=== PATIENT | male | born 1980 | race Caucasian/White ===

== ENCOUNTER 2022-05-30 13:20 | Outpatient (CLI) | payer BC, SELFPAY ==
--- OUTSIDE RECORDS SUMMARY | 2022-05-30 13:39 | XMS_ITS ---
:1980 Author Care Team Providers Name Role Phone JENNIFER COLEY MD Primary Care Provider [phone] Allergies Code Code System Name Reaction Severity Status Onset NKDA ? Medications Name Status Start Date Stop Date ? ? calcium carb-D3-mag ox-zinc ox Active ? N ot available desvenlafaxine succinate ER 50 mg tablet,extended release 24 hr Completed ? 08/05/2020 TK 1 T PO ONCE D dextroamphetamine-amphetamine ER 20 mg 24hr capsule,extend relea se Active ? Not available TAKE 2 CAPSULES BY MOUTH EVERY DAY Flonase Allergy Relief Active ? Not avail able lysine Active ? Not available pentoxifylline ER 400 mg tablet,extended release Active ? Not available sildenafil 100 mg tablet Active ? Not satinder ilable Take 1 tablet every day by oral route. tadalafil 20 mg tablet Active ? Not avail able Take 1 tablet every day by oral route. Problems None recorded. Procedures Date Name Performed by ? ? Orthopedic Surgery Information not avai lable Notes: foot ? Reversal of Vasectomy Information not av ailable ? Vasectomy Information not avai lable Results Lab Results None recorded. Past Encounters None recorded. Social History Tobacco Smoking Status Never Smoker Vaccine List None recorded. Plan of Care Reminders Provider Appointments None recorded. ? ? Lab None recorded. ? ? Referral None recorded. ? ? Procedures None recorded. ? ? Surgeries None recorded. ? ? Imaging None recorded. ? ? Vitals 10/28/2020 10:10AM ESTABLISHED 10 Height Weight BMI 6 ft 1 in 250 lbs 33 kg/m2 08/05/2020 01:50PM NEW PATIENT 20 Height Weight BMI 6 ft 1 in 250 lbs 33 kg/m2
--- OUTSIDE RECORDS SUMMARY | 2022-05-30 13:40 | XMS_ITS | Encounter Summary ---
:1980 Author Organization [facility] Address [address] [place] [address]. [place] [address] Care Team Providers Name Role Phone Brianna Cortes MD Primary Care Provider Reason for Referral Referral not Required - Closed Specialty Diagnoses / Procedures Referred By Contact Refer red To Contact Diagnoses Sprain of back Brianna Cortes MD [facility] [address] [address] [place] [address] Phone: [phone] Referral ID Status Reason Start Date Expiration Date Visits Requ ested Visits Authorized [id number] Closed 11/10/2012 05/09/2013 1 1 Reason for Visit Reason Comments Allergies Encounter Details Date Type Department Care Team Description 11/10/2012 Office Visit [facility] Brianna Cortes MD Rhinitis (Primary Dx); Clinic [facility] Sprain of back [id number] [address] [place] [address] Social History Tobacco Use Types Packs/Day Years Used Date Smoking Tobacco: Never Smokeless Tobacco: Never Alcohol Use Standard Drinks/Week Comments Yes 0 (1 standard drink = 0.6 oz pure alcoho l) 1 beer every two weeks or so Sex Assigned at Date Recorded Not on file documented as of this encounter Last Filed Vital Signs Vital Sign Reading Time Taken Comments Blood Pressure 118/74 11/10/2012 12:11 PM CDT Pulse 78 11/10/2012 12:11 PM CDT Temperature 37 ??C (98.6 ??F) 11/10/2012 12:11 PM CDT Respiratory Rate - - Oxygen Saturation 99% 11/10/2012 12:11 PM CDT Inhaled Oxygen Concentration - - Weight 105.2 kg (232 lb) 11/10/2012 12:11 PM CDT Height 182.9 cm (6') 11/10/2012 12:11 PM CDT Body Mass Index 31.46 11/10/2012 12:11 PM CDT documented in this encounter Patient Instructions Patient InstructionsWBrianna french MD - 11/10/2012 12:34 PM CDT Use nasal spray as given Add over the counter jesús, claritin or zyrtec as directed Ok to use sudaphed as needed No need to use antibiotics Follow up in 2-3 weeks if still issues or sooner with any worsening Thanks Brianna Cortes MD documented in this encounter Progress Notes Brianna Cortes MD - 11/10/2012 12:13 PM CDT SUBJECTIVE: Bhavik Jeffery is a 32 year old male who presents to clinic today for the following health issues: Patient is here with concerns about allergies ALLERGIES ?? Duration: ongoing, worse as of late-last couple weeks ?? Description: Nasal congestion: YES Sneezing: YES- some Red, itchy eyes: no ?? Accompanying signs and symptoms: throat issues with postnasal drip and throat clearing, some coughing, (dry) ?? History (similar episodes/allergy testing): HX of allergies ?? Precipitating or alleviating factors: None ?? Therapies tried and outcome: Jesús -helping with symptoms PROBLEMS TO ADD ON... Upper back strain Off and on pain for a while Moving certain way brings this on Not making up from sleep due to this Not associated with chest pain, neck pain, jaw pain, shortness of breath No other respiratory symptoms with this Patient is seeing chiropractor currently-with some relief Denies any shoulder or arm pain. Problem list and histories reviewed & adjusted, as indicated. Additional history: as documented ROS: See history of present illness, past medical history and rest is negative Problem list, Medication list, Allergies, and Medical/Social/Surgical histories reviewed in [facility] andupdated as appropriate. OBJECTIVE: BP 118/74 Pulse 78 Temp 98.6 ??F (37 ??C) (Oral) Ht 6' (1.829 m) Wt 232 lb (105.235 kg) BMI 31.47 kg/m2 SpO2 99% Body mass index is 31.47 kg/(m^2). GENERAL: healthy, alert, well nourished, well hydrated, no distress HENT: ear canals- normal; TMs- normal; Nose- with mild congestion with clear drainage; Mouth- no ulcers, no lesions Face: No sinus tenderness NECK: no tenderness, no adenopathy, no asymmetry, no masses, no stiffness; thyroid- normal to palpation, no spinal vertebral tenderness Thoracic spine: Nontender Bilateral scapula and shoulders: Nontender, range of motion intact RESP: lungs clear to auscultation - no rales, no rhonchi, no wheezes, positive for spasms around paraspinal muscular area around thoracic spine-patient feels at times also strain around the neck area-none noted today CV: regular rates and rhythm, normal S1 S2, no S3 or S4 and no murmur, no click or rub - Diagnostic test results: none ASSESSMENT/PLAN: 472.0 Rhinitis (primary encounter diagnosis) Comment: Plan: fluticasone (FLONASE) 50 MCG/ACT nasal spray 847.9 Sprain of back Comment: We discussed options of management Usage of ekg and cxr reviewed-due to nature of his exam I suspect this is musculoskeletal in nature-pt agrees to hold off ekg and cxr Plan: OBED PT, HAND, AND CHIROPRACTIC REFERRAL In the absence of spinal vertebral tenderness-no need to do x-ray Patient will do physical therapy And update me after doing this See Patient Instructions reports that he has never smoked. He has never used smokeless tobacco. Estimated Body mass index is 31.47 kg/(m^2) as calculated from the following: Height as of this encounter: 6' 0(1.829 m). Weight as of this encounter: 232 lb(105.235 kg). Brianna Cortes MD, MD [facility] Patient Instructions Use nasal spray as given Add over the counter jesús, claritin or zyrtec as directed Ok to use sudaphed as needed No need to use antibiotics Follow up in 2-3 weeks if still issues or sooner with any worsening Thanks Brianna Cortes MD documented in this encounter Nursing Notes 11/10/2012 12:00 PM CDT >> BERNARDO NICHOLS Mon November 10, 2012 12:15 PM Patient presents with: Allergies Initial BP 118/74 Pulse 78 Temp 98.6 ??F (37 ??C) (Oral) Ht 6' (1.829 m) Wt 232 lb (105.235 kg) BMI 31.47 kg/m2 SpO2 99% Estimated Body mass index is 31.47 kg/(m^2) as calculated from the following: Height as of this encounter: 6' 0(1.829 m). Weight as of this encounter: 232 lb(105.235 kg). BP completed using cuff size: barb Nichols ROOFING SALES REPRESENTATIVE documented in this encounter Plan of Treatment Scheduled Referrals Name Type Priority Associated Diagnoses Order S chedule OBED PT, HAND, AND Referral Routine Sprain of back Ordered: 11/10/2012 CHIROPRACTIC REFERRAL documented as of this encounter Visit Diagnoses Diagnosis Rhinitis - Primary Chronic rhinitis Sprain of back Sprain of unspecified site of back documented in this encounter Care Teams Alpaca Farmer Relationship Specialty Start Date End Date Brianna Cortes MD PCP - General 03/05/08 01/03/[address] [address] documented as of this encounter
--- OUTSIDE RECORDS SUMMARY | 2022-05-30 13:40 | XMS_ITS | Encounter Summary ---
:1980 Author Organization [facility] Address [address] [place] [address]. [place] [address] Care Team Providers Name Role Phone Oneida Goodman APRN EDGE RUNNER Primary Care Provider [phone] Encounter Details Date Type Department Care Team Description 12/24/2016 Orders Only [facility] Scr een for STD (sexually [facility] transmitted disease) [address] [place] [address] Social History Tobacco Use Types Packs/Day Years Used Date Smoking Tobacco: Never Smokeless Tobacco: Never Alcohol Use Standard Drinks/Week Comments Yes 0 (1 standard drink = 0.6 oz pure alcoho l) 1 beer every two weeks or so Sex Assigned at Date Recorded Not on file documented as of this encounter Plan of Treatment Not on filedocumented as of this encounter Procedures Procedure Name Priority Date/Time Associated Diagnosis Comme nts HERPES SIMPLEX Routine 12/24/2016 4:34 PM Screen for STD Resul ts for this VIRUS TYPE 1 AND 2 CDT (sexually procedure are in IGG transmitted disease) the res ults section. documented in this encounter Results Herpes Simplex Virus 1 and 2 IgG (12/24/2016 4:34 PM CDT) Component Value Ref Test Analysis Performed At [facility] Range Method Time Signature Herpes <0.2 0.0 - [facility] Simplex Virus No HSV-1 IgG antibodies detected. 0.8 AI [place] [facility] Type 1 IgG Antibody index (AI) values reflect qualitative changes in antibody [facility] concentration that cannot be directly associated with clinical condition or CAMP[facility] disease state. Herpes <0.2 0.0 - [facility] Sim[facility] Virus No HSV-2 IgG antibodies detected. 0.8 AI [place] [facility] Type 2 IgG Antibody index (AI) values reflect qualitative changes in antibody [facility] concentration that cannot be directly associated with clinical condition or CAMPUS disease state. Specimen Anatomical Collection Method Collection Time Receive d Time (Source) Location / / Volume Laterality Blood specimen 12/24/2016 4:34 PM 017 4:39 (specimen) CDT PM CDT Karla Breen NP LAB - BLOOD ORDERABLES Performing Organization Address City/State/[facility] Code Phon e Number [facility] [address] [place], [place] [phone] [place] [address] documented in this encounter Visit Diagnoses Diagnosis Screen for STD (sexually transmitted dis ease) Screening examination for venereal disea se documented in this encounter Care Teams Assisted Living Nursing Director Relationship Specialty Start Date End Date Oneida Goodman, PCP - General Nurse Practitioner - Family 12/2301/22/17 CERTIFIED NURSE PRACTITIONER EDGE RUNNER documented as of this encounter
--- OUTSIDE RECORDS SUMMARY | 2022-05-30 13:40 | XMS_ITS | Encounter Summary ---
:1980 Author Organization [facility] Address [address] [place] [address]. [place] [address] Care Team Providers Name Role Phone Brianna Cortes MD Primary Care Provider Reason for Visit OBED Physical Therapy (Routine) - Closed Specialty Diagnoses / Procedures Referred By Contact Refer red To Contact Brianna Cortes MD [facility] Physical Therapy - [address] [place] [phone] [place] [address] Phone: Fax: Referral ID Status Reason Start Date Expiration Date Visits V isits Requested Authorized OBED/CIGNA/BACK Closed 11/12/2012 06/23/2013 20 20 Encounter Details Date Type Department Care Team Description 11/20/2012 Therapy Visit [facility] Ephraim Thomson Cervi calgia (Primary Dx); Rehabilitation Services PT Pain in thoracic spine [address] [place] [address] [place] [place] [address] [place] [phone] [address] Social History Tobacco Use Types Packs/Day Years Used Date Smoking Tobacco: Never Smokeless Tobacco: Never Alcohol Use Standard Drinks/Week Comments Yes 0 (1 standard drink = 0.6 oz pure alcoho l) 1 beer every two weeks or so Sex Assigned at Date Recorded Not on file documented as of this encounter Progress Notes Sindy Murphy - 11/20/2012 9:56 AM CDT Subjective: Medical allergies: no. Other surgeries include: Other (Lasik). Current medications: Other (adderal,fish oil, llyseine, vitamins). 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 Patient is working in normal job without restrictions. Primary job tasks include: Prolonged sitting, repetitive tasks and other (flying). Barriers include: None as reported by patient. Objective: System Physical Exam General ROS Assessment/Plan: Please refer to the daily flowsheet for treatment today, total treatment time and time spent performing 1:1 timed codes. Ephraim Thomson, PT - 11/20/2012 9:28 AM CDT Subjective: Pt describes intermittent interscapular pain. Began insidiously about 18 months ago. . Patient reports pain: Mid thoracic and upper thoracic. Radiates to: bilat shoulder blades. Pain is described as burning and aching and is intermittent and reported as 4/10. Pain is worse in the P.M.. Symptoms are exacerbated by sitting and driving (Bending over, computer work, lifting with arms) Relieved by: Lying down, sitting up straight. Since onset symptoms are unchanged. Special tests: X- ray (Normal). Previous treatment includes chiropractic (x 1 year- no better). General health as reported by patient is good. Objective: Standing Alignment: Cervical/Thoracic: Forward head Flexibility/Screens: Positive screens: CervicalNegative screens: Thoracic or Shoulder Cervical/Thoracic Evaluation Arom wnl cervical: Retraction slightly limited with no effect on sxs. Thoracic AROM: normal AROM: AROM Cervical: Flexion: Full with increased pain Extension: Full with decreased pain Rotation: Left: Slight loss Right: Full Side Bend: Left: Mod loss Right: Full Headaches: none Cervical Myotomes: normal Cervical Palpation: normal General ROS Assessment/Plan: Patient is a 32 year old male with cervical complaints. Patient has the following significant findings with corresponding treatment plan. Diagnosis 1: Cervical derangement Pain - self management, education, directional preference exerciseand home program Decreased ROM/flexibility - manual therapy, therapeutic exercise and home program Previous and current functional limitations: (See Goal Flow Sheet for this information) Short term and snf goals: (See Goal Flow Sheet for this information) Communication ability: Patient appears to be able to clearly communicate and understand verbal and written communication and follow directions correctly. Treatment Explanation - The following has been discussed with the patient: RX ordered/plan of care Anticipated outcomes Possible risks and side effects This patient would benefit from PT intervention to resume normal activities. Rehab potential is good. Frequency: 1 X week, once daily Duration: for 4 weeks Discharge Plan: Achieve all LTG. Independent in home treatment program. Reach maximal therapeutic benefit. Please refer to the daily flowsheet for treatment today, total treatment time and time spent performing 1:1 timed codes. documented in this encounter Plan of Treatment Not on filedocumented as of this encounter Procedures Procedure Name Priority Date/Time Associated Diagnosis Comme [facility] THERAPEUTIC Routine 11/20/2012 9:48 AM Cervicalgia EXERCISES CDT Pain in thoracic spine documented in this encounter Visit Diagnoses Diagnosis Cervicalgia - Primary Pain in thoracic spine documented in this encounter Care Teams Special Projects Coordinator Relationship Specialty Start Date End Date Brianna Cortes MD PCP - General 03/05/08 01/03/[address] [address] documented as of this encounter
--- OUTSIDE RECORDS SUMMARY | 2022-05-30 13:40 | XMS_ITS | Encounter Summary ---
:1980 Author Organization [facility] Address [address] [place] [address]. [place] [address] Care Team Providers Name Role Phone Brianna Cortes MD Primary Care Provider Reason for Visit Reason Comments Ear Problem left ear - pain - no cold sy mptoms - started a week ago Encounter Details Date Type Department Care Team Description 06/02/2013 Office Visit [facility] Robert-Jitendra, Acute foreign body of ear canal, left, initial encounter (Primary Dx); [facility] Susan Casillas PA-C Need for prophylactic vaccination and in oculation against influenza [address] [place] [id number] [phone] Social History Tobacco Use Types Packs/Day Years Used Date Smoking Tobacco: Never Smokeless Tobacco: Never Alcohol Use Standard Drinks/Week Comments Yes 0 (1 standard drink = 0.6 oz pure alcoho l) 1 beer every two weeks or so Sex Assigned at Date Recorded Not on file documented as of this encounter Last Filed Vital Signs Vital Sign Reading Time Taken Comments Blood Pressure 120/78 06/02/2013 2:31 PM RISK CONTROL FIELD REPRESENTATIVE Pulse 97 06/02/2013 2:31 PM RISK CONTROL FIELD REPRESENTATIVE Temperature 37 ??C (98.6 ??F) 06/02/2013 2:31 PM RISK CONTROL FIELD REPRESENTATIVE Respiratory Rate - - Oxygen Saturation 98% 06/02/2013 2:31 PM RISK CONTROL FIELD REPRESENTATIVE Inhaled Oxygen Concentration - - Weight 107.9 kg (237 lb 12.8 oz) 06/02/2013 2:31 PM RISK CONTROL FIELD REPRESENTATIVE Height 182.9 cm (6') 06/02/2013 2:31 PM RISK CONTROL FIELD REPRESENTATIVE Body Mass Index 32.25 06/02/2013 2:31 PM RISK CONTROL FIELD REPRESENTATIVE documented in this encounter Progress Notes Jenny Johnson - 06/02/2013 3:30 PM CST Injectable Influenza Immunization Documentation 1. Is the person to be vaccinated sick today? No 2. Does the person to be vaccinated have an allergy to eggs or to a component of the vaccine? No 3. Has the person to be vaccinated today ever had a serious reaction to influenza vaccine in the past? No 4. Has the person to be vaccinated ever had Guillain-[place] syndrome? No Form completed by patient Form reviewed by jenny CONTROL FIELD REPRESENTATIVE Susan Yin PA-C - 06/02/2013 2:33 PM CST SUBJECTIVE: Bhavik Jeffery is a 32 year old male who presents to clinic today for the following health issues: Feels like there is something in left ear No fever uri symptoms or actual pain. Did get his hair cut Problem list and histories reviewed & adjusted, as indicated. Additional history: as documented Patient Active Problem List Diagnosis ??? Attention Deficit Disorder of Adult ??? Allergic state ??? CARDIOVASCULAR SCREENING; LDL GOAL LESS THAN 160 ??? Family history of coronary artery disease ??? Low HDL (under 40) ??? Obesity ??? Cervicalgia ??? Pain in thoracic spine Past Surgical History Procedure Date ??? Tonsillectomy 2005 ??? Cl aff surgical pathology ??? Vasectomy 2004 reversal done in 2007-going for another reversal in near future ??? Vasectomy 2012 reversal 2 cd reversal History Substance Use Topics ??? Smoking status: Never Smoker ??? Smokeless tobacco: Never Used ??? Alcohol Use: Yes Comment: 1 beer every two weeks or so Family History Problem Relation Age of Onset ??? Family History Negative Mother parents are both alive and healthy ??? Obesity Father ??? Heart Father 60 quintuple bypass ??? Diabetes Maternal Grandfather due to weight ??? Obesity Maternal Grandfather ??? Stroke Paternal Grandmother ??? Heart Paternal Grandfather bypass-several times-first one at 60 ??? Family History Negative Sister ??? Family History Negative Brother ??? Colon CA Maternal Uncle diagnosed in his 50's ??? Prostatic CA No family hx of ROS: Constitutional, HEENT, cardiovascular, pulmonary, gi and gu systems are negative, except as otherwise noted. OBJECTIVE: BP 120/78 Pulse 97 Temp 98.6 ??F (37 ??C) (Oral) Ht 6' (1.829 m) Wt 237 lb 12.8 oz (107.865 kg) BMI 32.25 kg/m2 SpO2 98% Body mass index is 32.25 kg/(m^2). GENERAL APPEARANCE: healthy, alert and no distress HENT: nose and mouth without ulcers or lesions Left ear canal had a hair embedded and was easily removed RESP: lungs clear to auscultation - no rales, rhonchi or wheezes CV: regular rates and rhythm, normal S1 S2, no S3 or S4 and no murmur, click or rub ASSESSMENT/PLAN: 931 Acute foreign body of ear canal, left, initial encounter (primary encounter diagnosis) Comment: Plan: hair inside left ear canal and easily removed with tweezer V04.81 Need for prophylactic vaccination and inoculation against influenza Comment: Plan: FLU VAC, SPLIT VIRUS IM > 3 YO (QUADRIVALENT) [96635], Seasonal Injectionable Immunization Administration [61213] See Patient Instructions Susan Yin PA-C, [facility] CONTROL FIELD REPRESENTATIVE documented in this encounter Plan of Treatment Not on filedocumented as of this encounter Visit Diagnoses Diagnosis Acute foreign body of ear canal, left, i nitial encounter - Primary Need for prophylactic vaccination and in oculation against influenza documented in this encounter Care Teams Chemical Compounder Relationship Specialty Start Date End Date Brianna Cortes MD PCP - General 03/05/08 01/03/[address] [address] documented as of this encounter
--- OUTSIDE RECORDS SUMMARY | 2022-05-30 13:40 | XMS_ITS | Encounter Summary ---
:1980 Author Organization [facility] Address [address] [place] [address]. [place] [address] Care Team Providers Name Role Phone Brianna Cortes MD Primary Care Provider Encounter Details Date Type Department Care Team Description 11/02/2013 Radiant Appointment [facility] Brianna Cortes MD Pain in left wrist [address] [address] [place], [place] [phone] [id number] Social History Tobacco Use Types Packs/Day Years [...] Name Priority Date/Time Associated Diagnosis Comme nts XR WRIST LEFT G/E 3 Routine 11/02/2013 9:55 AM Pain in left wr ist Results for this VIEWS CDT procedure are i n the results section. documented in this encounter Results XR Wrist Left G/E 3 Views (11/02/2013 9:55 AM CDT) Anatomical Region Laterality Modality Left Wrist Left Computed Radiography Specimen (Source) Anatomical Location Collection Method / Collectio n Time Received Time / Laterality Volume Impressions 11/02/2013 10:10 AM CDT IMPRESSION: Negative. JONNIE NASH MD Narrative 11/02/2013 10:10 AM CDT XR WRIST LEFT G/E 3 VIEWS 11/02/2013 10:09 AM HISTORY: Pain in joint, forearm ? Procedure Note Jonnie Nash MD - 11/02/2013Formatt ing of this note might be different from the original. XR WRIST LEFT G/E 3 VIEWS 11/02/2013 10:0 9 AM HISTORY: Pain in joint, forearm IMPRESSION IMPRESSION: Negative. JONNIE NASH MD Brianna Cortes MD IMG DIAGNOSTIC IMAGING ORDER GORAN documented in this encounter Visit Diagnoses Diagnosis Pain in left wrist Pain in joint, forearm documented in this encounter Care Teams Felt Hat Steamer Relationship Specialty Start Date End Date Brianna Cortes MD PCP - General 03/05/08 01/03/[address] [address] documented as of this encounter
--- OUTSIDE RECORDS SUMMARY | 2022-05-30 13:40 | XMS_ITS | Encounter Summary ---
:1980 Author Organization [facility] Address [address] [place] [address]. [place] [address] Care Team Providers Name Role Phone Susan Yin PA-C Primary Care Provider [phone] Susan Yin PA-C Unavailable Susan Yin PA-C Unavailable Encounter Details Date Type Department Care Team Description 04/15/2018 Orders Only [facility] Scr eening for disorder of blood and blood-forming organs; [facility] Lipid screening; [address] [place] [address] Screening for thyroid disord er; [place] [address] Erectile dysfunction, unspec ified erectile dysfunction type [phone] Social History Tobacco Use Types Packs/Day Years Used Date Smoking Tobacco: Never Smokeless Tobacco: Never Alcohol Use Standard Drinks/Week Comments Yes 0 (1 standard drink = 0.6 oz pure alcoho l) 1 beer every two weeks or so Sex Assigned at Date Recorded Not on file documented as of this encounter Progress Notes Susan Yin PA-C - 05/06/2018 9:32 AM CST Dear Bhavik, It was a pleasure to see you at your recent visit. Patient Active Problem List: Attention deficit disorder of adult Allergic state Family history of coronary artery disease Low HDL (under 40) Obesity Cervicalgia Pain in thoracic spine The results of your recent total cholesterol test were within normal limits. Your total cholesterol should be less than 200. The primary goal of therapy is the LDL or bad cholesterol. Your LDL level was within normal limits. Your LDL goal based on risk factors (i.e. smoking, family history, high blood pressure, low HDL cholesterol) and age is 160. Your HDL, or good cholesterol is normal. Your goal is an HDL level above 40 if you are male and 50if you are female Triglycerides are another cholesterol component that is associated with heart disease. Normal triglycerides are less than 150. Your triglyceride level is normal. I would recommend: no changes in current regimen and repeat fasting lipids and liver tests in 12 months. Testosterone was within normal limits The rest of your labs are within acceptable limits : Results for orders placed or performed in visit on 04/15/18 -CBC with platelets Result Value Ref Range WBC 5.0 4.0 - 11.0 10e9/L RBC Count 5.06 4.4 - 5.9 10e12/L Hemoglobin 15.3 13.3 - 17.7 g/dL Hematocrit 43.5 40.0 - 53.0 % MCV 86 78 - 100 fl MCH 30.2 26.5 - 33.0 pg MCHC 35.2 31.5 - 36.5 g/dL RDW 12.8 10.0 - 15.0 % Platelet Count 174 150 - 450 10e9/L -Comprehensive metabolic panel Result Value Ref Range Sodium 139 133 - 144 mmol/L Potassium 4.3 3.4 - 5.3 mmol/L Chloride 105 94 - 109 mmol/L Carbon Dioxide 29 20 - 32 mmol/L Anion Gap 5 3 - 14 mmol/L Glucose 94 70 - 99 mg/dL Urea Nitrogen 7 7 - 30 mg/dL Creatinine 0.86 0.66 - 1.25 mg/dL GFR Estimate >90 >60 mL/min/1.7m2 GFR Estimate If Black >90 >60 mL/min/1.7m2 Calcium 9.2 8.5 - 10.1 mg/dL Bilirubin Total 0.6 0.2 - 1.3 mg/dL Albumin 4.1 3.4 - 5.0 g/dL Protein Total 7.6 6.8 - 8.8 g/dL Alkaline Phosphatase 71 40 - 150 U/L ALT 49 0 - 70 U/L AST 31 0 - 45 U/L -Lipid panel reflex to direct LDL Fasting Result Value Ref Range Cholesterol 161 <200 mg/dL Triglycerides 96 <150 mg/dL HDL Cholesterol 54 >39 mg/dL LDL Cholesterol Calculated 88 <100 mg/dL Non HDL Cholesterol 107 <130 mg/dL -Testosterone Free and Total Result Value Ref Range Testosterone Total 371 240 - 950 ng/dL Sex Hormone Binding Globulin 30 11 - 80 nmol/L Free Testosterone Calculated 7.89 4.7 - 24.4 ng/dL Thank you for choosing [facility]. We appreciate the opportunity to serve you and look forward to supporting your healthcare needs in the future. If you have any questions or concerns, please contact us at Sincerely, Susan Yin PA-C TEST DESCRIPTIONS CBC (Complete Blood Coun t) includes hemoglobin, hematocrit, white blood cells, etc. This test can be used to detect anemia, infection, and abnormalities in blood cells. Cholesterol is one of the blood fats (lipids) and is the building block used by the body for cell wall and hormone production. Increased levels of cholesterol have been proven to directly contribute to heartdisease and strokes. Triglycerides are one of the blood fats (lipids) and are thought to be associated with heart disease. If you have had anything to eat or drink other than water for 12 hours before the test and your level is high, you should have the test repeated after a 12 hour fast. Abnormally high results may also be associated with diabetes, kidney and liver diseases. LDL is the low density l ipoprotein component of the cholesterol. It is the harmful substance that deposits cholesterol on the artery sellers contributing to heart attacks and strokes. A high LDL level is associated with higher risk of coronary heart disease. HDL stands for high density lipoprotein and refers to the so-called good cholesterol. HDL picks up excess cholesterolin the bloodstream and carries it back to the liver for disposal. Individuals with higher than average HDL seem to have a lower risk of coronary disease. Vigorous exercise will help increase the blood levels of HDL. Risk Factor (Total cholesterol/HDL) is a commonly used ratio for cardiac risk assessment. Less than 5.0 for men and 4.4 for women is ideal. Sodium is an electrolyte useful in diagnosis of dehydration, diabetes, hypertension, or other diseases involving electrolyte imbalance. It also preserves the balance between calcium and potassium to maintain normal heart action and equilibrium of the body. Potassium is also an electrolyte that work s with sodium to regulate the body's water balance and normalize heart rhythm. Glucose is a measure of blood sugar and is one of the tests for diabetes. If you have not been fasting, your level will often be high. A low glucose level may be a cause of weakness or dizziness. Blood sugar ranks with cholesterol as a causative factor in arteriosclerosis and heart attacks. BUN & Creatinine are waste products excreted by the kidneys. A high BUN can be related to a highprotein diet, heavy exercise, fever and infections, dehydration, kidney stones, and kidney disease. Creatinine elevation is less dependent on diet or exercise and better represents kidney impairment. Low values are not generally significant. Calcium is a mineral in the blood controlled b y the parathyroid glands and kidneys. It is important in the formation of bone, in muscle and nerve function, and in blood clotting. Disease of the parathyroid gland, diseased bones or kidneys, or defective absorption of calcium may cause abnormal levels from the intestine. ALT, AST, Alk Phos are liver tests. Enzymes found in the liver as well as skeletal and cardiac muscle. Elevations can often be seen in alcoholism, liver or heart disease. Slightly abnormal values are not considered significant. T SH stands for Thyroid Stimulating Hormone. A sensitive test used to determine how the thyroid gland is functioning. The thyroid gland produces hormones that control the body's metabolism. When too few hormones are produced (increased TSH), hypothyroidism occurs which can cause fatigue, sensitivity to cold, and weight gain - an overall slowing down of bodily functions. When too many thyroid hormones are produces (or decreased TSH), it creates a condition call hyperthyroidism (such as Graves' disease) whi ch causes rapid heartbeat, weight loss, and dizziness, among other symptoms. PSA stands for Prostate Specific Antigen. Elevated levels of PSA can increase with trauma, infection, inflammation, or disease processes in the prostate such as BPH (Benigh Pr ostatic Hypertrophy) or cancer. Glycohemoglobin or HgBA1C is a 3-month average of blood sugar. ALOMETRIC TRACER documented in this encounter Plan of Treatment Not on filedocumented as of this encounter Procedures Procedure Name Priority Date/Time Associated Comments Diagnosis TESTOSTERONE FREE AND Routine 04/15/2018 8:19 AM Erectile Results for this TOTAL CDT dysfunction, procedure are i n unspecified the results erectile section. dysfunction type LIPID REFLEX TO DIRECT Routine 04/15/2018 8:19 AM Screening fo r Results for this LDL PANEL CDT thyroid disorder procedure a re in the results section. COMPREHENSIVE Routine 04/15/2018 8:19 AM Lipid screening Resul ts for this METABOLIC PANEL CDT procedure ar e in the results section. CBC WITH PLATELETS Routine 04/15/2018 8:19 AM Screening for Re sults for this CDT disorder of blood procedure are in and blood-forming the result s organs section. documented in this encounter Results Testosterone Free and Total (04/15/2018 8:19 AM CDT) Analysis Performed At Patho logist Time Signature Testosterone 371 240 - 950 04/19/2018 [facility] ng/dL 3:15 PM CDT [facility] Comment: This test was developed and its performa nce characteristics determined by the [facility], ??Special Chemistry Laboratory. It has not been cleared or approved by the FDA. The laboratory is regulated under CLIA as qualified to perform high-comple xity testing. This test is used for clinical purposes. It should not be rega rded as investigational or for research. Sex Hormone Binding 30 11 - 80 nmol/L 04/15/2018 9:22 PM [facility] Globulin [facility] Free Testosterone 7.89 4.7 - 24.4 ng/dL 04/19/2018 3:15 PM [facility] Calculated [facility] Specimen Anatomical Collection Method Collection Time Receive d Time (Source) Location / / Volume Laterality Blood specimen 04/15/2018 8:19 AM 018 8:20 (specimen) CDT AM CDT Susan Yin PA-C LAB - BLOOD ORDERABLES Performing Organization Address City/State/ZIP Code Phon e Number [facility] [address] [place], [place] [id number] [place] [address] Lipid panel reflex to direct LDL Fasting (04/15/2018 8:19 AM CDT) P athologist Signature Cholesterol 161 <200 mg/dL 04/15/2018 [facility] 1:39 PM CDT [facility] Triglycerides 96 <150 mg/dL 04/15/2018 [facility] 1:39 PM CDT [facility] Comment: Fasting specimen HDL Cholesterol 54 >39 mg/dL 04/15/2018 1:39 PM CDT F [facility] LDL Cholesterol 88 <100 mg/dL 04/15/2018 1:39 PM CDT [facility] Calculated [facility] Comment: Desirable: <100 mg/dl Non HDL Cholesterol 107 <130 mg/dL 04/15/2018 1:[address] [facility] Specimen Anatomical Collection Method Collection Time Receive d Time (Source) Location / / Volume Laterality Blood specimen 04/15/2018 8:19 AM 018 8:20 (specimen) CDT AM CDT Susan Yin PA-C LAB - BLOOD ORDERABLES Performing Organization Address City/State/ZIP Code Phon e Number [facility] [address] [place] [address] Comprehensive metabolic panel (04/15/2018 8:19 AM CDT) athologist Signature Sodium 139 133 - 144 04/15/2018 [facility] mmol/L 1:39 PM CDT [facility] Potassium 4.3 3.4 - 5.3 04/15/2018 [facility] mmol/L 1:39 PM CDT [facility] Chloride 105 94 - 109 04/15/2018 [facility] mmol/L 1:39 PM T [facility] Carbon Dioxide 29 20 - 32 04/15/2018 [facility] mmol/L 1:39 PM T [facility] Anion Gap 5 3 - 14 04/15/2018 [facility] mmol/L 1:39 PM T [facility] Glucose 94 70 - 99 04/15/2018 [facility] mg/dL 1:39 PM T [facility] Comment: Fasting specimen Urea Nitrogen 7 7 - 30 mg/dL 04/15/2018 1:[address] [facility] Creatinine 0.86 0.66 - 1.25 mg/dL 04/15/2018 1:[address] [facility] GFR Estimate >90 >60 mL/min/1.7m2 04/15/2018 1:[address] [facility] Comment: Non GFR Calc GFR Estimate If >90 >60 mL/min/1.7m2 04/15/2018 1:39 P M [facility] Black T [facility] Comment: GFR Calc Calcium 9.2 8.5 - 10.1 04/15/2018 1:39 PM [facility] mg/dL T [facility] Bilirubin Total 0.6 0.2 - 1.3 mg/dL 04/15/2018 1:39 PM [facility] Albumin 4.1 3.4 - 5.0 g/dL 04/15/2018 1:39 PM [facility] Protein Total 7.6 6.8 - 8.8 g/dL 04/15/2018 1:[address] [facility] Alkaline Phosphatase 71 40 - 150 U/L 04/15/2018 1:39 PM [facility] ALT 49 0 - 70 U/L 04/15/2018 1:39 PM [facility] T [facility] AST 31 0 - 45 U/L 04/15/2018 1:39 PM [facility] T [facility] Specimen Anatomical Collection Method Collection Time Receive d Time (Source) Location / / Volume Laterality Blood specimen 04/15/2018 8:19 AM 018 8:20 (specimen) CDT AM CDT Susan Yin PA-C LAB - BLOOD ORDERABLES Performing Organization Address City/State/ZIP Code Phon e Number [facility] [address] [place] [address] CBC with platelets (04/15/2018 8:19 AM CDT) athologist Signature WBC 5.0 4.0 - 11.0 04/15/2018 [facility] 10e9/L 10:25 AM T [facility] RBC Count 5.06 4.4 - 5.9 04/15/2018 [facility] 10e12/L 10:25 AM [facility] Hemoglobin 15.3 13.3 - 04/15/2018 [facility] 17.7 g/dL 10:25 AM T [facility] Hematocrit 43.5 40.0 - 04/15/2018 [facility] 53.0 % 10:25 AM CDT [facility] MCV 86 78 - 100 04/15/2018 [facility] fl 10:25 AM CDT [facility] MCH 30.2 26.5 - 04/15/2018 [facility] 33.0 pg 10:25 AM CDT [facility] MCHC 35.2 31.5 - 04/15/2018 [facility] 36.5 g/dL 10:25 AM CDT [facility] RDW 12.8 10.0 - 04/15/2018 [facility] 15.0 % 10:25 AM CDT [facility] Platelet Count 174 150 - 450 04/15/2018 [facility] 10e9/L 10:25 AM CDT [facility] Specimen Anatomical Collection Method Collection Time Receive d Time (Source) Location / / Volume Laterality Blood specimen 04/15/2018 8:19 AM 018 8:20 (specimen) CDT AM CDT Susan Yin PA-C LAB - BLOOD ORDERABLES Performing Organization Address City/State/[facility] Code Phon e Number [facility] [id number] [place] [address] documented in this encounter Visit Diagnoses Diagnosis Screening for disorder of blood and bloo d-forming organs Screening for unspecified disorder of bl ood and blood-forming organs Lipid screening Screening for lipoid disorders Screening for thyroid disorder Erectile dysfunction, unspecified erecti le dysfunction type documented in this encounter Care Teams Development Specialist Relationship Specialty Start Date End Date Susan Yin PCP - General Physician Link Wire Fabric Machine Operator 04/08/18 [facility] [address] [place] [address] Susan Yin PCP - Assigned PCP 04/20/18 08/26/18 [facility] [address] [address] [place] [address] Susan Yin Assigned PCP 04/20/1803/24 [facility] [address] [address] [place] [address] documented as of this encounter
--- OUTSIDE RECORDS SUMMARY | 2022-05-30 13:40 | XMS_ITS | Encounter Summary ---
:1980 Author Organization [facility] Address [address] [place] [address]. [place] [address] Care Team Providers Name Role Phone Brianna Cortes MD Primary Care Provider Reason for Visit OBED Physical Therapy (Routine) - Closed Specialty Diagnoses / Procedures Referred By Contact Refer red To Contact Brianna Cortes MD [facility] Physical Therapy - [address] [place], [place] [phone] [facility] [address] Phone: Fax: Referral ID Status Reason Start Date Expiration Date Visits V isits Requested Authorized OBED/CIGNA/BACK Closed 11/12/2012 06/23/2013 20 20 Encounter Details Date Type Department Care Team Description 11/27/2012 Therapy Visit [facility] Kelsi Castro P TA Cervicalgia (Primary Dx); Rehabilitation Services [address] in in thoracic spine [address] [phone] Social History Tobacco Use Types Packs/Day Years [...] Name Priority Date/Time Associated Diagnosis Comme nts ZC MANUAL THER Routine 11/27/2012 4:50 PM Cervicalgia TECH,1+REGIONS,EA 15 MIN CDT Pain in thoracic spine [facility] THERAPEUTIC Routine 11/27/2012 4:50 PM Cervicalgia EXERCISES CDT Pain in thoracic spine documented in this encounter Visit Diagnoses Diagnosis Cervicalgia - Primary Pain in thoracic spine documented in this encounter Care Teams Motel Keeper Relationship Specialty Start Date End Date Brianna Cortes MD PCP - General 03/05/08 01/03/[address] [address] documented as of this encounter
--- OUTSIDE RECORDS SUMMARY | 2022-05-30 13:40 | XMS_ITS | Encounter Summary ---
:1980 Author Organization [facility] Address [address] [place] [address]. [place] [address] Care Team Providers Name Role Phone Brianna Cortes MD Primary Care Provider Reason for Visit OBED Physical Therapy (Routine) - Closed Specialty Diagnoses / Procedures Referred By Contact Refer red To Contact Brianna Cortes MD [facility] Physical Therapy - [address] [place], [place] [phone] [place] [address] Phone: Fax: Referral ID Status Reason Start Date Expiration Date Visits V isits Requested Authorized OBED/CIGNA/BACK Closed 11/12/2012 06/23/2013 20 20 Encounter Details Date Type Department Care Team Description 12/03/2012 Therapy Visit [facility] Kelsi Castro P TA Cervicalgia (Primary Dx); Rehabilitation Services [address] in in thoracic spine [address] [phone] Social History Tobacco Use Types Packs/Day Years Used Date Smoking Tobacco: Never Smokeless Tobacco: Never Alcohol Use Standard Drinks/Week Comments Yes 0 (1 standard drink = 0.6 oz pure alcoho l) 1 beer every two weeks or so Sex Assigned at Date Recorded Not on file documented as of this encounter Progress Notes Kelsi Castro PTA - 01/26/2013 9:48 AM CDT Subjective: HPI Objective: System Physical Exam General ROS Assessment/Plan: DISCHARGE REPORT Progress reporting period is from 11/03/2012 to 12/03/2012. SUBJECTIVE Subjective changes noted by patient: States he has had less pain this week but he has not had as long of days at work. Ex are helpful but he has not been able to perform them as consistent as he should. Overall he is doing better. Current pain level is3/10. Previous pain level was 8/10 Changes in function: Yes (See Goal flowsheet attached for changes in current functional level) Adverse reaction to treatment or activity: None OBJECTIVE Changes noted in objective findings: Yes, L UT/ cervial pain with end range L rotation and B SB. Tendency to overuse his UT and weakness at LT ASSESSMENT/PLAN Updated problem list and treatment plan: Diagnosis 1: cervical Pain - manual therapy Decreased ROM/flexibility - manual therapy and therapeutic exercise Decreased strength - therapeutic exercise and therapeutic activities STG/LTGs have been met or progress has been made towards goals: Yes (See Goal flow sheet completed today.) Assessment of Progress: The patient's condition is improving. Self Management Plans: Patient has been instructed in self management of symptoms. Recommendations: This patient is ready to be discharged from therapy and continue their home treatment program. Please refer to the daily flowsheet for treatment today, total treatment time and time spent performing 1:1 timed codes. documented in this encounter Miscellaneous Notes Addendum Note - Ephraim Thomson, PT - 01/26/2013 3:57 PM CDT Addended by: EPHRAIM THOMSON on: 01/26/2013 03:57 PM Modules accepted: Orders documented in this encounter Plan of Treatment Not on filedocumented as of this encounter Procedures Procedure Name Priority Date/Time Associated Diagnosis Comme nts [facility] THERAPEUTIC Routine 12/03/2012 5:58 PM Cervicalgia ACTIVITIES CDT Pain in thoracic spine [facility] THERAPEUTIC Routine 12/03/2012 5:58 PM Cervicalgia EXERCISES CDT Pain in thoracic spine [facility] MANUAL THER Routine 12/03/2012 5:58 PM Cervicalgia TECH,1+REGIONS,EA 15 MIN CDT Pain in thoracic spine documented in this encounter Visit Diagnoses Diagnosis Cervicalgia - Primary Pain in thoracic spine documented in this encounter Care Teams Sales Compensation Analyst Relationship Specialty Start Date End Date Brianna Cortes MD PCP - General 03/05/08 01/03/15 [place] [address] documented as of this encounter
--- OUTSIDE RECORDS SUMMARY | 2022-05-30 13:40 | XMS_ITS | Encounter Summary ---
:1980 Author Organization [facility] Address [address] [place] [address]. [place] [address] Care Team Providers Name Role Phone Susan Yin PA-C Primary Care Provider Susan Yin PA-C Unavailable Susan Yin PA-C Unavailable [phone] Reason for Visit Reason Onset Date Comments Forms 05/22/2018 health summary Encounter Details Date Type Department Care Team Description 05/22/2018 Telephone [facility] Lisa Yin (health summary) [facility] [place] Susan Casillas PA-C [address] [phone] Social History Tobacco Use Types Packs/Day Years Used Date Smoking Tobacco: Never Smokeless Tobacco: Never Alcohol Use Standard Drinks/Week Comments Yes 0 (1 standard drink = 0.6 oz pure alcoho l) 1 beer every two weeks or so Sex Assigned at Date Recorded Not on file documented as of this encounter Miscellaneous Notes Telephone Encounter - MichaelNaomi Fortunato - 05/22/2018 1:05 PM CST Unable to leave message on voice mail. Emailed form to him to sign Form signed by PCP NEEDS to be signed by patient before I can fax. Copy sent to abundio. Naomi Rodriguez Test Engineering Manager OR INTERIOR DESIGNER Telephone Encounter - Naomi Rodriguez - 05/22/2018 12:40 PM CST Form received thru mychart. Form given to PCP to review and sign Patient needs to sign as well. INformed thru mychart Naomi Rodriguez Test Engineering Manager OR INTERIOR DESIGNER documented in this encounter Plan of Treatment Not on filedocumented as of this encounter Visit Diagnoses Not on filedocumented in this encounter Care Teams Compensation And Benefits Analyst Relationship Specialty Start Date End Date Susan Yin PCP - General Physician Finance Business Manager 04/08/18 [facility] [address] [place] [address] Susan Yin PCP - Assigned PCP 04/20/18 08/26/18 [facility] [address] [address] [place] [address] Susan Yin Assigned PCP 04/20/1803/24 [facility] [address] [address] [place] [address] documented as of this encounter
--- OUTSIDE RECORDS SUMMARY | 2022-05-30 13:40 | XMS_ITS | Clinical Summary ---
:1980 Author Organization [place] Address [address] [place] [address]. [place] [address] Care Team Providers Name Role Phone Susan Yin PA-C Primary Care Provider + [phone] Allergies No known active allergies Medications Medication Sig Dispensed Refills Start Date End Date Status amphetamine-dextroamph Take 2 capsules by 0 06/29/19 12 Active etamine (ADDERALL XR) mouth daily. 20 MG per capsuleIndications: Attention deficit disorder of adult naproxen (NAPROSYN) Take 1 tablet (500 30 tablet 1 04/08/2018 Active 500 MG mg) by mouth 2 tabletIndications: Hip times daily as pain, left needed for moderate pain amoxicillin (AMOXIL) 0 04/05/2022 Active 500 MG capsule emtricitabine-tenofovi Take 1 tablet by 0 03/29/2022 Active r (TRUVADA) 200-300 MG mouth daily per tablet Active Problems Problem Noted Date Cervicalgia 11/20/2012 Pain in thoracic spine 11/20/2012 Obesity 08/26/2012 Low HDL (under 40) 07/13/2011 Family history of coronary artery disease 07/03/2011 Attention deficit disorder of adult 08/25/2008 Allergic state 08/25/2008 Overview: (Problem list name updated by automated process. 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 TDAP Vaccine (Boostrix) 05/25/2011 Twinrix A/B 06/29/2011, 05/25/2011 Typhoid Oral 05/25/2011 Family History Medical History Relation Comments Family History Negative Brother 2 Heart Disease Father quintuple bypass Obesity Father Diabetes Maternal Grandfather due to weight Obesity Maternal Grandfather Cancer - colorectal Maternal Uncle diagnosed in his 50' s Family History Negative Mother parents are both alive and healthy Heart Disease Paternal Grandfather bypass-several time s-first one at 60 Cerebrovascular Disease Paternal Grandmother Family History Negative Sister 2 Prostate Cancer No family hx of Relation Status Comments Brother 1 Alive Brother 2 Daughter Alive Father Alive Maternal Grandfather Maternal Grandmother Alive Maternal Uncle Mother Alive Paternal Grandfather Paternal Grandmother Sister 1 Alive Sister 2 Son Alive Social History Tobacco Use Types Packs/Day Years Used Date Smoking Tobacco: Never Smokeless Tobacco: Never Alcohol Use Standard Drinks/Week Comments Yes 0 (1 standard drink = 0.6 oz pure alcoho l) 1 beer every two weeks or so Sex Assigned at Date Recorded Not on file Last Filed Vital Signs Vital Sign Reading Time Taken Comments Blood Pressure 129/79 04/05/2022 3:48 PM CDT Pulse 88 04/05/2022 3:48 PM CDT Temperature 36.7 ??C (98.1 ??F) 04/05/2022 3:48 PM CDT Respiratory Rate 18 04/05/2022 3:48 PM CDT Oxygen Saturation 100% 04/05/2022 3:48 PM CDT Inhaled Oxygen Concentration - - Weight 108.9 kg (240 lb) 04/08/2018 3:11 PM CDT Height 182.9 cm (6') 04/08/2018 3:11 PM CDT Body Mass Index 32.55 04/08/2018 3:11 PM CDT Plan of Treatment Health Maintenance Due Date Last Done Comments ADVANCE CARE PLANNING 1980 ANNUAL REVIEW OF HM ORDERS 1980 HIV SCREENING 1993 HEPATITIS C SCREENING 1996 YEARLY PREVENTIVE VISIT 04/08/2019 04/08/2018, 04/15/2015, 06/29/2011, Additional history exists PHQ-2 (once per calendar 06/24/2021 04/08/2018, 12/21/2016, year) 04/15/2015 COVID-19 Vaccine (4 - 08/30/2021 07/05/2021, 11/10/2020, Booster for Moderna series) 10/13/2020 INFLUENZA VACCINE (#1) 2022 03/29/2021, 03/24/2018, 09/14/2016, Additional history exists LIPID 04/15/2023 04/15/2018, 04/16/2015, 06/30/2011, Additional history exists DTAP/TDAP/TD IMMUNIZATION 12/31/2025 01/01/2016, 05/25/2011 , (4 - Td or Tdap) 12/18/1995 IPV IMMUNIZATION Aged Out 11/03/1987 No longer eligi ble based on patient 's age to complete this topic HEPATITIS B IMMUNIZATION Completed 06/29/2011, 05/25/2011, 07/29/1996, Additional history exists MENINGITIS IMMUNIZATION Aged Out No longe r eligible based on patient 's age to complete this topic Pneumococcal Vaccine: Aged Out No longer eligible Pediatrics (0 to 5 Years) based on patient's age and At-Risk Patients (6 to to co mplete this topic 64 Years) Insurance Payer Benefit Plan / Subscriber ID Effective Dates Phone Addre ss Type Group BCBS [place]BS OF [place] [id number] 2022-Presjamir [phone] [address] [address] Indemnity nt 0 [place] [address] Care Teams Cabin Crew Relationship Specialty Start Date End Date Robert-Susan Ham, PCP - General Physician Application Development Liaison 03/24 12/09 [place] [id number] [place] [id number]
--- OUTSIDE RECORDS SUMMARY | 2022-05-30 13:40 | XMS_ITS | Encounter Summary ---
:1980 Author Organization [place] Address [facility] [place] [address] Care Team Providers Name Role Phone Oneida Goodman APRN, CNP Primary Care Provider [phone] Reason for Referral Consultation - Closed Specialty Diagnoses / Procedures Referred By Contact Refer red To Contact Orthopedics and Sports Diagnoses Pain of right hand Norm Nick M [facility] [id number] [place] [address]?? [place] [address] [facility] [address] [place] [address] Phone: Fax: Referral ID Status Reason Start Date Expiration Date Visits Requ ested Visits Authorized [id number] Closed 09/30/2015 09/29/2016 1 1 Reason for Visit Reason Comments Thumb Discomfort right thumb issues x 6 days, using a brace, just bought it today Encounter Details Date Type Department Care Team Description 09/30/2015 Office Visit [facility] Norm Nick Pain of r ight hand [facility] Maria Ines Yang MD (Primary Dx) [address] [place] [address] Social History Tobacco Use Types Packs/Day [...] Sign Reading Time Taken Comments Blood Pressure 124/66 09/30/2015 11:31 AM CDT Pulse 82 09/30/2015 11:31 AM CDT Temperature 36.7 ??C (98 ??F) 09/30/2015 11:31 AM CDT Respiratory Rate - - Oxygen Saturation 99% 09/30/2015 11:31 AM CDT Inhaled Oxygen Concentration - - Weight 107.5 kg (237 lb) 09/30/2015 11:31 AM CDT Height 182.9 cm (6') 09/30/2015 11:31 AM CDT Body Mass Index 32.14 09/30/2015 11:31 AM CDT documented in this encounter Progress Notes Norm Nick MD - 10/04/2015 12:28 PM CDT SUBJECTIVE: Bhavik Jeffery is a 35 year old male who presents to clinic today for the following health issues: Patient presents with: Thumb Discomfort: right thumb issues x 6 days, using a brace, just bought it today Patient here with right thumb pain over the past 6 days. Denies trauma or injury. No numbness or tingling. Has weakness essentially limited by pain at the base of the thumb. Some pain further up into the wrist as well. No previous similar pain. Has been wearing a thumb spica splint over the past day with some improvement. ROS: MUSCULOSKELETAL: As noted above, denies any swelling or erythema of joint OBJECTIVE: BP 124/66 mmHg Pulse 82 Temp(Src) 98 ??F (36.7 ??C) (Oral) Ht 6' (1.829 m) Wt 237 lb (107.502 kg) BMI 32.14 kg/m2 SpO2 99%Body mass index is 32.14 kg/(m^2). GENERAL APPEARANCE: healthy, alert and no distress MS: right thumb and wrist appear normal, mild tenderness at [facility], normal Nataliia test, no swelling or redness, decreased wet end supervisor strength appears limited by pain, normal sensation Recent Results (from the past 744 hour(s)) XR Finger Right G/E 2 Views Narrative XR FINGER RT G/E 2 VW 09/30/2015 12:18 PM HISTORY: Thumb pain, Pain in right hand Impression IMPRESSION: Negative exam. ERIC SOLANO MD ASSESSMENT/PLAN: 1. Pain of right hand Unclear cause of hand pain, recommend sports medicine follow-ups for further evaluation and treatment. Discussed differential including tendinitis, peripheral nerve issue such as radial nerve or mediannerve entrapment, vs other. Continue thumb spica splint and follow-up as below. - XR Finger Right G/E 2 Views; Future - ORTHO SOURCING ANALYST REFERRAL Norm Nick MD [facility] documented in this encounter Nursing Notes Otoniel Nichols CMA - 09/30/2015 11:32 AM CDT Chief Complaint Patient presents with ??? Thumb Discomfort right thumb issues x 6 days, using a brace, just bought it today Initial BP 124/66 mmHg Pulse 82 Temp(Src) 98 ??F (36.7 ??C) (Oral) Ht 6' (1.829 m) Wt 237 lb(107.502 kg) BMI 32.14 kg/m2 SpO2 99% Estimated body mass index is 32.14 kg/(m^2) as calculated from the following: Height as of this encounter: 6' (1.829 m). Weight as of this encounter: 237 lb (107.502 kg). BP completed using cuff size: sulma Nichols CMA documented in this encounter Plan of Treatment Not on filedocumented as of this encounter Results XR Finger Right G/E 2 Views (09/30/2015 12:18 PM CDT) Anatomical Region Laterality Modality Right Hand Right Computed Radiography Specimen (Source) Anatomical Location Collection Method / Collectio n Time Received Time / Laterality Volume Impressions 09/30/2015 1:05 PM CDT IMPRESSION: Negative exam. ERIC SOLANO MD Narrative 09/30/2015 1:05 PM CDT XR FINGER RT G/E 2 VW 09/30/2015 12:18 PM HISTORY: Thumb pain, Pain in right hand Procedure Note Irwin Solano MD - 09/30/2015Formatt ing of this note might be different from the original. XR FINGER RT G/E 2 VW 09/30/2015 12:18 PM HISTORY: Thumb pain, Pain in right hand IMPRESSION: Negative exam. ERIC SOLANO MD Norm Nick MD [facility] DI[facility]NOSTIC [facility]AGING ORDER [facility]AN documented in this encounter Visit Diagnoses Diagnosis Pain of right hand - Primary Pain in limb Pain of right hand Pain in limb documented in this encounter Care Teams Camp Guard Relationship Specialty Start Date End Date Oneida Goodman, PCP - General Nurse Practitioner - Family 12/2301/22/17 PRODUCTION POSTING CLERK LEASING SPECIALIST documented as of this encounter
--- OUTSIDE RECORDS SUMMARY | 2022-05-30 13:40 | XMS_ITS | Encounter Summary ---
:1980 Author Organization [place] Address [address] [place] [address]. [place] [address] Care Team Providers Name Role Phone Oneida Goodman APRN, CNP Primary Care Provider [phone] Reason for Visit Reason Comments Urgent Care Cough pt is here for a cough and c ongest that started the before - now having sinus pressure and facial pain Encounter Details Date Type Department Care Team Description 06/24/2016 Office Visit [facility] Kelechi Silva Acut e sinusitis with Urgent Care Becky BARRAZA symptoms > 10 days [address] (Primary Dx) [place] [address] [address] [place] [address] [phone] Social History Tobacco Use Types Packs/Day Years Used Date Smoking Tobacco: Never Smokeless Tobacco: Never Alcohol Use Standard Drinks/Week Comments Yes 0 (1 standard drink = 0.6 oz pure alcoho l) 1 beer every two weeks or so Sex Assigned at Date Recorded Not on file documented as of this encounter Last Filed Vital Signs Vital Sign Reading Time Taken Comments Blood Pressure 120/80 06/24/2016 12:17 PM LINUX CONSULTANT Pulse 76 06/24/2016 12:17 PM LINUX CONSULTANT Temperature 37.2 ??C (99 ??F) 06/24/2016 12:17 PM LINUX CONSULTANT Respiratory Rate 14 06/24/2016 12:17 PM LINUX CONSULTANT Oxygen Saturation 100% 06/24/2016 12:17 PM LINUX CONSULTANT Inhaled Oxygen Concentration - - Weight 106.6 kg (235 lb) 06/24/2016 12:17 PM LINUX CONSULTANT Height - - Body Mass Index 31.87 09/30/2015 11:31 AM CDT documented in this encounter Patient Instructions Patient InstructionsTomarcog, Kelechi Salgado MD - 06/24/2016 12:44 PM CST Images from the original note were not included. Sinusitis (Antibiotic Treatment) The sinuses are air-filled spaces within the bones of the face. They connect to the inside of the nose.??Sinusitis??is an inflammation of the tissue lining the sinus cavity. Sinus inflammation can occur during a cold. It can also be due to allergies to pollens and other particles in the air. Sinusitiscan cause symptoms of sinus congestion and fullness. A sinus infection causes fever, headache and facial pain. There is often green or yellow drainage from the nose or into the back of the throat (post-nasal drip). You have been given antibiotics to treat this condition. Home care: ?? Take the full course of antibiotics as instructed. Do not stop taking them, even if you feel better. ?? Drink plenty of water, hot tea, and other liquids. This may help thin mucus. It also may promote sinus drainage. ?? Heat may help soothe painful areas of the face. Use a towel soaked in hot water. Or, chair spring assembler theshower and direct the hot spray onto your face. Using a vaporizer along with a menthol rub at night may also help.? An??expectorant??containing guaifenesin may help thin the mucus and promote drainage from the sinuses. ?? Kcmw-afi-eezhtvr??decongestants??may be used unless a similar medicine was prescribed. Nasal sprays work the fastest. Use one that contains phenylephrine or oxymetazoline. First blow the nose gently. Then use the spray. Do not use these medicines more often than directed on the label or symptoms may get worse. You may also use tablets containing pseudoephedrine. Avoid products that combine ingredients, because side effects may be increased. Read labels. You can also ask the pharmacist for help. (NOTE:??Persons with high blood pressure should not use decongestants. They can raise blood pressure.) ?? Ajnl-iku-hdchjyi??antihistamines??may help if allergies contributed to your sinusitis. ? Do not use nasal rinses or irrigation during an acute sinus infection, unless told to by your health care provider. Rinsing may spread the infection to other sinuses. ?? Use acetaminophen or ibuprofen to control pain, unless another pain medicine was prescribed. (If you have chronic liver or kidney disease or ever had a stomach ulcer, talk with your doctor before using these medicines. Aspirin should never be used in anyone under 18 years of age who is ill with a fever. It may cause severe liver damage.) ?? Don't smoke. This can worsen symptoms. Follow-up care Follow up with your healthcare provider or our staff if you are not improving within the next week. When to seek medical advice Call your healthcare provider if any of these occur: ?? Facial pain or headache becoming more severe ?? Stiff neck ?? Unusual drowsiness or confusion ?? Swelling of the forehead or eyelids ?? Vision problems, including blurred or double vision ?? Fever of??100.4??F (38??C)??or higher, or as directed by your healthcare provider ?? Seizure ?? Breathing problems ?? Symptoms not resolving within 10 days ?? [id number] [employer]. [address] [place] [address]. All rights reserved. This information is not intended as a substitute for professional medical care. Always follow your healthcare professional's instructions. X CONSULTANT documented in this encounter Progress Notes Kelechi Silva MD - 06/24/2016 12:40 PM CST SUBJECTIVE: Bhavik Jeffery, a 35 year old male, presents for evaluation of sinus symptoms. He has been ill for 2 weeks with cough, nasal congestion, yellow-brown rhinorrhea, sinus pain and pressure. Most of the pressure is in the midline between the eyes. Denies fever. Moderate sore throat. Voice is hoarse. OBJECTIVE: BP 120/80 mmHg Pulse 76 Temp(Src) 99 ??F (37.2 ??C) (Oral) Resp 14 Wt 235 lb (106.595 kg) SpO2 100% GENERAL: healthy, alert and no distress EYES: conjunctivae and sclerae normal HENT: ear canals and TM's normal and cobblestoning and edema of the nasal mucosa with clear rhinorrhea, cobblestoning of the posterior pharynx with post-nasal drainage, ethmoid sinus tenderness NECK: cervical adenopathy is shotty in the submandibular region RESP: clear to auscultation and percussion bilaterally; normal I:E ratio CV: regular rates and rhythm, normal S1 S2, no S3 or S4 and no murmur, click or rub -. ASSESSMENT/PLAN: ICD-10-CM 1. Acute sinusitis with symptoms > 10 days J01.90 amoxicillin (AMOXIL) 875 MG tablet Kelechi Silva MD X CONSULTANT documented in this encounter Nursing Notes Coby Mims CMA - 06/24/2016 12:20 PM CST Bhavik Jeffery is a 35 year old male. Chief Complaint Patient presents with ??? Urgent Care ??? Cough pt is here for a cough and congest that started the before - now having sinus pressure and facial pain Initial BP 120/80 mmHg Pulse 76 Temp(Src) 99 ??F (37.2 ??C) (Oral) Resp 14 Wt 235 lb (106.595 kg) SpO2 100% Estimated body mass index is 31.86 kg/(m^2) as calculated from the following: Height as of 16: 6' (1.829 m). Weight as of this encounter: 235 lb (106.595 kg). BP completed using cuff size: large Questioned patient about current smoking habits. Pt. has never smoked. Coby Mims CMA X CONSULTANT documented in this encounter Plan of Treatment Not on filedocumented as of this encounter Visit Diagnoses Diagnosis Acute sinusitis with symptoms > 10 days - Primary Acute sinusitis, unspecified documented in this encounter Care Teams Multi Disciplined Language Analyst Relationship Specialty Start Date End Date Oneida Goodman, PCP - General Nurse Practitioner - Family 12/2301/22/17 CHILD LIFE SPECIALIST GUARD RANGE documented as of this encounter
--- OUTSIDE RECORDS SUMMARY | 2022-05-30 13:40 | XMS_ITS | Encounter Summary ---
:1980 Author Organization [place] Address [address] [place] [address]. [place] [address] Care Team Providers Name Role Phone Karla Breen HEAD BUYER TOBACCO Primary Care Provider Reason for Visit Reason Comments Urgent Care recently had surgery 2 weeks ago Musculoskeletal Problem cramp in right calf, concern ed for blood clot Encounter Details Date Type Department Care Team Description 02/14/2017 Office Visit [facility] Courtney Siddiqui Right calf pain Urgent Care Cristy Baer APRN SECURITY COMPLIANCE SPECIALIST (Primary Dx) [address] [facility] [address] [place], [place] [address] [phone] Social History Tobacco Use Types Packs/Day Years Used Date Smoking Tobacco: Never Smokeless Tobacco: Never Alcohol Use Standard Drinks/Week Comments Yes 0 (1 standard drink = 0.6 oz pure alcoho l) 1 beer every two weeks or so Sex Assigned at Date Recorded Not on file documented as of this encounter Last Filed Vital Signs Vital Sign Reading Time Taken Comments Blood Pressure 124/74 02/14/2017 5:44 PM CDT Pulse 68 02/14/2017 5:44 PM CDT Temperature 36.9 ??C (98.4 ??F) 02/14/2017 5:44 PM CDT Respiratory Rate 16 02/14/2017 5:44 PM CDT Oxygen Saturation - - Inhaled Oxygen Concentration - - Weight 110.2 kg (243 lb) 02/14/2017 5:44 PM CDT Height 182.9 cm (6') 02/14/2017 5:44 PM CDT Body Mass Index 32.96 02/14/2017 5:44 PM CDT documented in this encounter Patient Instructions Patient InstructionsCourtney Siddiqui APRN CNP - 02/14/2017 5:40 PM CDT Follow up with ED documented in this encounter Progress Notes Courtney Siddiqui APRN CNP - 02/14/2017 5:40 PM CDT Chief Complaint Patient presents with ??? Urgent Care recently had surgery 2 weeks ago ??? Musculoskeletal Problem cramp in right calf, concerned for blood clot SUBJECTIVE: Bhavik Jeffery is a 36 year old male who presents with right calf tenderness that has been ongoing for several days. No trauma. Recent surgery of the left. Has been compensating using the right leg. 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 No prior history of thrombosis but patient is concerned about possible clot. No shortness of breath. No chest pain. No redness. No swelling. OBJECTIVE: BP 124/74 Pulse 68 Temp 98.4 ??F (36.9 ??C) (Oral) Resp 16 Ht 6' (1.829 m) Wt 243 lb (110.2 kg) BMI 32.96 kg/m2 middle-aged male in no acute distress. Nontoxic looking. Right superior cough area tenderness extending to the right popliteal fossa area. No cough swelling. No circumferential difference wasnoted. Good pedal pulses with good CMS. No erythema. Lung sounds were clear to auscultation throughout. Heart was of regular rhythm and rate. ASSESSMENT/PLAN: (M79.661) Right calf pain (primary encounter diagnosis) Comment: Right calf pain of unclear etiology. Discussed differentials including possibility of thromboses or even strenuous injury. Given recent surgery and other risk factors patient was advised to follow-up at the emergency room for an ultrasound. Courtney Siddiqui APRN CNP documented in this encounter Nursing Notes Tara Serrano MA - 02/14/2017 5:40 PM CDT Chief Complaint Patient presents with ??? Urgent Care recently had surgery 2 weeks ago ??? Musculoskeletal Problem cramp in right calf, concerned for blood clot Initial BP 124/74 Pulse 68 Temp 98.4 ??F (36.9 ??C) (Oral) Resp 16 Ht 6' (1.829 m) Wt 243 lb (110.2 kg) BMI 32.96 kg/m2 Estimated body mass index is 32.96 kg/(m^2) as calculated from the following: Height as of this encounter: 6' (1.829 m). Weight as of this encounter: 243 lb (110.2 kg). Medication Reconciliation: bernarda Serrano CMA documented in this encounter Plan of Treatment Not on filedocumented as of this encounter Visit Diagnoses Diagnosis Right calf pain - Primary documented in this encounter Care Teams Bilingual Spanish Inbound Sales Relationship Specialty Start Date End Date Karla Breen, WINDY PCP - General Nurse Practitioner - Family 01/23/1703/24 documented as of this encounter
--- OUTSIDE RECORDS SUMMARY | 2022-05-30 13:40 | XMS_ITS | Encounter Summary ---
:1980 Author Organization [facility] Address [address] [place] [address]. [place] [address] Care Team Providers Name Role Phone Susan Yin PA-C Primary Care Provider [phone] Reason for Referral Consultation - Closed Specialty Diagnoses / Procedures Referred By Contact Refer red To Contact Diagnoses Urticaria Susan Yin [place] 2-YOU Casillas PA-C [address] [place] [address] Referral ID Status Reason Start Date Expiration Date Visits Requ ested Visits Authorized [id number] Closed 04/08/2018 04/08/2019 1 1 Reason for Visit Reason Comments Physical Encounter Details Date Type Department Care Team Description 04/08/2018 Office Visit [facility] Jair Yin general medical examination at a health care facility (Primary Dx); [facility] [place] Susan Casillas PA-C Screening for diabetes mellitus; [address] [facility] [address] [facility] Lipid screening; [place], [place] Screening for thyroid disorder; [id number] Screening for disorder of blood and bloo d-forming organs; [phone] Urticaria; (Work) Inclusion cyst; [phone] Hip pain, left; (Fax) Erectile dysfun ction, unspecified erectile dysfunction type Social History Tobacco Use Types Packs/Day Years Used Date Smoking Tobacco: Never Smokeless Tobacco: Never Alcohol Use Standard Drinks/Week Comments Yes 0 (1 standard drink = 0.6 oz pure alcoho l) 1 beer every two weeks or so Sex Assigned at Date Recorded Not on file documented as of this encounter Last Filed Vital Signs Vital Sign Reading Time Taken Comments Blood Pressure 118/72 04/08/2018 3:11 PM CDT Pulse 75 04/08/2018 3:11 PM CDT Temperature 36.8 ??C (98.3 ??F) 04/08/2018 3:11 PM CDT Respiratory Rate 16 04/08/2018 3:11 PM CDT Oxygen Saturation 98% 04/08/2018 3:11 PM CDT Inhaled Oxygen Concentration - - Weight 108.9 kg (240 lb) 04/08/2018 3:11 PM CDT Height 182.9 cm (6') 04/08/2018 3:11 PM CDT Body Mass Index 32.55 04/08/2018 3:11 PM CDT documented in this encounter Patient Instructions Patient InstructionsOtoniel Nichols, TRUCK ENGINE ASSEMBLER - 04/08/2018 3:06 PM CDT (Z00.00) Routine general medical examination at a health care facility (primary encounter diagnosis) Comment: Plan: (Z13.1) Screening for diabetes mellitus Comment: Plan: (Z13.220) Lipid screening Comment: Plan: Comprehensive metabolic panel (Z13.29) Screening for thyroid disorder Comment: Plan: Lipid panel reflex to direct LDL Fasting (Z13.0) Screening for disorder of blood and blood-forming organs Comment: Plan: CBC with platelets (L50.9) Urticaria Comment: Plan: ALLERGY/ASTHMA ADULT REFERRAL (L72.0) Inclusion cyst Comment: Plan: expressed copious amounts of exudate Please follow-up if not resolving (M25.552) Hip pain, left Comment: advised to take twice daily. If this fails to resolve well refer to sports med for further eval Plan: naproxen (NAPROSYN) 500 MG tablet Preventive Health Recommendations Male Ages 26 - 39 Yearly exam: ?? See your health care provider every year in order to o Review health changes. o Discuss preventive care. o Review your medicines if your doctor has prescribed any. ??? You should be tested each year for STDs (sexually transmitted diseases), if you???re at risk. ??? After age 35, talk to your provider about cholesterol testing. If you are at risk for heart disease, have your cholesterol tested at least every 5 years. ??? If you are at risk for diabetes, you should have a diabetes test (fasting glucose). Shots: Get a flu shot each year. Get a tetanus shot every 10 years. Nutrition: ??? Eat at least 5 servings of fruits and vegetables daily. ??? Eat whole-grain bread, whole-wheat pasta and brown rice instead of white grains and rice. ??? Get adequate Calcium and Vitamin D. Lifestyle ??? Exercise for at least 150 minutes a week (30 minutes a day, 5 days a week). This will help you control your weight and prevent disease. ??? Limit alcohol to one drink per day. ??? No smoking. ??? Wear sunscreen to prevent skin cancer. ??? See your dentist every six months for an exam and cleaning. documented in this encounter Progress Notes Susan Yin PA-C - 04/08/2018 3:00 PM CDT SUBJECTIVE: CC: Bhavik Jeffery is an 37 year old male who presents for preventative health visit. Physical Annual: Getting at least 3 servings of Calcium per day: Yes Bi-annual eye exam: NO Dental care twice a year: Yes Sleep apnea or symptoms of sleep apnea: None Diet: Regular (no restrictions) Frequency of exercise: 4-5 days/week Duration of exercise: 30-45 minutes Taking medications regularly: Yes Medication side effects: None Additional concerns today: YES Left hip pain: at first felt stiff and now more painful and giving out occasional x 2 days Cyst on scrotum been there for months and now getting more painful Also, he has additional complaints of hives prn. Comes and goes and cant find a reason for this. . Also, he has additional complaints of ED. . Today's PHQ-2 Score: PHQ-2 (??1999 Pfizer) 04/08/2018 Q1: Little interest or pleasure in doing things 1 Q2: Feeling down, depressed or hopeless 1 PHQ-2 Score 2 Q1: Little interest or pleasure in doing things Several days Q2: Feeling down, depressed or hopeless Several days PHQ-2 Score 2 Abuse: Current or Past(Physical, Sexual or Emotional)- No Do you feel safe in your environment - Yes Social History Substance Use Topics ??? Smoking status: Never Smoker ??? Smokeless tobacco: Never Used ??? Alcohol use Yes Comment: 1 beer every two weeks or so Alcohol Use 04/08/2018 If you drink alcohol do you typically have greater than 3 drinks per day OR greater than 7 drinks per week? No Last PSA: No results found for: PSA Reviewed orders with patient. Reviewed health maintenance and updated orders accordingly - Yes BP Readings from Last 3 Encounters: 04/08/18 118/72 05/22/17 132/80 02/26/17 118/70 Wt Readings from Last 3 Encounters: 04/08/18 240 lb (108.9 kg) 05/22/17 248 lb (112.5 kg) 02/26/17 248 lb (112.5 kg) Current Outpatient Prescriptions Medication Sig Dispense Refill ??? amphetamine-dextroamphetamine (ADDERALL XR) 20 MG per capsule Take 2 capsules by mouth daily. 0 ??? naproxen (NAPROSYN) 500 MG tablet Take 1 tablet (500 mg) by mouth 2 times daily as needed for moderate pain 30 tablet 1 Recent Labs Lab Test 04/16/15 0829 08/26/12 1225 06/30/11 0953 LDL 92 -- 112 HDL 52 -- 35* TRIG 118 -- 91 CR -- 0.76 -- GFRESTIMATED -- >90 -- GFRESTBLACK -- >90 -- POTASSIUM -- 3.9 -- TSH -- -- 1.98 Reviewed and updated as needed this visit by clinical staff Reviewed and updated as needed this visit by Provider Review of Systems Constitutional: Negative for chills and fever. HENT: Negative for congestion, ear pain, hearing loss and sore throat. Eyes: Negative for pain and visual disturbance. Respiratory: Negative for cough and shortness of breath. Cardiovascular: Positive for palpitations and peripheral edema. Negative for chest pain. Gastrointestinal: Negative for abdominal pain, constipation, diarrhea, heartburn, hematochezia and nausea. Genitourinary: Positive for genital sores and impotence. Negative for discharge, dysuria, frequency,hematuria and urgency. Musculoskeletal: Positive for arthralgias. Negative for joint swelling and myalgias. Skin: Positive for rash. Neurological: Negative for dizziness, weakness, headaches and paresthesias. Psychiatric/Behavioral: Negative for mood changes. The patient is not nervous/anxious. CONSTITUTIONAL: NEGATIVE for fever, chills, change in weight INTEGUMENTARY/SKIN: NEGATIVE for worrisome rashes, moles or lesions EYES: NEGATIVE for vision changes or irritation ENT: NEGATIVE for ear, mouth and throat problems RESP: NEGATIVE for significant cough or SOB CV: NEGATIVE for chest pain, palpitations or peripheral edema GI: NEGATIVE for nausea, abdominal pain, heartburn, or change in bowel habits male: negative for dysuria, hematuria, decreased urinary stream, erectile dysfunction, urethral discharge MUSCULOSKELETAL: NEGATIVE for significant arthralgias or myalgia NEURO: NEGATIVE for weakness, dizziness or paresthesias PSYCHIATRIC: NEGATIVE for changes in mood or affect OBJECTIVE: There were no vitals taken for this visit. Physical Exam GENERAL: healthy, alert and no distress EYES: Eyes grossly normal to inspection, PERRL and conjunctivae and sclerae normal HENT: ear canals and TM's normal, nose and mouth without ulcers or lesions NECK: no adenopathy, no asymmetry, masses, or scars and thyroid normal to palpation RESP: lungs clear to auscultation - no rales, rhonchi or wheezes CV: regular rate and rhythm, normal S1 S2, no S3 or S4, no murmur, click or rub, no peripheral edemaand peripheral pulses strong ABDOMEN: soft, nontender, no hepatosplenomegaly, no masses and bowel sounds normal (male): normal male genitalia without lesions or urethral discharge, no hernia MS: no gross musculoskeletal defects noted, no edema SKIN: 0.5 cm pustule on scrotum NEURO: Normal strength and tone, mentation intact and speech normal PSYCH: mentation appears normal, affect normal/bright LYMPH: no cervical, supraclavicular, axillary, or inguinal adenopathy Diagnostic Test Results: none ASSESSMENT/PLAN: 1. Routine general medical examination at a health care facility 2. Screening for diabetes mellitus 3. Lipid screening - Comprehensive metabolic panel; Future 4. Screening for thyroid disorder - Lipid panel reflex to direct LDL Fasting; Future 5. Screening for disorder of blood and blood-forming organs - CBC with platelets; Future 6. Urticaria Well refer for allergy testing - ALLERGY/ASTHMA ADULT REFERRAL 7. Inclusion cyst Cyst on right side scrotum. Easily opened and expressed copious amounts of creamy discharge. 8. Hip pain, left Has had for 2 days. Recommended naprosyn twice daily. Please follow-up if symptoms fail to resolve or worsen' - naproxen (NAPROSYN) 500 MG tablet; Take 1 tablet (500 mg) by mouth 2 times daily as needed for moderate pain Dispense: 30 tablet; Refill: 1 9. Erectile dysfunction, unspecified erectile dysfunction type Well get testosterone level and determnine plan - Testosterone Free and Total; Future COUNSELING: Reviewed preventive health counseling, as reflected in patient instructions Regular exercise Healthy diet/nutrition Vision screening Hearing screening Aspirin Prophylaxsis BP Readings from Last 1 Encounters: 05/22/17 132/80 Estimated body mass index is 33.63 kg/(m^2) as calculated from the following: Height as of 02/26/17: 6' (1.829 m). Weight as of 05/22/17: 248 lb (112.5 kg). reports that he has never smoked. He has never used smokeless tobacco. Counseling Resources: ATP IV Guidelines Pooled Cohorts Equation Calculator FRAX Risk Assessment ICSI Preventive Guidelines Dietary Guidelines for Americans, 2009 USDA's MyPlate ASA Prophylaxis Lung CA Screening Susan Yin PA-C [facility] Answers for HPI/ROS submitted by the patient on 04/08/2018 PHQ-2 Score: 2 documented in this encounter Nursing Notes Otoniel Nichols CMA - 04/08/2018 3:00 PM CDT tOoniel Nichols CMA documented in this encounter Plan of Treatment Scheduled Referrals Name Type Priority Associated Diagnoses Order S chedule ALLERGY/ASTHMA ADULT Referral Routine Urticaria Ordered : 04/08/2018 REFERRAL documented as of this encounter Results Testosterone Free and Total (04/15/2018 8:19 AM CDT) Analysis Performed At Patho logist Time Signature Testosterone 371 240 - 950 04/19/2018 [facility] ng/dL 3:15 PM CDT [facility] Comment: This test was developed and its performa nce characteristics determined by the [facility], ??Special Chemistry Laboratory. It has not been cleared or approved by the FDA. The laboratory is regulated under CLIA as qualified to perform high-comple xity testing. This test is used for clinical purposes. It should not be rega rded as investigational or for research. Sex Hormone Binding 30 11 - 80 nmol/L 04/15/2018 9:22 PM [facility] Free Testosterone 7.89 4.7 - 24.4 ng/dL 04/19/2018 3:15 PM [facility] Calculated [facility] Specimen Anatomical Collection Method Collection Time Receive d Time (Source) Location / / Volume Laterality Blood specimen 04/15/2018 8:19 AM 018 8:20 (specimen) CDT AM CDT Susan Yin PA-C LAB - BLOOD ORDERABLES Performing Organization Address City/State/ZIP Code Phon e Number [facility] [address] [place], [place] [id number] [place] [address] Lipid panel reflex to direct LDL Fasting (04/15/2018 8:19 AM CDT) P athologist Signature Cholesterol 161 <200 mg/dL 04/15/2018 [facility] 1:39 PM CDT [facility] Triglycerides 96 <150 mg/dL 04/15/2018 [facility] CS 1:39 PM CDT [facility] Comment: Fasting specimen HDL Cholesterol 54 >39 mg/dL 04/15/2018 1:[address] [facility] LDL Cholesterol 88 <100 mg/dL 04/15/2018 1:39 PM CDT [facility] Comment: Desirable: <100 mg/dl Non HDL Cholesterol 107 <130 mg/dL 04/15/2018 1:39 PM CDT [facility] Specimen Anatomical Collection Method Collection Time Receive d Time (Source) Location / / Volume Laterality Blood specimen 04/15/2018 8:19 AM 018 8:20 (specimen) CDT AM CDT Susan Yin PA-C LAB - BLOOD ORDERABLES Performing Organization Address City/State/ZIP Code Phon e Number [facility] [address] [place] [address] Comprehensive metabolic panel (04/15/2018 8:19 AM CDT) athologist Signature Sodium 139 133 - 144 04/15/2018 [facility] mmol/L 1:39 PM T [facility] Potassium 4.3 3.4 - 5.3 04/15/2018 [facility] mmol/L 1:39 PM T [facility] Chloride 105 94 - 109 04/15/2018 [facility] mmol/L 1:39 PM T [facility] Carbon Dioxide 29 20 - 32 04/15/2018 [facility] mmol/L 1:39 PM T [facility] Anion Gap 5 3 - 14 04/15/2018 [facility] mmol/L 1:39 PM T [facility] Glucose 94 70 - 99 04/15/2018 [facility] mg/dL 1:39 PM T [facility] Comment: Fasting specimen Urea Nitrogen 7 7 - 30 mg/dL 04/15/2018 1:39 PM T [facility] Creatinine 0.86 0.66 - 1.25 mg/dL 04/15/2018 1:39 PM CD T [facility] GFR Estimate >90 >60 mL/min/1.7m2 04/15/2018 1:39 PM C DT [facility] Comment: Non GFR Calc GFR Estimate If >90 >60 mL/min/1.7m2 04/15/2018 1:39 P M [facility] Black [facility] Comment: GFR Calc Calcium 9.2 8.5 - 10.1 04/15/2018 1:39 PM [facility] mg/dL [facility] Bilirubin Total 0.6 0.2 - 1.3 mg/dL 04/15/2018 1:39 PM [facility] Albumin 4.1 3.4 - 5.0 g/dL 04/15/2018 1:39 PM [facility] CDT [facility] Protein Total 7.6 6.8 - 8.8 g/dL 04/15/2018 1:39 PM [facility] CDT [facility] Alkaline Phosphatase 71 40 - 150 U/L 04/15/2018 1:39 PM [facility] ALT 49 0 - 70 U/L 04/15/2018 1:39 PM [facility] AST 31 0 - 45 U/L 04/15/2018 1:39 PM [facility] Specimen Anatomical Collection Method Collection Time Receive d Time (Source) Location / / Volume Laterality Blood specimen 04/15/2018 8:19 AM 018 8:20 (specimen) CDT AM CDT Susan Yin PA-C LAB - BLOOD ORDERABLES Performing Organization Address City/State/ZIP Code Phon e Number [facility] [address] [place] [address] CBC with platelets (04/15/2018 8:19 AM CDT) P athologist Signature WBC 5.0 4.0 - 11.0 04/15/2018 [facility] 10e9/L 10:25 AM CDT [facility] RBC Count 5.06 4.4 - 5.9 04/15/2018 [facility] 10e12/L 10:25 AM CDT [facility] Hemoglobin 15.3 13.3 - 04/15/2018 [facility] 17.7 g/dL 10:25 AM CDT [facility] Hematocrit 43.5 40.0 - 04/15/2018 [facility] 53.0 % 10:25 AM CDT [facility] MCV 86 78 - 100 04/15/2018 [facility] fl 10:25 AM CDT [facility] MCH 30.2 26.5 - 04/15/2018 [facility] 33.0 pg 10:25 AM CDT [facility] MCHC 35.2 31.5 - 04/15/2018 [facility] 36.5 g/dL 10:25 AM CDT [facility] RDW 12.8 10.0 - 04/15/2018 [facility] 15.0 % 10:25 AM CDT [facility] Platelet Count 174 150 - 450 04/15/2018 [facility] 10e9/L 10:25 AM CDT [facility] Specimen Anatomical Collection Method Collection Time Receive d Time (Source) Location / / Volume Laterality Blood specimen 04/15/2018 8:19 AM 018 8:20 (specimen) CDT AM CDT Susan Yin PA-C LAB - BLOOD ORDERABLES Performing Organization Address City/State/ZIP Code Phon e Number [facility] [address] [place] [address] documented in this encounter Visit Diagnoses Diagnosis Routine general medical examination at a health care facility - Primary Screening for diabetes mellitus Lipid screening Screening for lipoid disorders Screening for thyroid disorder Screening for disorder of blood and bloo d-forming organs Screening for unspecified disorder of bl ood and blood-forming organs Urticaria Urticaria, unspecified Inclusion cyst Sebaceous cyst Hip pain, left Pain in joint, pelvic region and thigh Erectile dysfunction, unspecified erecti le dysfunction type documented in this encounter Care Teams Web Publisher Relationship Specialty Start Date End Date Susan Yin, PCP - General Physician Manager Mba 03/24 12/09 [place] [address] [place] [address] documented as of this encounter
--- OUTSIDE RECORDS SUMMARY | 2022-05-30 13:40 | XMS_ITS | Encounter Summary ---
:1980 Author Organization [facility] Address [address] [place] [address]. [place] [address] Care Team Providers Name Role Phone Oneida Goodman APRN, CNP Primary Care Provider [phone] Reason for Visit Reason Onset Date Comments [facility] Encounter Details Date Type Department Care Team Description 04/18/2015 Telephone [facility] Oneida Goodman Forms ( [facility] CICI Chin CNP regarding biometric [id number] screening) [place] [address] [id number] (Wo rk) Social History Tobacco Use Types Packs/Day Years Used Date Smoking Tobacco: Never Smokeless Tobacco: Never Alcohol Use Standard Drinks/Week Comments Yes 0 (1 standard drink = 0.6 oz pure alcoho l) 1 beer every two weeks or so Sex Assigned at Date Recorded Not on file documented as of this encounter Miscellaneous Notes Telephone Encounter - Henny Hutchison - 04/18/2015 1:51 PM CDT Received form from patient [facility] regarding biometric screening, Oneida Goodman reviewed the form and signed them. Form were faxed to , then form were sent to abstraction and a copy to [employer] folder at the station. Mailed a copy to patient for his records.Henny Hutchison Mechanical Repair Worker documented in this encounter Plan of Treatment Not on filedocumented as of this encounter Visit Diagnoses Not on filedocumented in this encounter Care Teams Refinery Operator Crude Unit Relationship Specialty Start Date End Date Oneida Goodman, PCP - General Nurse Practitioner - Family 12/2301/22/17 FINANCE PROFESSOR [facility] documented as of this encounter
--- OUTSIDE RECORDS SUMMARY | 2022-05-30 13:40 | XMS_ITS | Encounter Summary ---
:1980 Author Organization [place] Address [address] [place] [address]. [place] [address] Care Team Providers Name Role Phone Oneida Goodman APRN, CNP Primary Care Provider [phone] Reason for Visit Reason Comments Hives Mass Encounter Details Date Type Department Care Team Description 12/21/2016 Office Visit [facility] Karla Breen, Screen for STD [facility] [place] [employer] (sexually transmitted [id number] [facility] disease) (Primary Dx) [facility] [id number] [address] [facility] [phone] [place] [address] Social History Tobacco Use Types Packs/Day Years Used Date Smoking Tobacco: Never Smokeless Tobacco: Never Alcohol Use Standard Drinks/Week Comments Yes 0 (1 standard drink = 0.6 oz pure alcoho l) 1 beer every two weeks or so Sex Assigned at Date Recorded Not on file documented as of this encounter Last Filed Vital Signs Vital Sign Reading Time Taken Comments Blood Pressure 120/82 12/21/2016 8:39 AM CDT Pulse 74 12/21/2016 8:39 AM CDT Temperature 36.5 ??C (97.7 ??F) 12/21/2016 8:39 AM CDT Respiratory Rate - - Oxygen Saturation 98% 12/21/2016 8:39 AM CDT Inhaled Oxygen Concentration - - Weight 109.2 kg (240 lb 12.8 oz) 12/21/2016 8:39 AM CDT Height 182.9 cm (6') 12/21/2016 8:39 AM CDT Body Mass Index 32.66 12/21/2016 8:39 AM CDT documented in this encounter Progress Notes Karla Breen NP - 12/21/2016 8:30 AM CDT SUBJECTIVE: Bhavik Jeffery is a 36 year old male who presents to clinic today for the following health issues: Patient is here with rash that comes and goes on his upper body. Recent trip to [facility] less than ayear ago and has noticed the rash since then. Feels many people had rashes and is concerned about infection. No pruritis and symptoms resolve within a few days. Rash on his penis that is red, non painful. Present for the past six months. and has children. States he is concerned about herpes or infection. States a previous partner ( 11 years ago) had herpetic lesions on Cyst on upper back that is non tender, slightly red. Growing slightly in size. Problem list and histories reviewed & adjusted, as indicated. Additional history: none Patient Active Problem List Diagnosis ??? Attention deficit disorder of adult ??? Allergic state ??? Family history of coronary artery disease ??? Low HDL (under 40) ??? Obesity ??? Cervicalgia ??? Pain in thoracic spine Past Surgical History: Procedure Laterality Date ??? CL AFF SURGICAL PATHOLOGY ??? TONSILLECTOMY 2005 ??? VASECTOMY 2004 reversal done in 2007-going for another reversal in near future ??? VASECTOMY 2012 reversal 2 cd reversal Social History Substance Use Topics ??? Smoking status: Never Smoker ??? Smokeless tobacco: Never Used ??? Alcohol use Yes Comment: 1 beer every two weeks or so Family History Problem Relation Age of Onset ??? Family History Negative Mother parents are both alive and healthy ??? Obesity Father ??? HEART DISEASE Father 60 quintuple bypass ??? DIABETES Maternal Grandfather due to weight ??? Obesity Maternal Grandfather ??? CEREBROVASCULAR DISEASE Paternal Grandmother ??? HEART DISEASE Paternal Grandfather bypass-several times-first one at 60 ??? Family History Negative Sister ??? Family History Negative Brother ??? Cancer - colorectal Maternal Uncle diagnosed in his 50's ??? Prostate Cancer No family hx of Reviewed and updated as needed this visit by clinical staff Tobacco Allergies Med Hx Surg Hx Fam Hx Soc Hx Reviewed and updated as needed this visit by Provider ROS: Constitutional, HEENT, cardiovascular, pulmonary, gi and gu systems are negative, except as otherwise noted. OBJECTIVE: BP 120/82 (BP Location: Right arm, Patient Position: Chair, Cuff Size: Adult Large) Pulse 74 Temp 97.7 ??F (36.5 ??C) (Oral) Ht 6' (1.829 m) Wt 240 lb 12.8 oz (109.2 kg) SpO2 98% BMI 32.66 kg/m2 Body mass index is 32.66 kg/(m^2). GENERAL: healthy, alert and no distress RESP: lungs clear to auscultation - no rales, rhonchi or wheezes CV: regular rate and rhythm, normal S1 S2, no S3 or S4, no murmur, click or rub, no peripheral edemaand peripheral pulses strong (male): testicles normal without atrophy or masses, no hernias, penis normal without urethral discharge and small red lesion near the tip of the penis that is nontender. MS: no gross musculoskeletal defects noted, no edema SKIN: simple cyst on right upper back, non infected PSYCH: mentation appears normal, affect normal/bright No results found for this or any previous visit (from the past 24 hour(s)). ASSESSMENT/PLAN: 1. Screen for STD (sexually transmitted disease) Does not appear to be a herpetic lesion. Will screen for HSV. No need for intervention as non tenderand may be just folliculitis. HSV 1 and 2 DNA by PCR 2. Sebaceous cyst Advised to leave it alone for now. No need for intervention at this time. Follow up as needed. Karla Breen NP [facility] documented in this encounter Nursing Notes Lesly Argueta - 12/21/2016 8:30 AM CDT Chief Complaint Patient presents with ??? Hives ??? Mass Initial BP 120/82 (BP Location: Right arm, Patient Position: Chair, Cuff Size: Adult Large) Pulse 74 Temp 97.7 ??F (36.5 ??C) (Oral) Ht 6' (1.829 m) Wt 240 lb 12.8 oz (109.2 kg) SpO2 98% BMI 32.66 kg/m2 Estimated body mass index is 32.66 kg/(m^2) as calculated from the following: Height as of this encounter: 6' (1.829 m). Weight as of this encounter: 240 lb 12.8 oz (109.2 kg). Medication Reconciliation: complete ROSEMARY Goetz documented in this encounter Miscellaneous Notes Addendum Note - Josselyn Soria - 12/24/2016 3:33 PM CDT Addended by: JOSSELYN SORIA on: 12/24/2016 03:33 PM Modules accepted: Orders Addendum Note - Frankie Cruz - 12/21/2016 3:13 PM CDT Addended by: FRANKIE CRUZ on: 12/21/2016 03:13 PM Modules accepted: Orders documented in this encounter Plan of Treatment Not on filedocumented as of this encounter Procedures Procedure Name Priority Date/Time Associated Diagnosis Comme nts HERPES SIMPLEX Routine 12/21/2016 9:18 AM Screen for STD Resul ts for this VIRUS TYPE 1 AND 2 CDT (sexually procedure are in IGG transmitted disease) the res ults section. HERPES SIMPLEX Routine 12/21/2016 9:18 AM Screen for STD Resul ts for this VIRUS 1&2 PCR CDT (sexually procedure are in transmitted disease) the res ults section. documented in this encounter Results Herpes Simplex Virus 1 and 2 IgG (12/24/2016 4:34 PM CDT) Component Value Ref Test Analysis Performed At [facility] Range Method Time Signature Herpes <0.2 0.0 - [facility] Simplex Virus No HSV-1 IgG antibodies detected. 0.8 AI [place] [facility] Type 1 IgG Antibody index (AI) values reflect qualitative changes in antibody [facility] concentration that cannot be directly associated with clinical condition or [facility]AMP[facility] disease state. Herpes <0.2 0.0 - [facility] Simplex Virus No HSV-2 IgG antibodies detected. 0.8 [facility] [place] [facility] Type 2 IgG Antibody index (AI) [...] LAB - BLOOD ORDERABLES Performing Organization Address City/[facility]/ZIP Code Phon e Number [address] Herpes Simplex Virus 1 and 2 IgG (12/21/2016 9:18 AM CDT) Component Value Ref Test Analysis Performed At [facility] Range Method Time Signature Herpes Canceled, Test credited 0.0 - [facility] [place]plex Virus Unsatisfactory specimen - collected in wrong container 0.8 AI [place] [facility] Type 1 IgG [facility] Herpes Canceled, Test credited 0.0 - [facility] [place]plex Virus Unsatisfactory specimen - collected in wrong container 0.8 [place] [facility] Type 2 IgG [facility] Specimen Anatomical Collection Method Collection Time Receive d Time (Source) Location / / Volume Laterality Blood specimen 12/21/2016 9:18 AM 017 3:14 (specimen) CDT PM CDT Karla Breen NP LAB - BLOOD ORDERABLES Performing Organization Address City/[facility] Code Phon e Number [address] (ABNORMAL) HSV 1 and 2 DNA by PCR (12/21/2016 9:18 AM CDT) [facility] Method Time Signature HSV Specimen Test canceled by physician DAWN Type CORRECTED ON 12/21 AT 1516: PREVIOUSLY REPORTED Plasma, EDTA anticoagulant [facility] HSV Type 1 Test canceled by NEG DAWN PCR physician (A) [facility] HSV Type 2 Test canceled by NEG DAWN PCR physician (A) [facility] Specimen Anatomical Collection Method Collection Time Receive d Time (Source) Location / / Volume Laterality Blood specimen 12/21/2016 9:18 AM 017 9:19 (specimen) CDT AM CDT Karla Breen NP LAB - MICRO GENERAL ORDERABL ES Performing Organization Address City/[facility]/ZIP Code Phon e Number [facility] [id number] [place] [address] documented in this encounter Visit Diagnoses Diagnosis Screen for STD (sexually transmitted dis ease) - Primary Screening examination for venereal disea se documented in this encounter Care Teams Check Examiner Relationship Specialty Start Date End Date Oneida Goodman, PCP - General Nurse Practitioner - Family 12/2301/22/17 [employer] DELIVERY [employer]CH documented as of this encounter
--- OUTSIDE RECORDS SUMMARY | 2022-05-30 13:40 | XMS_ITS | Encounter Summary ---
:1980 Author Organization [place] Address [address] [place] [address]. [place] [address] Care Team Providers Name Role Phone Susan Yin PA-C Primary Care Provider [phone] Reason for Visit Reason Comments Epistaxis Encounter Details Date Type Department Care Team Description 04/05/2022 Emergency [facility] Kina Martínez CNP Epistaxis Emergency Dept [facility] [address] [place] [address] [place] [address] (Wo rk) Social History Tobacco Use Types Packs/Day Years Used Date Smoking Tobacco: Never Smokeless Tobacco: Never Alcohol Use Standard Drinks/Week Comments Yes 0 (1 standard drink = 0.6 oz pure alcoho l) 1 beer every two weeks or so Sex Assigned at Date Recorded Not on file COVID-19 Exposure Response Date Recorded In the last 10 days, have you been in contact with No / Unsu re 04/05/2022 3:46 PM CDT someone who was confirmed or suspected to have Coronavirus/COVID-19? documented as of this encounter Last Filed Vital Signs Vital Sign Reading Time Taken Comments Blood Pressure 129/79 04/05/2022 3:48 PM CDT Pulse 88 04/05/2022 3:48 PM CDT Temperature 36.7 ??C (98.1 ??F) 04/05/2022 3:48 PM CDT Respiratory Rate 18 04/05/2022 3:48 PM CDT Oxygen Saturation 100% 04/05/2022 3:48 PM CDT Inhaled Oxygen Concentration - - Weight - - Height - - Body Mass Index - - documented in this encounter Discharge Instructions AttachmentsThe following attachments cannot be sent through Care Everywhere. Epistaxis (Adult) (Belarusian)Nasal Packing, Removable (Anterior) (Belarusian) documented in this encounter Medications at Time of Discharge Medication Sig Dispensed Refills Start Date End Date amoxicillin (AMOXIL) 500 0 04/05/2022 MG capsule amphetamine-dextroampheta Take 2 capsules by 0 mine (ADDERALL XR) 20 MG mouth daily. per capsuleIndications: Attention deficit disorder of adult emtricitabine-tenofovir Take 1 tablet by mouth 0 03/29/2022 (TRUVADA) 200-300 MG per daily tablet naproxen (NAPROSYN) 500 Take 1 tablet (500 mg) 30 tablet 1 04/08/2018 MG tabletIndications: Hip by mouth 2 times daily pain, left as needed for moderate pain documented as of this encounter ED Notes Brooklynn Caro RN - 04/05/2022 3:47 PM CDT Patient states he blew his nose earlier today and had a nose bleed he was unable to control. Patientwent to urgent care and they packed his nose and told him to follow up with ENT. Patient states he is still having bleeding that is running down his throat and he was advised to come here if that occurred. Triage Assessment Row Name 04/05/22 1547 Triage Assessment (Adult) Airway WDL WDL Respiratory WDL Respiratory WDL WDL Skin Circulation/Temperature WDL Skin Circulation/Temperature WDL WDL Cardiac WDL Cardiac WDL WDL Peripheral/Neurovascular WDL Peripheral Neurovascular WDL WDL Cognitive/Neuro/Behavioral WDL Cognitive/Neuro/Behavioral WDL WDL Kina Martínez CNP - 04/05/2022 3:37 PM CDT History Chief Complaint: Epistaxis The history is provided by the patient. Bhavik Jeffery is a 41 year old male who presents with concern of recurrent bleeding since an episode of epistaxis that occurred approximately 5 hours ago that he was unable to control. He was seenin urgent care (see below) where a rhinorocket was placed and he was given antibiotics. Since then, he continues to feel that blood is running down his throat, prompting his arrival at the ED. He noteshe is slight dizzy and tired, which he believes just may be due to the time of day. He has had nosebleeds in the past but not none similar to today's severity. He notes having about 20 drinks in a weekand denies drug or cigarette use. He denies use of blood thinners or having other pertinent medical c onditions. He denies nausea emesis, headache, trauma, and visual disturbances. [facility] Atif Higuera MD - 04/05/2022 1:40 PM CDT Nursing Notes: Lesly Nguyễn RN 04/05/22 1225 Signed Patient has a current bloody nose that has been going on for 1.5 hours. Has had bloody noses in the past but never this bad/this long. SUBJECTIVE: Bhavik Jeffery is a 41 y.o.male who presents to Urgent Care with the above problem. Bleeding has been from the left naris. Patient was in a meeting when the bleeding started. When I removed the epistaxis clip and the paper towel from the patient's left naris he started having bleeding again within a few minutes. This appeared to be along the floor of the naris without an obvious source. Given the amount of blood I in the fact that I could not identify a bleeding source I placed a 7.5 cm rapid rhino balloon and inflated it in the left naris. Patient was then observed for period of about half an hour. He had some oozing of blood tinged mucus from the left naris but no obvious bleeding. I had over inflated the balloon initially and then took down some pressure. Shortly after taking down pressure patient started bleeding again so than a increase the pressure until the bleeding stopped but at a level where the patient was still fairly comfortable. I am going to leave the rapid rhino balloon in place and send the patient home on an antibiotic. He was referred to ENT. Plan: Patient will be discharged home with recommendations for supportive care and a prescription for amoxicillin. Patient was given detailed instructions about when to seek emergency care. Patient will follow up with ENT as an outpatient. ROS: Review of Systems Constitutional: Positive for fatigue. HENT: Positive for nosebleeds and postnasal drip. Eyes: Negative for visual disturbance. Gastrointestinal: Negative for nausea and vomiting. Neurological: Positive for dizziness. Negative for headaches. All other systems reviewed and are negative. Allergies: Adhesives Medications: Adderall Lysine Naproxen Truvada Past Medical History: ADD Anxiety Depression Past Surgical History: Foot surgery, left Tonsillectomy Vasectomy Reverse vasectomy Family History: family history includes Cancer - colorectal in his maternal uncle; Cerebrovascular Disease in his paternal grandmother; Diabetes in his maternal grandfather; Family History Negative in his brother, mother, and sister; Heart Disease in his paternal grandfather; Heart Disease (age of onset: 60) in his fa ther; Obesity in his father and maternal grandfather. Social History: reports that he has never smoked. He has never used smokeless tobacco. He reports current alcohol use. He reports that he does not use drugs. PCP: Susan Yin PA-C Physical Exam Patient Vitals for the past 24 hrs: BP Temp Temp src Pulse Resp SpO2 04/05/22 1548 129/79 98.1 ??F (36.7 ??C) Oral 88 18 100 % Physical Exam Nursing notes reviewed. Vitals reviewed. General: Alert. Well kept. Eyes: Conjunctiva non-injected, non-icteric. Neck/Throat: Moist mucous membranes. Normal voice. Nose: Rhino Rocket in left nare. No posterior oropharynx bleeding. No anterior nasal bleeding. No right nare bleeding. Cardiac: Regular rhythm. Normal heart sounds with no murmur/rubs/click. Pulmonary: Clear and equal breath sounds bilaterally. Speaking in full sentences. Musculoskeletal: Normal gross range of motion of all 4 extremities. Neurological: Alert and oriented x4. Skin: Warm and dry without rashes or petechiae. Normal appearance of visualized exposed skin. Psych: Affect normal. Good eye contact. Emergency Department Course Emergency Department Course: Reviewed: I reviewed nursing notes, vitals, past medical history and Care Everywhere Assessments: 163 I obtained history and examined the patient as noted above. 165 I inflated the balloon by 1 mL. 172 I rechecked the patient. I deflated the balloon by 0.5 mL 175 I rechecked the patient. No active anterior or posterior oropharynx bleeding. 1814 I rechecked the patient. No active anterior or posterior oropharynx bleeding. Disposition: The patient was discharged to home. Impression & Plan Medical Decision Making: Bhavik Jeffery is a 41 year old male who presents for evaluation of epistaxis. The patient had a7.5 Rhino Rocket in the left nare. There was no active bleeding but due to concern for bleeding balloon was inflated and left inflated for 30 minutes. The balloon was then deflated to improve comfort. The patient was then observed for an additional 45 minutes with no anterior or posterior bleeding noted. Close follow-up with ENT and primary care; see discharge instructions. The patient was previouslygiven antibiotics and will continue to take these. There are no signs of coagulopathy causing the bleeding or a general medical condition (thrombocytopenia, DIC, leukemia, etc) causing the bleeding today. No sign of dehydration or excessive blood loss with no hypotension or tachycardia. No indication for emergent ENT referral in the ED. Diagnosis: ICD-10-CM 1. Epistaxis R04.0 Discharge Medications: New Prescriptions No medications on file Scribe Disclosure: Kristen Stevens, am serving as a scribe at 5:02 PM on 04/05/2022 to document services personally performed by Kina Martínez DNP based on my observations and the provider's statements to me. Kina Martínez CNP 04/06/22 0001 documented in this encounter Plan of Treatment Not on filedocumented as of this encounter Visit Diagnoses Diagnosis Epistaxis documented in this encounter Care Teams Touch Up Carver Relationship Specialty Start Date End Date Robert-Susan Ham, PCP - General Physician Steno Typist 03/24 12/09 [place] [id number] [place] [address] documented as of this encounter
--- OUTSIDE RECORDS SUMMARY | 2022-05-30 13:40 | XMS_ITS | Encounter Summary ---
:1980 Author Organization [facility] Address [address] [place] [address]. [place] [address] Care Team Providers Name Role Phone Brianna Cortes MD Primary Care Provider Reason for Visit Reason Comments Musculoskeletal Problem left Encounter Details Date Type Department Care Team Description 11/02/2013 Office Visit [facility] Brianna Cortes MD Pain in left wrist Clinic Formerly [facility] (Primary Dx) [address] [id number] [place] [address] Social History Tobacco Use Types [...] Reading Time Taken Comments Blood Pressure 118/74 11/02/2013 9:15 AM CDT Pulse 84 11/02/2013 9:15 AM CDT Temperature 37 ??C (98.6 ??F) 11/02/2013 9:15 AM CDT Respiratory Rate - - Oxygen Saturation 97% 11/02/2013 9:15 AM CDT Inhaled Oxygen Concentration - - Weight 107 kg (236 lb) 11/02/2013 9:15 AM CDT Height 182.9 cm (6') 11/02/2013 9:15 AM CDT Body Mass Index 32.01 11/02/2013 9:15 AM CDT documented in this encounter Patient Instructions Patient InstructionsBrianna Cortes MD - 11/02/2013 9:59 AM CDT Images from the original note were not included. We did x-rays today Use brace as directed Do home exercises Ok to use ice, ibuprofen 800 mg every 8 hourly with full stomach Update me in 2-3 weeks or sooner with any issues Consider coming for fasting physical exam when ready Thanks Brianna Cortes MD De Quervain's Tenosynovitis What is de Quervain's tenosynovitis? De Quervain's tenosynovitis is a painful condition that affects the tendons on the thumb side of your wrist. Tendons, are strong bands of connective tissue that attach muscle to bone. A sheath, or covering, surrounds the tendons that go to your thumb. Tenosynovitis is an irritation of this sheath. How does it occur? De Quervain's tenosynovitis is usually cause by overusing your thumb or wrist. This is more likely in activities when your wrist is bent and you use your thumb to oil rag washer something (such as when you ski or hammer). Other causes of this condition include: wrist injuries rheumatoid arthritis. What are the symptoms? Symptoms may include: pain when you move your thumb or wrist pain when you make a fist swelling and pain on the thumb side of your wrist feeling or hearing creaking as the tendon moves How is it diagnosed? Your healthcare provider will examine your wrist and thumb and check for areas that are tender and painful to move. You may have an X-ray to be sure you don't have a broken bone. How is it treated? The first treatment is a splint that will cover your wrist and thumb. You need to protect your thumband wrist. Treatment may also include: Put an ice pack, gel pack, or package of frozen vegetables, wrapped in a cloth on your thumb and wrist every 3 to 4 hours, for up to 20 minutes at a time. You could also do ice massage. To do this, first freeze water in a Styrofoam cup, then peel the top of the cup away to expose the ice. Hold the bottom of the cup and rub the ice over your tendon for 5 to 10 minutes. Do this 3 to 5 times a day for the first 2 days. Take an anti-inflammatory medicine such as ibuprofen, or other medicine as directed by your provider. Nonsteroidal anti-inflammatory medicines (NSAIDs) may cause stomach bleeding and other problems. These risks increase with age. Read the label and take as directed. Unless recommended by your healthcare provider, do not take for more than 10 days. Your provider may give you an injection of a corticosteroid medicine. Follow your provider's instructions for doing exercises to help you recover. How long will the effects last? The length of recovery depends on factors such as your age, health, and if you have had a previous injury. Recovery time also depends on the severity of the injury. A mild injury may recover within a few weeks, but a severe injury may take 6 weeks or longer to recover. When can I return to my normal activities? Everyone recovers from an injury at a different rate. Return to your activities depends on how soon your wrist recovers, not by how many days or weeks it has been since your injury has occurred. In general, the longer you have symptoms before you start treatment, the longer it will take to get better.The goal of rehabilitation is to return you to your normal activities as soon as is safely possible. You need to stop doing the activities that cause pain until the tendon has healed. If you continue doing activities that cause pain, your symptoms will return and it will take longer to recover. You may return to your normal activities when it is no longer painful to move your thumb or wrist. You may n eed to do activities wearing a supportive splint until you no longer have symptoms. How can I prevent de Quervain's tenosynovitis? Avoiding activities that overuse your thumb or wrist may prevent de Quervain's tenosynovitis. De Quervain's Tenosynovitis Rehabilitation Exercises You may do these exercises when it is not painful to move your hand. Opposition stretch: Rest your hand on a table, palm up. Touch the tip of your thumb to the tip of your little finger. Hold this position for 6 seconds and then release. Repeat 10 times. Wrist stretch: Press the back of the hand on your injured side with your other hand to help bend your wrist. Hold for 15 to 30 seconds. Next, stretch the hand back by pressing the fingers in a backwarddirection. Hold for 15 to 30 seconds. Keep the arm on your injured side straight during this exercise. Do 3 sets. Wrist flexion: Hold a can or hammer handle in your hand with your palm facing up. Bend your wrist upward. Slowly lower the weight and return to the starting position. Do 3 sets of 10. Gradually increase the weight of the can or weight you are holding. Wrist radial deviation strengthening: Put your wrist in the sideways position with your thumb up. Hold a can of soup or a hammer handle and gently bend your wrist up, with the thumb reaching toward theceiling. Slowly lower to the starting position. Do not move your forearm throughout this exercise. Do 3 sets of 10. Wrist extension: Hold a soup can or hammer handle in your hand with your palm facing down. Slowly bend your wrist up. Slowly lower the weight down into the starting position. Do 3 sets of 10. Graduallyincrease the weight of the object you are holding. Delivery Technician strengthening: Squeeze a soft rubber ball and hold the squeeze for 5 seconds. Do 3 sets of 10. Finger spring: Place a large rubber band around the outside of your thumb and fingers. Open your fingers to stretch the rubber band. Do 3 sets of 10. Published by [employer]. This content is reviewed periodically and is subject to change as new health information becomes available. The information is intended to inform and educate and is not a replacement for medical evaluation, advice, diagnosis or treatment by a healthcare professional. Written by Atif Newton PT, and Caroline Szymanski PT, [facility], [facility], for [employer]. ? 2009 [employer] and/or its affiliates. All Rights Reserved. Copyright ?? [employer] 2011 Published by [employer]. This content is reviewed periodically and is subject to change as new health information becomes available. The information is intended to inform and educate and is not a replacement for medical evaluation, advice, diagnosis or treatment by a healthcare professional. Written by Zaid Damon MD, for [employer]. ? 2009 [employer] and/or its affiliates. All Rights Reserved. Copyright ?? [employer] 2011 documented in this encounter Progress Notes Brianna Cortes MD - 11/02/2013 9:16 AM CDT Images from the original note were not included. SUBJECTIVE: Bhavik Jeffery is a 33 year old male who presents to clinic today for the following health issues: Musculoskeletal problem/pain ?? Duration: x 10 days, went away, worse last 4 days ?? Description Location: left wrist Patient also feels hearing crackling noises with certain range of motion with pain Pain also waking him up from sleep at night Denies any specific injury ?? Intensity: moderate ?? Accompanying signs and symptoms: none ?? History Previous similar problem: no Previous evaluation: none ?? Precipitating or alleviating factors: Trauma or overuse: no, pt just woke up and had pain Aggravating factors include: lifting, exercise and overuse ?? 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 Additional history: as documented PROBLEMS TO ADD ON... ROS: ROS otherwise negative OBJECTIVE: BP 118/74 Pulse 84 Temp(Src) 98.6 ??F (37 ??C) (Oral) Ht 6' (1.829 m) Wt 236 lb (107.049 kg) BMI 32 kg/m2 SpO2 97% Body mass index is 32 kg/(m^2). GENERAL: healthy, alert, well nourished, well hydrated, no distress NECK: no tenderness, no adenopathy, no asymmetry, no masses, no stiffness; thyroid- normal to palpation MS: extremities- no gross deformities noted, no edema NEURO: grossly non focal Left shoulder, upper arm, elbow, forearm:normal Left wrist: Positive for tenderness at the distal radial styloid. Positive for Nataliia maneuver.Palpable tenderness at an anatomical snuff box. Pain aggravated by resisting thumb extension and abduction isometrically. Left upper extremity: Neurovascularly intact and strength: Normal Diagnostic test results: No results found for this or any previous visit (from the past 24 hour(s)). ASSESSMENT/PLAN: (280.60) Pain in left wrist (primary encounter diagnosis) Comment: Likely de Quervain's tenosynovitis Plan: XR Wrist Left G/E 3 Views X-ray appears to be negative Patient will use [id number] thumb spica splint Exercises given Patient to use ice, NSAIDs with full stomach See Patient Instructions Brianna Cortes MD, MD [facility] Patient Instructions We did x-rays today Use brace as directed Do home exercises Ok to use ice, ibuprofen 800 mg every 8 hourly with full stomach Update me in 2-3 weeks or sooner with any issues Consider coming for fasting physical exam when ready Thanks Brianna Cortes MD De Quervain's Tenosynovitis What is de Quervain's tenosynovitis? De Quervain's tenosynovitis is a painful condition that affects the tendons on the thumb side of your wrist. Tendons, are strong bands of connective tissue that attach muscle to bone. A sheath, or covering, surrounds the tendons that go to your thumb. Tenosynovitis is an irritation of this sheath. How does it occur? De Quervain's tenosynovitis is usually cause by overusing your thumb or wrist. This is more likely in activities when your wrist is bent and you use your thumb to oil rag washer something (such as when you ski or hammer). Other causes of this condition include: wrist injuries rheumatoid arthritis. What are the symptoms? Symptoms may include: pain when you move your thumb or wrist pain when you make a fist swelling and pain on the thumb side of your wrist feeling or hearing creaking as the tendon moves How is it diagnosed? Your healthcare provider will examine your wrist and thumb and check for areas that are tender and painful to move. You may have an X-ray to be sure you don't have a broken bone. How is it treated? The first treatment is a splint that will cover your wrist and thumb. You need to protect your thumband wrist. Treatment may also include: Put an ice pack, gel pack, or package of frozen vegetables, wrapped in a cloth on your thumb and wrist every 3 to 4 hours, for up to 20 minutes at a time. You could also do ice massage. To do this, first freeze water in a Styrofoam cup, then peel the top of the cup away to expose the ice. Hold the bottom of the cup and rub the ice over your tendon for 5 to 10 minutes. Do this 3 to 5 times a day for the first 2 days. Take an anti-inflammatory medicine such as ibuprofen, or other medicine as directed by your provider. Nonsteroidal anti-inflammatory medicines (NSAIDs) may cause stomach bleeding and other problems. These risks increase with age. Read the label and take as directed. Unless recommended by your healthcare provider, do not take for more than 10 days. Your provider may give you an injection of a corticosteroid medicine. Follow your provider's instructions for doing exercises to help you recover. How long will the effects last? The length of recovery depends on factors such as your age, health, and if you have had a previous injury. Recovery time also depends on the severity of the injury. A mild injury may recover within a few weeks, but a severe injury may take 6 weeks or longer to recover. When can I return to my normal activities? Everyone recovers from an injury at a different rate. Return to your activities depends on how soon your wrist recovers, not by how many days or weeks it has been since your injury has occurred. In general, the longer you have symptoms before you start treatment, the longer it will take to get better.The goal of rehabilitation is to return you to your normal activities as soon as is safely possible. You need to stop doing the activities that cause pain until the tendon has healed. If you continue doing activities that cause pain, your symptoms will return and it will take longer to recover. You may return to your normal activities when it is no longer painful to move your thumb or wrist. You may n eed to do activities wearing a supportive splint until you no longer have symptoms. How can I prevent de Quervain's tenosynovitis? Avoiding activities that overuse your thumb or wrist may prevent de Quervain's tenosynovitis. De Quervain's Tenosynovitis Rehabilitation Exercises You may do these exercises when it is not painful to move your hand. Opposition stretch: Rest your hand on a table, palm up. Touch the tip of your thumb to the tip of your little finger. Hold this position for 6 seconds and then release. Repeat 10 times. Wrist stretch: Press the back of the hand on your injured side with your other hand to help bend your wrist. Hold for 15 to 30 seconds. Next, stretch the hand back by pressing the fingers in a backwarddirection. Hold for 15 to 30 seconds. Keep the arm on your injured side straight during this exercise. Do 3 sets. Wrist flexion: Hold a can or hammer handle in your hand with your palm facing up. Bend your wrist upward. Slowly lower the weight and return to the starting position. Do 3 sets of 10. Gradually increase the weight of the can or weight you are holding. Wrist radial deviation strengthening: Put your wrist in the sideways position with your thumb up. Hold a can of soup or a hammer handle and gently bend your wrist up, with the thumb reaching toward theceiling. Slowly lower to the starting position. Do not move your forearm throughout this exercise. Do 3 sets of 10. Wrist extension: Hold a soup can or hammer handle in your hand with your palm facing down. Slowly bend your wrist up. Slowly lower the weight down into the starting position. Do 3 sets of 10. Graduallyincrease the weight of the object you are holding. Delivery Technician strengthening: Squeeze a soft rubber ball and hold the squeeze for 5 seconds. Do 3 sets of 10. Finger spring: Place a large rubber band around the outside of your thumb and fingers. Open your fingers to stretch the rubber band. Do 3 sets of 10. Published by [employer]. This content is reviewed periodically and is subject to change as new health information becomes available. The information is intended to inform and educate and is not a replacement for medical evaluation, advice, diagnosis or treatment by a healthcare professional. Written by Atif Newton PT, and Caroline Szymanski PT, [facility], [facility], for [employer]. ? 2009 [employer] and/or its affiliates. All Rights Reserved. Copyright ?? [employer] 2011 Published by [employer]. This content is reviewed periodically and is subject to change as new health information becomes available. The information is intended to inform and educate and is not a replacement for medical evaluation, advice, diagnosis or treatment by a healthcare professional. Written by Zaid Damon MD, for [employer]. ? 2009 [employer] and/or its affiliates. All Rights Reserved. Copyright ?? [employer] 2011 documented in this encounter Nursing Notes Otoniel Nichols, ROCAEL - 11/02/2013 9:19 AM CDT Chief Complaint Patient presents with ??? Trauma left Initial BP 118/74 Pulse 84 Temp(Src) 98.6 ??F (37 ??C) (Oral) Ht 6' (1.829 m) Wt 236 lb (107.049 kg) BMI 32 kg/m2 SpO2 97% Estimated body mass index is 32 kg/(m^2) as calculated from the following: Height as of this encounter: 6' (1.829 m). Weight as of this encounter: 236 lb (107.049 kg). BP completed using cuff size: barb Nichols CMA documented in this encounter Plan of Treatment Not on filedocumented as of this encounter Visit Diagnoses Diagnosis Pain in left wrist - Primary Pain in joint, forearm documented in this encounter Care Teams Home Sales Service Professional Relationship Specialty Start Date End Date Brianna Cortes MD PCP - General 03/05/08 01/03/[address] [id number] documented as of this encounter
--- OUTSIDE RECORDS SUMMARY | 2022-05-30 13:40 | XMS_ITS | Encounter Summary ---
:1980 Author Organization [facility] Address [address] [place] [address]. [place] [address] Care Team Providers Name Role Phone Oneida Goodman APRN, CNP Primary Care Provider [phone] Reason for Visit Reason Comments Physical Flu Shot Encounter Details Date Type Department Care Team Description 04/15/2015 Office Visit [facility] Oneida Goodman er for routine adult health examination without abnormal findings (Primary Dx); [facility] CNP Lipid screening; [address] Screening for diabetes mellitus; [place], [place] Right wris t pain; [id number] Need for prophylactic vaccination and in oculation against influenza [phone] Social History Tobacco Use Types Packs/Day Years Used Date Smoking Tobacco: Never Smokeless Tobacco: Never Alcohol Use Standard Drinks/Week Comments Yes 0 (1 standard drink = 0.6 oz pure alcoho l) 1 beer every two weeks or so Sex Assigned at Date Recorded Not on file documented as of this encounter Last Filed Vital Signs Vital Sign Reading Time Taken Comments Blood Pressure 115/70 04/15/2015 3:34 PM CDT Pulse 92 04/15/2015 3:34 PM CDT Temperature 37.1 ??C (98.8 ??F) 04/15/2015 3:34 PM CDT Respiratory Rate 16 04/15/2015 3:34 PM CDT Oxygen Saturation 99% 04/15/2015 3:34 PM CDT Inhaled Oxygen Concentration - - Weight 109 kg (240 lb 6.4 oz) 04/15/2015 3:34 PM CDT Height 184.8 cm (6' 0.75) 04/15/2015 3:34 PM CDT Body Mass Index 31.94 04/15/2015 3:34 PM CDT documented in this encounter Patient Instructions Patient InstructionsBoBruna lan MA - 04/15/2015 3:36 PM CDT Preventive Health Recommendations Male Ages 26 - [...] instead of white grains and rice. ??? For bone health: Eat calcium-rich foods or take calcium pills (500 to 600 mg) twice a day with food. Also take vitamin D (1000 IU) each day. Lifestyle ??? Exercise for at least 150 minutes a week (30 minutes a day, 5 days a week). This will help you control your weight and prevent disease. ??? Limit alcohol to one drink per day. ??? No smoking. ??? Wear sunscreen to prevent skin cancer. ??? See your dentist every six months for an exam and cleaning. ??? documented in this encounter Progress Notes Oneida Goodman APRN CNP - 04/15/2015 3:36 PM CDT SUBJECTIVE: CC: Bhavik Jeffery is an 34 year old male who presents for preventative health visit. Healthy Habits: ?? Do you get at least three servings of calcium containing foods daily (dairy, green leafy vegetables, etc.)? yes ?? Amount of exercise or daily activities, outside of work: none ?? Problems taking medications regularly No ?? Medication side effects: No ?? Have you had an eye exam in the past two years? yes ?? Do you see a dentist twice per year? yes ?? Do you have sleep apnea, excessive snoring or daytime drowsiness? daytime drowsiness Other concerns to address: Spot on back that is itchy. Occasional wrist pain, feeling old with multiple aches depending on activity level. Today's PHQ-2 Score: PHQ-2 (??1998 Developed by Drs. Eulogio Washburn, Hien Billingsley, Caleb Reyes and colleagues,with an educational karen from [employer].) 04/15/2015 04/16/2014 Q1: Little interest or pleasure in doing things 1 0 Q2: Feeling down, depressed or hopeless 0 0 PHQ-2 Total Score Interpretation - Positive if 3 or more points; Administer PHQ- 9 if positive 1 0 Abuse: Current or Past(Physical, Sexual or Emotional)- No Do you feel safe in your environment - Yes History Substance Use Topics ??? Smoking status: Never Smoker ??? Smokeless tobacco: Never Used ??? Alcohol Use: Yes Comment: 1 beer every two weeks or so The patient does not drink >3 drinks per day nor >7 drinks per week. Last PSA: No results found for: PSA Recent Labs Lab Test 06/30/11 0953 06/23/08 0808 CHOL 166 171 HDL 35* 34* LDL 112 106 TRIG 91 151* CHOLHDLRATIO 4.7 5.0 Reviewed orders with patient. Reviewed health maintenance and updated orders accordingly - Yes All Histories reviewed and updated in [facility]. Past Medical History Diagnosis Date ??? anxiety resolved ??? Depression resolved ??? ADD (attention deficit disorder) not needing to take any meds at this time ROS: C: NEGATIVE for fever, chills, change in weight INTEGUMENTARY/SKIN: POSITIVE for pruritis back and generalized E: NEGATIVE for vision changes or irritation ENT: NEGATIVE for ear, mouth and throat problems R: NEGATIVE for significant cough or SOB CV: NEGATIVE for chest pain, palpitations or peripheral edema GI: NEGATIVE for nausea, abdominal pain, heartburn, or change in bowel habits male: negative for dysuria, hematuria, decreased urinary stream, erectile dysfunction, urethral discharge M: NEGATIVE for significant arthralgias or myalgia N: NEGATIVE for weakness, dizziness or paresthesias P: NEGATIVE for changes in mood or affect Problem list, Medication list, Allergies, and Medical/Social/Surgical histories reviewed in EPIC andupdated as appropriate. OBJECTIVE: BP 115/70 mmHg Pulse 92 Temp(Src) 98.8 ??F (37.1 ??C) (Oral) Resp 16 Ht 6' 0.75 (1.848 m) Wt 240 lb 6.4 oz (109.045 kg) BMI 31.93 kg/m2 SpO2 99% EXAM: GENERAL: healthy, alert and no distress EYES: [...] hepatosplenomegaly, no masses and bowel sounds normal MS: no gross musculoskeletal defects noted, no edema. Negative tinel and phalen tests. No joint swelling, erythema, warmth, or tenderness to BUE. SKIN: no suspicious lesions or rashes, no obvious skin abnormalities at site of itching. NEURO: Normal strength and tone, mentation intact and speech normal PSYCH: mentation appears normal, affect normal/bright ASSESSMENT/PLAN: ICD-10-CM 1. Encounter for routine adult health examination without abnormal findings Z00.00 2. Lipid screening Z13.220 Lipid Profile with reflex to direct LDL CANCELED: LIPID REFLEX TO DIRECT LDL PANEL 3. Screening for diabetes mellitus Z13.1 Glucose CANCELED: Glucose 4. Right wrist pain M25.531 Vitamin D Deficiency 5. Need for prophylactic vaccination and inoculation against influenza Z23 FLU VAC, SPLIT VIRUS IM > 3 YO (QUADRIVALENT) [29968] Vaccine Administration, Initial [34587] regular exercise healthy diet/nutrition reports that he has never smoked. He has never used smokeless tobacco. Estimated body mass index is 31.93 kg/(m^2) as calculated from the following: Height as of this encounter: 6' 0.75 (1.848 m). Weight as of this encounter: 240 lb 6.4 oz (109.045 kg). Weight management plan: Diet regimen was discussed and plan is self-directed dieting: reduce carbs. Counseling Resources: ATP IV Guidelines Pooled Cohorts Equation Calculator FRAX Risk Assessment ICSI Preventive Guidelines Dietary Guidelines for Americans, 2010 [employer] MyPlate Oneida Goodman APRN CNP [facility] Influenza Immunization Documentation 1. Is the person to be vaccinated sick today? No 2. Does the person to be vaccinated have an allergy to eggs or to a component of the vaccine? No 3. Has the person to be vaccinated today ever had a serious reaction to influenza vaccine in the past? No 4. Has the person to be vaccinated ever had Guillain-South Kortright syndrome? No Form completed by Bruna Ramsey MA documented in this encounter Nursing Notes Bruna Ramsey MA - 04/15/2015 3:36 PM CDT Chief Complaint Patient presents with ??? Physical Initial BP 115/70 mmHg Pulse 92 Temp(Src) 98.8 ??F (37.1 ??C) (Oral) Resp 16 Ht 6' 0.75 (1.848 m) Wt 240 lb 6.4 oz (109.045 kg) BMI 31.93 kg/m2 SpO2 99% Estimated body mass index is 31.93 kg/(m^2) as calculated from the following: Height as of this encounter: 6' 0.75 (1.848 m). Weight as of this encounter: 240 lb 6.4 oz (109.045 kg). BP completed using cuff size: regular rt arm Bruna Ramsey MA documented in this encounter Plan of Treatment Not on filedocumented as of this encounter Results Vitamin D Deficiency (04/16/2015 8:29 AM CDT) athologist Signature Vitamin D 42 20 - 75 [facility] Deficiency ug/L [place] [facility] screening [facility] Comment: Season, race, dietary intake, and treatm ent affect the concentration of 85-avnwfqo-Yqtwptp D. Values may decrea se during winter months and increase during summer months. Values 20-29 ug/L may indicate Vitamin D insufficiency and values <20 ug/L may indicate Vitami n D deficiency. Vitamin D determination is routinely pe rformed by an immunoassay specific for 25 hydroxyvitamin D3. ??If an individua l is on vitamin D2 (ergocalciferol) supplementation, please specify 25 [place] v itamin D2 and D3 level determination by LCMSMS test VITD23. Specimen Anatomical Collection Method Collection Time Receive d Time (Source) Location / / Volume Laterality Blood specimen 04/16/2015 8:29 AM 015 8:30 (specimen) CDT AM CDT Oneida Goodman APRN, CNP LAB - BLOOD ORDERABLES Performing Organization Address City/State/ZIP Code Phon e Number [facility] [address] [place] [address] [facility] Glucose (04/16/2015 8:29 AM CDT) athologist Signature Glucose 96 70 - 99 [facility] mg/dL [facility] Specimen Anatomical Collection Method Collection Time Receive d Time (Source) Location / / Volume Laterality Blood specimen 04/16/2015 8:29 AM 015 8:30 (specimen) CDT AM CDT Oneida Goodman APRN [facility] LAB - BLOOD ORDERABLES Performing Organization Address City/State/ZIP Code Phon e Number [facility] [address] [place] [address] Lipid Profile with reflex to direct LDL (04/16/2015 8:29 AM CDT) athologist Signature Cholesterol 168 <200 mg/dL [facility] Comment: LDL Cholesterol is the primary guide to therapy. The NCEP recommends further evaluation of: patients with cholesterol greater than 200 mg/dL if additional risk facto rs are present, cholesterol greater than 240 mg/dL, triglycerides greater than 1 50 mg/dL, or HDL less than 40 mg/dL. Triglycerides 118 0 - 150 mg/dL [facility] HDL Cholesterol 52 >40 mg/dL [facility] LDL Cholesterol Calculated 92 0 - 129 mg/dL [facility] Comment: LDL Cholesterol is the primary guide to therapy: LDL-cholesterol goal in high risk patients is <100 mg/dL and in very high risk patients is <70 mg/dL. VLDL-Cholesterol 24 0 - 30 mg/dL [facility] Cholesterol/HDL Ratio 3.2 0.0 - 5.0 [facility] Specimen Anatomical Collection Method Collection Time Receive d Time (Source) Location / / Volume Laterality Blood specimen 04/16/2015 8:29 AM 015 8:30 (specimen) CDT AM CDT Oneida Goodman APRN, CNP LAB - BLOOD ORDERABLES Performing Organization Address City/State/ZIP Code Phon e Number [facility] [address] [place] [address] documented in this encounter Visit Diagnoses Diagnosis Encounter for routine adult health exami nation without abnormal findings - Primary Lipid screening Screening for lipoid disorders Screening for diabetes mellitus Right wrist pain Pain in joint, forearm Need for prophylactic vaccination and in oculation against influenza documented in this encounter Care Teams Pocket Stitcher Relationship Specialty Start Date End Date Oneida Goodman, PCP - General Nurse Practitioner - Family 12/2301/22/17 CICI DENTON documented as of this encounter
--- OUTSIDE RECORDS SUMMARY | 2022-05-30 13:40 | XMS_ITS | Encounter Summary ---
:1980 Author Organization [facility] Address [address] [place] [address]. [place] [address] Care Team Providers Name Role Phone Oneida Goodman APRN, CNP Primary Care Provider [phone] Reason for Visit Reason Onset Date Comments Lab Result Notice 01/01/2017 Encounter Details Date Type Department Care Team Description 01/01/2017 Telephone [facility] Karla Breen NP Lab Result Notice [facility] [address] [place] [address] [phone] [place] [address] (Wo rk) Social History Tobacco Use Types Packs/Day Years Used Date Smoking Tobacco: Never Smokeless Tobacco: Never Alcohol Use Standard Drinks/Week Comments Yes 0 (1 standard drink = 0.6 oz pure alcoho l) 1 beer every two weeks or so Sex Assigned at Date Recorded Not on file documented as of this encounter Miscellaneous Notes Telephone Encounter - Danny Lisa - 01/01/2017 8:58 AM CDT Patient called back message was given. Telephone Encounter - Karla Breen NP - 01/01/2017 8:51 AM CDT I called to inform of negative herpes simplex testing which is great news. Did not want to leave a message on his phone. Please apologize for the confusion on the ordering of tests. documented in this encounter Plan of Treatment Not on filedocumented as of this encounter Visit Diagnoses Not on filedocumented in this encounter Care Teams Spinner Frame Relationship Specialty Start Date End Date Oneida Goodman PCP - General Nurse Practitioner - Family 12/2301/22/17 IT COMPLIANCE MANAGER [facility] documented as of this encounter
--- OUTSIDE RECORDS SUMMARY | 2022-05-30 13:40 | XMS_ITS | Encounter Summary ---
:1980 Author Organization [facility] Address [address] [place] [address]. [place] [address] Care Team Providers Name Role Phone Oneida Goodman APRN, CNP Primary Care Provider [phone] Encounter Details Date Type Department Care Team Description 04/16/2015 Orders Only [facility] Rig ht wrist pain; Lane [facility] Screening for diabetes [facility] [address] [place] [address] Social History Tobacco Use Types Packs/Day Years Used Date Smoking Tobacco: Never Smokeless Tobacco: Never Alcohol Use Standard Drinks/Week Comments Yes 0 (1 standard drink = 0.6 oz pure alcoho l) 1 beer every two weeks or so Sex Assigned at Date Recorded Not on file documented as of this encounter Progress Notes Oneida Goodman APRN CNP - 04/18/2015 1:29 PM CDT Quick Note: Please send patient letter notifying of labs and provider message. Dax Gutierres, All your tests are normal. Your cholesterol levels are really good! Please let us know if you have any questions. Thanks, Oneida Goodman APRN CNP TEST DESCRIPTIONS CBC (Complete Blood Count) includes hemoglobin, hematocrit, white blood cells, etc. This test can be used to detect anemia, infection, and abnormalities in blood cells. Cholesterol is one of the blood fats (lipids) and is the building block used by the body for cell wall and hormone production. Increased levels of cholesterol have been proven to directly contribute to heart disease and strokes. Triglycerides are one of the blood fats (lipids) and are thought to be associated with heart disease. If you have had anything to eat or drink other than water for 12 hours before the test and your level is high, you should have the test repeated after a 12 hour fast. Abnormally high results may alsobe associated with diabetes, kidney and liver diseases. LDL is the low density lipoprotein component of the cholesterol. It is the harmful substance that deposits cholesterol on the artery sellers contributing to heart attacks and strokes. A high LDL level is associated with higher risk of coronary heart disease. HDL stands for high density lipoprotein and refers to the so-called good cholesterol. HDL picks up excess cholesterol in the bloodstream and carries it back to the liver for disposal. Individuals with higher than average HDL seem to have a lower risk of coronary disease. Vigorous exercise will helpincrease the blood levels of HDL. Risk Factor (Total cholesterol/HDL) is a commonly used ratio for cardiac risk assessment. Less than5.0 for men and 4.4 for women is ideal. Sodium is an electrolyte useful in diagnosis of dehydration, diabetes, hypertension, or other diseases involving electrolyte imbalance. It also preserves the balance between calcium and potassium to maintain normal heart action and equilibrium of the body. Potassium is also an electrolyte that works with sodium to regulate the body's water [...] high BUN can be related to a high protein diet, heavy exercise, fever and infections, dehydration, kidney stones, and kidney disease.Creatinine elevation is less dependent on diet or exercise and better represents kidney impairment. Low values are not generally significant. Calcium is a mineral in the blood controlled by the parathyroid glands and kidneys. It is importantin the formation of bone, in muscle and [...] Slightly abnormal values are not considered significant. TSH stands for Thyroid Stimulating Hormone. A sensitive test used to determine how the thyroid gland is functioning. The thyroid gland produces hormones that control the body's metabolism. When too few hormones are produced (increased TSH), hypothyroidism occurs which can cause fatigue, sensitivity to cold, and weight gain - an overall slowing down of bodily functions. When too many thyroid hormonesare produces (or decreased TSH), it creates a condition call hyperthyroidism (such as Graves' disease) which causes rapid heartbeat, weight loss, and dizziness, among other symptoms. PSA stands for Prostate Specific Antigen. Elevated levels of PSA can increase with trauma, infection, inflammation, or disease processes in the prostate such as BPH (Benigh Prostatic Hypertrophy) or cancer. Glycohemoglobin or HgBA1C is a 3-month average of blood sugar documented in this encounter Plan of Treatment Not on filedocumented as of this encounter Procedures Procedure Name Priority Date/Time Associated Comments Diagnosis VITAMIN D DEFICIENCY Routine 04/16/2015 8:29 AM Right wrist pa in Results for this SCREENING CDT procedure are i n the results section. LIPID REFLEX TO Routine 04/16/2015 8:29 AM Right wrist pain Re sults for this DIRECT LDL PANEL CDT procedure a re in the results section. GLUCOSE Routine 04/16/2015 8:29 AM Screening for Results for this CDT diabetes mellitus procedure are in the results section. documented in this encounter Results Vitamin D Deficiency (04/16/2015 8:29 AM CDT) P athologist Signature Vitamin D 42 20 - 75 [facility] Deficiency ug/L [place] MEDICAL screening [facility] Comment: Season, race, dietary intake, and treatm ent affect the concentration of 94-ghmigzz-Sfnwqxc D. Values may decrea se during winter [...] 8:30 (specimen) CDT AM CDT Oneida Goodman CICI INSURANCE POLICY CLERK LAB - BLOOD ORDERABLES Performing Organization Address City/State/ZIP Code Phon e Number [facility] [address] [place] [address] [facility] Glucose (04/16/2015 8:29 AM CDT) athologist Signature Glucose 96 70 - 99 [facility] mg/dL [facility] Specimen Anatomical Collection Method Collection Time Receive d Time (Source) Location / / Volume Laterality Blood specimen 04/16/2015 8:29 AM 015 8:30 (specimen) CDT AM CDT Oneida Goodman CICI INSURANCE POLICY CLERK LAB - BLOOD ORDERABLES Performing Organization Address City/State/ZIP Code Phon e Number [facility] [address] [place] [address] Lipid Profile with reflex to direct LDL (04/16/2015 8:29 AM CDT) athologist Signature Cholesterol 168 <200 mg/dL [facility] Comment: LDL Cholesterol is the primary guide to therapy. The NCEP recommends further evaluation of: patients with cholesterol greater than 200 mg/dL if additional risk facto rs are present, cholesterol greater than 240 mg/dL, triglycerides greater than 1 50 mg/dL, or HDL less than 40 mg/dL. Triglycerides 118 0 - 150 mg/dL [facility] HDL Cholesterol 52 >40 mg/dL [facility] LDL Cholesterol Calculated 92 0 - 129 mg/dL [facility] Comment: LDL Cholesterol is the primary guide to therapy: LDL-cholesterol goal in high risk patients is <100 mg/dL and in very high risk patients is <70 mg/dL. VLDL-Cholesterol 24 0 - 30 mg/dL [facility] Cholesterol/HDL Ratio 3.2 0.0 - 5.0 [facility] Specimen Anatomical Collection Method Collection Time Receive d Time (Source) Location / / Volume Laterality Blood specimen 04/16/2015 8:29 AM 015 8:30 (specimen) CDT AM CDT Oneida Goodman HAND RIGGER INSURANCE POLICY CLERK LAB - BLOOD ORDERABLES Performing Organization Address City/State/ZIP Code Phon e Number [facility] [address] [place] [address] documented in this encounter Visit Diagnoses Diagnosis Right wrist pain Pain in joint, forearm Screening for diabetes mellitus documented in this encounter Care Teams Typer Relationship Specialty Start Date End Date Oneida Goodman, PCP - General Nurse Practitioner - Family 12/2301/22/17 CICI DENTON documented as of this encounter
--- OUTSIDE RECORDS SUMMARY | 2022-05-30 13:40 | XMS_ITS | Encounter Summary ---
:1980 Author Organization [facility] Address [address] [place] [address]. [place] [address] Care Team Providers Name Role Phone Karla Breen FORGING DIES FINAL FINISHER Primary Care Provider Reason for Visit Reason Comments Pre-Op Exam Encounter Details Date Type Department Care Team Description 01/23/2017 Office Visit [facility] Karla Breen, Preop general physical exam (Primary Dx); Clinic [facility] FORGING DIES FINAL FINISHER Left foot pain [id number] [facility] [id number] [place] [address] [place] [address] Social History Tobacco Use Types Packs/Day Years Used Date Smoking Tobacco: Never Smokeless Tobacco: Never Alcohol Use Standard Drinks/Week Comments Yes 0 (1 standard drink = 0.6 oz pure alcoho l) 1 beer every two weeks or so Sex Assigned at Date Recorded Not on file documented as of this encounter Last Filed Vital Signs Vital Sign Reading Time Taken Comments Blood Pressure 124/76 01/23/2017 4:40 PM CDT Pulse 77 01/23/2017 4:40 PM CDT Temperature 36.9 ??C (98.5 ??F) 01/23/2017 4:40 PM CDT Respiratory Rate 16 01/23/2017 4:40 PM CDT Oxygen Saturation 98% 01/23/2017 4:40 PM CDT Inhaled Oxygen Concentration - - Weight 112.9 kg (249 lb) 01/23/2017 4:40 PM CDT Height 182.9 cm (6') 01/23/2017 4:40 PM CDT Body Mass Index 33.77 01/23/2017 4:40 PM CDT documented in this encounter Patient Instructions Patient InstructionsOtoniel Nichols CMA - 01/23/2017 4:36 PM CDT Before Your Surgery ??? Call your surgeon if there is any change in your health. This includes signs of a cold or flu (such as a sore throat, runny nose, cough, rash or fever). ??? Do not smoke, drink alcohol or take over the counter medicine (unless your surgeon or primary care doctor tells you to) for the 24 hours before and after surgery. ??? If you take prescribed drugs: Follow your doctor???s orders about which medicines to take and which to stop until after surgery. ??? Eating and drinking prior to surgery: follow the instructions from your surgeon ??? Take a shower or bath the night before surgery. Use the soap your surgeon gave you to gently clean your skin. If you do not have soap from your surgeon, use your regular soap. Do not shave or scrubthe surgery site. Wear clean pajamas and have clean sheets on your bed. documented in this encounter Progress Notes Karla Breen NP - 01/23/2017 4:15 PM CDT [address] [id number] Dept: [phone] PRE-OP EVALUATION: Today's date: 01/23/2017 Bhavik Jonatan Jeffery (: 1980) presents for pre-operative evaluation assessment as requested by Dr. Camacho. He requires evaluation and anesthesia risk assessment prior to undergoing surgery/procedurefor treatment of left foot surgery, removing screws Date of Surgery/ Procedure: 01/25/2017 Time of Surgery/ Procedure: [facility] Fax number for surgical facility: [phone] Primary Physician: Karla Breen Type of Anesthesia Anticipated: General Patient has a Health Care Directive or Living Will: NO Preop Questions 01/23/2017 1. Do you have a history of heart attack, stroke, stent, bypass or surgery on an artery in the head,neck, heart or legs? No 2. Do you ever have any pain or discomfort in your chest? No 3. Do you have a history of Heart Failure? No 4. Are you troubled by shortness of breath when: walking on a level surface, or up a slight hill, orat night? No 5. Do you currently have a cold, bronchitis or other respiratory infection? No 6. Do you have a cough, shortness of breath, or wheezing? No 7. Do you sometimes get pains in the calves of your legs when you walk? No 8. Do you or anyone in your family have previous history of blood clots? No 9. Do you or does anyone in your family have a serious bleeding problem such as prolonged bleeding following surgeries or cuts? No 10. Have you ever had problems with anemia or been told to take iron pills? No 11. Have you had any abnormal blood loss such as black, tarry or bloody stools? No 12. Have you ever had a blood transfusion? No 13. Have you or any of your relatives ever had problems with anesthesia? No 14. Do you have sleep apnea, excessive snoring or daytime drowsiness? No 15. Do you have any prosthetic heart valves? No 16. Do you have prosthetic joints? No HPI: Brief HPI related to upcoming procedure: removal of hardware from left foot. MEDICAL HISTORY: Patient Active Problem List Diagnosis Date Noted ??? Cervicalgia 11/20/2012 Priority: Medium ??? Pain in thoracic spine 11/20/2012 Priority: Medium ??? Obesity 08/26/2012 Priority: Medium ??? Low HDL (under 40) 07/13/2011 Priority: Medium ??? Family history of coronary artery disease 07/03/2011 Priority: Medium ??? Attention deficit disorder of adult 08/25/2008 Priority: Medium ??? Allergic state 08/25/2008 Priority: Medium (Problem list name updated by automated process. Provider to review and confirm.) Past Medical History: Diagnosis Date ??? ADD (attention deficit disorder) not needing to take any meds at this time ??? anxiety resolved ??? Depression resolved Past Surgical History: Procedure Laterality Date ??? CL [facility]FF SURGICAL PATHOLOGY ??? left foot fracture Left ??? TONSILLECTOMY 2005 ??? VASECTOMY 2004 reversal done in 2007-going for another reversal in near future ??? VASECTOMY 2012 reversal 2 cd reversal Current Outpatient Prescriptions Medication Sig Dispense Refill ??? fluticasone (FLONASE) 50 MCG/ACT nasal spray [place] 1-2 sprays into both nostrils daily 3 g 3 ??? amphetamine-dextroamphetamine (ADDERALL XR) 20 MG per capsule Take 2 capsules by mouth daily. 0 OTC products: None, except as noted above. No Known Allergies Latex Allergy: NO Social History Substance Use Topics ??? Smoking status: Never Smoker ??? Smokeless tobacco: Never Used ??? Alcohol use Yes Comment: 1 beer every two weeks or so History Drug Use No REVIEW OF SYSTEMS: Constitutional, HEENT, cardiovascular, pulmonary, gi and gu systems are negative, except as otherwise noted. EXAM: BP 124/76 (BP Location: Right arm, Patient Position: Chair, Cuff Size: Adult Regular) Pulse 77 Temp 98.5 ??F (36.9 ??C) (Oral) Resp 16 Ht 6' (1.829 m) Wt 249 lb (112.9 kg) SpO2 98% BMI 33.77 kg/m2 GENERAL APPEARANCE: healthy, alert and no distress EYES: EOMI, PERRL HENT: ear canals and TM's normal and nose and mouth without ulcers or lesions NECK: no adenopathy, no asymmetry, masses, or scars and thyroid normal to palpation RESP: lungs clear to auscultation - no rales, rhonchi or wheezes CV: regular rates and rhythm, normal S1 S2, no S3 or S4 and no murmur, click or rub ABDOMEN: soft, nontender, no HSM or masses and bowel sounds normal MS: extremities normal- no gross deformities noted, no evidence of inflammation in joints, FROM in all extremities. SKIN: no suspicious lesions or rashes NEURO: Normal strength and tone, sensory exam grossly normal, mentation intact and speech normal PSYCH: mentation appears normal. and affect normal/bright LYMPHATICS: No axillary, cervical, or supraclavicular nodes DIAGNOSTICS: No labs or EKG required for low risk surgery (cataract, skin procedure, breast biopsy, etc) Recent Labs Lab Test 08/26/12 1225 06/30/11 0953 HGB -- 15.9 PLT -- 176 NA 138 -- POTASSIUM 3.9 -- CR 0.76 -- IMPRESSION: Reason for surgery/procedure: post surgical pain in left foot, hardware removal The proposed surgical procedure is considered INTERMEDIATE risk. REVISED CARDIAC RISK INDEX The patient has the following serious cardiovascular risks for perioperative complications such as (NV, PE, VFib and 3?? AV Block): No serious cardiac risks INTERPRETATION: 1 risks: Class II (low risk - 0.9% complication rate) The patient has the following additional risks for perioperative complications: No identified additional risks ICD-10-CM 1. Preop general physical exam Z01.818 2. Left foot pain M79.672 RECOMMENDATIONS: --Patient is to take all scheduled medications on the day of surgery EXCEPT for modifications listedbelow. APPROVAL GIVEN to proceed with proposed procedure, without further diagnostic evaluation Signed Electronically by: Karla Breen NP Copy of this evaluation report is provided to requesting physician. [facility] Preop Guidelines documented in this encounter Nursing Notes Otoniel Nichols CMA - 01/23/2017 4:15 PM CDT Chief Complaint Patient presents with ??? Pre-Op Exam Initial BP 124/76 (BP Location: Right arm, Patient Position: Chair, Cuff Size: Adult Regular) Pulse 77 Temp 98.5 ??F (36.9 ??C) (Oral) Resp 16 Ht 6' (1.829 m) Wt 249 lb (112.9 kg) SpO2 98% BMI 33.77 kg/m2 Estimated body mass index is 33.77 kg/(m^2) as calculated from the following: Height as of this encounter: 6' (1.829 m). Weight as of this encounter: 249 lb (112.9 kg). Medication Reconciliation: jose luis Nichols CMA Otoniel Nichols CMA - 01/23/2017 4:15 PM CDT 6 page form faxed to [phone] at 8pm on 01/23/2017, OV included.Otoniel Nichols CMA documented in this encounter Plan of Treatment Not on filedocumented as of this encounter Visit Diagnoses Diagnosis Preop general physical exam - Primary Other specified pre-operative examinatio n Left foot pain Pain in limb documented in this encounter Care Teams Managing Director Relationship Specialty Start Date End Date Karla Breen FORGING DIES FINAL FINISHER PCP - General Nurse Practitioner - Family 01/23/1703/24 documented as of this encounter
--- OUTSIDE RECORDS SUMMARY | 2022-05-30 13:40 | XMS_ITS | Encounter Summary ---
:1980 Author Organization [facility] Address [address] [place] [address]. [place] [address] Care Team Providers Name Role Phone Oneida Goodman APRN HORSE SHOER Primary Care Provider [phone] Reason for Visit Reason Onset Date Comments Refill Request 05/01/2015 Encounter Details Date Type Department Care Team Description 05/01/2015 Refill [facility] Oneida Goodman, Refill Request [place] ASSISTANT PROFESSOR OF FORESTRY HORSE SHOER [id number] [address] [place] [address] [phone] (Wo rk) Social History Tobacco Use Types Packs/Day Years Used Date Smoking Tobacco: Never Smokeless Tobacco: Never Alcohol Use Standard Drinks/Week Comments Yes 0 (1 standard drink = 0.6 oz pure alcoho l) 1 beer every two weeks or so Sex Assigned at Date Recorded Not on file documented as of this encounter Miscellaneous Notes Telephone Encounter - Sasha Castillo RN - 05/02/2015 12:28 PM CST Prescription approved per [facility] [place] [place] Refill Protocol. [employer]ISOR PIPELINE MAINTENANCE Telephone Encounter - Elizabet Anderson - 05/01/2015 11:33 AM CST FLONASE NASAL SUSPENSION 50 MCG/ACT Last Written Prescription Date: 04/16/14 Last Fill Quantity: 3 PACKAGES, # refills: 1 Last Office Visit with [facility] [place] [place] primary care provider: 04/15/15 [employer] PIPELINE MAINTENANCE documented in this encounter Plan of Treatment Not on filedocumented as of this encounter Visit Diagnoses Diagnosis Chronic rhinitis - Primary documented in this encounter Care Teams Public Speaking Professor Relationship Specialty Start Date End Date Oneida Goodman, PCP - General Nurse Practitioner - Family 12/2301/22/17 ASSISTANT PROFESSOR OF FORESTRY HORSE SHOER documented as of this encounter
--- OUTSIDE RECORDS SUMMARY | 2022-05-30 13:40 | XMS_ITS | Encounter Summary ---
:1980 Author Organization [facility] Address [address] [place] [address]. [place] [address] Care Team Providers Name Role Phone Oneida Goodman APRN BOBBIN PRESSER Primary Care Provider [phone] Encounter Details Date Type Department Care Team Description 09/30/2015 Radiant Appointment [facility] Norm Nick in of right hand Clinic [place] [address] [place] [address] Social History Tobacco Use Types [...] Priority Date/Time Associated Diagnosis Comme nts XR FINGER RIGHT G/E Routine 09/30/2015 12:18 PM Pain of right hand Results for this 2 VIEWS CDT procedure are i n the results section. documented in this encounter Results XR Finger Right G/E [...] in right hand IMPRESSION: Negative exam. ERIC SLOANO MD Norm Nick MD IMG DIAGNOSTIC IMAGING ORDER GORAN documented in this encounter Visit Diagnoses Diagnosis Pain of right hand Pain in limb documented in this encounter Care Teams Laser Engraver Relationship Specialty Start Date End Date Oneida Goodman, PCP - General Nurse Practitioner - Family 12/2301/22/17 PRODUCTION TEAM MEMBER BOBBIN PRESSER documented as of this encounter
--- OUTSIDE RECORDS SUMMARY | 2022-05-30 13:40 | XMS_ITS | Encounter Summary ---
:1980 Author Organization [facility] Address [address] [place] [address]. [place] [address] Care Team Providers Name Role Phone Oneida Goodman APRN, CNP Primary Care Provider [phone] Reason for Visit Reason Comments Foot Pain Pain in the ball of both fee t. It has been going on for about 6 years. Encounter Details Date Type Department Care Team Description 01/14/2015 Office Visit [facility] Shreya Sainz is (Primary Dx); Clinic [place] HusseinTANAArnaldo Foot pain [id number] [id number] [place], [place] [phone] [id number] Social History Tobacco Use Types Packs/Day Years Used Date Smoking Tobacco: Never Smokeless Tobacco: Never Alcohol Use Standard Drinks/Week Comments Yes 0 (1 standard drink = 0.6 oz pure alcoho l) 1 beer every two weeks or so Sex Assigned at Date Recorded Not on file documented as of this encounter Last Filed Vital Signs Vital Sign Reading Time Taken Comments Blood Pressure 130/70 01/14/2015 9:23 AM CDT Pulse - - Temperature - - Respiratory Rate - - Oxygen Saturation - - Inhaled Oxygen Concentration - - Weight 109.3 kg (241 lb) 01/14/2015 9:23 AM CDT Height 182.9 cm (6') 01/14/2015 9:23 AM CDT Body Mass Index 32.69 01/14/2015 9:23 AM CDT documented in this encounter Patient Instructions Patient InstructionsLesly Smalls, ROCAEL - 01/14/2015 9:50 AM CDT Follow up [address] Sainz's clinic locations: Mondays: Tuesdays: [facility] [address] [facility] [address] [address], [address] [place] [address] [place] [address] [phone] Wednesdays: Surgery Surgery Scheduling - Jolene: [phone] - - Afternoon [facility] [address] [place] [address] [place], [place] [id number] Saturday - [facility] [address] [place] [address] To Schedule an Appointment please call: [phone] please fax all forms to [facility] fax: [phone] CORNELIUS Therapy Many aches and pains throughout the foot and ankle can be helped with many simple treatments. This is usually described as CORNELIUS Therapy. P - Protection - often times, inflammation/pain in the lower extremity is not able to improve simplybecause the areas involved are never allowed to rest. Every step we take can bother the problematic area. Protecting those areas is an important step in the healing process. This may involve a walking cast boot, a special insert/orthotic device, an ankle brace, or simply avoiding barefoot walking. R - Rest - in addition to protecting the foot/ankle, resting is an important, but often times difficult, treatment option. Getting off your feet when they bother you, and specifically avoiding activities that cause pain/discomfort, are very beneficial to prevent, and treat, foot/ankle pain. I - Ice - icing regularly can help to decrease inflammation and swelling in the foot, thus decreasing pain. Using an ice pack or a bag of frozen peas works very well. Ice for 20 minutes multiple times per day as needed. Do not place the ice directly on the skin as this can cause tissue damage. C - Compression - using a compression wrap or an ALEXANDRU wrap can help to decrease swelling, which can help to decrease pain. Wearing the wraps is generally not needed at night, but they should be worn on a regular basis when you are going to be on your feet for prolonged periods as gravity tends to pull fluids down to your feet/ankles. E - Elevation - elevating your lower extremities multiple times daily for 15-20 minutes can help to decrease swelling, which works well in decreasing pain levels. Over the Counter Inserts Super Feet are the most common and easiest to find. Locations include any [employer], [employer] in [place] on [address] and in [place] on [address], [employer] in [facility] on [address], [facility] Running Room in [facility] on [address], [facility] Running Room in [place] on [address], [employer] in [place] on [address] and [employer] in [facility] on [address] and in [place] on [address]. Spenco can be found online and at [employer] in [facility] on [address], [employer] in [facility] on [address], [employer] Running Store in [place] on [facility] [address] [facility], [employer] in [place] on [address] and [employer] in [place] on [address]. Power Step can be a little harder to find. Locations include [facility] on [facility] [address] [facility], [employer] in [place] on [address], [place] in [facility], [employer] Store in [place] on [employer] and online A good high quality over the counter insert can cost around $30-$40. Sesamoid Injuries in the Foot What is a Sesamoid? A sesamoid is a bone embedded in a tendon. Sesamoids are found in several joints in the body. In thenormal foot, the sesamoids are two pea-shaped bones located in the ball of the foot, beneath the bigtoe joint. Acting as a valerie for tendons, the sesamoids help the big toe move normally and provide leverage when the big toe ???pushes off?? during walking and running. The sesamoids also serve as a weight-bearing surface for the first metatarsal bone (the long bone connected to the big toe), absorbing the weight placed on the ball of the foot when walking, running, and jumping. Sesamoid injuries can involve the bones, tendons, and/or surrounding tissue in the joint. They are often associated with activities requiring increased pressure on the ball of the foot, such as running, basketball, football, golf, tennis, and ballet. In addition, people with high arches are at risk for developing sesamoid problems. Frequent wearing of high-heeled shoes can also be a contributing factor. Types of Sesamoid Injuries in the Foot There are three types of sesamoid injuries in the foot: Turf toe. This is an injury of the soft tissue surrounding the big toe joint. It usually occurs whenthe big toe joint is extended beyond its normal range. Turf toe causes immediate, sharp pain and swelling. It usually affects the entire big toe joint and limits the motion of the toe. Turf toe may result in an injury to the soft tissue attached to the sesamoid or a fracture of the sesamoid. Sometimesa ???pop?? is felt at the moment of injury. Fracture. A fracture (break) in a sesamoid bone can be either acute or chronic. An acute fracture is caused by trauma - a direct blow or impact to the bone. An acute sesamoid fracture produces immediate pain and swelling at the site of the break, but usually does not affect the entire big toe joint. A chronic fracture is a stress fracture (a hairline break usually caused by repetitive stress or overuse). A chronic sesamoid fracture produces longstanding pain in the ball of the foot beneath the bigtoe joint. The pain, which tends to come and go, generally is aggravated with activity and relieved with rest. Sesamoiditis. This is an overuse injury involving chronic inflammation of the sesamoid bones and thetendons involved with those bones. Sesamoiditis is caused by increased pressure to the sesamoids. Often, sesamoiditis is associated with a dull, longstanding pain beneath the big toe joint. The pain comes and goes, usually occurring with certain shoes or certain activities. Diagnosis In diagnosing a sesamoid injury, the foot and ankle surgeon will examine the foot, focusing on the big toe joint. The surgeon will press on the big toe, move it up and down, and may assess the patient???s walking and evaluate the wear pattern on the patient???s shoes. X-rays are ordered, and in some cases, advanced imaging studies may be ordered. Non-Surgical Treatment Non-surgical treatment for sesamoid injuries of the foot may include one or more of the following options, depending on the type of injury and degree of severity: Padding, strapping, or taping. A pad may be placed in the shoe to cushion the inflamed sesamoid area, or the toe may be taped or strapped to relieve that area of tension. Immobilization. The foot may be placed in a cast or removable walking cast. Crutches may be used to prevent placing weight on the foot. Oral medications. Nonsteroidal anti-inflammatory drugs (NSAIDs), such as ibuprofen, are often helpful in reducing the pain and inflammation. Physical therapy. The rehabilitation period following immobilization sometimes includes physical therapy, such as exercises (cshys-[id number], strengthening, and conditioning) and ultrasound therapy. Steroid injections. In some cases, cortisone is injected in the joint to reduce pain and inflammation. Orthotic devices. Custom orthotic devices that fit into the shoe may be prescribed for long-term treatment of sesamoiditis to balance the pressure placed on the ball of the foot. When is Surgery Needed? When sesamoid injuries fail to respond to non-surgical treatment, surgery may be required. The foot and ankle surgeon will determine the type of procedure that is best suited to the individual patient. documented in this encounter Progress Notes Hussein Sainz DPM - 01/14/2015 9:24 AM CDT Foot & Ankle Surgery January 14, 2015 CC: foot pain/ball and arch Referring Provider - none HPI: Pt is a 34 year old male who presents with above complaint. Pain at the 1st MPJ bilateral, and mild arch pain. 6 years of discomfort. Also mentions leg pain in his calves and back pain. Pain 8/10 at worst. Describes radiating pain, localized, rapid onset, recurrent. Has tried ice, heat, stretching, store inserts, which have helped the arch pain, but pain sub 1st MPJ continues ROS: Pos for CC. The patient denies current nausea, vomiting, chills, fevers, belly pain, calf pain,chest pain or SOB. ROS otherwise neg. VITALS: Filed Vitals: 01/14/15 0923 Height: 6' (1.829 m) Weight: 241 lb (109.317 kg) PMH: Past Medical History Diagnosis Date ??? anxiety resolved ??? Depression resolved ??? ADD (attention deficit disorder) not needing to take any meds at this time SXHX: Past Surgical History Procedure Laterality Date ??? Tonsillectomy 2005 ??? Cl aff surgical pathology ??? Vasectomy 2004 reversal done in 2007-going for another reversal in near future ??? Vasectomy 2012 reversal 2 cd reversal MEDS: Current Outpatient Prescriptions Medication ??? amphetamine-dextroamphetamine (ADDERALL) 10 MG tablet ??? Ipratropium-Albuterol (COMBIVENT RESPIMAT) 20-100 MCG/ACT inhaler ??? fluticasone (FLONASE) 50 MCG/ACT nasal spray ??? amoxicillin-clavulanate (AUGMENTIN) 875-125 MG per tablet ??? fexofenadine (JOHN PAUL) 180 MG tablet ??? fish oil-omega-3 fatty acids (OMEGA 3) 1000 MG capsule ??? UNKNOWN MED DOSAGE ??? amphetamine-dextroamphetamine (ADDERALL XR) 20 MG per capsule No current facility-administered medications for this visit. ALL: Allergies Allergen Reactions ??? No Known Drug Allergies FMH: Family History Problem Relation Age of Onset ??? Family History Negative Mother parents are both alive and healthy ??? Obesity Father ??? Heart Disease Father 60 quintuple bypass ??? Diabetes Maternal Grandfather due to weight ??? Obesity Maternal Grandfather ??? Cerebrovascular Accident Paternal Grandmother ??? Heart Disease Paternal Grandfather bypass-several times-first one at 60 ??? Family History Negative Sister ??? Family History Negative Brother ??? Cancer - colorectal Maternal Uncle diagnosed in his 50's ??? Prostate Cancer No family hx of SocHx: History Social History ??? Marital Status: Spouse Name: N/A Number of Children: N/A ??? Years of Education: N/A Occupational History ??? Not on file. Social History Main Topics ??? Smoking status: Never Smoker ??? Smokeless tobacco: Never Used ??? Alcohol Use: Yes Comment: 1 beer every two weeks or so ??? Drug Use: No ??? Sexual Activity: Partners: Female Control/ Protection: Surgical Comment: vasectomy-wants to get reversed Other Topics Concern ??? Parent/Sibling W/ Cabg, Mi Or Angioplasty Before 65f 55m? 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 EXAMINATION: Gen: No apparent distress Neuro: A&Ox3, no deficits Psych: Answering questions appropriately for age and situation with normal affect Head: NCAT Eye: Visual scanning without deficit Ear: Response to auditory stimuli wnl Lung: Non-labored breathing on RA noted Abd: NTND per patient report Lymph: Neg for pitting/non-pitting edema BLE Vasc: Pulses palpable, CFT minimally delayed Neuro: Light touch sensation intact to all sensory nerve distributions without paresthesias Derm: Neg for nodules, lesions or ulcerations MSK: Pain at tib and fib sesamoids bilateral, no flexor tendon pathology, no pain with PROM 1st MPJ,although there is some crepitus noted at met-sesamoid articulation. Calf: Neg for redness, swelling or tenderness Assessment: 34 year old male with arch pain, sesamoiditis Plan: Discussed etiologies and options -RICE/NSAID prn -primary treatment options discussed included supportive shoes, no barefoot, OTC insert -secondary treatment options discussed included orthotics, CAM, PT, imaging, PO/injectibe steroid -primary treatments for now; follow up 3-4 weeks, secondary if no improvement Weight management plan: Patient was referred to their PCP to discuss a diet and exercise plan. Hussein Sainz DPM Podiatric Foot & Ankle Surgeon [facility] [phone] documented in this encounter Nursing Lesly Roland CMA - 01/14/2015 9:26 AM CDT Chief Complaint Patient presents with ??? Foot Pain Pain in the ball of both feet. It has been going on for about 10 years on and off. Initial BP 130/70 mmHg Ht 6' (1.829 m) Wt 241 lb (109.317 kg) BMI 32.68 kg/m2 Estimated body mass index is 32.68 kg/(m^2) as calculated from the following: Height as of this encounter: 6' (1.829 m). Weight as of this encounter: 241 lb (109.317 kg). BP completed using cuff size: regular documented in this encounter Plan of Treatment Not on filedocumented as of this encounter Visit Diagnoses Diagnosis Sesamoiditis - Primary Other disorders of bone and cartilage Foot pain Pain in limb documented in this encounter Care Teams Speech Therapy Teacher Relationship Specialty Start Date End Date Oneida Goodman, PCP - General Nurse Practitioner - Family 12/2301/22/17 PLAN EXAMINER SHAPER AND PRESSER documented as of this encounter
--- OUTSIDE RECORDS SUMMARY | 2022-05-30 13:40 | XMS_ITS | Encounter Summary ---
:1980 Author Organization [facility] Address [address] [place] [address]. [place] [address] Care Team Providers Name Role Phone Karla Breen SENIOR SOLUTIONS WORKFLOW CONSULTANT Primary Care Provider Reason for Visit Reason Comments Rectal Problem Encounter Details Date Type Department Care Team Description 02/26/2017 Office Visit [facility] Karla Breen, [facility] [place] SENIOR SOLUTIONS WORKFLOW CONSULTANT skin tags (Primary Dx) [id number] [facility] [id number] [address] [phone] [place] [address] Social History Tobacco Use Types Packs/Day Years Used Date Smoking Tobacco: Never Smokeless Tobacco: Never Alcohol Use Standard Drinks/Week Comments Yes 0 (1 standard drink = 0.6 oz pure alcoho l) 1 beer every two weeks or so Sex Assigned at Date Recorded Not on file documented as of this encounter Last Filed Vital Signs Vital Sign Reading Time Taken Comments Blood Pressure 118/70 02/26/2017 3:47 PM CDT Pulse 76 02/26/2017 3:47 PM CDT Temperature 37 ??C (98.6 ??F) 02/26/2017 3:47 PM CDT Respiratory Rate 16 02/26/2017 3:47 PM CDT Oxygen Saturation 99% 02/26/2017 3:47 PM CDT Inhaled Oxygen Concentration - - Weight 112.5 kg (248 lb) 02/26/2017 3:47 PM CDT Height 182.9 cm (6') 02/26/2017 3:47 PM CDT Body Mass Index 33.63 02/26/2017 3:47 PM CDT documented in this encounter Progress Notes Karla Breen, SENIOR SOLUTIONS WORKFLOW CONSULTANT - 02/26/2017 3:45 PM CDT SUBJECTIVE: Bhavik Jeffery is a 36 year old male who presents to clinic today for the following health issues: Here with concerns about bright red blood in stool x3 for the past two days. No known issues with hemorrhoids in the past. No problems with constipation. Trying to be more active with walking daily butno new weight lifting noted. Describes blood as filling the bowl. No pain associated with bowel movements. Trying to drink more water. Problem list and histories reviewed & adjusted, [...] History Problem Relation Age of Onset ??? Obesity Father ??? HEART DISEASE Father 60 quintuple bypass ??? DIABETES Maternal Grandfather due to weight ??? Obesity Maternal Grandfather ??? CEREBROVASCULAR DISEASE Paternal Grandmother ??? HEART DISEASE Paternal Grandfather bypass-several times-first one at 60 ??? Family History Negative Mother parents are both alive and healthy ??? Family History Negative Sister ??? Family History Negative Brother ??? Cancer - colorectal Maternal Uncle diagnosed in his 50's ??? Prostate Cancer No family hx of Reviewed and updated as needed this visit by clinical staff Tobacco Allergies Meds Problems Med Hx Surg Hx Fam Hx Soc Hx Reviewed and updated as needed this visit by Provider Allergies Meds Problems Med Hx Surg Hx Fam Hx ROS: Constitutional, HEENT, cardiovascular, pulmonary, gi and gu systems are negative, except as otherwise noted. OBJECTIVE: BP 118/70 (BP Location: Right arm, Patient Position: Chair, Cuff Size: Adult Large) Pulse 76 Temp 98.6 ??F (37 ??C) (Oral) Resp 16 Ht 6' (1.829 m) Wt 248 lb (112.5 kg) SpO2 99% BMI 33.63 kg/m2 Body mass index is 33.63 kg/(m^2). GENERAL: healthy, alert and no distress RESP: lungs clear to auscultation - no rales, rhonchi or wheezes CV: regular rate and rhythm, normal S1 S2, no S3 or S4, no murmur, click or rub, no peripheral edemaand peripheral pulses strong RECTAL (male): normal sphincter tone, no rectal masses, prostate normal size, smooth, nontender without nodules or masses PSYCH: mentation appears normal, affect normal/bright ASSESSMENT/PLAN: 1. Residual hemorrhoidal skin tags Anusol suppositories for internal hemorrhoid. Encouraged increasing water and fiber intake. Discussed conservative management for hemorrhoids with increase in fiber and fluids in diet, stool softener with taking MiraLAX daily. Discussed not straining to stool and need for soft stools every day to avoid rectal pressure. Follow-up if worsening. - hydrocortisone (ANUSOL-HC) 25 MG Suppository; Place 1 suppository (25 mg) rectally 2 times daily Dispense: 28 suppository; Refill: 0 Karla Breen NP [facility] documented in this encounter Nursing Notes Otoniel Nichols, COMPUTER SCIENCE TEACHER - 02/26/2017 3:45 PM CDT Chief Complaint Patient presents with ??? Rectal Problem Initial BP 118/70 (BP Location: Right arm, Patient Position: Chair, Cuff Size: Adult Large) Pulse 76 Temp 98.6 ??F (37 ??C) (Oral) Resp 16 Ht 6' (1.829 m) Wt 248 lb (112.5 kg) SpO2 99% BMI 33.63 kg/m2 Estimated body mass index is 33.63 kg/(m^2) as calculated from the following: Height as of this encounter: 6' (1.829 m). Weight as of this encounter: 248 lb (112.5 kg). Medication Reconciliation: bernarda Nichols CMA documented in this encounter Plan of Treatment Not on filedocumented as of this encounter Visit Diagnoses Diagnosis Residual hemorrhoidal skin tags - Primar y documented in this encounter Care Teams Sql Server Developer Relationship Specialty Start Date End Date Karla Breen, SENIOR SOLUTIONS WORKFLOW CONSULTANT PCP - General Nurse Practitioner - Family 01/23/1703/24 documented as of this encounter
--- OUTSIDE RECORDS SUMMARY | 2022-05-30 13:40 | XMS_ITS | Encounter Summary ---
:1980 Author Organization [facility] Address [address] [place] [address] Care Team Providers Name Role Phone Susan Yin PA-C Primary Care Provider [phone] Encounter Details Date Type Department Care Team Description 04/05/2022 Travel Social History Tobacco Use Types Packs/Day Years [...] have Coronavirus/COVID-19? documented as of this encounter Plan of Treatment Not on filedocumented as of this encounter Visit Diagnoses Not on filedocumented in this encounter Care Teams Product Evangelist Relationship Specialty Start Date End Date Susan Yin, PCP - General Physician Substance Abuse Prevention Coordinator 03/24 12/09 [place] [address] [place] [address] documented as of this encounter
--- OUTSIDE RECORDS SUMMARY | 2022-05-30 13:40 | XMS_ITS | Encounter Summary ---
:1980 Author Organization [facility] Address [address] [place] [address]. [place] [address] Care Team Providers Name Role Phone Nuha Karla M HAULAGE ENGINE OPERATOR Primary Care Provider Reason for Visit Reason Comments Sinus Problem Penis/Scrotum Problem Encounter Details Date Type Department Care Team Description 05/22/2017 Office Visit [facility] Km Atkins, Acute sinusitis with symptoms > 10 days (Primary Dx); Clinic [facility] Dermatitis [id number] [id number] Social History Tobacco Use Types Packs/Day Years Used Date Smoking Tobacco: Never Smokeless Tobacco: Never Alcohol Use Standard Drinks/Week Comments Yes 0 (1 standard drink = 0.6 oz pure alcoho l) 1 beer every two weeks or so Sex Assigned at Date Recorded Not on file documented as of this encounter Last Filed Vital Signs Vital Sign Reading Time Taken Comments Blood Pressure 132/80 05/22/2017 3:34 PM GAS COMBUSTION ENGINEER Pulse 71 05/22/2017 3:34 PM GAS COMBUSTION ENGINEER Temperature 37.2 ??C (98.9 ??F) 05/22/2017 3:34 PM GAS COMBUSTION ENGINEER Respiratory Rate 14 05/22/2017 3:34 PM GAS COMBUSTION ENGINEER Oxygen Saturation 100% 05/22/2017 3:34 PM GAS COMBUSTION ENGINEER Inhaled Oxygen Concentration - - Weight 112.5 kg (248 lb) 05/22/2017 3:34 PM GAS COMBUSTION ENGINEER Height - - Body Mass Index 33.63 02/26/2017 3:47 PM CDT documented in this encounter Progress Notes Km Atkins MD - 05/22/2017 3:30 PM CST SUBJECTIVE: Bhavik Jeffery is a 36 year old male who presents to clinic today for the following health issues: Has had cold since , has gotten better now sinus pressure and dizziness started today. Also having derm issue on genital area. Problem list and histories reviewed & adjusted, as indicated. Additional history: Patient Active Problem List Diagnosis ??? Attention deficit disorder of adult ??? Allergic state ??? Family history of coronary artery disease ??? Low HDL (under 40) ??? Obesity ??? Cervicalgia ??? Pain in thoracic spine Past Surgical History: Procedure Laterality Date ??? CL AFF SURGICAL PATHOLOGY ??? left foot fracture Left ??? TONSILLECTOMY 2004 ??? VASECTOMY 2004 reversal done in 2007-going [...] negative, except as otherwise noted. OBJECTIVE: BP 132/80 Pulse 71 Temp 98.9 ??F (37.2 ??C) (Oral) Resp 14 Wt 248 lb (112.5 kg) SpO2 100% BMI 33.63 kg/m2 Body mass index is 33.63 kg/(m^2). GENERAL: alert and mild distress HENT: normal cephalic/atraumatic, ear canals and TM's normal, nasal mucosa edematous , oropharynx clear and oral mucous membranes moist NECK: bilateral anterior cervical adenopathy, no asymmetry, masses, or scars and [...] gross musculoskeletal defects noted, no edema SKIN: ventral penis red skin inflammed appearing Diagnostic Test Results: none ASSESSMENT/PLAN: ICD-10-CM 1. Acute sinusitis with symptoms > 10 days J01.90 clotrimazole (LOTRIMIN) 1 % solution terbinafine (LAMISIL) 1 % SOLN injection 2. Dermatitis L30.9 clotrimazole (LOTRIMIN) 1 % solution terbinafine (LAMISIL) 1 % SOLN injection 3. Dizziness; this was the original complaint but this is probably the symptoms that is pursuant to the sinusitis. In addition he had a dermatitis; he has had a workup to rule out any sexually transmitted diseases..It appears to be somewhat itchy and obviously in the groin area and there is some redness in the inguinal area. I suspect that this may be fungal in nature. Level 4 visit; 25 minutes spent in exam and counseling. Greater than 50% of the time was spent in counseling in regards to the dermatitis as well as his ongoing sinus infection. Discussion ended with his need to be be seen by his primary care. Km Atkins MD [facility] COMBUSTION ENGINEER documented in this encounter Nursing Notes Tara Serrano MA - 05/22/2017 3:30 PM CST No chief complaint on file. Initial BP 132/80 Pulse 71 Temp 98.9 ??F (37.2 ??C) (Oral) Resp 14 Wt 248 lb (112.5 kg) SpO2 100% BMI 33.63 kg/m2 Estimated body mass index is 33.63 kg/(m^2) as calculated from the following: Height as of 02/26/17: 6' (1.829 m). Weight as of this encounter: 248 lb (112.5 kg). Medication Reconciliation: bernarda Serrano MACHINE PECAN GATHERER COMBUSTION ENGINEER documented in this encounter Plan of Treatment Not on filedocumented as of this encounter Visit Diagnoses Diagnosis Acute sinusitis with symptoms > 10 days - Primary Acute sinusitis, unspecified Dermatitis Contact dermatitis and other eczema, due to unspecified cause documented in this encounter Care Teams Surface Supervisor Relationship Specialty Start Date End Date Karla Breen, HAULAGE ENGINE OPERATOR PCP - General Nurse Practitioner - Family 01/23/1703/24 documented as of this encounter
--- OUTSIDE RECORDS SUMMARY | 2022-05-30 13:40 | XMS_ITS | Encounter Summary ---
:1980 Author Organization [facility] Address [facility] [place] [address] Care Team Providers Name Role Phone Brianna Cortes MD Primary Care Provider Reason for Referral Consultation - Closed Specialty Diagnoses / Procedures Referred By Contact Refer red To Contact Diagnoses Chronic rhinitis Oneida Goodman, ALLERGY AND ASTHMA CARE, [place] [address] [address] [place], [place] [address] Referral ID Status Reason Start Date Expiration Date Visits Requ ested Visits Authorized [id number] Closed 04/16/2014 10/13/2014 1 1 Reason for Visit Reason Comments Sinus Problem Flu Shot Encounter Details Date Type Department Care Team Description 04/16/2014 Office Visit [facility] Oneida Goodman b abeba (Primary Dx); Clinic Maria Ines Chin APRN CNP Chronic rhinitis; [address] [facility] [address] [address] Need for prophylactic vaccination and [place] [address] [id number] Social History Tobacco Use Types Packs/Day Years Used Date Smoking Tobacco: Never Smokeless Tobacco: Never Alcohol Use Standard Drinks/Week Comments Yes 0 (1 standard drink = 0.6 oz pure alcoho l) 1 beer every two weeks or so Sex Assigned at Date Recorded Not on file documented as of this encounter Last Filed Vital Signs Vital Sign Reading Time Taken Comments Blood Pressure 100/80 04/16/2014 3:13 PM CDT Pulse 100 04/16/2014 3:13 PM CDT Temperature 36.9 ??C (98.5 ??F) 04/16/2014 3:13 PM CDT Respiratory Rate - - Oxygen Saturation 96% 04/16/2014 3:13 PM CDT Inhaled Oxygen Concentration - - Weight 109.6 kg (241 lb 11.2 oz) 04/16/2014 3:13 PM CDT Height - - Body Mass Index 32.78 11/02/2013 9:15 AM CDT documented in this encounter Patient Instructions Patient InstructionsOneida Goodman, WINDY - 04/16/2014 3:35 PM CDT Images from the original note were not included. Bronchitis (Adult: Abx Tx) BRONCHITIS is an infection of the air passages (???bronchial tubes?? ). It often occurs during the common cold. Symptoms include cough with mucus (phlegm) and low-grade fever. Bronchitis usually lasts 7-14 days. Mild cases can be treated with simple home remedies. More severe infection is treated withan antibiotic. Home Care: 1. If symptoms are severe, rest at home for the first 2-3 days. When you resume activity, don't let yourself get too tired. 2. Do not smoke. Avoid being exposed to the smoke of others. 3. You may use acetaminophen (Tylenol) or ibuprofen (Motrin, Advil) to control fever or pain, unlessanother medicine was prescribed for this. [NOTE: If you have chronic liver or kidney disease or everhad a stomach ulcer or GI bleeding, talk with your doctor before using these medicines.] 4. Your appetite may be poor, so a light diet is fine. Avoid dehydration by drinking 6-8 glasses of fluids per day (water, soft, drinks, juices, tea, soup, etc.). Extra fluids will help loosen secretions in the lungs. 5. Sguq-itx-aiagsqb cough medicines that contain ???dextromethorphan?? (such as Robitussin DM) and decongestants (Actifed or Sudafed) may help relieve cough and congestion. [NOTE: Do not use decongestants if you have high blood pressure.] 6. Finish all antibiotic medicine, even if you are feeling better after only a few days. Follow Up with your doctor or as directed if you don???t start to feel better after three days. [NOTE: If you are age 65 or older, or if you have chronic asthma or COPD, we recommend a PNEUMOCOCCAL VACCINATION every five years and a yearly INFLUENZAVACCINATION (FLU-SHOT) every . Ask your doctor about this. If you had an X-ray, a radiologist will review it. You will be notified of any new fi ndings that may affect your care.] Get Prompt Medical Attention if any of the following occur: ?? Fever over 100.4??F (38.0??C) for more than three days ?? Trouble breathing, wheezing or pain with breathing ?? Coughing up blood or increased amounts of colored sputum ?? Weakness, drowsiness, headache, facial pain, ear pain or a stiff neck ?? [id number] [employer] [place] [address]. All rights reserved. This information is not intended as a substitute for professional medical care. Always follow your healthcare professional's instructions. Chronic Sinusitis ???Chronic?? means something that won???t go away or keeps coming back. Chronic sinusitis is an ongoing problem with the sinuses. It can cause uncomfortable symptoms. But your doctor can help you findrelief. Read on to learn more. What Is Chronic Sinusitis? Sinuses are air-filled spaces in the skull behind the face. They are kept moist and clean by a lining of mucosa. Things such as pollen, smoke, and chemical fumes can irritate the mucosa. Constant exposure to irritants can cause persistent inflammation (swelling) of this lining. It can also damage tiny hairlike cilia that cover the mucosa. Cilia help transport mucus toward the opening of the sinus. Damage to cilia keeps mucus from draining from the sinuses. Causes of Chronic Sinusitis Problems that irritate the mucosa or block drainage can lead to chronic sinusitis. These may include: ?? Chronic allergies ?? Nasal polyps, deviated septum, or other obstructions ?? Constant exposure to irritants, such as cigarette smoke or fumes Common Symptoms of Chronic Sinusitis Symptoms may include: ?? Facial pain and pressure ?? Headache and sinus pain ?? Nasal congestion ?? Postnasal drip ?? Reduced smell and taste ?? Cough ?? Sore throat Diagnosis of Chronic Sinusitis The doctor will ask about your symptoms and medical history. An evaluation will be done. The doctor will examine your nose and face. A test called an endoscopy may be done. During this test, a lighted tube is put through your nose up into your sinuses to view the sinuses. An imaging test called a CT scan may also be done. This test gives the doctor another view of the sinuses. Treating Chronic Sinusitis Treatment involves reducing irritation and inflammation. Your plan may include: ?? Taking medications. Medications may be prescribed reducing secretions and swelling. These help unblock the sinuses and allow them to drain. If bacterial infections are a problem, antibiotics may be prescribed. ?? Sinus irrigation (flushing with saltwater) may be suggested. This helps to clear out old mucus. ?? A plan to control allergies is helpful if they are present. This plan may include medications or allergy shots. ?? Surgery, in some cases. Surgery on the nose, sinuses, or both can improve sinus drainage or remove nasal obstructions. ?? [id number] [employer]. [address] [place] [address]. All rights reserved. This information is not intended as a substitute for professional medical care. Always follow your healthcare professional's instructions. documented in this encounter Progress Notes Tamara Payton CMA - 04/16/2014 3:50 PM CDT Injectable Influenza Immunization Documentation 1. Is the person to be vaccinated sick today? No 2. Does the person to be vaccinated have an allergy to eggs or to a component of the vaccine? No 3. Has the person to be vaccinated today ever had a serious reaction to influenza vaccine in the past? No 4. Has the person to be vaccinated ever had Guillain-Dayton syndrome? No Form completed by Tamara Payton CMA Form reviewed by Tamara Payton CMA Oneida Goodman, TRANSLATION DIRECTOR - 04/16/2014 3:14 PM CDT SUBJECTIVE: Bhavik Jeffery is a 33 year old male who presents to clinic today for the following health issues: Acute Illness Acute illness concerns?- Sinus problems-chronic Onset: last Saturday, started to get better and then got bad again. ?? Fever: no ?? Chills/Sweats: no ?? Headache (location?): YES ?? Sinus Pressure:YES- tender, post-nasal drainage and facial pain ?? Conjunctivitis: no ?? Ear Pain: YES: both ?? Rhinorrhea: YES ?? Congestion: YES ?? Sore Throat: no ?? Cough: YAG-wks-aznjljhaex, productive of yellow sputum ?? Wheeze: YES ?? Decreased Appetite: YES ?? Nausea: no ?? Vomiting: no ?? Diarrhea: no ?? Dysuria/Freq.: no ?? Fatigue/Achiness: YES ?? Sick/Strep Exposure: no Therapies Tried and outcome: takes pseudaphed everynight to sleep, nasonex. Problem list and histories reviewed & adjusted, as indicated. Additional history: as documented Problem list, Medication list, Allergies, and Medical/Social/Surgical histories reviewed in [facility] andupdated as appropriate. ROS: C: NEGATIVE for fever, chills, change in weight INTEGUMENTARY/SKIN: NEGATIVE for worrisome rashes, moles or lesions ENT/MOUTH: POSITIVE for Hx sinus infections, nasal congestion and sinus pressure RESP:POSITIVE for cough-productive, dyspnea on exertion and wheezing CV: NEGATIVE for chest pain, palpitations or peripheral edema OBJECTIVE: BP 100/80 Pulse 100 Temp(Src) 98.5 ??F (36.9 ??C) (Oral) Wt 241 lb 11.2 oz (109.634 kg) [id number]% Body mass index is 32.77 kg/(m^2). GENERAL: healthy, alert and no distress EYES: Eyes grossly normal to inspection, extraocular movements - intact, and PERRL. Allergic shinersbilateral HENT: nose and mouth without ulcers or lesions, TM congested/bulging bilateral and TM fluid bilateral. Posterior pharynx with cobblestone appearance and erythema, no exudate. NECK: no tenderness, no adenopathy, no asymmetry, no masses, no stiffness; thyroid- normal to palpation RESP: expiratory wheezes bilateral and throughout CV: regular rates and rhythm, normal S1 S2, no S3 or S4 and no murmur, no click or rub - MS: extremities- no gross deformities noted, no edema ASSESSMENT/PLAN: ICD-9-CM 1. Acute bronchitis 466.0 Ipratropium-Albuterol (COMBIVENT RESPIMAT) 20-100 MCG/ACT inhaler 2. Chronic rhinitis 472.0 fluticasone (FLONASE) 50 MCG/ACT nasal spray amoxicillin-clavulanate (AUGMENTIN) 875-125 MG per tablet ALLERGY/ASTHMA ADULT REFERRAL Follow up with Provider - as needed for worsening symptoms. See curriculum coach for indoor allergy workup. Oneida Goodman NP [facility] documented in this encounter Nursing Notes Tamara Payton CMA - 04/16/2014 3:18 PM CDT Chief Complaint Patient presents with ??? Sinus Problem Initial BP 100/80 Pulse 204 Temp(Src) 98.5 ??F (36.9 ??C) (Oral) Wt 241 lb 11.2 oz (109.634 kg) SpO2 96% Estimated body mass index is 32.77 kg/(m^2) as calculated from the following: Height as of 14: 6' (1.829 m). Weight as of this encounter: 241 lb 11.2 oz (109.634 kg). BP completed using cuff size: regular right arm . .Tamara Payton CMA documented in this encounter Miscellaneous Notes Addendum Note - Tamara Payton CMA - 04/16/2014 3:51 PM CDT Addended by: TAMARA PAYTON on: 04/16/2014 03:51 PM Modules accepted: Orders, SmartSet documented in this encounter Plan of Treatment Scheduled Referrals Name Type Priority Associated Diagnoses Order S chedule ALLERGY/ASTHMA ADULT Referral Routine Chronic Rhinitis Ord ered: 04/16/2014 REFERRAL documented as of this encounter Visit Diagnoses Diagnosis Acute bronchitis - Primary Chronic rhinitis Need for prophylactic vaccination and in oculation against influenza documented in this encounter Care Teams Manager Legal Relationship Specialty Start Date End Date Brianna Cortes MD PCP - General 03/05/08 01/03/[address] [address] documented as of this encounter
--- OUTSIDE RECORDS SUMMARY | 2022-05-30 13:41 | XMS_ITS | Encounter Summary ---
:1980 Author Organization [facility] Address [address] [place] [address]. [place] [address] Care Team Providers Name Role Phone Brianna Cortes MD Primary Care Provider Reason for Visit Reason Onset Date Comments Nurse Advice Line 01/07/2012 sea sickness Encounter Details Date Type Department Care Team Description 01/07/2012 Telephone [facility] Brianna Cortes MD Nurse Advice Line ([facility] sickness) [address] [address] [place] [address] (Wo rk) Social History Tobacco Use Types Packs/Day Years Used Date Smoking Tobacco: Never Smokeless Tobacco: Never Alcohol Use Standard Drinks/Week Comments Yes 0 (1 standard drink = 0.6 oz pure alcoho l) 1 beer every two weeks or so Sex Assigned at Date Recorded Not on file documented as of this encounter Miscellaneous Notes Telephone Encounter - Nila Lewis - 01/07/2012 3:00 PM CDT Pt notified of message below. Nila Lewis RN Telephone Encounter - Brianna Cortes MD - 01/07/2012 2:15 PM CDT Refill done for pt Please let pt know-also review usage and side effects with pt from todate Thanks Brianna Cortes MD Telephone Encounter - Nila Lewis - 01/07/2012 12:26 PM CDT He will be going on a 5-day cruise. Please fill rx for pt as appropriate. Nila Lewis RN Telephone Encounter - Nila Lewis - 01/07/2012 12:14 PM CDT LM for pt to return our call to discuss. Nila Lewis RN Telephone Encounter - Brianna Cortes MD - 01/07/2012 11:23 AM CDT Contact patient and find out-How long trip is , to give him correct number of patches Thanks Brianna Cortes MD . Telephone Encounter - Nila Lewis - 01/07/2012 10:05 AM CDT Pt going on cruise. Issues with sea sickness. Would like rx for patch and a Zofran. Please advise as to rx. Nila Lewis RN Telephone Encounter - Henny Hutchison - 01/07/2012 9:36 AM CDT Name of caller: Bhavik Relationship to pt: self Reason for call: Patient is leaving to go on a cruise and he get sea sickness very bad. He would like to know if you can call something in for him. He states he has heard the patch and a zofran works well. Best phone number to reach pt at is: [phone] Ok to leave a message with medical info? Pharmacy Information:[facility] in [place] Henny Hutchison [employer] documented in this encounter Plan of Treatment Not on filedocumented as of this encounter Visit Diagnoses Diagnosis Motion sickness - Primary documented in this encounter Care Teams Labor Commissioner Relationship Specialty Start Date End Date Brianna Cortes MD PCP - General 03/05/08 01/03/[address] [address] documented as of this encounter
--- OUTSIDE RECORDS SUMMARY | 2022-05-30 13:41 | XMS_ITS | Encounter Summary ---
:1980 Author Organization [facility] Address [address] [place] [address]. [place] [address] Care Team Providers Name Role Phone Aniket Zambrano MD Primary Care Provider [phone] Encounter Details Date Type Department Care Team Description 11/08/2004 Operative Report Asher Gongora MD (Director Fraud) [facility] [address] [place] [address] (Wo rk) Social History Tobacco Use Types Packs/Day Years Used Date Smoking Tobacco: Never Alcohol Use Standard Drinks/Week Comments Yes 0 (1 standard drink = 0.6 oz pure alcoho l) 1 beer every two weeks or so Sex Assigned at Date Recorded Not on file documented as of this encounter Progress Notes Asher Gongora - 11/08/2004 11:59 PM CDT : 76 1st ASS'T: 2nd ASS'T: PRE-OPERATIVE DIAGNOSIS: Tonsillar hypertrophy with upper airway obstruction. POST-OPERATIVE DIAGNOSIS: Tonsillar hypertrophy with upper airway obstruction. OPERATION: Tonsillectomy. ANESTHESIA: General endotracheal. BLOOD LOSS: Minimal. COMPLICATIONS: None. INDICATION FOR PROCEDURE: Rene Katz is a 24-year-old male who has had a history of chronic tonsillar enlargement and obstructive apnea type symptoms. The plan is to proceed with tonsillectomy to try to optimize the airway. The procedure, risks, complications, expectations were outlined to the patient in detail as per previously, technique. He expresses an understanding and wished to proceed. DESCRIPTION OF PROCEDURE: Patient was brought to the operating suite and placed in supine position on the operating table. After satisfactory induction of general endotracheal anesthesia, the table was turned and the patient was appropriately positioned for the tonsillectomy. A McIvor mouth gag was inserted. Tonsils were hypertrophied bilaterally, nearly meeting in the midline. There was some redundancy to the velopharyngeal folds. The red rubber catheter was passed to retract the soft palate. The uvula was not enlarged. Mirror examination of the nasopharynx showed no evidence of adenoidal obstruction. The tonsil was dissected with electrocautery by making an anterior pillar incision and dissecting the tonsillar capsule from the underlying tissues without difficulty. Complete hemostasis of both tonsillar fossa was accomplished with suction electrocautery. The anterior and posterior pillars were then plicated together using interrupted 3-0 Vicryl suture in hopes of tensing the pharyngeal folds and reducing the redundancy to some degree. Pharynx was irrigated and nasogastric tube was used to decompress the stomach. The patient was extubated and transferred to recovery in stable condition. [id number] ASHER GONGORA MD [place]: Document: [id number] [place], [place] Name: MR#: [id number] KATZ [id number] OPERATIVE REPORT Page 2 of 2 LCN: SDS DSC: 11/08/2004 [place], [place] Name: MR#: RENE KATZ [id number] : Procedure Date: Account #: 1980 11/08/2004 [id number] Doctor: ASHER GONGORA MD OPERATIVE REPORT Page 1 of 2 documented in this encounter Plan of Treatment Not on filedocumented as of this encounter Visit Diagnoses Not on filedocumented in this encounter Care Teams Well Surveying Engineer Relationship Specialty Start Date End Date Aniket Zambrano MD PCP - General 03/11/03 03/04/08 [place] [address] documented as of this encounter
--- OUTSIDE RECORDS SUMMARY | 2022-05-30 13:41 | XMS_ITS | Encounter Summary ---
:1980 Author Organization [facility] Address [address] [place] [address]. [place] [address] Care Team Providers Name Role Phone Brianna Cortes MD Primary Care Provider Reason for Visit Reason Comments Pre-Op Exam surgery on 09/02 Encounter Details Date Type Department Care Team Description 08/25/2008 Office Visit [facility] Brianna Cortes MD Preop General Physical Exam (Primary Dx) ; Clinic [facility] Attention Deficit Disorder o f Adult; [address] [facility] Allergies; [place], [place] [address] Other Specified Pre-Operative Examinatio n; [address] [place] [address] Sinusitis Acute; [phone] TDaP Vaccine (Work) Social History Tobacco Use Types Packs/Day Years Used Date Smoking Tobacco: Never Alcohol Use Standard Drinks/Week Comments Yes 0 (1 standard drink = 0.6 oz pure alcoho l) 1 beer every two weeks or so Sex Assigned at Date Recorded Not on file documented as of this encounter Last Filed Vital Signs Vital Sign Reading Time Taken Comments Blood Pressure 120/72 08/25/2008 9:00 AM AFTER SCHOOL TUTOR Pulse 99 08/25/2008 9:00 AM AFTER SCHOOL TUTOR Temperature 37.3 ??C (99.1 ??F) 08/25/2008 9:00 AM AFTER SCHOOL TUTOR Respiratory Rate - - Oxygen Saturation 98% 08/25/2008 9:00 AM AFTER SCHOOL TUTOR Inhaled Oxygen Concentration - - Weight 112 kg (247 lb) 08/25/2008 9:00 AM AFTER SCHOOL TUTOR Height 188 cm (6' 2) 08/25/2008 9:00 AM AFTER SCHOOL TUTOR Body Mass Index 31.71 08/25/2008 9:00 AM AFTER SCHOOL TUTOR documented in this encounter Progress Notes CortesBrianna - 08/25/2008 9:20 AM CST HPI: reversal of vasecotomy See problem list for active medical problems. Problems all longstanding and stable, except as noted/documented. See ROS for pertinent symptoms related to these conditions. . URI-pt reported lingering cold, last worse for last few days, feeling sinus congestion-all on his face, no sore throat, no sob, no wheezing, no cp, hx of allergies, hx of asthma as a child, nothing since then, not using anything,coughing but dry, no wheezing, not used any otc decongestants Patient Active Problem List Diagnoses Date Noted ??? Attention Deficit Disorder of Adult [314.00S] 08/25/2008 ??? Allergies [995.3B] 08/25/2008 Past Medical History Diagnosis Date ??? anxiety resolved ??? Depression resolved ??? ADD (Attention Deficit Disorder) not needing to take any meds at this time Past Surgical History Procedure Date ??? Vasectomy 2003 ??? Tonsillectomy 2004 ??? Surgical pathology Current outpatient prescriptions Medication Sig ??? ADDERALL XR# 20 MG OR CP24 ONE DAILY ??? ZYRTEC 10 MG OR TABS ONE TABLET DAILY ??? NO ACTIVE MEDICATIONS . OTC products: None, except as noted above Allergies Allergen Reactions ??? No Known Drug Allergies Latex Allergy: NO History Substance Use Topics ??? Tobacco Use: Never ??? Alcohol Use: Yes 1 beer every two weeks or so History Drug Use No REVIEW OF SYSTEMS: C: NEGATIVE for fever, chills, change in weight ENT/MOUTH: see HPI otherwise neg RESP:NEGATIVE for significant cough or SOB CV: NEGATIVE for chest pain, palpitations or peripheral edema EXAM: BP 120/72 Pulse 99 Temp (Src) 99.1 ??F (37.3 ??C) (Oral) Ht 6' 2 (1.88 m) Wt 247 lb (112.038 kg) SpO2 98% GENERAL APPEARANCE: healthy, alert and no distress HENT: ear canals and TM's normal and nose and mouth without ulcers or lesions RESP: lungs clear to auscultation - no rales, rhonchi or wheezes CV: regular rate and rhythm, normal S1 S2, no S3 or S4 and no murmur, click or rub ABDOMEN: soft, nontender, no HSM or masses and bowel sounds normal NEURO: Normal strength and tone, sensory exam grossly normal, mentation intact and speech normal Face:no tenderness on sinus, but pt feels all clogged and very cognested head DIAGNOSTICS: EKG: Not indicated Labs: see FCIS IMPRESSION: Reason for surgery/procedure: reversal of vasectomy Diagnosis/reason for consult: As above V72.83H Preop General Physical Exam (primary encounter diagnosis) Comment: Plan: CBC WITH PLATELETS, DIFF 037 Tetanus Comment: Plan: pt reported last one about 5-7 years ago and uptoate 314.00S Attention Deficit Disorder of Adult Comment: Plan: ADDERALL XR# 20 MG OR CP24 Pt reported seeing specialist 995.3B Allergies Comment: Plan: ZYRTEC 10 MG OR TABS Pt is using meds and feels controlled 461.9M Sinusitis Acute Comment: Plan: AZITHROMYCIN 250 MG OR TABS Warm pack to sinuses, saline nasal spray Pt will be treated with abxs with his upcoming surgery Pt should be able to go for surgery as will have enough time to be treated for this For above listed surgery and anesthesia: Patient is at LOW risk for surgery/procedure and perioperative/procedure complications. RECOMMENDATIONS: Approval given to proceed with proposed procedure, without further diagnostic evaluation. Discontinue ASA 5 days prior to procedure to reduce bleeding risk. Discontinue NSAIDS 5 days prior to procedure to reduce bleeding risk. Signed Electronically by: Brianna Cortes MD Copy of this evaluation report is provided to requesting physician. R SCHOOL TUTOR Otoniel Nichols - 08/25/2008 9:12 AM CST PRE-OP EVALUATION: Today's date: 08/25/2008 Bhavik Cheung Jose D (: 1980) presents for pre-operative evaluation as requested by Dr. CAMPOS. Herequires evaluation and anesthesia clearance prior to undergoing surgery/procedure for treatment of vasectomy . Proposed procedure: reversal vasectomy Date of Surgery/ Procedure: 09/02/08 Time of Surgery/ Procedure: 8:30am Hospital/Surgical Facility: [facility] Fax number for surgical facility: TBD Primary Physician: DR Brianna Cortes Type of Anesthesia Anticipated: Local History of anesthesia complications: NONE History of abnormal bleeding: NONE History of blood tranfusions: NO Patient has a Health Care Directive or Living Will: NO 1- NO - Do you ever have any pain or discomfort in your chest? 2- NO - Have you ever had a severe pain across the front of your chest lasting for half an hour or more? 3- NO - Do you have swelling in your feet or ankles at times? 4- NO - Are you troubled by shortness of breath when: walking on the level/ up a slight hill/ at night? 5- YES - Does your chest ever sound wheezy or whistling? When patient get congestions, he wheezes, when he has colds 6- NO - Do you currently have a cold, bronchitis or other respiratory infection? 7- NO - Have you had a cold, bronchitis or other respiratory infection within the last 2 weeks? 8- NO - Do you usually have a cough? 9- NO - Do you sometimes get pains in the calves of your legs when you walk? 10-NO - Do you or anyone in your family have previous history of blood clots? 11-NO - Do you or does anyone in your family have serious bleeding problem such as prolonged bleeding following surgeries or cuts? 12-NO - Have you ever had problems with anemia or been told to take iron pills? 13-NO - Have you had any abnormal blood loss such as black, tarry or bloody stools, or abnormal vaginal bleeding? 14-NO - Have you or any of your relatives ever had problems with anesthesia? 15-NO - Do you snore or stop breathing at night? 16-NO - Do you have any prosthetic heart valves or joints? 17-NO - Is there any chance that you may be ? Otoniel Nichols CMA R SCHOOL TUTOR documented in this encounter Nursing Notes 08/25/2008 9:00 AM CST >> OTONIEL NICHOLS SatAug 25, 2008 9:13 AM Patient presents with: Pre-Op Exam - surgery on 09/02 Bhavik Jeffery presents for as above. Initial BP 120/72 Pulse 99 Temp (Src) 99.1 ??F (37.3 ??C) (Oral) Ht 6' 2 (1.88 m) Wt 247 lb(112.038 kg) SpO2 98% Body mass index is 31.71 kg/(m^2).. BP completed using cuff size: barb Nichols ADJUNCT SOCIOLOGY PROFESSOR documented in this encounter Plan of Treatment Not on filedocumented as of this encounter Procedures Procedure Name Priority Date/Time Associated Diagnosis Comme nts CL AFF CBC WITH Routine 08/25/2008 9:32 AM Preop General Resul ts for this PLATELETS, DIFF AFTER SCHOOL TUTOR Physical Exam procedure a re in the results section. documented in this encounter Results CBC WITH PLATELETS, DIFF (08/25/2008 9:32 AM AFTER SCHOOL TUTOR) [facility] gist Method Time Signature WBC 5.9 4.0 - [facility] 11.0 [place] 10e9/L [facility] RBC Count 5.34 4.4 - 5.9 [place] 10e12/L [facility] Hemoglobin 15.8 13.3 - [facility] 17.7 g/dL [facility] Hematocrit 45.4 40.0 - [facility] 53.0 % [facility] MCV 85 78 - 100 [facility] MCH 29.6 26.5 - [facility] 33.0 pg [facility] MCHC 34.8 31.5 - [facility] 36.5 g/dL [facility] RDW 14.6 10.0 - [facility] 15.0 % [facility] Platelet Count 203 150 - 450 [place] 10e9/L [facility] Diff Method Automated [place] Method [facility] % Lymphocytes 28 20 - 48 % [facility] % Monocytes 7 0 - 12 % [facility] % Granulocytes 65 40 - 75 % [facility] Absolute 1.6 0.8 - 5.3 [place] Lymphocytes 10e9/L [facility] Absolute 0.4 0.0 - 1.3 [place] Monocytes 10e9/L [facility] Absolute 3.8 1.6 - 8.3 [place] Granulocytes 10e9/L [facility] Specimen Anatomical Collection Method Collection Time Receive d Time (Source) Location / / Volume Laterality 08/25/2008 9:32 AM 9:33 AFTER SCHOOL TUTOR AM AFTER SCHOOL TUTOR Brianna Cortes MD LABORATORY Performing Organization Address City/State/ZIP Code Phon e Number [facility] [id number] [place] [address] [facility] documented in this encounter Visit Diagnoses Diagnosis Preop general physical exam - Primary Other specified pre-operative examinatio n Attention deficit disorder of adult Attention deficit disorder without menti on of hyperactivity Allergies Allergy, unspecified not elsewhere class ified Other specified pre-operative examinatio n Sinusitis acute Acute sinusitis, unspecified Tdap vaccine Need for prophylactic vaccination with c ombined [id number]-[id number] (DTP) vaccine documented in this encounter Care Teams Sales Development Executive Relationship Specialty Start Date End Date Brianna Cortes MD PCP - General 03/05/08 01/03/[address] [address] documented as of this encounter
--- OUTSIDE RECORDS SUMMARY | 2022-05-30 13:41 | XMS_ITS | Encounter Summary ---
:1980 Author Organization [facility] Address [address] [place] [address]. [place] [address] Care Team Providers Name Role Phone Brianna Cortes MD Primary Care Provider Reason for Visit Reason Comments Trauma slammed finger on right hand in car door on 12/26/2008 Encounter Details Date Type Department Care Team Description 12/27/[address] [facility] Momo Mendoza ual [facility] Charlotte MD Ney of Fingernail (Primary [address] [address] [facility]) [place] [address] [phone] Social History Tobacco Use Types Packs/Day Years Used Date Smoking Tobacco: Never Alcohol Use Standard Drinks/Week Comments Yes 0 (1 standard drink = 0.6 oz pure alcoho l) 1 beer every two weeks or so Sex Assigned at Date Recorded Not on file documented as of this encounter Last Filed Vital Signs Vital Sign Reading Time Taken Comments Blood Pressure 122/80 12/27/2008 6:01 PM CDT Pulse 60 12/27/2008 6:01 PM CDT Temperature - - Respiratory Rate 16 12/27/2008 6:01 PM CDT Oxygen Saturation - - Inhaled Oxygen Concentration - - Weight 112.9 kg (249 lb) 12/27/2008 6:01 PM CDT Height - - Body Mass Index 31.97 08/25/2008 9:00 AM ACTIVITY MANAGER documented in this encounter Progress Notes Momo Mendoza - 12/28/2008 4:15 PM CDT Finger crushed in cardoor, Subungual hematoma Fenestrated for evacuation after normal xray Elevate and soak Prn recheck documented in this encounter Nursing Notes 12/27/2008 6:00 PM CDT >> DEBAnnette PUENTES Mon Dec 27, 2008 6:02 PM Patient presents with: Trauma - slammed finger on right hand in car door on 12/26/2008 Initial BP 122/80 Pulse 60 Resp 16 Wt 249 lb (112.946 kg) Estimated Body mass index is 31.97 kg/(m^2) as calculated from: Height of 6' 2 (1.88 m) as of 08/25/08 Weight of 249 lb (112.946 kg) as of this encounter. BP completed using cuff size large Deb Puentes/BLOCK PRESS OPERATOR documented in this encounter Plan of Treatment Not on filedocumented as of this encounter Procedures Procedure Name Priority Date/Time Associated Comments Diagnosis HC EVACUATION BLOOD Routine 12/28/2008 4:15 PM Subungual FROM UNDER NAIL CDT Hemorrhage of Fingernail ZZC RT X-RAY EXAM OF Routine 12/27/2008 6:22 PM Subungual R esults for this FINGER(S) CDT hemorrhage of procedure are in fingernail the results section. documented in this encounter Results RT X-RAY EXAM OF FINGER(S) (12/27/2008 6:22 PM CDT) Anatomical Region Laterality Modality Other Specimen (Source) Anatomical Collection Method Collection Time Re ceived Time Location / / Volume Laterality 12/27/2008 6:22 PM CDT Impressions 12/28/2008 11:18 AM CDT FINGER(S) RIGHT 2-3 VW Dec 27, 2008 6:22: 00 PM HISTORY: ??SUBUNGUAL HEMORRHAGE OF FINGE RNAIL,Third finger dip crush and subungual hematoma, FINDINGS: Negative. Momo Mendoza MD GENERAL IMAGING documented in this encounter Visit Diagnoses Diagnosis Subungual hemorrhage of fingernail - Annmarie magi Contusion of finger documented in this encounter Care Teams Pole Sander Operator Relationship Specialty Start Date End Date Brianna Cortes MD PCP - General 03/05/08 01/03/[address] [address] documented as of this encounter
--- OUTSIDE RECORDS SUMMARY | 2022-05-30 13:41 | XMS_ITS | Encounter Summary ---
:1980 Author Organization [facility] Address [address] [place] [address]. [place] [address] Care Team Providers Name Role Phone Brianna Cortes MD Primary Care Provider Reason for Referral Office Workup No CT/MRI - Closed Specialty Diagnoses / Procedures Referred By Contact Refer red To Contact Diagnoses Back pain Brianna Cortes MD [facility] [address] [place] [address], [address] [facility] [address] [place] [address] [place] [address] Fax: Referral ID Status Reason Start Date Expiration Date Visits Requ ested Visits Authorized [id number] Closed 06/29/2011 12/26/2011 1 1 YTICAL SCIENTIST Reason for Visit Reason Comments Physical Encounter Details Date Type Department Care Team Description 06/29/[address] [facility] Brianna Cortes MD Routine general medical examination at a health care facility (Primary Dx); [facility] Attention deficit disorder o f adult; [address] [facility] Vacc for viral hepatitis; [place], [place] [address] [facility] Screening for diabetes mellitus; [address] [place] [address] Screening for lipoid disorders; [phone] Back pain; (Work) HL (hearing loss) Social History Tobacco Use Types Packs/Day Years Used Date Smoking Tobacco: Never Smokeless Tobacco: Never Alcohol Use Standard Drinks/Week Comments Yes 0 (1 standard drink = 0.6 oz pure alcoho l) 1 beer every two weeks or so Sex Assigned at Date Recorded Not on file documented as of this encounter Last Filed Vital Signs Vital Sign Reading Time Taken Comments Blood Pressure 112/70 06/29/2011 4:05 PM ANALYTICAL SCIENTIST Pulse 103 06/29/2011 4:05 PM ANALYTICAL SCIENTIST Temperature 37.1 ??C (98.7 ??F) 06/29/2011 4:05 PM ANALYTICAL SCIENTIST Respiratory Rate - - Oxygen Saturation 97% 06/29/2011 4:05 PM ANALYTICAL SCIENTIST Inhaled Oxygen Concentration - - Weight 110.2 kg (243 lb) 06/29/2011 4:05 PM ANALYTICAL SCIENTIST Height 188 cm (6' 2) 06/29/2011 4:05 PM ANALYTICAL SCIENTIST Body Mass Index 31.2 06/29/2011 4:05 PM ANALYTICAL SCIENTIST documented in this encounter Patient Instructions Patient InstructionsWolBrianna graham MD - 06/29/2011 4:45 PM CST Recommend healthy lifestyle, diet and exercies, periodic testicular exam ,periodic skin exam-ABCD ofskin exam,adequate calcium and vitamin D in diet, seeing by dentist on regular basis, and seeing eyedoctor as needed, usage of seatbelt in car all the time. See ent for hearing issues and with your ear exam We gave you vaccine today Use flexeril as needed If continued issues with upper back, follow up in 2-3 weeks or sooner We can consider doing physical therapy and further evaluation if indicated Thanks Brianna Cortes MD YTICAL SCIENTIST documented in this encounter Progress Notes Brianna Cortes MD - 07/03/2011 7:06 PM CST Please note, repeat pulse in late 80's and regular Brianna Cortes MD YTICAL SCIENTIST Mary Grace Franklin - 06/29/2011 4:08 PM CST CC: Bhavik Jeffery is an 30 year old male who presents for preventative health visit. Besides routine health maintenance, he would like to discuss middle to upper back pain for 3 wks. Healthy Habits: Do you get at least three servings of dairy daily (milk, cheese, yogurt, etc.)? Not sure Outside of work or daily activities, how many days per week do you exercise for 30 minutes or longer? 2-3 Dietary Guidelines for Americans, 2010 USDA's MyPlate Estimated Body mass index is 31.20 kg/(m^2) as calculated from the following: Height as of this encounter: 6' 2(1.88 m). Weight as of this encounter: 243 lb(110.224 kg). Have you had an eye exam in the past two years? no Do you see a dentist twice per year? yes Staff Signature Mary Grace Franklin CMA 1)left sided upper back pain for 3 weeks No radiation to anywhereelse, pushed at certain area where it hurts and painful to push Not asscoiated with palpitation, sob, dizziness No prior hx of heart dis or lung issues fhx noted and risk factors reviewed No neck pain or any gi or gu symptoms with this Not used anything Today's PHQ-2 Score: 0 Abuse: Current or Past(Physical, Sexual or Emotional)- No Do you feel safe in your environment - Yes History Substance Use Topics ??? Smoking status: Never Smoker ??? Smokeless tobacco: Never Used ??? Alcohol Use: Yes 1 beer every two weeks or so The patient does not drink >3 drinks per day nor >7 drinks per week. Reviewed orders with patient. Reviewed health maintenance and updated orders accordingly - Yes Staff Signature Mary Grace Franklin CMA All Histories reviewed and updated in [facility]. ROS: C: NEGATIVE for fever, chills, change in weight I: NEGATIVE for worrisome rashes, moles or lesions E: NEGATIVE for vision changes or irritation [...] for changes in mood or affect OBJECTIVE: BP 112/70 Pulse 103 Temp(Src) 98.7 ??F (37.1 ??C) (Oral) Ht 6' 2 (1.88 m) Wt 243 lb (110.224 kg) BMI 31.20 kg/m2 SpO2 97% GENERAL APPEARANCE: health, alert and no distress EYES: Eyes grossly normal to inspection, PERRL and conjunctivae and sclerae normal HENT: ear canals and daniel TM's apperas to be yellowish appearing with fluid behind it, nose and mouthwithout ulcers or lesions, oropharynx clear and oral mucous membranes moist NECK: no adenopathy, no asymmetry, masses, or scars and thyroid normal to palpation RESP: lungs clear to auscultation - no rales, rhonchi or wheezes CV: regular rates and rhythm, normal S1 S2, no S3 or S4, no murmur, click or rub, no peripheral edema and peripheral pulses strong ABDOMEN: soft, nontender, no hepatosplenomegaly, no masses and bowel sounds normal (male): normal male genitalia without lesions or urethral discharge, no hernia RECTAL: normal sphincter tone, no rectal masses, prostate of normal size, smooth, nontender without nodules or masses MS: no musculoskeletal defects are noted and gait is age appropriate without ataxia-palpable tenderness on left sided paraspinal vertebral muscle area on left side at lower cervical and upper thoracid area SKIN: no suspicious lesions or rashes NEURO: Normal strength and tone, sensory exam grossly normal, mentation intact and speech normal PSYCH: mentation appears normal and affect normal/bright ATP III Guidelines FRAX Risk Assessment ICSI Preventive Guidelines ASSESSMENT/PLAN: V70.0 Routine general medical examination at a health care facility (primary encounter diagnosis) Comment: Plan: TSH with free T4 reflex, CBC with platelets 314.00S Attention deficit disorder of adult Comment: pt reported seeing specialist for this Plan: amphetamine-dextroamphetamine (ADDERALL XR) 20 MG per capsule V05.3 Vacc for viral hepatitis Comment: Plan: HEPA/HEPB VACCINE ADULT IM, VACCINE ADMINISTRATION, INITIAL V77.1 Screening for diabetes mellitus Comment: Plan: Glucose V77.91 Screening for lipoid disorders Comment: Plan: Lipid Profile with reflex to direct LDL 724.5E Back pain Comment: Plan: cyclobenzaprine (FLEXERIL) 10 MG tablet, OTOLARYNGOLOGY REFERRAL We discussed possible etio His risk factors noted Due to his exam, i suspect musculoskeletal We discussed, no need to use ekg or cxr to start with Prn above Follow up in 2-3 weeks or sooner with any issues 389.9AN HL (hearing loss) Comment: with ear exam as above Plan: pt to see ent for this Counseling: regular exercise healthy diet/nutrition vision screening self testicular exam reports that he has never smoked. He has never used smokeless tobacco. Body mass index is 31.20 kg/(m^2). Obesity Action Plan: Diet regimen was discussed. self-directed dieting and very low calorie diet Patient Instructions Recommend healthy lifestyle, diet and exercies, periodic testicular exam ,periodic skin exam-ABCD ofskin exam,adequate calcium and vitamin D in diet, seeing by dentist on regular basis, and seeing eyedoctor as needed, usage of seatbelt in car all the time. See ent for hearing issues and with your ear exam We gave you vaccine today Use flexeril as needed If continued issues with upper back, follow up in 2-3 weeks or sooner We can consider doing physical therapy and further evaluation if indicated Thanks Brianna Cortes MD YTICAL SCIENTIST documented in this encounter Nursing Notes 06/29/2011 4:00 PM CST >> MARY GRACE FRANKLIN Fri Jun 29, 2011 4:14 PM Patient presents with: Physical Initial BP 112/70 Pulse 103 Temp(Src) 98.7 ??F (37.1 ??C) (Oral) Ht 6' 2 (1.88 m) Wt 243 lb(110.224 kg) BMI 31.20 kg/m2 SpO2 97% Estimated Body mass index is 31.20 kg/(m^2) as calculated from the following: Height as of this encounter: 6' 2(1.88 m). Weight as of this encounter: 243 lb(110.224 kg).. BP completed using cuff size: large Patient is covered under this program for the following reason: Does not qualify Mary Grace Franklin CMA documented in this encounter Plan of Treatment Scheduled Referrals Name Type Priority Associated Diagnoses [facility] Referral Routine Back pain Orde red: 06/29/2011 documented as of this encounter Visit Diagnoses Diagnosis Routine general medical examination at a health care facility - Primary Attention deficit disorder of adult Attention deficit disorder without menti on of hyperactivity Need for prophylactic vaccination and in oculation against viral hepatitis Screening for diabetes mellitus Screening for lipoid disorders Back pain Backache, unspecified HL (hearing loss) Unspecified hearing loss documented in this encounter Care Teams Anchorman Relationship Specialty Start Date End Date Brianna Cortes MD PCP - General 03/05/08 01/03/[address] [address] documented as of this encounter
--- OUTSIDE RECORDS SUMMARY | 2022-05-30 13:41 | XMS_ITS | Encounter Summary ---
:1980 Author Organization [place] Address [address] [place] [address]. [place] [address] Care Team Providers Name Role Phone Brianna Cortes MD Primary Care Provider Reason for Visit Reason Comments Travel Clinic Encounter Details Date Type Department Care Team Description 05/25/2011 [facility] (Primary [address] [place] [address] [address] [place] [phone] [place], [place] [phone] [facility] Social History Tobacco Use Types Packs/Day Years Used Date Smoking Tobacco: Never Alcohol Use Standard Drinks/Week Comments Yes 0 (1 standard drink = 0.6 oz pure alcoho l) 1 beer every two weeks or so Sex Assigned at Date Recorded Not on file documented as of this encounter Last Filed Vital Signs Vital Sign Reading Time Taken Comments Blood Pressure - - Pulse 112 05/25/2011 2:47 PM RESEARCH WORKER ENCYCL[employer]EDIA Temperature 37.1 ??C (98.8 ??F) 05/25/2011 2:47 PM RESEARCH WORKER ENCYCLOPEDIA Respiratory Rate 14 05/25/2011 2:47 PM RESEARCH WORKER ENCYCLOPEDIA Oxygen Saturation 96% 05/25/2011 2:47 PM RESEARCH WORKER ENCYCLOP[employer]IA Inhaled Oxygen Concentration - - Weight 119.1 kg (262 lb 9 oz) 05/25/2011 2:47 PM RESEARCH WORKER ENCYCLOPEDIA Height 188 cm (6' 2) 05/25/2011 2:47 PM RESEARCH WORKER ENCYCLOPEDIA Body Mass Index 33.71 05/25/2011 2:47 PM RESEARCH WORKER ENCYCLOPEDIA documented in this encounter Patient Instructions Patient InstructionsGeovany Jean Baptiste PA-C - 05/25/2011 3:08 PM RESEARCH WORKER ENCYCLOPEDIA Images from the original note were not included. Traveler's Diarrhea What is traveler's diarrhea? Traveler's diarrhea is a sudden intestinal infection that you may get when you travel to another country. Other names for this problem are gastroenteritis, Trimble's revenge, turista, or the GI trots. Up to half of the people who travel internationally get traveler's diarrhea. High-risk areas includesome parts of [place], [place], the [place], and [place]. Problems with the water supply and sanitation facilities are more likely in these areas. How does it occur? Traveler's diarrhea occurs when you have food, ice, water, or other drinks that contain germs from human or animal bowel movements. The germs may be in cooked or uncooked food. The germs may be a virus, parasite, or bacteria. Escherichia coli (E. coli) bacteria are often a cause of traveler's diarrhea. E. coli bacteria are normally found in the human intestine. There are many varieties of E. coli bacteria. Usually your bodybecomes used to the E. coli in your environment and the bacteria do not cause problems. However, exposure to new varieties of E. coli in new places may cause diarrhea. Sometimes diarrhea while you are traveling is caused by the stress of traveling, jet lag, a different diet, or other things, like stomach flu. What are the symptoms? You may have the following symptoms: loose stools, as many as 3 to 10 a day stomach cramps bloating and gas nausea and vomiting fever weakness headache (sometimes). How is it diagnosed? Your healthcare provider will ask about your symptoms, including: the amount of diarrhea if you also have blood or mucus in your stool, if you are having a lot of gas if you have had vomiting, nausea, high fever, or weight loss. Your provider will also ask about your travels: where you have been if you drank well water if you were camping and drank water from streams what food or drinks you have had. Your provider will also ask about any medicines you may have used. Your provider will examine you. A sample of bowel movement may be tested to look for signs of infection and to try to identify the germ. You may also have blood tests. These tests help find what is causing the diarrhea. How is it treated? You may become dehydrated by the diarrhea. Dehydration happens when your body loses more fluids and salts than it takes in. Dehydration can cause serious problems. It is very important to try to prevent it. To replace lost fluids and salts, you can make a drink with packets of oral rehydration salts. You can buy the packets at a drugstore. You can also make a rehydration solution by mixin quart or liter of clean water (boil the water 5 minutes if you are not sure it is safe to drink) 2 tablespoons of sugar 1/4 teaspoon salt 1/4 teaspoon of baking soda. Or you can buy a solution that is already made. One brand is Pedialyte. Drinking other nonalcoholic drinks made with clean water (boiled or bottled) will also help prevent dehydration, but you may not get all the salts you need. Avoid using ice (especially if you are [place]out of the [place]), unless you know it's made from boiled or bottled water. Try to drink at least 8 ounces of fluid for each watery stool you have. Taking bismuth subsalicylate (for example, Pepto-Bismol) 4 times a day may help prevent or treat traveler's diarrhea. Do not take it longer than 3 weeks. You do not need a prescription to get this medicine, but it can have some serious interactions with other medicines. Check with your healthcare provider before you leave on your trip about using it. You should not use it if: You are taking other medicines that interact with it. You are allergic to aspirin. You are . Be cautious about taking antidiarrheal medicines. Nonprescription medicines such as loperamide (soldas Imodium and other trade names) or the prescription medicine Lomotil can make you sicker, especially if the diarrhea is bloody. Do not use these medicines every day to control diarrhea. They can keepthe germs causing the diarrhea in the intestine. Do not give antidiarrheal medicine to small children. See a healthcare provider as soon as possible if you have: a fever of 101.5?F (38.6?C) or higher blood in your diarrhea symptoms that last more than 48 hours severe vomiting or diarrhea. Do not try to treat these serious symptoms on your own. How long will the effects last? Traveler's diarrhea usually does not last long. It often stops without treatment in 1 to 5 days. Rarely, it lasts 2 to 3 weeks. How can I take care of myself? If you are traveling to a place where you think you might get traveler's diarrhea: Talk to your healthcare provider about your plans. Take several packets of oral rehydration salts with you. Carry a few Kaopectate, Imodium, or Lomotil tablets with you for emergencies (for example, to avoid toilet accidents while you are on an airplane). If you get diarrhea: You may want to let your bowel rest for a few hours by drinking only clear liquids such as water, weak tea, broth, apple juice, or sports drinks or other oral rehydrating solutions. All of these drinksshould be made with boiled or sealed, bottled water. You may also drink soft drinks without caffeine(such as 7 UP) after letting them lose some of their carbonation (go flat). Make sure you drink often so that you do not become dehydrated. Suck on ice chips or Popsicles if you feel too nauseated to drink fluids. It is OK to keep eating as long as it does not seem to worsen the diarrhea or stomach cramps. Foods that are easiest to digest are soft starchy foods, such as bananas, cooked cereal, rice, potatoes, plain noodles, plain gelatin, toast or bread, and applesauce. Avoid milk products for a few days. Return to your normal diet after 2 or 3 days, but for several days avoid fresh fruit (other than bananas),alcohol, greasy or fatty foods such as cheeseburgers or burton, spicy foods, and most fresh vegetables. Cooked carrots, potatoes, and squash are fine. If the diarrhea seems to get worse after you eat, stop eating for a few hours and drink just clear liquids. This will give your bowel a rest. How can I prevent traveler's diarrhea? Follow these guidelines: Do not drink untreated water. This includes avoiding ice cubes in drinks. If you are camping or won't be where you can buy bottled water, bring a way to purify water, such asa filter or purifier, chlorine or iodine tablets, or a pot and stove for boiling water. If you need to buy a water filter or purifier, buy one that can filter out organisms as small as the ones that cause giardiasis, cholera, and amoebic diarrhea. Carry a liter of purified water. Avoid food and drinks from street vendors. Eat only foods that are cooked and still hot, or fruits and vegetables that you peel yourself. Do not eat raw or partially cooked fish or shellfish, including such dishes as ceviche. Fully cookedfish and shellfish are safe. Brushing your teeth with toothpaste and untreated water is usually safe. Most toothpastes contain antibacterial substances. Do not swallow the water. Carbonated water and soft drinks, bottled water, wine, and beer are usually safe without ice. Do notadd ice that has been made from tap water. Avoid uncooked dairy products. You may discuss with your healthcare provider the pros and cons of taking antibiotics with you on your trip. Most current recommendations are to start antibiotics only if you have diarrhea. Doxycycline, Bactrim, Septra, and ciprofloxacin (Cipro) have been used in the past. However, bacteria are becoming resistant to these medicines. Your provider may prescribe other medicines. The usual antibiotic prescription is for 3 days only. The medicines may cause side effects, including an increased risk of sunburn and allergic reactions. Ask your provider about side effects. Published by [employer]. This content is reviewed periodically and is subject to change as new health information becomes available. The information is intended to inform and educate and is not a replacement for medical evaluation, advice, diagnosis or treatment by a healthcare professional. Developed by [employer]. ? 2009 [employer] and/or its affiliates. All Rights Reserved. Copyright ?? Clinical Reference Systems 2011 Adult Health Advisor ARCH WORKER ENCYCLOPEDIA documented in this encounter Progress Notes Geovany Jean Baptiste PA-C - 05/25/2011 7:21 AM CST Images from the original note were not included. SUBJECTIVE: Bhavik Jeffery is a 30 year old male, here and daughter, in today for: TRAVEL CLINIC [facility] Travel link Itinerary: [facility] [place] Departure Date: 07/20/2011 Duration of Trip: 08/04/2011 Special medical concerns include: No significant medical history Anticipates the following exposures: Vacation IMMUNIZATION HISTORY Have you ever fainted from having your blood drawn or from an injection? no Have you ever had a fever reaction to vaccination? no Have you ever had any bad reaction or side effect from any vaccination? no GENERAL MEDICAL HISTORY Have you had a fever in the past 48 hours? no Are you , or might you become on this trip? not applicable Do you have a history of psychiatric problems? no Do you have a problem with strange dreams and/or nightmares? no Immunization History Administered Date(s) Administered ??? South African Encephalitis IM 05/25/2011 ??? TDAP (BOOSTRIX AGES 10-64) 05/25/2011 ??? Twinrix A/B 05/25/2011 ??? Typhoid Oral 05/25/2011 Patient Active Problem List Diagnoses Code ??? Attention Deficit Disorder of Adult 314.00S ??? Allergies 995.3B ??? CARDIOVASCULAR SCREENING; LDL GOAL LESS THAN 160 V81.2LR Past Surgical History Procedure Date ??? Vasectomy 2004 ??? Tonsillectomy 2005 ??? Cl quest surgical pathology History Substance Use Topics ??? Smoking status: Never Smoker ??? Smokeless tobacco: Not on file ??? Alcohol Use: Yes 1 beer every two weeks or so Family History Problem Relation Age of Onset ??? Family History Negative Mother parents are both alive and healthy ??? Obesity Father ??? Diabetes Maternal Grandfather due to weight ??? Obesity Maternal Grandfather ??? Stroke Paternal Grandmother ??? Heart Paternal Grandfather ??? Family History Negative Sister ??? Family History Negative Brother ??? Colon CA Maternal Uncle diagnosed in his 50's ??? Prostatic CA No family hx of Outpatient prescriptions marked as taking for the 05/25/11 encounter (Office Visit) with GEOVANY JEAN BAPTISTE: ciprofloxacin (CIPRO) 500 MG tablet Take 1 tablet by mouth 2 times daily. If diarrhea occur Disp: 20tablet Rfl: 0 atovaquone-proguanil (MALARONE) 250-100 MG per tablet Take 1 tablet by mouth daily. start 2 days before travel and continue 7 days after return Disp: 24 tablet Rfl: 0 ADDERALL XR# 20 MG OR CP24 ONE DAILY Disp: 0 Rfl: 0 Allergies Allergen Reactions ??? No Known Drug Allergies OBJECTIVE: Pulse 112 Temp(Src) 98.8 ??F (37.1 ??C) (Oral) Resp 14 Ht 6' 2 (1.88 m) Wt 262 lb 9 oz (119.098 kg) BMI 33.71 kg/m2 SpO2 96% No signs of distress and otherwise deferred ASSESSMENT/PLAN: 1. Other specified counseling (V65.49) TDAP ( BOOSTRIX AGES 10-64), TYPHOID VACCINE, ORAL, AMERICAN ENCEPHALITIS IM 17 YO +, ciprofloxacin (CIPRO) 500 MG tablet, atovaquone-proguanil (MALARONE) 250-100MG per tablet, HEPA/HEPB VACCINE ADULT IM, ADMIN 1st VACCINE, EA ADD'L VACCINE Head and traveler's diarrhea given I have reviewed general recommendations for safe travel including: food/water precautions, insect avoidance, roadway safety. [facility] educational materials have been provided. Risks and benefits of vaccinations/ medications were discussed. Care coordination / counseling time: 15 minutes [employer]CH WORKER [employer] documented in this encounter Nursing Notes 05/25/2011 3:00 PM CST >> JIM SMILEY Fri May 25, 2011 2:48 PM Patient presents with: Travel Clinic Initial Pulse 112 Temp(Src) 98.8 ??F (37.1 ??C) (Oral) Resp 14 Ht 6' 2 (1.88 m) Wt 262 lb 9oz (119.098 kg) BMI 33.71 kg/m2 SpO2 96% Estimated Body mass index is 33.71 kg/(m^2) as calculated from the following: Height as of this encounter: 6' 2(1.88 m). Weight as of this encounter: 262 lb 9 oz(119.098 kg).. BP completed using cuff size: NA (not taken) Jim Smiley MA documented in this encounter Plan of Treatment Not on filedocumented as of this encounter Visit Diagnoses Diagnosis Other specified counseling - Primary documented in this encounter Care Teams Adobe Flex Developer Relationship Specialty Start Date End Date Brianna Cortes MD PCP - General 03/05/08 01/03/[address] [address] documented as of this encounter
--- OUTSIDE RECORDS SUMMARY | 2022-05-30 13:41 | XMS_ITS | Encounter Summary ---
:1980 Author Organization [facility] Address [address] [place] [address]. [place] [address] Care Team Providers Name Role Phone Aniket Zambrano MD Primary Care Provider Encounter Details Date Type Department Care Team Description 04/07/2004 Operative Report Orestes Solis MD (Hatchery Laborer) [place] [address] Social History Tobacco Use Types Packs/Day Years Used Date Smoking Tobacco: Never Alcohol Use Standard Drinks/Week Comments Yes 0 (1 standard drink = 0.6 oz pure alcoho l) 1 beer every two weeks or so Sex Assigned at Date Recorded Not on file documented as of this encounter Miscellaneous Notes Op Note - Orestes Solis - 04/12/2004 12:00 AM CDT : 76 1st ASS'T: 2nd ASS'T: PRE-OPERATIVE DIAGNOSIS: Fertility. POST-OPERATIVE DIAGNOSIS: Fertility. OPERATION: Bilateral vasectomy. ANESTHESIA: Local. DESCRIPTION: Rene Katz was placed in supine position, prepped and draped in the usual manner. Xylocaine 1%, 0.5% Marcaine was injected over the right vas. The vas was grasped percutaneously with small towel clip. Small incision was made, the vas was delivered from the wound, clamped proximally and distally, and small segment excised. Ends were cauterized, ligated with 3-0 Monocryl suture and small hemoclips were placed on each end of the vas. Good hemostasis was obtained. The vas was returned to the wound. The wound was closed with interrupted 3-0 chromic suture. Similar procedure performed on the left side. Patient tolerated the procedure well. EM#[id number] _ B. ANNE-MARIE SOLIS MD [place]: Document: [id number] [place], [place] Name: MR#: RENE KATZ [id number] OPERATIVE REPORT Page 2 of 1 LCN: SDS DSC: 04/07/2004 [place], [place] Name: MR#: RENE KATZ [id number] : Procedure Date: Account #: 1980 04/07/2004 [id number] Doctor: Kel SOLIS MD OPERATIVE REPORT Page 1 of 1 documented in this encounter Plan of Treatment Not on filedocumented as of this encounter Visit Diagnoses Not on filedocumented in this encounter Care Teams Assistant Athletic Trainer Relationship Specialty Start Date End Date Aniket Zambrano MD PCP - General 03/11/03 03/04/08 [place] [address] documented as of this encounter
--- OUTSIDE RECORDS SUMMARY | 2022-05-30 13:41 | XMS_ITS | Encounter Summary ---
:1980 Author Organization [place] Address [address] [place] [address]. [place] [address] Care Team Providers Name Role Phone Brianna Cortes MD Primary Care Provider Encounter Details Date Type Department Care Team Description 06/23/2008 Orders Only [facility]ening for Lipoid Disorders; [facility] Laboratory Screening for Diabetes Selvin hess; [id number] [facility] [place] [address] Social History Tobacco Use [...] Comme nts CL AFF CBC WITH Routine 06/23/2008 8:08 AM Routine Physical Re sults for this [facility] LAB ASSOCIATE Examination procedure are i n the results section. HCL GLUCOSE Routine 06/23/2008 8:08 AM Screening for Results for this LAB ASSOCIATE Diabetes Mellitus procedure are in the results section. CL AFF A.M.A. LIPID Routine 06/23/2008 8:08 AM Screening for L ipoid Results for this PANEL LAB ASSOCIATE Disorders procedure are i n the results section. documented in this encounter Results CBC WITH [facility] (06/23/2008 8:08 AM LAB ASSOCIATE) P athologist Signature WBC 6.9 4.0 - 11.0 [place] 10e9/L [facility] RBC Count 5.38 4.4 - 5.9 [place] 10e12/L [facility] Hemoglobin 16.1 13.3 - [place] 17.7 g/dL [facility] Hematocrit 45.5 40.0 - [place] 53.0 % [facility] MCV 85 78 - 100 [facility] MCH 29.9 26.5 - [facility] 33.0 pg [facility] MCHC 35.4 31.5 - [place] 36.5 g/dL [facility] RDW 12.7 10.0 - [place] 15.0 % [facility] Platelet Count 199 150 - 450 [place] 10e9/L [facility] Specimen Anatomical Collection Method Collection Time Receive d Time (Source) Location / / Volume Laterality 06/23/2008 8:08 AM 8 8:09 LAB ASSOCIATE AM LAB ASSOCIATE Brianna Cortes MD LABORATORY Performing Organization Address City/[facility]/ZIP Code Phon e Number [facility] [id number] [place] [address] [facility] GLUCOSE (06/23/2008 8:08 AM LAB ASSOCIATE) P athologist Signature Glucose 94 60 - 99 [place] mg/dL [facility] Specimen Anatomical Collection Method Collection Time Receive d Time (Source) Location / / Volume Laterality 06/23/2008 8:08 AM 8 8:09 LAB ASSOCIATE AM LAB ASSOCIATE Brianna Cortes MD LABORATORY Performing Organization Address City/[facility]/ZIP Code Phon e Number [facility] [address] [place] [address] [facility] (ABNORMAL) A.M.A. LIPID PANEL (06/23/2008 8:08 AM LAB ASSOCIATE) P athologist Signature Cholesterol 171 0 - 200 [place] mg/dL CLINIC LAB Comment: LDL Cholesterol is the primary guide to therapy: LDL-cholesterol goal in high risk patients is <100 mg/dL and in very high risk patients is <70 mg/dL. The NCEP recommends further evaluation of: patients with cholesterol <200 mg/dL if additional risk factors are present, cholesterol >240 mg/dL, triglycerides >150 mg/dL, or HDL <40 mg/dL. Triglycerides 151 (H) 0 - 150 mg/dL [facility] HDL Cholesterol 34 (L) 40 - 110 mg/dL [facility] LDL Cholesterol Calculated 106 0 - 129 mg/dL [facility] Comment: LDL Cholesterol is the primary guide to therapy: LDL-cholesterol goal in high risk patients is <100 mg/dL and in very high risk patients is <70 mg/dL. VLDL-Cholesterol 30 0 - 30 mg/dL [facility] Cholesterol/HDL Ratio 5.0 0.0 - 5.0 [facility] Specimen Anatomical Collection Method Collection Time Receive d Time (Source) Location / / Volume Laterality 06/23/2008 8:08 AM 8:09 LAB ASSOCIATE AM LAB ASSOCIATE Brianna Cortes MD LABORATORY Performing Organization Address City/State/ZIP Code Phon e Number [address] [address] [facility] documented in this encounter Visit Diagnoses Diagnosis Screening for lipoid disorders Screening for diabetes mellitus Routine physical examination Routine general medical examination at a health care facility documented in this encounter Care Teams Range Master Relationship Specialty Start Date End Date Brianna Cortes MD PCP - General 03/05/08 01/03/[address] [id number] documented as of this encounter
--- OUTSIDE RECORDS SUMMARY | 2022-05-30 13:41 | XMS_ITS | Encounter Summary ---
:1980 Author Organization [place] Address [address] [place] [address]. [place] [address] Care Team Providers Name Role Phone Brianna Cortes MD Primary Care Provider Reason for Visit Reason Onset Date Comments Forms 06/09/2012 Citizen.VC for his insurance Encounter Details Date Type Department Care Team Description 06/09/[address] [facility] Brianna Cortes MD Forms ([employer] from[employer]commendi for [facility] his insurance) [id number] [phone] [place] [address] (Wo rk) Social History Tobacco Use Types Packs/Day Years Used Date Smoking Tobacco: Never Smokeless Tobacco: Never Alcohol Use Standard Drinks/Week Comments Yes 0 (1 standard drink = 0.6 oz pure alcoho l) 1 beer every two weeks or so Sex Assigned at Date Recorded Not on file documented as of this encounter Miscellaneous Notes Telephone Encounter - Henny Hutcihson - 06/11/2012 2:30 PM CST Fax form to ([facility]). Sent a copy to [employer] and Packers black folder. Henny Hutchison Logging Truck Driver MS ADJUSTER SUPERVISOR Telephone Encounter - Brianna Cortes MD - 06/11/2012 1:25 PM CST Forms signed and placed on nurse 's box Brianna Cortes MD MS ADJUSTER SUPERVISOR Telephone Encounter - Henny Hutchison - 06/09/2012 2:20 PM CST Placed form in Dr. Cortes's bin at her station to review and sign. Henny Hutchison Logging Truck Driver MS ADJUSTER SUPERVISOR Telephone Encounter - Fiordaliza Narvaez - 06/09/2012 11:25 AM CST Received orders from [employer] (pt's health insurance), please review,sign and fax back to [phone] and then call pt after we've faxed: Bhavik [phone] . Orders are placed in [employer] ([employer]) bin atfront station. Thanks. Fiordaliza Narvaez Lining Stuffer MS ADJUSTER SUPERVISOR documented in this encounter Plan of Treatment Not on filedocumented as of this encounter Visit Diagnoses Not on filedocumented in this encounter Care Teams Mica Inspector Relationship Specialty Start Date End Date Brianna Cortes MD PCP - General 03/05/08 01/03/[address] [address] documented as of this encounter
--- OUTSIDE RECORDS SUMMARY | 2022-05-30 13:41 | XMS_ITS | Encounter Summary ---
:1980 Author Organization [facility] Address [address] [place] [address]. [place] [address] Care Team Providers Name Role Phone Brianna Cortes MD Primary Care Provider Aniket Zambrano MD Primary Care Provider [phone] Encounter Details Date Type Department Care Team Description 11/08/2004 Historic Results INTERFACED REPORT Deanna Gongora MD ENT SPECIALTY [facility] RE [address] [place] [address] (Wo rk) Social History Tobacco [...] Name Priority Date/Time Associated Diagnosis Comme nts HISTOPATHOLOGY Routine 11/08/2004 12:00 AM Result s for this CDT procedure are i n the results section . documented in this encounter Results Histopathology (11/08/2004 12:00 AM CDT) Component Value Ref Test Analysis Performed At [facility] Range Method Time Signature Copath Report CASE: [id number] ^ COPATH Patient Name: RENE KATZ MR#: [id number] Specimen #: [id number] Collected: 11/08/2004 Received: 11/08/2004 Reported: 11/09/2004 13:41 Ordering Phy(s): ASHER GONGORA SPECIMEN(S): A: Tonsil, left B: Tonsil,right FINAL DIAGNOSIS: A. and B. ??Tonsils, bilateral tonsillectomy - Lymphoid hype rplasia, actinomyces colonization. Electronically signed out by: Fred Villagomez M.D. CLINICAL HISTORY: Hypertrophy. GROSS: A. ?The specimen, labeled left tonsil, consists of an 8 gm, 4 x 2 x 1 cm mass consistent tonsil. ??It has an unremarkable exterior. The cut surface has some yellow sulfur granules. ??A single community relations representative piece is embedded. B. ?The specimen, labeled right tonsil, consi sts of a 7 gm ovoid pink-rivera mass, similar in size to specimen A. ??The ex terior is unremarkable. ??The cut surface reveals numerous tonsillar c rypts containing multiple sulfur granules. ??RS/1C ??SML/sg MICROSCOPIC: A. and B. ??Microscopic performed. SML/sg 11-09-04 Specimen (Source) Anatomical Collection Method Collection Time Re ceived Time Location / / Volume Laterality 11/08/2004 11/09/2004 1:41 PM CDT Asher Gongora MD LAB - COPATH SPECIAL DIAG OR DERABLES Performing Organization Address City/State/ZIP Code Phon e Number COP[place] documented in this encounter Visit Diagnoses Not on filedocumented in this encounter Care Teams Senior Asic Design Engineer Relationship Specialty Start Date End Date Brianna Cortes MD PCP - General 03/05/08 01/03/[address] [address] Aniket Zambrano MD PCP - General 03/11/03 03/04/08 [place] [address] documented as of this encounter
--- OUTSIDE RECORDS SUMMARY | 2022-05-30 13:41 | XMS_ITS | Encounter Summary ---
:1980 Author Organization [facility] Address [address] [place] [address]. [place] [address] Care Team Providers Name Role Phone Brianna Cortes MD Primary Care Provider Reason for Visit Reason Comments Headache onset of headache that progr essed to chest pain starting yesterday. Worked in [employer] on Saturday with [employer] / ?.??. Seen at [facility] PMD yesterday and instructed to come to ED, but pt states I decided to wait and give it a day. Encounter Details Date Type Department Care Team Description 08/26/2012 Emergency [facility] Momo Garcia che (Primary Dx); [facility] Emergency Dep will Alvarez MD Atypical chest pain [address] [facility] [place], [place] [id number] [phone] [address] [place], [place] [id number] (Wo rk) Social History Tobacco Use Types [...] Sign Reading Time Taken Comments Blood Pressure 116/78 08/26/2012 3:15 PM [facility] Pulse 72 08/26/2012 12:11 PM [facility] Temperature 37 ??C (98.6 ??F) 08/26/2012 12:11 PM [facility] Respiratory Rate 18 08/26/2012 12:11 PM [facility] Oxygen Saturation 96% 08/26/2012 3:15 PM [facility] Inhaled Oxygen Concentration - - Weight 104.3 kg (230 lb) 08/26/2012 12:11 PM [facility] Height 186.7 cm (6' 1.5) 08/26/2012 12:11 PM [facility] Body Mass Index 29.93 08/26/2012 12:11 PM [facility] documented in this encounter Discharge Instructions Discharge InstructionsReMomo alaniz MD - 08/26/2012 3:15 PM [facility] Discharge Instructions Headache You were seen today for a headache. Headaches may be caused by many different things such as muscle tension, sinus inflammation, anxiety and stress, having too little sleep, too much alcohol, some medical conditions or injury. You may have a migraine, which is caused by changes in the blood vessels inyour head. At this time your doctor does not find that your headache is a sign of anything dangerousor life-threatening. However, sometimes the signs of serious illness do not show up right away. If you have new or worse symptoms, you may need to be seen again in the emergency department or by your primary doctor. Return to the Emergency Department if: You get a fever of 101 F or higher. Your headache gets much worse. You get a stiff neck with your headache. You get a new headache that is different or worse than headaches you have had before. You are vomiting and can???t keep food or water down You have blurry or double vision or other problems with your eyes. You have a new weakness on one side of your body. You have difficulty with balance which is new. You or your family thinks you are confused. You have a seizure or convulsion What can I do to help myself? Pain medications -- Take a pain medication such as acetaminophen (Tylenol??), ibuprofen (Advil??, Nuprin ??) or naproxen (Aleve??). If you have been given a narcotic (such as codeine, hydrocodone, or oxycodone) or a muscle relaxant (such as Flexeril ?? or Soma ??), do not drive for four hours after you have taken it. If the narcotic contains acetaminophen (Tylenol), do not take Tylenol with it. All narcotics will cause constipation, so eat a high fiber diet. Take a pain reliever as soon as you notice symptoms. Starting medications as soon as you start to have symptoms may lessen the amount of pain you have. Relaxing in a quiet, dark room may help. Get enough sleep and eat meals regularly. Schedule an appointment with your primary physician as instructed, or at least within 1 week. You may need to watch for certain foods or other things which may trigger your headaches. Keeping ajournal of your headaches and possible triggers may help you and your primary doctor to identify things which you should avoid which may be causing your headaches. Remember that you can always come back to the Emergency Department if you are not able to see your regular doctor in the amount of time listed above, if you get any new symptoms, or if there is anything that worries you. [facility] AttachmentsThe following attachments cannot be sent through Care Everywhere. CHEST PAIN, UNCERTAIN CAUSE (KINYARWANDA)documented in this encounter Medications at Time of Discharge Medication Sig Dispensed Refills Start Date End Date amphetamine-dextroamphet Take 2 capsules by 0 11/2011 amine (ADDERALL XR) 20 mouth daily. MG per capsuleIndications: Attention deficit disorder of adult fexofenadine (JOHN PAUL) Take 1 tablet by 30 tablet 1 013 09/30/2015 180 MG tablet mouth daily. fish oil-omega-3 fatty Take 1 capsule by 90 capsule 3 201209/30/2015 acids (OMEGA 3) 1000 MG mouth daily. capsule UNKNOWN MED DOSAGE UNK for canker 0 08/25/2012 Jared mak, PRN documented as of this encounter ED Notes Momo Garcia MD - 08/26/2012 12:59 PM CST History Chief Complaint: Headache HPI Bhavik Jeffery is a 32 year old male who presents to the ED for evaluation of headaches. The patient states he has had a constant 3/10 in severity headache to the back of his head since yesterday, after gradual onset. He states he has a history of caffeine headaches, when he does not get caffeine,but states this headache feels slightly different as his caffeine headaches are not usually to the back of his head. The patient states the headache does not radiate and worsens with changing positionsfrom sitting or lying to standing. The patient states he does have associated lightheadedness and mild nausea. He does also note that since yesterday he has also had intermittent fleeting sharp, shooting, diffuse chest pains that radiate to his shoulders bilaterally, but worse in the left compared to the right, lasting far less than a minute. He states the chest pains are random and are not exertional, positional, or worse with deep breathing. The patient states he was seen at his primary care provider for his symptoms yesterday and was recommended to present to the ED, but he wanted to wait to see if the headache resolved with more time. Henotes that two days ago he was working on a propane space heater in his garage and he may have inhaled some of the fumes, but states he did have ventilation going at that time. The patient states he has not tried any medications for his pain. He denies any fevers, chills, diaphoresis, vision changes, neck pain or stiffness, shortness of breath, vomiting, abdominal pain, back pain, leg pain or swelling, or any other complications or concerns. Allergies: No known drug allergies Medications: John Paul Shannon-3 Adderall XR Past Medical History: Anxiety Depression Attention Deficit Disorder Obesity Past Surgical History: Tonsillectomy - 2004 Cl af surgical pathology Vasectomy - 2003 Vasectomy reversal - 2007 Vasectomy 2 cd reversal - 2011 Family History: Positive for obesity, quintuple bypass, diabetes, stroke, and colon cancer. Negative for prostatic cancer. 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 Review of Systems Constitutional: Negative for fever, chills and diaphoresis. HENT: Negative for neck pain and neck stiffness. Eyes: Negative for visual disturbance. Respiratory: Negative for shortness of breath. Cardiovascular: Positive for chest pain. Negative for leg swelling. Gastrointestinal: Positive for nausea. Negative for vomiting and abdominal pain. Musculoskeletal: Negative for back pain. Positive for bilateral shoulder pain. Negative for leg pain. Neurological: Positive for dizziness, light-headedness and headaches. All other systems reviewed and are negative. Physical Exam First Vitals: BP: 122/77 mmHg Pulse: 72 Temp: 98.6 ??F (37 ??C) Resp: 18 Height: 186.7 cm (6' 1.5) Weight: 104.327 kg (230 lb) SpO2: 99 % RA Physical Exam General: Comfortable appearing male sitting upright. 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 MA interval 182. QRS duration 94. QT/QTc 368/394. P-R-T axes 43 40 26. Normal sinus rhythm. Laboratory: BMP: WNL (Creatinine 0.76) Troponin POCT: 0.00 Troponin: < 0.012 Carbon Monoxide: 3.8 Interventions: 1328 Toradol 30 mg IV Emergency Department Course: Examined the patient and discussed the plan of care. IV inserted and blood drawn. The patient was placed on oxygen via non-rebreather mask and continuouscardiac monitoring and pulse oximetry. 1435 On reexamination of the patient, he states he is feeling much better after the medications and is aware that we are simply waiting on a basic chemistry. 1510: I reexamined Mr. Jeffery and he states his headache is completely gone and he is eager fordischarge to home after I notified him of his normal blood tests. He also notified me that he had previously scheduled a stress test of his heart to be done at 1545 today, arranged by his primary. He declines my offer of further medications. Rechecked the patient, findings and plan explained to the patient. Patient discharged home, status improved, with instructions regarding supportive care, medications, and reasons to return as well as the importance of close follow-up was reviewed. Impression & Plan Medical Decision Making: Mr. Jeffery presents with recurrent headache and concern for possible recent carbon monoxide exposure, which has been ruled out by serum test here in the ED. 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 His chest pain soundsextremely atypical and one troponin and one ECG I think are sufficient to rule out any significant cardiac process at this time. However, he had previously been arranged for stress test today by his primary, which I found out about at the very end of his visit. I told him to keep his appointment and he will be discharge from the ED and will remain at [facility] for his stress test to be done shortly. He should follow up with his primary within one week. He understands that he may return at any time for significant worsening in any way. Diagnosis: 1. Headache 2. Concern for carbon monoxide poisoning 3. Atypical chest pain, thought to be very unlikely cardiac in etiology. I, Hermelinda Quinones, am serving as a scribe on 08/26/2012 at 12:59 pm to personally document services performed by Dr. Garcia based on my observations and the provider's statements to me. Momo Garcia MD 08/26/[id number] [facility] Sasha Fisher RN - 08/26/2012 12:25 PM CST Labs drawn with IV insertion and sent [facility] Sasha Fisher RN - 08/26/2012 12:15 PM CST Patient concerned about possible carbon monoxide poisoning. Headache and chest pain since awakening yesterday morning. Was working in garage until very late the night before that with a propane heater running. Reports lightheadedness and headache and chest pain worse with activity. Placed on 100% oxygen via mask and IV started for lab draw. EKG done in triage, NSR in ED. Alert and oriented x 4. Kina Daigle - 08/26/2012 12:07 PM CST Onset of headache that progressed to chest pain starting yesterday. Worked in [employer] on Saturday with [employer]. Seen at PMD yesterday and instructed to come to ED, but pt states I decided to wait and give it a day. Alert and oriented x 3. ABCD intact. [facility] documented in this encounter Plan of Treatment Not on filedocumented as of this encounter Procedures Procedure Name Priority Date/Time Associated Diagnosis Comme nts TROPONIN POCT Routine 08/26/2012 12:46 PM Results for this [facility] procedure are i n the results section. TROPONIN I STAT 08/26/2012 12:25 PM Results for this [facility] procedure are i n the results section. CARBON MONOXIDE STAT 08/26/2012 12:25 PM Resul ts for this [facility] procedure are i n the results section. BASIC METABOLIC STAT 08/26/2012 12:25 PM Resul ts for this PANEL [facility] procedure are i n the results section. HIM ECG SCAN STAT 08/26/2012 documented in this encounter Results Troponin POCT (08/26/2012 12:46 PM [facility]) P athologist Signature Troponin I 0.00 0.00 - 0.10 POINT OF CARE ug/L TEST, HANDHELD METER Specimen Anatomical Collection Method Collection Time Receive d Time (Source) Location / / Volume Laterality 08/26/2012 12:46 08/26/2012 1:10 PM [facility] PM [facility] Momo Garcia MD LAB - ENTER/EDIT POCT Performing Organization Address City/State/ZIP Code Phon e Number [facility] POINT OF CARE TEST, HANDHELD METER POINT OF CARE TEST, HANDHELD METER Troponin I (08/26/2012 12:25 PM [facility]) athologist Signature Troponin I ES <0.012 0.000 - [place] 0.034 ug/L [facility] Specimen Anatomical Collection Method Collection Time Receive d Time (Source) Location / / Volume Laterality Blood specimen 08/26/2012 12:25 3 2:39 (specimen) PM [facility] PM [facility] Momo Garcia MD LAB - BLOOD ORDERABLES Performing Organization Address City/State/[facility] Phon e Number [facility] [address] [place], [place] [address] [facility] Basic metabolic panel (08/26/2012 12:25 PM [facility]) athologist Signature Sodium 138 133 - 144 [place] mmol/L [facility] Potassium 3.9 3.4 - 5.3 [place] mmol/L [facility] Chloride 103 94 - 109 [place] mmol/L [facility] Carbon Dioxide 24 20 - 32 [place] mmol/L [facility] Anion Gap 11 6 - 17 [place] mmol/L [facility] Glucose 83 60 - 99 [place] mg/dL [facility] Urea Nitrogen 8 5 - 24 [place] mg/dL [facility] Creatinine 0.76 0.66 - [place] 1.25 mg/dL [facility] GFR Estimate >90 >60 [place] mL/min/1.[address] LAB GFR Estimate If >90 >60 [place] Black mL/min/1.[address] [place] [address] LAB Calcium 9.1 8.5 - 10.4 [place] mg/dL [facility] Specimen Anatomical Collection Method Collection Time Receive d Time (Source) Location / / Volume Laterality Blood specimen 08/26/2012 12:25 3 2:39 (specimen) PM [facility] PM [facility] Momo Garcia MD LAB - BLOOD ORDERABLES Performing Organization Address City/State/ZIP Code Phon e Number [facility] [address] [place], [place] [address] [facility] (ABNORMAL) Carbon monoxide (08/26/2012 12:25 PM [facility]) athologist Signature Carbon 3.8 (H) 0 - 2 % [place] Monoxide [facility] Specimen Anatomical Collection Method Collection Time Receive d Time (Source) Location / / Volume Laterality Blood specimen 08/26/2012 12:25 3 (specimen) PM [facility] 12:51 PM [facility] Jorge Li MD LAB - BLOOD ORDERABLES Performing Organization Address City/[facility]/ZIP [facility] Phon e Number [facility] [address] [place], [place] [address] [facility] ECG - HIM ECG Scan (08/26/2012) Narrative This result has an attachment that is no t available. Jorge Li MD ECG ORDERABLES documented in this encounter Visit Diagnoses Diagnosis Headache(784.0) - Primary Headache Atypical chest pain Other chest pain documented in this encounter Administered Medications Inactive Administered Medications - up to 3 most recent administrations Medication Order MAR Action Action Date Dose Rate Site ketorolac (TORADOL) injection 30 mg Given 08/26/2012 1:28 PM [facility] 30 mg 30 mg, Intravenous, ONCE, On 08/26/12 at 1315, For 1 dose documented in this encounter Active and Recently Administered Medications Times are shown in [facility]. Scheduled Medication Order 08/24/2012 08/25/2012 08/26/2012 ketorolac (TORADOL) injection 30 mg (COMPLETED) 1328 (Given - Provider: Avril Francois RN) 30 mg, Intravenous, ONCE, 08/26/12 at 1315, For 1 dose documented in this encounter Care Teams Stamp Pad Finisher Relationship Specialty Start Date End Date Brianna Cortes MD PCP - General 03/05/08 01/03/[address] [address] documented as of this encounter
--- OUTSIDE RECORDS SUMMARY | 2022-05-30 13:41 | XMS_ITS | Encounter Summary ---
:1980 Author Organization [facility] Address [address] [place] [address]. [place] [address] Care Team Providers Name Role Phone Brianna Cortes MD Primary Care Provider Reason for Referral Referral not Required - Closed Specialty Diagnoses / Procedures Referred By Contact Refer red To Contact Diagnoses Chest pain Brianna Cortes MD [facility] CLINI C [address] [facility] [address] [facility] [address] [place] [address] [place] [address] Phone: [phone] Fax: Referral ID Status Reason Start Date Expiration Date Visits Requ ested Visits Authorized [id number] Closed 08/25/2012 02/21/2013 1 1 UCT ASSEMBLER Reason for Visit Reason Comments Pain Encounter Details Date Type Department Care Team Description 08/25/2012 Office Visit [facility] Brianna Cortes MD Chest pain (Primary Dx); Clinic [facility] Attention deficit disorder o f adult; [address] [facility] Need for prophylactic vaccination and in oculation against viral hepatitis; [place], [place] [address] [facility] Sore throat; [address] [place] [address] Headache; [phone] Obesity; (Work) Family history of coronary artery diseas e; Low HDL ( under 40) Social History Tobacco Use Types Packs/Day Years [...] Reading Time Taken Comments Blood Pressure 118/74 08/25/2012 11:59 AM PRODUCT ASSEMBLER Pulse 82 08/25/2012 11:59 AM PRODUCT ASSEMBLER Temperature 37.3 ??C (99.2 ??F) 08/25/2012 11:59 AM PRODUCT ASSEMBLER Respiratory Rate - - Oxygen Saturation 100% 08/25/2012 11:59 AM PRODUCT ASSEMBLER Inhaled Oxygen Concentration - - Weight 105.2 kg (232 lb) 08/25/2012 11:59 AM PRODUCT ASSEMBLER Height 183.5 cm (6' 0.25) 08/25/2012 11:59 AM PRODUCT ASSEMBLER Body Mass Index 31.25 08/25/2012 11:59 AM PRODUCT ASSEMBLER documented in this encounter Patient Instructions Patient InstructionsWolBrianna graham MD - 08/25/2012 12:29 PM CST We did ekg today We discussed, going to er Tracy Cortes MD UCT ASSEMBLER documented in this encounter Progress Notes Brianna Cortes MD - 08/25/2012 11:55 AM CST SUBJECTIVE: Bhavik Jeffery is a 32 year old male who presents to clinic today for the following health issues: Back Pain ?? Onset: x this morning ?? Description: Location of pain: upper back headache and nausea since this morning and sore throat x 2-3 months Character of pain: dull ache Pain radiation:none and shoulders and back ?? Intensity: mild ?? Accompanying Signs & Symptoms: Fever: no Numbness or weakness in legs: no Dysuria or Hematuria: no Bowel or bladder incontinence: no ?? History: Any injury (lifting, bending, twisting): no Work Injury: no History of back problems: no prior back problems Any previous MRI or X-rays: no Any history of back surgery: no Any cancer history: no ?? Precipitating factors: Worsened by: in garage, possible carbon monixide poisoning concerns ?? Alleviating factors: Improved by: fresh air ?? Therapies Tried and outcome: rest This morning, started headache Usually gets headache when not using caffinee Usually using about 1 cup coffee per morning and one diet pop per day Tried to cut back on caffinee for 6 months Not thinking lack of caffinee related headache Yesterday, working in garage for couple hours, had propane space heater Had garage door crackled open, smelled burning propane This am, feeling nausea, pain in upper back and headache Also fhx of heart dis Pt feels headaches on back of head, comes and goes, dull ache,feels nauseous with this Pain 4 out of 10 grade, no vomiting, some dizziness,no chest pain, some confusion this am-feeling foggy Working from home, feels Bit off and not himself Not used sleeping aid last night Chest tightness, with deep breathing at times in mid chest used alcohol -one ronald-light on alcohol with one beer last night PROBLEMS TO ADD ON... Problem list and histories reviewed & adjusted, as indicated. Additional history: as documented ROS: See hpi otherwise neg Problem list, Medication list, Allergies, and Medical/Social/Surgical histories reviewed in [facility] andupdated as appropriate. OBJECTIVE: BP 118/74 Pulse 82 Temp(Src) 99.2 ??F (37.3 ??C) (Oral) Ht 6' 0.25 (1.835 m) Wt 232 lb (105.235 kg) BMI 31.25 kg/m2 SpO2 100% Body mass index is 31.25 kg/(m^2). GENERAL APPEARANCE: healthy, alert and no distress HENT: ear canals and TM's normal and nose and mouth without ulcers or lesions NECK: no adenopathy and no asymmetry, masses, or scars RESP: lungs clear to auscultation - no rales, rhonchi or wheezes CV: regular rates and rhythm, normal S1 S2, no S3 or S4 and no murmur, click or rub ABDOMEN: soft, nontender, without hepatosplenomegaly or masses and bowel sounds normal MS: extremities normal- no gross deformities noted NEURO: grossly intact Diagnostic test results: EKG - negative ASSESSMENT/PLAN: 786.50 Chest pain (primary encounter diagnosis) Comment: with back ache and headache Plan: EKG 12-lead complete w/read - Clinics, CARDIOLOGY PROCEDURE ADULT REFERRAL We discussed ddx Possible cardiac vs carbon monoxide poisoning vs other Recommend to be evaluated in er Pt refused, aware of possible risk, benefits and my concerns reviewed with pt Pt chose to go home, with understanding that if continued issues , will go in er for eval 314.00 Attention deficit disorder of adult Comment: Plan: seeing outside provider for this V05.3 Need for prophylactic vaccination and inoculation against viral hepatitis Comment: Plan: HEPA/HEPB VACCINE ADULT IM 462 Sore throat Comment: Plan: Strep, Rapid Screen, Beta strep group A culture Strep neg Supportive/symptomatic cares, push fluids and liquids. 784.0 Headache Comment: Plan: with above, see as above Obesity His vitals and bmi reviewed Advised to work on this fhx of heart dis and low hdl See Patient Instructions Estimated Body mass index is 31.25 kg/(m^2) as calculated from the following: Height as of this encounter: 6' .25(1.835 m). Weight as of this encounter: 232 lb(105.235 kg). Weight management plan: Diet regimen was discussed and plan is very low calorie diet. Brianna Cortes MD [facility] Patient Instructions We did ekg today We discussed, going to er Thanks Brianna Cortes MD UCT ASSEMBLER documented in this encounter Nursing Notes 08/25/2012 11:45 AM CST >> BERNARDO NICHOLS Mon Aug 25, 2012 12:01 PM Patient presents with: Pain Initial BP 118/74 Pulse 82 Temp(Src) 99.2 ??F (37.3 ??C) (Oral) Ht 6' 0.25 (1.835 m) Wt 232lb (105.235 kg) BMI 31.25 kg/m2 SpO2 100% Estimated Body mass index is 31.25 kg/(m^2) as calculated from the following: Height as of this encounter: 6' .25(1.835 m). Weight as of this encounter: 232 lb(105.235 kg).. BP completed using cuff size: barb Nichols RECRUITING TEAM LEAD documented in this encounter Plan of Treatment Scheduled Referrals Name Type Priority Associated Diagnoses Order S chedule CARDIOLOGY PROCEDURE ADULT Referral Routine Chest Pain O rdered: 08/25/2012 REFERRAL documented as of this encounter Procedures Procedure Name Priority Date/Time Associated Diagnosis Comme nts RAPID STREP SCREEN Routine 08/25/2012 12:40 PM Sore throat Re sults for this THROAT SWAB PRODUCT ASSEMBLER procedure are i n the results section. BETA HEMOLYTIC Routine 08/25/2012 12:40 PM Sore throat Result s for this STREP GROUP A PRODUCT ASSEMBLER procedure are in CULTURE the results section. EKG 12-LEAD Routine 08/25/2012 Chest Pain Results for thi s COMPLETE W/READ - procedure are in CLINICS the results section. documented in this encounter Results Beta strep group A culture (08/25/2012 12:40 PM PRODUCT ASSEMBLER) Component Value Ref Test Analysis Performed At [facility] gist Range Method Time Signature Specimen Throat [facility] Culture Micro No Beta CUSTER Streptococcus [facility] Micro Report FINAL 08/27/2012 [facility] LAB Specimen Anatomical Collection Method Collection Time Receive d Time (Source) Location / / Volume Laterality Specimen from 08/25/2012 12:40 08/25/2012 throat PM PRODUCT ASSEMBLER 12:46 PM PRODUCT ASSEMBLER (specimen) Brianna Cortes MD LAB - MICRO GENERAL ORDERABL ES Performing Organization Address City/[facility]/ZIP Code Phon e Number [facility] [address] [place] [address] [facility] [id number] [place] [phone] Strep, Rapid Screen (08/25/2012 12:40 PM PRODUCT ASSEMBLER) Component Value Ref Test Analysis Performed At [facility] gist Range Method Time Signature Specimen Throat [facility] Rapid Strep A NEGATIVE: No Group A strepto coccal antigen detected by immunoassay, await CUSTER Screen culture report. [facility] Micro Report FINAL 08/25/2012 [facility] LAB Specimen Anatomical Collection Method Collection Time Receive d Time (Source) Location / / Volume Laterality Specimen from 08/25/2012 12:40 08/25/2012 throat PM PRODUCT ASSEMBLER 12:46 PM PRODUCT ASSEMBLER (specimen) Brianna Cortes MD LAB - MICRO GENERAL ORDERABL ES Performing Organization Address City/[facility]/ZIP Code Phon e Number [facility] [address] [place] [address] [facility] [address] [address] [place], [place] [address] EKG 12-lead complete w/read - Clinics (08/25/2012) Narrative This result has an attachment that is no t available. Brianna Cortes MD ECG ORDERABLES documented in this encounter Visit Diagnoses Diagnosis Chest pain - Primary Chest pain, unspecified Attention deficit disorder of adult Attention deficit disorder without menti on of hyperactivity Need for prophylactic vaccination and in oculation against viral hepatitis Sore throat Acute pharyngitis Headache(784.0) Headache Obesity Obesity, unspecified Family history of coronary artery diseas e Family history of ischemic heart disease Low HDL (under 40) Lipoprotein deficiencies documented in this encounter Care Teams Animal Laboratory Technician Relationship Specialty Start Date End Date Brianna Cortes MD PCP - General 03/05/08 01/03/15 [facility] [address] [place] [address] documented as of this encounter
--- OUTSIDE RECORDS SUMMARY | 2022-05-30 13:41 | XMS_ITS | Encounter Summary ---
:1980 Author Organization [facility] Address [address] [place] [address]. [place] [address] Care Team Providers Name Role Phone Brianna Cortes MD Primary Care Provider Encounter Details Date Type Department Care Team Description 06/30/2011 Orders Only [facility] Scr eening for lipoid disorders; [facility] Screening for diabetes nathalie tus; [address] [facility] Routine general medical exam ination [place] [address] Social History Tobacco Use [...] Name Priority Date/Time Associated Diagnosis Comme nts TSH WITH FREE T4 Routine 06/30/2011 9:53 AM Routine general Re sults for this REFLEX MANAGER CLINICAL INFORMATICS medical examination procedur e are in at a [facility] the results facility section. LIPID REFLEX TO Routine 06/30/2011 9:53 AM Screening for lipoi d Results for this DIRECT LDL PANEL MANAGER CLINICAL INFORMATICS disorders procedure a re in the results section. GLUCOSE Routine 06/30/2011 9:53 AM Screening for Results for this MANAGER CLINICAL INFORMATICS diabetes mellitus procedure are in the results section. CBC WITH PLATELETS Routine 06/30/2011 9:53 AM Routine general Results for this MANAGER CLINICAL INFORMATICS medical examination procedur e are in at a health care the results facility section. documented in this encounter Results CBC with platelets (06/30/2011 9:53 AM MANAGER CLINICAL INFORMATICS) athologist Signature WBC 8.0 4.0 - 11.0 [place] 10e9/L [facility] RBC Count 5.35 4.4 - 5.9 [place] 10e12/L [facility] Hemoglobin 15.9 13.3 - [place] 17.7 g/dL [facility] Hematocrit 44.1 40.0 - [place] 53.0 % [facility] MCV 82 78 - 100 [place] fl [facility] MCH 29.7 26.5 - [place] 33.0 pg [facility] MCHC 36.1 31.5 - [place] 36.5 g/dL [facility] RDW 12.9 10.0 - [place] 15.0 % [facility] Platelet Count 176 150 - 450 [place] 10e9/L [facility] Specimen Anatomical Collection Method Collection Time Receive d Time (Source) Location / / Volume Laterality Blood specimen 06/30/2011 9:53 AM 012 9:54 (specimen) MANAGER CLINICAL INFORMATICS AM MANAGER CLINICAL INFORMATICS Brianna Cortes MD LAB - BLOOD ORDERABLES Performing Organization Address City/[facility]/ZIP Code Phon e Number [facility] [address] [place] [address] [facility] TSH with free T4 reflex (06/30/2011 9:53 AM MANAGER CLINICAL INFORMATICS) athologist Signature TSH 1.98 0.4 - 5.0 [place] [facility]L [facility] Specimen Anatomical Collection Method Collection Time Receive d Time (Source) Location / / Volume Laterality Blood specimen 06/30/2011 9:53 AM 012 9:54 (specimen) MANAGER CLINICAL INFORMATICS AM MANAGER CLINICAL INFORMATICS Brianna Cortes MD LAB - BLOOD ORDERABLES Performing Organization Address City/State/ZIP Code Phon e Number [facility] [address] [place] [address] [facility] Glucose (06/30/2011 9:53 AM MANAGER CLINICAL INFORMATICS) athologist Signature Glucose 90 60 - 99 [place] RYAN mg/dL CLINIC LAB Specimen Anatomical Collection Method Collection Time Receive d Time (Source) Location / / Volume Laterality Blood specimen 06/30/2011 9:53 AM 012 9:54 (specimen) MANAGER CLINICAL INFORMATICS AM MANAGER CLINICAL INFORMATICS Brianna Cortes MD LAB - BLOOD ORDERABLES Performing Organization Address City/[facility]/ZIP Code Phon e Number [facility] [address] [place] [address] [phone] [facility] (ABNORMAL) Lipid Profile with reflex to direct LDL (06/30/2011 9:53 AM MANAGER CLINICAL INFORMATICS) athologist Signature Cholesterol 166 0 - 200 [facility] mg/dL CLINIC LAB Comment: LDL Cholesterol is the primary guide to therapy. The NCEP recommends further evaluation of: patients with cholesterol greater than 200 mg/dL if additional risk facto rs are present, cholesterol greater than 240 mg/dL, triglycerides greater than 1 50 mg/dL, or HDL less than 40 mg/dL. Triglycerides 91 0 - 150 mg/dL [facility] HDL Cholesterol 35 (L) 40 - 110 mg/dL [facility] LDL Cholesterol Calculated 112 0 - 129 mg/dL [facility] Comment: LDL Cholesterol is the primary guide to therapy: LDL-cholesterol goal in high risk patients is <100 mg/dL and in very high risk patients is <70 mg/dL. VLDL-Cholesterol 18 0 - 30 mg/dL [facility] Cholesterol/HDL Ratio 4.7 0.0 - 5.0 [facility] Specimen Anatomical Collection Method Collection Time Receive d Time (Source) Location / / Volume Laterality Blood specimen 06/30/2011 9:53 AM 012 9:54 (specimen) MANAGER CLINICAL INFORMATICS AM MANAGER CLINICAL INFORMATICS Brianna Cortes MD LAB - BLOOD ORDERABLES Performing Organization Address City/State/ZIP Code Phon e Number [facility] [address] [place] [address] [phone] [facility] documented in this encounter Visit Diagnoses Diagnosis Screening for lipoid disorders Screening for diabetes mellitus Routine general medical examination at a health care facility documented in this encounter Care Teams Recreation Manager Relationship Specialty Start Date End Date Brianna Cortes MD PCP - General 03/05/08 01/03/[address] [address] documented as of this encounter
--- OUTSIDE RECORDS SUMMARY | 2022-05-30 13:41 | XMS_ITS | Encounter Summary ---
:1980 Author Organization [facility] Address [address] [place] [address]. [place] [address] Care Team Providers Name Role Phone Brianna Cortes MD Primary Care Provider Reason for Referral Office Workup No CT/MRI - Closed Specialty Diagnoses / Procedures Referred By Contact Refer red To Contact Diagnoses Pilonidal sinus Brianna Cortes MD [facility] Phone: [phone] [place] [id number] Referral ID Status Reason Start Date Expiration Date Visits Requ ested Visits Authorized [id number] Closed 03/05/2008 06/23/2011 [address]/MRI - Closed Specialty Diagnoses / Procedures Referred By Contact Refer red To Contact Diagnoses Admission for reversal of vasectomy Brianna Cortes MD [facility] [id number] [place] [phone] Phone: [phone] Referral ID Status Reason Start Date Expiration Date Visits Requ ested Visits Authorized [id number] Closed 03/05/2008 06/23/2011 1 1 Reason for Visit Reason Comments Physical last PX was 2004 Encounter Details Date Type Department Care Team Description 03/05/2008 Office Visit [facility] Brianna Cortes MD Routine Physical Examination (Primary Dx ); Clinic [facility] Tetanus; [address] [facility] Admission for Reversal of Vasectomy; [place], [place] [address] [facility] Screening for Diabetes Mellitus; [phone] [place] [address] Screening for Lipoid Disorders; [phone] Routine General Medical Examination at a Health Care Facility; (Work) Pilonidal Sinus Social History Tobacco Use Types Packs/Day Years Used Date Smoking Tobacco: Never Alcohol Use Standard Drinks/Week Comments Yes 0 (1 standard drink = 0.6 oz pure alcoho l) 1 beer every two weeks or so Sex Assigned at Date Recorded Not on file documented as of this encounter Last Filed Vital Signs Vital Sign Reading Time Taken Comments Blood Pressure 124/74 03/05/2008 4:00 PM CDT Pulse 89 03/05/2008 4:00 PM CDT Temperature 37.2 ??C (98.9 ??F) 03/05/2008 4:00 PM CDT Respiratory Rate - - Oxygen Saturation 97% 03/05/2008 4:00 PM CDT Inhaled Oxygen Concentration - - Weight 115.2 kg (254 lb) 03/05/2008 4:00 PM CDT Height 188 cm (6' 2) 03/05/2008 4:00 PM CDT Body Mass Index 32.61 03/05/2008 4:00 PM CDT documented in this encounter Progress Notes Brianna Cortes - 03/05/2008 4:43 PM CDT SUBJECTIVE: CC: Bhavik Jeffery is a 27 year old male who presents for HCM HPI: 1) pt would like to have vasectomy reversed-has 2 kids, got remarried and now wants to have more children 2)hx of pilonidal cyst removal in past, lately in gluteal upper cleft with open areas with bleeding off and on, with some pain, no fevers, no chills, no other issues HISTORIES: PROBLEM LIST: There is no problem list on file for this patient. PAST MEDICAL HISTORY: Past Medical History Diagnosis Date ??? anxiety resolved ??? Depression resolved ??? ADD (Attention Deficit Disorder) not needing to take any meds at this time PAST SURGICAL HISTORY: Past Surgical History Procedure Date ??? Vasectomy 2003 ??? Tonsillectomy 2004 ??? Surgical pathology CURRENT MEDICATIONS: Current outpatient prescriptions Medication Sig ??? NO ACTIVE MEDICATIONS . ALLERGIES: Allergies Allergen Reactions ??? No Known Drug Allergies SOCIAL HISTORY: History Social History ??? Marital Status: Spouse Name: N/A Number of Children: N/A ??? Years of Education: N/A Occupational History ??? Not on file. Social History Main Topics ??? Tobacco Use: Never ??? Alcohol Use: Yes 1 beer every two weeks or so ??? Drug Use: No ??? Sexually Active: Yes -- Female partner(s) Control/ Protection: Surgical vasectomy-wants to get reversed Other Topics Concern ??? 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 Family History Negative Mother parents are both alive and healthy ??? Obesity Father ??? Diabetes Maternal Grandfather due to weight ??? Obesity Maternal Grandfather ??? Stroke Paternal Grandmother ??? Heart Paternal Grandfather ??? Family History Negative Sister ??? Family History Negative Brother ??? Colon CA Maternal Uncle diagnosed in his 50's ??? Prostatic CA No family hx of HEALTH MAINTENANCE: Health Maintenance Topic Date Due ??? Tetanus immunization ( [facility] assigned) 1990 REVIEW OF OUTSIDE RECORDS: NO REVIEW OF SYSTEMS: CONSTITUTIONAL:NEGATIVE for fever, chills, change in weight EYES: NEGATIVE for vision changes or irritation ENT/MOUTH: NEGATIVE for ear, mouth and throat problems RESP:NEGATIVE for significant cough or SOB CV: NEGATIVE for chest pain, palpitations or peripheral edema GI: NEGATIVE for nausea, abdominal pain, heartburn, or change in bowel habits :negative for dysuria, hematuria, decreased urinary stream, erectile dysfunction MUSCULOSKELATAL:NEGATIVE for significant arthralgias or myalgia INTEGUMENTARY/SKIN: NEGATIVE for worrisome rashes, moles or lesions and POSITIVE HPI NEURO: NEGATIVE for weakness, dizziness or paresthesias ENDOCRINE: NEGATIVE for temperature intolerance, skin/hair changes HEME/ALLERGY/IMMUNE: NEGATIVE for bleeding problems PSYCHIATRIC: NEGATIVE for changes in mood or affect EXAM: BP 124/74 Pulse 89 Temp (Src) 98.9 ??F (37.2 ??C) (Oral) Ht 6' 2 (1.88 m) Wt 254 lb (115.214 kg) SpO2 97% GENERAL APPEARANCE: healthy, alert and no distress EXAM: EYES: Eyes grossly normal to inspection, PERRL [...] S4 and no murmur, click or rub LYMPH: normal ant/post cervical and supraclavicular nodes ABD/GI: soft, nontender, without hepatosplenomegaly or masses RECTAL EXAM: deferred : testicles normal without atrophy or masses, no hernias and penis normal without urethral discharge MS: extremities normal- no gross deformities noted SKIN: no suspicious lesions or rashes and gluteal cleft with slightly open area with previously removed pilonidal cyst site with slight blood noted, No surrounding redness, no other drainge, no fluctuation on exam, no localized absess NEURO: Normal strength and tone, mentation intact and speech normal PSYCH: mentation appears normal and affect normal/bright ASSESSMENT/PLAN V70.0F Routine Physical Examination (primary encounter diagnosis) Comment: Plan: CBC WITH PLATELETS 037 Tetanus Comment: Plan: pt reported uptodate and not given V26.0B Admission for Reversal of Vasectomy Comment: Plan: CONSULT UROLOGY Pt to see urology for this V77.1 Screening for Diabetes Mellitus Comment: Plan: GLUCOSE V77.91 Screening for Lipoid Disorders Comment: Plan: A.M.A. LIPID PANEL ?PILONIDAL sinus at gluteal cleft-pt will see surgery to eval this, till then keep area clean and dry, pt advised to watch for infection Recommend healthy lifestyle, diet and exercies, testicular exam-timing and importance of this,adequate calcium and vitamin D in diet, seeing by dentist on regular basis, and seeing eye doctor as needed, USING SUNSCREEN APPROPRIATELY, usage of seatbelt in car all the time. I have discussed with patient the risks, benefits, medications, treatment options and modalities. I have instructed the patient to call or schedule a follow-up appointment if any problems or failureto improve. Brianna Cortes MD documented in this encounter Nursing Notes 03/05/2008 4:00 PM CDT >> BERNARDO NICHOLS Fri Mar 05, 2008 4:06 PM Patient presents with: Physical - last PX was 2003 Bhavik Jonatan PerezJose D presents for as above. Initial BP 124/74 Pulse 89 Temp (Src) 98.9 ??F (37.2 ??C) (Oral) Ht 6' 2 (1.88 m) Wt 254 lb(115.214 kg) SpO2 97% Body mass index is 32.61 kg/(m^2).. BP completed using cuff size: large Bernardo Nichols FLOOR AND WALL APPLIER LIQUID documented in this encounter Plan of Treatment Not on filedocumented as of this encounter Visit Diagnoses Diagnosis Routine physical examination - Primary Routine general medical examination at a health care facility Tetanus Admission for reversal of vasectomy Tuboplasty or vasoplasty after previous sterilization Screening for diabetes mellitus Screening for lipoid disorders Routine general medical examination at a health care facility Pilonidal sinus Pilonidal cyst without mention of absces s documented in this encounter Care Teams Tie Up Worker Relationship Specialty Start Date End Date Brianna Cortes MD PCP - General 03/05/08 01/03/[address] [address] documented as of this encounter
--- OUTSIDE RECORDS SUMMARY | 2022-05-30 13:41 | XMS_ITS | Encounter Summary ---
:1980 Author Organization [facility] Address [address] [place] [address] Care Team Providers Name Role Phone Unavailable Primary Care Provider Unavailable Reason for Visit Reason Comments Physical fastin Encounter Details Date Type Department Care Team Description 01/13/2002 Office Visit [facility] Torin Reyez M D GENERAL MEDICAL EXAM NOS; Clinic [employer] RETIRED OTHER MALAISE AND FATIGUE [address] [place] [address] [place] [address] [place] [address] Social History Tobacco Use Types Packs/Day Years Used Date Smoking Tobacco: Never Alcohol Use Standard Drinks/Week Comments Yes 0 (1 standard drink = 0.6 oz pure alcoho l) 1 beer every two weeks or so Sex Assigned at Date Recorded Not on file documented as of this encounter Last Filed Vital Signs Vital Sign Reading Time Taken Comments Blood Pressure 110/74 01/13/2002 9:15 AM CDT Pulse 66 01/13/2002 9:15 AM CDT Temperature - - Respiratory Rate - - Oxygen Saturation - - Inhaled Oxygen Concentration - - Weight 106.6 kg (235 lb) 01/13/2002 9:15 AM CDT Height 188 cm (6' 2) 01/13/2002 9:15 AM CDT Body Mass Index 30.17 01/13/2002 9:15 AM CDT documented in this encounter Progress Notes 01/13/2002 9:15 AM CDT Here for physical exam. Age 21. Feels well. No complaints. PMH: Meds- none. Allergies- none. 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 O/w unremarkable PMH. FH: Parents healthy; F is 52; M is 50. 2 healthy sibs. 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 2 drinks monthly. System review: Eyes- myopia. GI- occ heartburn. Musc-skel- occ back pain. Constitutional- has alwaysbeen somewhat tired and req'd more sleep ; does better if he gets up at 8am rather than 5am. No realchange. The following systems were reviewed and were negative: , ENT, respiratory, cardiovascular, , , neurologic, and psychiatric. EXAM: The following items were examined and were found to be normal: HEENT, neck nodes, thyroid, lungs, heart(no murmur), abdomen, extremities, pulses(no carot id bruits), and reflexes. Genitalia-normal adult male. Hernia-no inguinal hernias. IMP: (Otherwise) normal physical exam. PLAN: Lose wt. TSH in view of the fatigue and wt. Routine lab as ordered. documented in this encounter Plan of Treatment Not on filedocumented as of this encounter Procedures Procedure Name Priority Date/Time Associated Comments Diagnosis HCL HEMOGLOBIN Routine 01/13/2002 10:27 AM General Medical Res ults for this NONLAB CDT Exam Nos procedure are i n the results section. HCL TSH Routine 01/13/2002 10:27 AM Other Malaise And Res ults for this CDT Fatigue procedure are i n the results section. HCL GLUCOSE Routine 01/13/2002 10:27 AM General Medical Resul ts for this CDT Exam Nos procedure are in Other Malaise And the result s Fatigue section. CL AFF A.M.A. LIPID Routine 01/13/2002 10:27 AM General Medica l Results for this PANEL CDT Exam Nos procedure are i n the results section. documented in this encounter Results TSH (01/13/2002 10:27 AM CDT) P athologist Signature TSH 0.93 0.4 - 5.[address] [facility] mU/L CLINIC LAB Specimen Anatomical Collection Method Collection Time Receive d Time (Source) Location / / Volume Laterality 01/13/2002 10:27 01/13/2002 AM CDT 10:29 AM CDT Torin Reyez MD LABORATORY Performing Organization Address City/State/ZIP Code Phon e Number [facility] [address] [place] [address] [address] [facility] HGB (01/13/2002 10:27 AM CDT) athologist Signature Hemoglobin 14.9 13.3 - 17.7 [facility] g/dL [facility] Specimen Anatomical Collection Method Collection Time Receive d Time (Source) Location / / Volume Laterality 01/13/2002 10:27 01/13/2002 AM CDT 10:29 AM CDT Torin Reyez MD LABORATORY Performing Organization Address City/State/ZIP Code Phon e Number [facility] [address] [place] [address] [address] [facility] GLUCOSE (01/13/2002 10:27 AM CDT) athologist Signature Glucose 86 60 - [address] [facility] mg/dL [facility] Specimen Anatomical Collection Method Collection Time Receive d Time (Source) Location / / Volume Laterality 01/13/2002 10:27 01/13/2002 AM CDT 10:29 AM CDT Torin Reyez MD LABORATORY Performing Organization Address City/State/ZIP Code Phon e Number [facility] [address] [place] [address] [facility] (ABNORMAL) A.M.A. LIPID PANEL (01/13/2002 10:27 AM CDT) Analysis Performed At Patho logist Time Signature Triglycerides 69 <150 mg/dL [facility] Cholesterol/HDL 4 0 - 5 [place] Ratio [facility] LDL Cholesterol 100 <130 mg/dL [place] Calculated [facility] VLDL-Cholesterol 14 0 - 30 [place] mg/dL [facility] Cholesterol 151 <200 mg/dL [facility] Comment: Cholesterol Reference Range: <200 ??The NCEP recommends further ? evaluation of: ? 1. ??Patients with cholesterol ? greater than 200 mg/dL ? if additional risk facto rs ? are present. ? 2. ??All patients with a ? cholesterol greater than ? 240 mg/dL. HDL Cholesterol 38 (L) >40 mg/dL [facility] Specimen Anatomical Collection Method Collection Time Receive d Time (Source) Location / / Volume Laterality 01/13/2002 10:27 01/13/2002 AM CDT 10:29 AM CDT Torin Reyez MD LABORATORY Performing Organization Address City/State/ZIP Code Phon e Number [facility] [address] [place] [address] [facility] documented in this encounter Visit Diagnoses Diagnosis Unspecified general medical examination Other malaise and fatigue documented in this encounter
--- OUTSIDE RECORDS SUMMARY | 2022-05-30 13:41 | XMS_ITS | Encounter Summary ---
:1980 Author Organization [facility] Address [address] [place] [address]. [place] [address] Care Team Providers Name Role Phone Brianna Cortes MD Primary Care Provider Reason for Visit Reason Onset Date Comments Nurse Advice Line 08/25/2012 chest pain Encounter Details Date Type Department Care Team Description 08/25/2012 Telephone [facility] Marv Garland MD Nurse Advice Line Clinic [address] (chest pain) [address] [place] [phone] (Wo rk) Social History Tobacco Use Types Packs/Day Years Used Date Smoking Tobacco: Never Smokeless Tobacco: Never Alcohol Use Standard Drinks/Week Comments Yes 0 (1 standard drink = 0.6 oz pure alcoho l) 1 beer every two weeks or so Sex Assigned at Date Recorded Not on file documented as of this encounter Miscellaneous Notes Telephone Encounter - Giuseppe Kaplan - 08/25/2012 11:20 AM CST Pt calls with increasing headache since last night, 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 In addition today reports SOB, dizziness, increased perspiration, nausea and chestpain. Pt reports symptoms progressing while sitting at his desk at home. Advised and offered to [id number]. Pt declines, states his will drive him to [facility] immediately. Message handled by Nurse Triage. Giuseppe Kaplan RN DYEING MACHINE OPERATOR documented in this encounter Plan of Treatment Not on filedocumented as of this encounter Visit Diagnoses Not on filedocumented in this encounter Care Teams Electric Motor Controls Assembler Relationship Specialty Start Date End Date Brianna Cortes MD PCP - General 03/05/08 01/03/[address] [address] documented as of this encounter
--- OUTSIDE RECORDS SUMMARY | 2022-05-30 13:41 | XMS_ITS | Encounter Summary ---
:1980 Author Organization [place] Address [address] [place] [address]. [place] [address] Care Team Providers Name Role Phone Brianna Cortes MD Primary Care Provider Reason for Visit Reason Comments URI congestion and drainage, sin us pain, non productive, dry cough sx x 2 days Encounter Details Date Type Department Care Team Description 05/14/[address] [facility] Marv Garland MD Bronchitis (Primary Clinic [facility] [address]) [address] [place] [phone] [id number] Social History Tobacco Use Types Packs/Day Years Used Date Smoking Tobacco: Never Smokeless Tobacco: Never Alcohol Use Standard Drinks/Week Comments Yes 0 (1 standard drink = 0.6 oz pure alcoho l) 1 beer every two weeks or so Sex Assigned at Date Recorded Not on file documented as of this encounter Last Filed Vital Signs Vital Sign Reading Time Taken Comments Blood Pressure 102/64 05/14/2012 1:59 PM BRUSH WORKER Pulse 60 05/14/2012 1:59 PM BRUSH WORKER Temperature 37.4 ??C (99.4 ??F) 05/14/2012 1:59 PM BRUSH WORKER Respiratory Rate 12 05/14/2012 1:59 PM BRUSH WORKER Oxygen Saturation - - Inhaled Oxygen Concentration - - Weight 102.1 kg (225 lb) 05/14/2012 1:59 PM BRUSH WORKER Height 183.5 cm (6' 0.25) 05/14/2012 1:59 PM BRUSH WORKER Body Mass Index 30.3 05/14/2012 1:59 PM BRUSH WORKER documented in this encounter Progress Notes Marv Garland MD - 05/14/2012 2:16 PM CST SUBJECTIVE: Bhavik Jeffery is a 31 year old male who complains of coryza, cough and chest congestion for 2 days. He denies a history of no other unusual symptoms and denies a history of asthma. Patient does not smoke cigarettes. OBJECTIVE: He appears well, vital signs are as noted by the nurse. Ears normal. Throat and pharynx normal. Necksupple. No adenopathy in the neck. Nose is congested. Sinuses non tender. The chest is diminshed, without wheezes or rales. ASSESSMENT: Bronchitis PLAN: After d/w pt regarding risks and benefits as well as possible side effects, drug interactions and adverse reactions, pt accepts prescription for bronchitis per hs orders. Symptomatic therapy suggested: push fluids and rest. Call or return to clinic prn if these symptoms worsen or fail to improve as anticipated. H WORKER documented in this encounter Nursing Notes 05/14/2012 1:45 PM CST >> FOREIGN ALFARO Wed May 14, 2012 2:02 PM Patient presents with: URI - congestion and drainage, sinus pain, non productive, dry cough sx x 2 days Initial BP 102/64 Pulse 60 Temp(Src) 99.4 ??F (37.4 ??C) (Oral) Resp 12 Ht 6' 0.25 (1.835 m) Wt 225 lb (102.059 kg) BMI 30.30 kg/m2 Estimated Body mass index is 30.30 kg/(m^2) as calculated from the following: Height as of this encounter: 6' .25(1.835 m). Weight as of this encounter: 225 lb(102.059 kg). BP completed using cuff size regular Right Arm Health Maintenance reviewed - Yes: (pt already got his flu shot this year) Tobacco Verified: Yes Family History Updated: Yes MyChart Offered: Yes Immunizations Up to Date: Yes- see above Foreign Jessica, EXTENSION SERVICE SUPERVISOR documented in this encounter Plan of Treatment Not on filedocumented as of this encounter Visit Diagnoses Diagnosis Bronchitis - Primary Bronchitis, not specified as acute or ch ronic documented in this encounter Care Teams Lead Generation Representative Relationship Specialty Start Date End Date Brianna Cortes MD PCP - General 03/05/08 01/03/[address] [address] documented as of this encounter
--- OUTSIDE RECORDS SUMMARY | 2022-05-30 13:41 | XMS_ITS | Encounter Summary ---
:1980 Author Organization [facility] Address [address] [place] [address]. [place] [address] Care Team Providers Name Role Phone Brianna Cortes MD Primary Care Provider Reason for Referral OBED Physical Therapy - Closed Specialty Diagnoses / Procedures Referred By Contact Refer red To Contact Diagnoses Back pain Brianna Cortes MD [facility] CL[facility] C [address] [place] [address] [place] [address] [place] [address] Phone: [phone] Referral ID Status Reason Start Date Expiration Date Visits Requ ested Visits Authorized [id number] Closed 11/23/2011 05/21/2012 1 1 Reason for Visit Reason Comments Pre-Op Exam [facility] . Encounter Details Date Type Department Care Team Description 11/23/2011 Office Visit [facility] Brianna Cortes MD Preop general physical exam (Primary Dx) ; [facility] Back pain; [id number] [facility] Chest pain [place], [place] [address] [facility] [id number] [place] [address] Social History Tobacco Use Types [...] Sign Reading Time Taken Comments Blood Pressure 120/76 11/23/2011 4:30 PM CDT Pulse 88 11/23/2011 4:30 PM CDT Temperature 37 ??C (98.6 ??F) 11/23/2011 4:30 PM CDT Respiratory Rate - - Oxygen Saturation 99% 11/23/2011 4:30 PM CDT Inhaled Oxygen Concentration - - Weight 103.4 kg (228 lb 1 oz) 11/23/2011 4:30 PM CDT Height 183.5 cm (6' 0.25) 11/23/2011 4:30 PM CDT Body Mass Index 30.72 11/23/2011 4:30 PM CDT documented in this encounter Progress Notes Christiano Esteban - 11/23/2011 4:37 PM CDT [place] [address] PRE-OP EVALUATION: Today's date: 11/23/2011 Bhavik Jeffery (: 1980) presents for pre-operative evaluation assessment as requested by Dr. Owusu. He requires evaluation and anesthesia risk assessment prior to undergoing surgery/procedurefor treatment of as below. Proposed procedure: reverse vasectomy. Date of Surgery/ Procedure: 12-06-11 Time of Surgery/ Procedure: [facility] Hospital/Surgical Facility: [facility]. Fax number for surgical facility: Primary Physician: Dr. Brianna Cortes Type of Anesthesia Anticipated: to be determined History of anesthesia complications: NONE History of abnormal bleeding: NONE History of blood transfusions: NO Patient has a Health Care Directive or Living Will: NO 1- YES - Do you ever have any pain or discomfort in your chest? Pt states when to much caffine-with palpitation 2- NO - Have you ever had a severe pain across the front of your chest lasting for half an hour or more? 3- NO - Do you have swelling in your feet or ankles at times? 4- NO - Are you troubled by shortness of breath when: walking on the level/ up a slight hill/ at night? 5- NO - Does your chest ever sound wheezy or whistling? 6- NO - Do you currently have a cold, bronchitis or other respiratory infection? 7- NO - Have you had a cold, bronchitis or other respiratory infection within the last 2 weeks? 8- NO - Do you usually have a cough? Allergies due to pnd-using Zyrtec 9- NO - Do you sometimes get pains in the calves of your legs when you walk? 10-YES - Do you or anyone in your family have previous history of blood clots? Father. 11-NO - Do you or does anyone [...] any chance that you may be ? HPI: resersal of vasectomy See problem list for active medical problems. Problems all longstanding and stable, except as noted/documented. See ROS for pertinent symptoms related to these conditions. 1) Back and chest pain Patient reported off and on pain in the upper back-in between shoulder blades- hurts at times to takea deep breath. At times feeling pain from the back moving to left anterior chest. Patient denies anyshortness of breath, dizziness, palpitation, neck or jaw pain or any other symptoms with this. Patient has family history of heart disease Patient reported negative EKG done in the past No prior stress testing Patient also feels that most times Carrying his backpack on the left side-and sleeping on the left side-wonders if that has anything to do with this. There is no local rash or shingles Pt tells me that massaging helps at times , his does this for him No prior stress testing . Patient Active Problem List Diagnoses Date Noted ??? Low HDL (under 40) [272.5FE] 07/13/2011 ??? Family history of coronary artery disease [V17.3M] 07/03/2011 ??? CARDIOVASCULAR SCREENING; LDL GOAL LESS THAN 160 [V81.2LR] 04/23/2010 ??? Attention Deficit Disorder of Adult [314.00S] 08/25/2008 ??? Allergies [995.3B] 08/25/2008 Past Medical History Diagnosis Date ??? anxiety resolved ??? Depression resolved ??? ADD (attention deficit disorder) not needing to take any meds at this time Past Surgical History Procedure Date ??? Vasectomy 2004 reversal done in 2007-going for another reversal in near future ??? Tonsillectomy 2004 ??? Cl aff surgical pathology Current outpatient prescriptions Medication Sig ??? amphetamine-dextroamphetamine (ADDERALL XR) 20 MG per capsule Take 2 capsules by mouth daily. ??? cyclobenzaprine (FLEXERIL) 10 MG tablet Take 1 tablet by mouth 3 times daily as needed for muscle spasms. OTC products: None, except as noted above Allergies Allergen Reactions ??? No Known Drug Allergies Latex Allergy: NO History Substance Use Topics ??? Smoking status: Never Smoker ??? Smokeless tobacco: Never Used ??? Alcohol Use: Yes 1 beer every two weeks or so History Drug Use No REVIEW OF SYSTEMS: C: NEGATIVE for fever, chills, change in weight E/M: NEGATIVE for ear, mouth and throat problems R: NEGATIVE for significant cough or SOB CV: NEGATIVE for chest pain, palpitations or peripheral edema EXAM: BP 120/76 Pulse 88 Temp(Src) 98.6 ??F (37 ??C) (Oral) Ht 6' 0.25 (1.835 m) Wt 228 lb 1 oz (103.448 kg) BMI 30.72 kg/m2 SpO2 99% GENERAL APPEARANCE: healthy, alert and no distress [...] grossly normal, mentation intact and speech normal DIAGNOSTICS: Preop Testing EKG: appears normal, NSR, normal axis, normal intervals, no acute ST/T changes c/w ischemia, no LVH by voltage criteria IMPRESSION: Reason for surgery/procedure: vasectomy reversal Diagnosis/reason for consult: medical clearance V72.83H Preop general physical exam (primary encounter diagnosis) Comment: Plan: 724.5E Back pain Comment: Plan: cyclobenzaprine (FLEXERIL) 10 MG tablet, OBED PT, HAND, AND CHIROPRACTIC REFERRAL 786.50F Chest pain Comment: Plan: X-ray Chest 2 vws*, EKG 12-lead complete w/read - Clinics Regarding his back and her chest pain, we discussed differential diagnosis With his risk factors-cardiovascular vs respiratory vs musculoskeletal vs other etio We did EKG and a chest x-ray-both appears to be normal We discussed usage of stress testing-patient chose to hold this off Patient is aware of possible risk and benefits The fact that patient feels that it gets better with massaging-I would suspect it might be musculoskeletal In origin Patient will do physical therapy, followup with me after doing PT If not resolved-and if needed, consider more work up patient is agreeable with this The proposed surgical procedure is considered LOW risk. For above listed surgery and anesthesia: Patient is at LOW risk for surgery/procedure and perioperative/procedure complications. RECOMMENDATIONS: --Approval given to proceed with proposed procedure, without further diagnostic evaluation. Signed Electronically by: Brianna Cortes MD Copy of this evaluation report is provided to requesting physician. Preop Guidelines documented in this encounter Nursing Notes 11/23/2011 4:15 PM CDT >> CHRISTIANO Hull Nov 23, 2011 4:44 PM Patient presents with: Pre-Op Exam - [facility]. Initial BP 120/76 Pulse 88 Temp(Src) 98.6 ??F (37 ??C) (Oral) Ht 6' 0.25 (1.835 m) Wt 228 lb 1 oz (103.448 kg) BMI 30.72 kg/m2 SpO2 99% Estimated Body mass index is 30.72 kg/(m^2) as calculated from the following: Height as of this encounter: 6' .25(1.835 m). Weight as of this encounter: 228 lb 1 oz(103.448 kg).. BP completed using cuff size: large Health maintenance- up to date. Christiano Esteban [facility] documented in this encounter Plan of Treatment Scheduled Referrals Name Type Priority Associated Diagnoses Order S chedule OBED PT, HAND, AND Referral Routine Back pain Ordered: 0 11/23/2011 CHIROPRACTIC REFERRAL documented as of this encounter Procedures Procedure Name Priority Date/Time Associated Diagnosis Comme nts XR CHEST 2 VIEWS Routine 11/23/2011 5:13 PM Chest Pain Resul ts for this CDT procedure are i n the results section. EKG 12-LEAD Routine 11/23/2011 5:09 PM Chest pain Results f or this COMPLETE W/READ - CDT procedure are in CLINICS the results section. documented in this encounter Results X-ray Chest 2 vws* (11/23/2011 5:13 PM CDT) Anatomical Region Laterality Modality Chest Other Specimen (Source) Anatomical Collection Method Collection Time Re ceived Time Location / / Volume Laterality 11/23/2011 5:13 PM CDT Impressions 11/24/2011 9:33 AM CDT CHEST TWO VIEW* ?? Nov 23, 2011 5:13:00 PM HISTORY: Chest pain. FINDINGS: Negative exam. Brianna Cortes MD IMG DIAGNOSTIC IMAGING ORDER GORAN EKG 12-lead complete w/read - Clinics (11/23/2011 5:09 PM CDT) Narrative This result has an attachment that is no t available. Brianna Cortes MD ECG ORDERABLES documented in this encounter Visit Diagnoses Diagnosis Preop general physical exam - Primary Other specified pre-operative examinatio n Back pain Backache, unspecified Chest pain Chest pain, unspecified documented in this encounter Care Teams Egg Sorter Relationship Specialty Start Date End Date Brianna Cortes MD PCP - General 03/05/08 01/03/[address] [address] documented as of this encounter
--- OUTSIDE RECORDS SUMMARY | 2022-05-30 13:41 | XMS_ITS | Encounter Summary ---
:1980 Author Organization [facility] Address [address] [place] [address]. [place] [address] Care Team Providers Name Role Phone Brianna Cortes MD Primary Care Provider Reason for Visit Reason Onset Date Comments ER F/U 08/27/2012 [facility] Encounter Details Date Type Department Care Team Description 08/27/2012 [facility] Marques Cortes MD ER F/U ([facility]ER) [address] [phone] [place] [address] (Wo rk) Social History Tobacco Use Types Packs/Day Years Used Date Smoking Tobacco: Never Smokeless Tobacco: Never Alcohol Use Standard Drinks/Week Comments Yes 0 (1 standard drink = 0.6 oz pure alcoho l) 1 beer every two weeks or so Sex Assigned at Date Recorded Not on file documented as of this encounter Miscellaneous Notes Telephone Encounter - Annalee Matute - 08/28/2012 9:53 AM CST ED/Discharge Protocol Hi, my name is Annalee Matute, a registered nurse, and I am calling on behalf of Dr. Cortes's officeat [facility]. I am calling to follow up and see how things are going for you after your recent visit. I see that you were in the (ER/UC/IP) on 08/26/12 How are you doing now that you are home? Better still having headache and lingering dizziness and nausea. Pt has not vomited or had diarrhea. Is patient experiencing symptoms that may require a hospital visit? No Discharge Instructions Let's review your discharge instructions. What is/are the follow-up recommendations? Pt. Response: follow up with PCP in 1 week Were you instructed to make a follow-up appointment? Pt. Response: Yes. Has appointment been made? No. Can I help you schedule that appointment? Pt will call to schedule this at later date. Has to schedule stress echo as well. Encouraged pt to scheduleecho as soon as able should call today or tomorrow to schedule. When you see the provider, I would recommend that you bring your discharge instructions with you. Medications How many new medications are you on since your hospitalization/ED visit? 0-1 How many of your current medicines changed (dose, timing, name, etc.) while you were in the hospital/ED visit? 0-1 Do you have questions about your medications? No Were you newly diagnosed with heart failure, COPD, diabetes or did you have a heart attack? No For patients on insulin: Did you start on insulin in the hospital or did you have your insulin dosechanged? No Medication reconciliation completed? Yes Was MTM referral placed- No Call Summary Do you have any questions or concerns about your condition or care plan at the moment? No Triage nurse advice given: Pt advised to set up stress echo CHITRA. Can try gil for nausea. Keep uphydration status, water and/or Gatorade. Can try Tylenol not to exceed 4000 mg/24 hr or ibuprofen not to exceed 3200 mg/24 hour for headache. If unable to get in for stress test next week should be seen by PCP. If symptoms continue should be seen by PCP. Pt advised LV phones answered 14/01 and clinic is open for appointment on Saturday-. Pt expressed understanding and acceptance of this plan. Patient was in ER 1 in the past year (assess appropriateness of ER visits.) If you have questions or things don't continue to improve, we encourage you contact us through the main clinic number, . Even if the clinic is not open, triage nurses are available / tohelp you. We would like you to know that our clinic has extended hours (provide information). We also have urgent care (provide details on closest location and hours/contact info) Thank you for your time and take care! Annalee Matute RN ST SCIENCE PROFESSOR Telephone Encounter - Naomi Rodriguez - 08/27/2012 10:27 AM CST 08/26/2012 headache, atypical chest pain No future appt Naomi Rodriguez Power Bender Operator [facility] [employer] documented in this encounter Plan of Treatment Not on filedocumented as of this encounter Visit Diagnoses Not on filedocumented in this encounter Care Teams It Sales Representative Relationship Specialty Start Date End Date Brianna Cortes MD PCP - General 03/05/08 01/03/[address] [address] documented as of this encounter
--- OUTSIDE RECORDS SUMMARY | 2022-05-30 13:42 | XMS_ITS | Encounter Summary ---
:1980 [facility] Address [address], [place] [address] Care Team Providers Name Role Phone Unassigned, Provider Primary Care Provider Unavailable Reason for Visit Procedure/Equipment (Routine) - Incomplete Specialty Diagnoses / Procedures Referred By Contact Refer red To Contact Diagnoses Left foot pain Ben Camacho MD Procedures XR Foot Lt 3+ Views [address] [place] [address] Referral ID Status Reason Start Date Expiration Date Visits V isits Requested Authorized [id number] Incomplete 10/29/2016 01/28/2018 1 1 Encounter Details Date Type Department Care Team Description 10/29/2016 [facility] Ben Camacho MD Left foot pain [address] [place] [address] [place] [address] [phone] (Wo rk) Social History Tobacco Use Types Packs/Day Years Used Date Smoking Tobacco: Never Alcohol Use Standard Drinks/Week Comments Yes 3 (1 standard drink = 0.6 oz pure alcoho l) Sex Assigned at Date Recorded Not on file documented as of this encounter Plan of Treatment Not on filedocumented as of this encounter Procedures Procedure Name Priority Date/Time Associated Diagnosis Comme nts XR FOOT LT 3+ VIEWS Routine 10/29/2016 11:19 AM Left foot pain Results for this CDT procedure are i n the results section. documented in this encounter Results XR Foot Lt 3+ Views (10/29/2016 11:19 AM CDT) Anatomical Region Laterality Modality Lower Extremity, Foot Digital Radiograph y Specimen (Source) Anatomical Location Collection Method / Collectio n Time Received Time / Laterality Volume Narrative 10/29/2016 1:48 PM CDT Three views of the left foot were obtained today which were significant for showing excellent alignment of the L isfranc joint. Hardware is intact and in place. There is consolidation acr oss the fracture sites. Ben Camacho MD RAD [facility] documented in this encounter Visit Diagnoses Diagnosis Left foot pain Pain in limb documented in this encounter Care Teams Emergency Medical Technician Basic Relationship Specialty Start Date End Date Unassigned, Provider PCP - General 08/12/[address] [place] [address] documented as of this encounter
--- OUTSIDE RECORDS SUMMARY | 2022-05-30 13:42 | XMS_ITS | Encounter Summary ---
:1980 Author Organization [facility] Address [address], [place] [address] Care Team Providers Name Role Phone Unassigned, Provider Primary Care Provider Unavailable Reason for Visit Reason Comments CONSULT Left rapid rhino removal, pl aced 04/05 Consult/Transfer Care (Routine) - New Request Specialty Diagnoses / Procedures Referred By Contact Refer red To Contact Diagnoses Acute anterior epistaxis Atif Bowles MD [address] [place] [address] Referral ID Status Reason Start Date Expiration Date Visits V isits Requested Authorized [id number] New Request 04/05/2022 07/05/2023 1 1 Encounter Details Date Type Department Care Team Description 04/10/2022 Initial Consult Raoul Aldrich Recurr ent epistaxis [place] [address] [place] (Primary Dx) Ear, Nose, and [address] [address] [place] [phone] Social History Tobacco Use Types Packs/Day Years Used Date Smoking Tobacco: Never Alcohol Use Standard Drinks/Week Comments Yes 3 (1 standard drink = 0.6 oz pure alcoho l) Sex Assigned at Date Recorded Not on file documented as of this encounter Patient Instructions Patient InstructionsRaoul Villalba PA-C - 04/10/2022 10:15 AM CDT [facility] Locations: Nurse: Vanesa [phone] [facility] [address] [facility] - [address] [facility] [address] Appointment [phone] [place] [address] [facility] [address] Nosebleeds (Epistaxis) Nosebleeds are something that almost everyone experiences at least once in their life. They are a nuisance and seem to come at very inopportune times. There are several factors that may contribute to nosebleeds: Nose picking Dryness of the air (especially in winter months) Excessive nose blowing Nasal septal deviation (irregular partition of the nose) Arteriosclerosis (fragile, hardened blood vessels) Blood thinning medications (Aspirin or Coumadin, for example) Hypertension (high blood pressure) When a nosebleed occurs (for whatever reason), the site of bleeding forms a scab. If that scab comesoff before the bleeding site is healed (whether by blowing the nose, sneezing, sniffing, picking or increased blood pressure behind the scab), bleeding again occurs and again a scab is formed. This will continue until this cycle is somehow broken. How do I break the cycle? 1) Leave the scab alone. Allow it to come off naturally. No picking. Minimal blowing of the nose for at least two weeks. You may sniff back gently. If you feel the urge to sneeze, sneeze with your mouth open. Also, any heavy straining (as in lifting heavy objects) will increase the chance of bleeding, so heavy lifting should also be avoided. Avoid bending forward. If you have to pick something up off the floor, bend at the knees. This will avoid getting a ???head castro?? of blood, increasing blood pressure in the nose. 2) Also helpful in this ???healing period?? is adequate moisturization. Petroleum jelly (Vaseline), Saline Gel (AYR Nasal Gel), or Aquaphor on the bleeding site every 2 hours while awake. Saline moisturizing spray in the nose. Humidifier or vaporizer (especially when sleeping and during winter months). Drink plenty of fluids How to stop an active nosebleed. 1) If the nose is filled with blood or clot, gently blow it out. 2) Apply pressure to the bleeding site. Do this by pinching all the soft part of the nose very firmly and tip the head slightly forward to limit the amount of blood that runs into the throat. 3) Hold pressure for 5-10 minutes. Do not release pressure at any time during this period. Another helpful option is to place a cotton ball soaked with nasal decongestant spray such as oxymetazoline (Coleman Moreno, Sinex nasal spray) in the nose. At this point, bleeding should have ceased. If not, again apply pressure and seek medical assistance. Occasionally, further medical intervention is required to get control of the nosebleed. The most common approach is cauterization (chemical or electrical sealing of the bleeding site). documented in this encounter Progress Notes Raoul Villalba PA-C - 04/10/2022 10:15 AM CDT SUBJECTIVE: Bhavik Jeffery is a 41 y.o. male that presents for evaluation of epistaxis. He had a Rapid rhinopack placed on the left side on April 05. He is not had bleeding since that time. There is no problem list on file for this patient. Outpatient Medications Prior to Visit Medication Sig Note Dispense Refill amoxicillin (AMOXIL) 500 MG capsule Take 1 Capsule (500 mg) by mouth three times a day for 7 days. 21 Capsule 0 amphetamine-dextroamphetamine (ADDERALL) 20 MG tablet Take 1 tablet by mouth every morning. LW Comment:by LW Addl Instr:Indicated for: Attention Deficit Disorder amphetamine-dextroamphetamine XR (ADDERALL XR) 20 MG 24 hour release capsule dextroamphetamine-amphetamine ER 20 mg 24hr capsule,extend release TAKE 2 CAPSULES BY MOUTH EVERY DAY amphetamine-dextroamphetamine XR (ADDERALL XR) 20 MG 24 hour release capsule Take 20 mg by mouth two times a day. drug not in computer Indications: piedad red emtricitabine-tenofovir (TRUVADA) 200-300 MG tablet Take 1 Tablet by mouth daily. fluticasone propionate (FLONASE) 50 MCG/ACT nasal solution 1-2 Sprays by Nasal route. 09/10/2016: Received from: [facility] L-FORMULA LYSINE HCL OR lysine loratadine (CLARITIN) 10 MG tablet Take 1 Tablet by mouth daily as needed (Take 1 tablet by mouth daily as needed.). 90 3 LYSINE OR Take 1 Tab by mouth daily. pentoxifylline (TRENTAL) 400 MG controlled release tablet pentoxifylline ER 400 mg tablet,extended release RESTASIS 0.05 % eye drops Place 1 Drop into both eyes two times a day. 09/10/2016: Received from: External Pharmacy 3 Tadalafil (CIALIS) 20 MG tablet Every 24 hours. TRINTELLIX 5 MG tablet Take 5 mg by mouth daily. No facility-administered medications prior to visit. No Known Allergies OBJECTIVE: The Rapid rhino pack was removed by nursing staff prior to me seeing the patient. He has a large vessel on the anterior septum, left. I did do a 0 degree endoscopic exam as well. Nasal endoscopy was performed after decongesting and anesthetizing the mucosal surfaces of the nose with topical phenlephrine and lidocaine. Interior of the nasal cavities are normal. Turbinates were normal appearance. The middle and superior recesses were normal. The sphenoid-ethmoid recesses were normal. No pus or polyps were noted on endoscopic exam. I advised cauterizing the large vessels on the anterior septum. Verbal consent was obtained. PROCEDURE: The left side of the nose was decongested and anesthetized with phenylephrine and lidocaine on cotton pledgets. After adequate decongestion and anesthesia, the exposed vessel was cauterized with Silver Nitrate. The vessel responded well. Vaseline was then applied. The patient tolerated the procedure well. IMPRESSION: Recurrent Epistaxis, Left, with Silver Nitrate Cautery PLAN: Instructions were reviewed and printed for the patient. If they have further bleeding, they will return. Dictation was performed using voice recognition software. There may be errors in the dictation secondary to voice recognition anomalies. documented in this encounter Plan of Treatment Not on filedocumented as of this encounter Visit Diagnoses Diagnosis Recurrent epistaxis - Primary Epistaxis documented in this encounter Care Teams Team Supervisor Relationship Specialty Start Date End Date Unassigned, Provider PCP - General 08/12/01 [address] [place] [address] documented as of this encounter
--- OUTSIDE RECORDS SUMMARY | 2022-05-30 13:42 | XMS_ITS | Encounter Summary ---
:1980 Author Organization [facility] Address [address] [place] [address] Care Team Providers Name Role Phone Unassigned, Provider Primary Care Provider Unavailable Reason for Referral Consult/Transfer Care (Routine) - New Request Specialty Diagnoses / Procedures Referred By Contact Refer red To Contact Diagnoses Acute anterior epistaxis Atif Bowles MD [address] [place] [address] Referral ID Status Reason Start Date Expiration Date Visits V isits Requested Authorized [id number] New Request 04/05/2022 07/05/2023 1 1 Scheduling Instructions Your provider has recommended an appoint ment with [facility] ([facility]) - Head & Neck Surgery. You can quickly m jony your appointment online at [employer]/schedule. You can als o call [phone] for help scheduling your appointment. We suggest you call your [employer] about your coverage and benefits for this appointment. Reason for Visit Reason Comments Epistaxis Encounter Details Date Type Department Care Team Description 04/05/2022 Office Visit [place] [address] Atif Bowles, Acute anterior Urgent Care MD epistaxis [address] [facility] [address] [place] [place] [address] [address] [facility], [place] [id number] (Wo rk) Social History Tobacco Use Types Packs/Day Years Used Date Smoking Tobacco: Never Alcohol Use Standard Drinks/Week Comments Yes 3 (1 standard drink = 0.6 oz pure alcoho l) Sex Assigned at Date Recorded Not on file documented as of this encounter Last Filed Vital Signs Vital Sign Reading Time Taken Comments Blood Pressure 138/87 04/05/2022 12:24 PM CDT Pulse 75 04/05/2022 12:24 PM CDT Temperature - - Respiratory Rate 18 04/05/2022 12:24 PM CDT Oxygen Saturation 100% 04/05/2022 12:24 PM CDT Inhaled Oxygen Concentration - - Weight - - Height - - Body Mass Index - - documented in this encounter Patient Instructions Patient InstructionsMcAtif Higuera MD - 04/05/2022 1:40 PM CDT Do not pull on the balloon. Expect to have some oozing from around the balloon. Amoxicillin as directed. Avoid hot foods or liquids werner 5 days. Okay to do normal activities. No change in your medicines. The ENT clinic will call you to schedule an appointment to remove the balloon and examine your nose. Go to the nearest ER for renewed bleeding. documented in this encounter Progress Notes Atif Bowles MD - 04/05/2022 1:40 PM CDT Nursing [...] in a meeting when the bleeding started. Past Medical History: Reviewed in [facility], no history of bleeding disorders. Patient is not anticoagulated. Social History: Reviewed in [facility] Review of Systems: See HPI, all other systems are negative. OBJECTIVE: Vital Signs: BP 138/87 (BP Location: Right Arm, BP Cuff Size: Regular - Long) Pulse 75 Resp 18 SpO2 100% Physical Exam: General: This is a very pleasant 41 y.o. male sitting on the exam table in the treatment room. Patient has rolled up paper towel in his left naris, has gauze across the bridge of his nose and epistaxisclip in place. He is not in respiratory distress and does not look acutely ill. HEAD: No signs of trauma. EYES: Extraocular movements are intact. Pupils are equal, round and briskly reactive to light. No scleral icterus. ENT: Patient has some blood coating the oropharynx but no visible clot no active bleeding posteriorly. Right naris is clear. Left naris has fresh blood in it. There is no obvious source of the bleedingin the left naris. RESPIRATORY: Respirations are quiet and non-labored. There is equal chest rise with respiration. SKIN: Warm, dry, normal color. No rashes, petechiae or ecchymoses. Labs: No results found for any visits on 04/05/22. X-rays: No results found. Impression: 1. Acute anterior epistaxis Medical Decision Making: When I removed the epistaxis clip and [...] follow up with ENT as an outpatient. Orders Placed This Encounter Medications emtricitabine-tenofovir (TRUVADA) 200-300 MG tablet Sig: Take 1 Tablet by mouth daily. L-FORMULA LYSINE HCL OR Sig: lysine pentoxifylline (TRENTAL) 400 MG controlled release tablet Sig: pentoxifylline ER 400 mg tablet,extended release Tadalafil (CIALIS) 20 MG tablet Sig: Every 24 hours. TRINTELLIX 5 MG tablet Sig: Take 5 mg by mouth daily. amphetamine-dextroamphetamine XR (ADDERALL XR) 20 MG 24 hour release capsule Sig: dextroamphetamine-amphetamine ER 20 mg 24hr capsule,extend release TAKE 2 CAPSULES BY MOUTH EVERY DAY amphetamine-dextroamphetamine XR (ADDERALL XR) 20 MG 24 hour release capsule Sig: Take 20 mg by mouth two times a day. amoxicillin (AMOXIL) 500 MG capsule Sig: Take 1 Capsule (500 mg) by mouth three times a day for 7 days. Dispense: 21 Capsule Refill: 0 [id number]-[id number] (LET) 4-0.18-0.5 % topical gel No orders of the defined types were placed in this encounter. documented in this encounter Nursing Notes Lesly Nguyễn RN - 04/05/2022 1:40 PM CDT Patient has a current bloody nose that has been going on for 1.5 hours. Has had bloody noses in the past but never this bad/this long. documented in this encounter Plan of Treatment Scheduled Referrals Name Type Priority Associated Diagnoses Order S chedule Otolaryngology Consult Referral Routine Acute anterior Ord ered: 04/05/2022 Adult/Peds epistaxis documented as of this encounter Visit Diagnoses Diagnosis Acute anterior epistaxis documented in this encounter Administered Medications Inactive Administered Medications - up to 3 most recent administrations Medication Order MAR Action Action Date Dose Rate Site [id number] Given 04/05/2022 2:18 PM CDT Other (Comment) e (LET) 4-0.18-0.5 % topical gel Topical, ONCE, On Katarina 04/05/22 at 1430, For 1 dose, For use topically on wounds. Do not apply with gauze or other absorbent material. documented in this encounter Care Teams Greenhouse Staff Relationship Specialty Start Date End Date Unassigned, Provider PCP - General 2/19/[address] [place] [id number] documented as of this encounter
--- OUTSIDE RECORDS SUMMARY | 2022-05-30 13:42 | XMS_ITS | Encounter Summary ---
:1980 Author Organization [facility] Address [address], [place] [address] Care Team Providers Name Role Phone Unassigned, Provider Primary Care Provider Unavailable Reason for Referral Procedure/Equipment (Routine) - Incomplete Specialty Diagnoses / Procedures Referred By Contact Refer red To Contact Diagnoses Left foot pain Ben Camacho MD Procedures XR Foot Lt 3+ Views [address] [facility] [address] [address] Referral ID Status Reason Start Date Expiration Date Visits V isits Requested Authorized [id number] Incomplete 01/21/2017 04/22/2018 1 1 Reason for Visit Reason Comments Foot Pain recheck left foot Encounter Details Date Type Department Care Team Description 01/21/2017 Office Visit [facility] Ben Camacho, Left f oot pain CENTER (Primary Dx) [address] [facility] [address] [facility] [address] [place], [place] [phone] (Wo rk) Social History Tobacco Use Types Packs/Day Years Used Date Smoking Tobacco: Never Alcohol Use Standard Drinks/Week Comments Yes 3 (1 standard drink = 0.6 oz pure alcoho l) Sex Assigned at Date Recorded Not on file documented as of this encounter Patient Instructions Patient InstructionsRosa Alberto - 01/21/2017 1:[address] Ben Camacho MD Orthopaedic Surgeon/Foot & Ankle Specialist [employer]itions Logistics Analyst, [facility] Acting Instructor: Sonia Meadows Please contact Sonia for all administrative questions at [phone] Nurse: Maria Isabel Martinez, Rn Please contact Maria Isabel for all medical related questions at [phone] Medication Requests: Prescriptions are not filled on Weekends or on Weekdays after 3:00PM For all medication refills: Request a refill using MyChart or contact your Pharmacy Surgery scheduled. documented in this encounter Progress Notes Ben Camacho MD - 01/21/2017 2:59 PM CDT NAME: RENE KATZ MR#: [id number] CSN: [id number] AUTHENTICATING CLINICIAN: Ben Camacho MD CONFIRM #: [id number] LOC: 711 CLINIC PROGRESS NOTE DATE OF VISIT: 01/21/2017 : 1980 CHIEF COMPLAINT: Status post left foot Lisfranc joint open reduction and internal fixation performed 09/19/2016. Mr. Katz presents today for further followup. Reports to be making slight progress. PHYSICAL EXAM: On today's visit, he presents with some pain and discomfort with palpation at the Lisfranc joint. There are no signs of infection or inflammation. There is minimum swelling. There is full range of motion of the ankle joint. IMAGING: Three views of the left foot were obtained today and independently reviewed which were significant for showing no change when compared to the last set of x- rays where he does not have increased gappingin the Lisfranc joint. Hardware is intact. ASSESSMENT: Left foot Lisfranc joint pain with possible painful retained hardware. PLAN: I discussed with the patient that given his symptoms I think it would be reasonable to proceed with hardware removal from his left foot. I discussed with him the most likely postoperative course and complications which include but are not limited to infection, bleeding, nerve damage and residual pain. All questions were answered. Patient will proceed with hardware removal from his left foot. Also discussed with him that it is highly unlikely that we will make him worse and we can only gain. TT: [address]: 10 minutes FAP:LS C: R:01/21/17 15:22 CONFIRM#:[id number] documented in this encounter Plan of Treatment Not on filedocumented as of this encounter Results XR Foot Lt 3+ Views (01/21/2017 1:26 PM CDT) Anatomical Region Laterality Modality Lower Extremity, Foot Digital Radiograph y Specimen (Source) Anatomical Location Collection Method / Collectio n Time Received Time / Laterality Volume Narrative 01/23/2017 6:48 AM CDT Three views of the left foot were significant for showing no change when compared to the last set of x-rays where he does not have increased gapping in the Lisfranc joint. Hardware is intact. Ben Camacho MD RAD GD documented in this encounter Visit Diagnoses Diagnosis Left foot pain - Primary Pain in limb Left foot pain Pain in limb documented in this encounter Care Teams Electronic News Gathering Editor Relationship Specialty Start Date End Date Unassigned, Provider PCP - General 08/12/[address] [place] [id number] documented as of this encounter
--- OUTSIDE RECORDS SUMMARY | 2022-05-30 13:42 | XMS_ITS | Encounter Summary ---
:1980 Author Organization [facility] Address [address] [place] [address] Care Team Providers Name Role Phone Unassigned, Provider Primary Care Provider Unavailable Reason for Visit Reason Comments Post-Op Check Encounter Details Date Type Department Care Team Description 02/08/2017 Office Visit [facility] Nurse, Tria S/P hardware removal [address] [facility] (Primary Dx) [place], [place] [address] Social History Tobacco Use Types Packs/Day Years Used Date Smoking Tobacco: Never Alcohol Use Standard Drinks/Week Comments Yes 3 (1 standard drink = 0.6 oz pure alcoho l) Sex Assigned at Date Recorded Not on file documented as of this encounter Patient Instructions Patient Sheeba Nichole RN - 02/08/2017 2:30 PM CDT 1. Do not take a tub bath, sit in a hot tub or swim until your doctor says it is okay (typically 4 weeks postop). 2. Ice your foot to control swelling and pain. Do not place ice directly on your skin,use towel. 3. Elevate your foot above the level of your heart while you rest. 4. If you have any of these problems, call [facility] Nurses: ?? Fever of 101 or higher ?? Chills ?? Foul odor ?? Cloudy drainage from your wound ?? Increased redness, warmth, or swelling at the wound site ?? Increased pain ?? Use Cam walker for comfort as needed. Proceed with activity as tolerated after the 2 week appointment. He will be granted the possibility of skipping the 6 week appointment assuming the foot is working up to his expectations. [facility] Nurses Saturday-Saturday 8:00AM-5:00PM ([phone]) Sheeba MIR documented in this encounter Progress Notes Sheeba Khan RN - 02/08/2017 2:30 PM CDT Patient is S/P left hardware removal on 01/25/2017. Patient seen 2 weeks post op for suture removal. Patient presents not wearing the Cam boot. He was to be in the boot for 2 weeks post op. He states that he must not have heard that. He has no pain at the site of the hardware removal.Surgical dressings removed. Foot cleaned. Incision is clean, dry, and intact with sutures. Sutures removed with sterile scissors and tweezers. Steri strips applied. Thereare no signs or symptoms of infection. No redness, warmth, or drainage. No calf pain or tenderness. Mild swelling noted. No numbness or tingling. He has concerns that he continues to be unable to bend his 3rd through 5th toes. He is questioning if this is going to be permanent. He does get pain in these toes when pushing activity. He is asking if he can do further harm by pushing activity as he wantsto be active. Advised him that he could use the Cam boot for comfort. He did not want to do this. Advised him that he should not push through pain and limit activity based on his pain. He needed to allow his foot to heal from the hardware removal. Will discuss his concerns with Dr. Camacho when he returns to clinic and give patient a call back. Informed of signs and symptoms of infection and DVT. He mayskip the 6 week post op appointment with Dr. Camacho if he feels his foot is working up to his expectations. He has an appointment for 03/[address] Camacho. Encouraged to keep appointment if he has continued concerns. Sheeba Khan RN - 02/08/2017 2:30 PM CDT Call placed to patient and detailed message left informing him that per Dr. Camacho it is not known yetif the inability for him to move his 3rd through 4th toes is permanent. It is Ok for him to push through pain and do activity as tolerated. documented in this encounter Plan of Treatment Not on filedocumented as of this encounter Visit Diagnoses Diagnosis S/P hardware removal - Primary documented in this encounter Care Teams Injection Molding Operator Relationship Specialty Start Date End Date Unassigned, Provider PCP - General 08/12/[address] [place] [id number] documented as of this encounter
--- OUTSIDE RECORDS SUMMARY | 2022-05-30 13:42 | XMS_ITS | Encounter Summary ---
:1980 Author Organization [facility] [employer] [facility] Address [address] [place] [address] Care Team Providers Name Role Phone Unassigned, Provider Primary Care Provider Unavailable Reason for Referral Therapies (Routine) - Closed Specialty Diagnoses / Procedures Referred By Contact Refer red To Contact Diagnoses Left foot pain Ben Camacho MD [address] [place] [address] [address] 1 Referral ID Status Reason Start Date Expiration Date Visits Requ ested Visits Authorized [id number] Closed 03/11/2017 05/10/2017 1 1 Scheduling Instructions Your provider has recommended an appoint ment with [facility]. You may call [phone] to schedule your appoi ntment. If you do not schedule an appointment within the next 1 to 3 business days, we will call you to help arrange your appointment. We suggest you call your [facility] insurance company about your coverage and benefits for this appointment. Reason for Visit Reason Comments Foot Pain left foot Encounter Details Date Type Department Care Team Description 03/11/2017 Office Visit [facility] Ben Camacho, Left f oot pain CENTER (Primary Dx) [address] [facility] [address] [place] [address] [address] [place] [phone] (Wo rk) Social History Tobacco Use Types Packs/Day Years Used Date Smoking Tobacco: Never Alcohol Use Standard Drinks/Week Comments Yes 3 (1 standard drink = 0.6 oz pure alcoho l) Sex Assigned at Date Recorded Not on file documented as of this encounter Patient Instructions Patient InstructionsStRosa albarado Olena - 03/11/2017 1:[address] Ben Camacho MD Orthopaedic Surgeon/Foot & Ankle Specialist Primary Substance Abuse Counselor, [facility] Head Inspector: Sonia Meadows Please contact Sonia for all administrative questions at [phone] Nurse: Maria Isabel Martinez Rn Please contact Maria Isabel for all medical related questions at [phone] Medication Requests: Prescriptions are not filled on Weekends or on Weekdays after 3:00PM For all medication refills: Request a refill using MyChart or contact your Pharmacy Physical therapy. Follow up as needed. documented in this encounter Progress Notes Ben Camacho MD - 03/11/2017 1:41 PM CDT NAME: RENE KATZ MR#: [id number] CSN: [id number] AUTHENTICATING CLINICIAN: Ben Camacho MD CONFIRM #: [id number] LOC: 711 CLINIC PROGRESS NOTE DATE OF VISIT: 03/11/2017 : 1980 CHIEF COMPLAINT: Status post left foot hardware removal performed on January 25, 2017. Mr. Katz presents today for further followup. Overall, he reports to be doing well. Reports have been helped quite a bit by the hardware removal. PHYSICAL EXAM: On today's visit, he presents with full range of motion of the ankle, hindfoot and midfoot joints. CMS intact. Skin intact. Presents with some swelling across the forefoot area. ASSESSMENT: Status post left foot hardware removal. PLAN: Discussed with the patient to proceed with the use of compression stockings as well as a prescription for physical therapy for gait training and balance. The patient will follow up on a p.r.n. basis. All questions were answered. The patient was instructed to visit with us in 2-1/2 months from now if he is not happy with the function of his foot. TT: [address]: 10 minutes FAP:LS C: R:03/11/17 13:54 CONFIRM#:[id number] documented in this encounter Plan of Treatment Scheduled Referrals Name Type Priority Associated Diagnoses [facility] Referral Routine Left foot pain Ordered: 03/11/2017 documented as of this encounter Visit Diagnoses Diagnosis Left foot pain - Primary Pain in limb documented in this encounter Care Teams Freight Rate Specialist Relationship Specialty Start Date End Date Unassigned, Provider PCP - General 08/12/[address] [place] [id number] documented as of this encounter
--- OUTSIDE RECORDS SUMMARY | 2022-05-30 13:42 | XMS_ITS | Encounter Summary ---
:1980 Author Organization [employer] Address [address] [place] [address] Care Team Providers Name Role Phone Unassigned, Provider Primary Care Provider Unavailable Reason for Referral Therapies (Routine) - Closed Specialty Diagnoses / Procedures Referred By Contact Refer red To Contact Diagnoses Left foot pain Ben Camacho MD [address] [place] [address] Referral ID Status Reason Start Date Expiration Date Visits Requ ested Visits Authorized [id number] Closed 12/17/2016 02/15/2017 1 1 Scheduling Instructions Your provider has recommended an appoint ment with [facility]. You may call [phone] to schedule your appoi ntment. If you do not schedule an appointment within the next 1 to 3 business days, we will call you to help arrange your appointment. We suggest you call your [place] [employer] insurance company about your coverage and benefits for this appointment. Procedure/Equipment (Routine) - Incomplete Specialty Diagnoses / Procedures Referred By Contact Refer red To Contact Diagnoses Left foot pain Ben Camacho MD Procedures XR Foot Lt 3+ Views [address] [place] [address] Referral ID Status Reason Start Date Expiration Date Visits V isits Requested Authorized [id number] Incomplete 12/17/2016 03/18/2018 1 1 Reason for Visit Reason Comments Foot Pain left Encounter Details Date Type Department Care Team Description 12/17/2016 Office Visit [facility] Ben Camacho, Left f oot pain (Primary Dx); CENTER Lismerissa's sprain, left, subsequent enco unter [address] [place], [place] [phone] (Wo rk) Social History Tobacco Use Types Packs/Day Years Used Date Smoking Tobacco: Never Alcohol Use Standard Drinks/Week Comments Yes 3 (1 standard drink = 0.6 oz pure alcoho l) Sex Assigned at Date Recorded Not on file documented as of this encounter Patient Instructions Patient InstructionsGoVanesa wagner OA - 12/17/2016 1:[address] Ben Camacho MD Orthopaedic Surgeon/Foot & Ankle Specialist Logistic Manager, [facility] Pullman Conductor: Sonia Meadows Please contact Sonia for all administrative questions at [phone] Nurse: Maria Isabel Martinez Rn Please contact Maria Isabel for all medical related questions at [phone] Medication Requests: Prescriptions are not filled on Weekends or on Weekdays after 3:00PM For all medication refills: Request a refill using MyChart or contact your Pharmacy documented in this encounter Progress Notes Ben Camacho MD - 12/17/2016 4:56 PM CDT NAME: RENE KATZ MR#: [id number] CSN: [id number] AUTHENTICATING CLINICIAN: Ben Camacho MD CONFIRM #: [id number] LOC: 711 CLINIC PROGRESS NOTE DATE OF VISIT: 12/17/2016 : 1980 CHIEF COMPLAINT: Status post left foot open reduction internal fixation for Lisfranc injury performed on 09/19/2016. Mr. Katz presents today for further followup. Overall he reports to be doing well. Reports tohave a fair amount of start-up pain. Also reports to have a daily limp as well as still to have someserious difficulties. Patient has returned from his cruise without any significant incidents. PHYSICAL EXAM: On today's visit he presents with a fair amount of swelling. There is no pain with palpation of the lateral column. Some of the pain and discomfort is located along the 1st and 2nd TMT joints. IMAGING: X-rays ordered, independently reviewed. Three views of the left foot are significant for showing what seems to be a little bit of diastasis across the 2nd tarsometatarsal joint. There is probably some lateral displacement although it is difficult to assess. When compared to intraoperative and 6-week x-rays I believe that there is a clear difference. ASSESSMENT: Status post left foot Lisfranc joint open reduction internal fixation. PLAN: I discussed with the patient that at this point we are going to proceed with the same regimen as well as with physical therapy. If he is not making significant progress over the next 6 weeks we will consider the possibility of either pursuing injections or revision surgery, which I am not expecting liana the case. Patient will be reevaluated in 6 weeks from today. At that time 3 views of the left foot will be obtained. X-rays will be weightbearing. Patient will continue working with physical therapy and his current regimen of weightbearing. All questions were answered. TT: [address]: 10 minutes FAP:TH C: R:12/17/16 17:14 CONFIRM#:[id number] documented in this encounter Plan of Treatment Scheduled Referrals Name Type Priority Associated Diagnoses Order S chedule Physical Therapy Referral Routine Left foot pain Ordered: 12/17/2016 documented as of this encounter Results XR Foot Lt 3+ Views (12/17/2016 1:45 PM CDT) Anatomical Region Laterality Modality Lower Extremity, Foot Digital Radiograph y Specimen (Source) Anatomical Location Collection Method / Collectio n Time Received Time / Laterality Volume Narrative 01/08/2017 3:00 PM CDT Three views of the left foot are significant for showing what seems to be a little bit of diastasis across the 2nd tarsometatarsal joint. There is probably some lateral displacement altho ugh it is difficult to assess. When compared to intraoperative and 6-we ek x-rays I believe that there is a clear difference. Ben Camacho MD RAD GD documented in this encounter Visit Diagnoses Diagnosis Left foot pain - Primary Pain in limb Lisfranc's sprain, left, subsequent enco unter Left foot pain Pain in limb documented in this encounter Care Teams Computer Publisher Relationship Specialty Start Date End Date Unassigned, Provider PCP - General 08/12/[address] [place] [address] documented as of this encounter
--- OUTSIDE RECORDS SUMMARY | 2022-05-30 13:42 | XMS_ITS | Encounter Summary ---
:1980 Author Organization [employer] Address [address] [place] [address] Care Team Providers Name Role Phone Unassigned, Provider Primary Care Provider Unavailable Reason for Visit Reason Comments Urgent Appt Request Encounter Details Date Type Department Care Team Description 04/06/2022 Telephone Special[facility] 401 Unknown, Physician Urgent Appt Request Otolaryngology [address] [facility] [address] [facility] [address] [phone] (Wo rk) Social History Tobacco Use Types Packs/Day Years Used Date Smoking Tobacco: Never Alcohol Use Standard Drinks/Week Comments Yes 3 (1 standard drink = 0.6 oz pure alcoho l) Sex Assigned at Date Recorded Not on file documented as of this encounter Nursing Notes Suzie Sevilla - 04/06/2022 1:15 PM CDT No further work needed by CA as ref is scheduled with PN. Suzie Sevilla 04/06/2022, 1:16 PM Tamara Blanco RN - 04/06/2022 1:04 PM CDT Pt is scheduled with Virginia Blanco RN 04/06/2022, 1:04 PM Maritza Ly - 04/06/2022 9:23 AM CDT Pt has an urgent referral for Left sided nosebleed, has a Rapid Rhino balloon in place. Pt callingin to schedule, agreed to wait for triage documented in this encounter Plan of Treatment Not on filedocumented as of this encounter Visit Diagnoses Not on filedocumented in this encounter Care Teams Curriculum And Instruction Specialist Relationship Specialty Start Date End Date Unassigned, Provider PCP - General 08/12/[address] [place] [address] documented as of this encounter
--- OUTSIDE RECORDS SUMMARY | 2022-05-30 13:42 | XMS_ITS | Encounter Summary ---
:1980 Author Organization [employer] Address [address] [place] [address] Care Team Providers Name Role Phone Unassigned, Provider Primary Care Provider Unavailable Reason for Referral Therapies (Routine) - Closed Specialty Diagnoses / Procedures Referred By Contact Refer red To Contact Diagnoses Left foot pain Ben Camacho MD [address] [place] [address] Referral ID Status Reason Start Date Expiration Date Visits Requ ested Visits Authorized [id number] Closed 10/29/2016 12/28/2016 1 1 Scheduling Instructions Your provider has recommended an appoint ment with [facility]. You may call [phone] to schedule your appoi ntment. If you do not schedule an appointment within the next 1 to 3 business days, we will call you to help arrange your appointment. We suggest you call your [facility] insurance company about your coverage and benefits for this appointment. Procedure/Equipment (Routine) - Incomplete Specialty Diagnoses / Procedures Referred By Contact Refer red To Contact Diagnoses Left foot pain Ben Camacho MD Procedures XR Foot Lt 3+ Views [address] [address] Referral ID Status Reason Start Date Expiration Date Visits V isits Requested Authorized [id number] Incomplete 10/29/2016 01/28/2018 1 1 Reason for Visit Reason Comments Foot Pain recheck left foot Encounter Details Date Type Department Care Team Description 10/29/2016 Office Visit [facility] Ben Camacho, Left f o pain CENTER (Primary Dx) [address] [facility] [address] [place], [place] [phone] (Wo rk) Social History Tobacco Use Types Packs/Day Years Used Date Smoking Tobacco: Never Alcohol Use Standard Drinks/Week Comments Yes 3 (1 standard drink = 0.6 oz pure alcoho l) Sex Assigned at Date Recorded Not on file documented as of this encounter Patient Instructions Patient InstructionsStRosa albarado - 10/29/2016 11:[address] Ben Camacho MD Orthopaedic Surgeon/Foot & Ankle Specialist Interlocking And Signal Mechanic, [facility] Tafe Lecturer: Sonia Meadows Please contact Sonia for all administrative questions at [phone] Nurse: Maria Isabel Martinez Rn Please contact Maria Isabel for all medical related questions at [phone] Medication Requests: Prescriptions are not filled on Weekends or on Weekdays after 3:00PM For all medication refills: Request a refill using MyChart or contact your Pharmacy Physical Therapy. Follow up in 6 weeks with repeat x-rays. documented in this encounter Progress Notes Ben Camacho MD - 10/29/2016 12:54 PM CDT NAME: RENE KATZ MR#: [id number] CSN: [id number] AUTHENTICATING CLINICIAN: Ben Camacho MD CONFIRM #: [id number] LOC: 711 CLINIC PROGRESS NOTE DATE OF VISIT: 10/29/2016 : 1980 CHIEF COMPLAINT: Status post left foot open reduction internal fixation for a Lisfranc injury performed on 09/19/2016. Mr. Katz presents today for further followup. Denies to have any problems or complaints. Reports to be compliant. PHYSICAL EXAM: On today's visit, he presented with a well-healed surgical incision with clean pin sites without anysigns of infection or inflammation. Overall, alignment of the foot is excellent. CMS intact. IMAGING: X-rays independently reviewed. Three views of the left foot were obtained today which were significant for showing excellent alignment of the Lisfranc joint. Hardware is intact and in place. There is consolidation across the fracture sites. ASSESSMENT: Status post left foot Lisfranc joint open reduction internal fixation. On today's visit, the two K-wires were removed. Patient tolerated the procedure well. There were no immediate complications. PLAN: Patient will proceed with weightbearing as tolerated with the use of the Cam walker for outdoor activities. He will be allowed to proceed with regular walking without the Cam walker for indoor activities. A prescription for physical therapy was given to the patient. Patient will followup in 6 weeks from today and at that time 3 views of the left foot will be obtained and based on those findings further recommendations will be given to the patient. In the meantime, patient is going to go on vacation to a cruise and he will be careful with the use of the boot except for short distances. All questions were answered. FAP:SHELDON C: R:10/29/16 11:59 CONFIRM#:[id number] documented in this encounter Plan of Treatment Scheduled Referrals Name Type Priority Associated Diagnoses Order S [facility] Physical Therapy Referral Routine Left foot pain Ordered: 10/29/2016 documented as of this encounter Results XR [...] limb documented in this encounter Care Teams Nurse Anesthetist Relationship Specialty Start Date End Date Unassigned, Provider PCP - General 08/12/01 [address] [place] [address] documented as of this encounter
--- OUTSIDE RECORDS SUMMARY | 2022-05-30 13:42 | XMS_ITS | Encounter Summary ---
:1980 Author Organization [facility] Address [address], [place] [address] Care Team Providers Name Role Phone Unassigned, Provider Primary Care Provider Unavailable Reason for Visit Procedure/Equipment (Routine) - Incomplete Specialty Diagnoses / Procedures Referred By Contact Refer red To Contact Diagnoses Left foot pain Ben Camacho MD Procedures XR Foot Lt 3+ Views [address] [address] [place] [address] Referral ID Status Reason Start Date Expiration Date Visits V isits Requested Authorized [id number] Incomplete 01/21/2017 04/22/2018 1 1 Encounter Details Date Type Department Care Team Description 01/21/2017 Imaging [facility] Ben Camacho MD Left foot pain [address] [address] [place] [address] [place] [address] [phone] (Wo rk) Social History Tobacco Use Types [...] nts XR FOOT LT 3+ VIEWS Routine 01/21/2017 1:26 PM Left foot pain Results for this CDT [...] limb documented in this encounter Care Teams Supervisor Drilling And Shooting Relationship Specialty Start Date End Date Unassigned, Provider PCP - General 08/12/[address] [place] [address] documented as of this encounter
--- OUTSIDE RECORDS SUMMARY | 2022-05-30 13:42 | XMS_ITS | Encounter Summary ---
:1980 Author Organization [employer] Address [address] [place] [address] Care Team Providers Name Role Phone Unassigned, Provider Primary Care Provider Unavailable Reason for Referral Therapies (Routine) - Closed Specialty Diagnoses / Procedures Referred By Contact Refer red To Contact Diagnoses S/P orthopedic surgery, follow-up exam Ben Camacho MD [address] [facility] [place] [address] Referral ID Status Reason Start Date Expiration Date Visits Requ ested Visits Authorized [id number] Closed 05/13/2017 07/12/2017 1 1 Scheduling Instructions Your provider has recommended an appoint ment with [facility]. You may call [phone] to schedule your appoi ntment. If you do not schedule an appointment within the next 1 to 3 business days, we will call you to help arrange your appointment. We suggest you call your [facility] insurance company about your coverage and benefits for this appointment. MOMETER MECHANIC Reason for Visit Reason Comments Questions PT ORDER Encounter Details Date Type Department Care Team Description 05/13/2017 Notes/Orders [facility] Ben Camacoh, S/P or [facility] surgery, follow-up [address] [facility] [address] [place] [address] exam (Primary Dx) [place], [place] [address] [place], [place] [phone] (Wo rk) Social History Tobacco Use Types Packs/Day Years Used Date Smoking Tobacco: Never Alcohol Use Standard Drinks/Week Comments Yes 3 (1 standard drink = 0.6 oz pure alcoho l) Sex Assigned at Date Recorded Not on file documented as of this encounter Progress Notes Maria Isabel Martinez RN - 05/13/2017 2:53 PM CST Patient called stating he wanted a new PT order, he never went to PT, now it has . PT order entered so patient can schedule. Patient was notified so he can call to schedule. MOMETER MECHANIC documented in this encounter Plan of Treatment Scheduled Referrals Name Type Priority Associated Diagnoses Order S chedule Physical Therapy Referral Routine S/P orthopedic surgery, Ordered: 05/13/2017 follow-up exam documented as of this encounter Visit Diagnoses Diagnosis S/P orthopedic surgery, follow-up exam - Primary Follow-up examination, following other s urgery documented in this encounter Care Teams Visitor Services Coordinator Relationship Specialty Start Date End Date Unassigned, Provider PCP - General 08/12/[address] [place] [address] documented as of this encounter
--- OUTSIDE RECORDS SUMMARY | 2022-05-30 13:42 | XMS_ITS | Encounter Summary ---
:1980 Author Organization [employer] Address [address] [place] [address] Care Team Providers Name Role Phone Unassigned, Provider Primary Care Provider Unavailable Reason for Visit Reason Comments Post-Op Check Encounter Details Date Type Department Care Team Description 10/16/2016 [facility] Visit [facility] NurseCharanjit Status post left foot [address] [facility] [place] surgery (Primary Dx) [place], [place] [address] Social History Tobacco Use Types Packs/Day Years Used Date Smoking Tobacco: Never Alcohol Use Standard Drinks/Week Comments Yes 3 (1 standard drink = 0.6 oz pure alcoho l) Sex Assigned at Date Recorded Not on file documented as of this encounter Patient Instructions Patient InstructionsAsaf Orozco RN - 10/16/2016 1:37 PM CDT 1. Keep dressings clean and dry. Germs may enter through wet dressings. Do not take a tub bath, sit in a hot tub or swim until your doctor says it is okay (typically 6 weeks postop). 2. Ice your foot to control swelling and pain. Place a clean, dry towel over your foot before you place the ice pack. 3. Elevate your foot above the level of your heart while you rest. Put a pillow or cushion under thelower end of your calf, just above your ankle. 4. Pain medication can cause constipation. Eat fiber (fruits and vegetables) and drink plenty of fluids. 5. If you have any of these problems, call [facility] Nurses: ?? Fever of 101 or higher ?? Chills ?? Foul odor ?? Cloudy drainage from your wound ?? Increased redness, warmth, or swelling at the wound site ?? Increased pain ?? Symptoms of deep vein thrombosis (DVT) such as swelling, redness, warmth, or pain in your calf 6. If given, do your exercises to prevent muscle weakness, improve circulation, and rebuild strengthand flexibility. [facility] Nurses Saturday-Saturday 8:00AM-5:00PM ([phone]) documented in this encounter Progress Notes Asaf Orozco RN - 10/16/2016 2:43 PM CDT All questions were answered Asaf Orozco RN - 10/16/2016 1:29 PM CDT Bhavik is status post ORIF left tarsometatarsal join on 09/19/[address] Camacho. Pt presents today for pinsite care and assessment. Pt in NWB using a scoooter. Pt rates left foot pain 0/10 at rest and 1/10 with activity. Pt is taking occasional tylenol for pain control. The incisions are clean, dry and intact upon initial evaluation. There is no redness, swelling, or drainage noted. Pt denies any fever or chills. There are no signs or symptoms of infection. CMS intact. Pt denies any calf pain. Homans sign negative. Dressing taken down and pin site care done. Pin sites are in good position with no movement noted. Incisions are approximated and left ARA. New dressing applied to foot after being cleaned and new feltplaced around pins. Toes remain slightly swollen still but able to wiggle all toes. Pt is taking good care of his foot and continues to elevate and ice as needed. Pt will call if he has any further questions or concerns. Bhavik will has his [address] Camacho on 10/29 at 11 am. documented in this encounter Plan of Treatment Not on filedocumented as of this encounter Visit Diagnoses Diagnosis Status post left foot surgery - Primary documented in this encounter Care Teams Magnetic Healer Relationship Specialty Start Date End Date Unassigned, Provider PCP - General 08/12/01 [address] [place] [address] documented as of this encounter
--- OUTSIDE RECORDS SUMMARY | 2022-05-30 13:42 | XMS_ITS | Clinical Summary ---
:1980 Author Organization [facility] Address [address], [place] [address] Care Team Providers Name Role Phone Unassigned, Provider Primary Care Provider Unavailable Source Comments You are receiving this document as you are listed as the primary care provider,follow-up provider, or the patient has been referred to you for consultation.This is in compliance with the Medicare and Medicaid EHR Incentive Program,which states Providers who transition their patient to another setting of careor provider of care or refers their patient to another provider of care shouldprovide summarycare record for each transition of care or referral. [facility] Allergies No known active allergies Medications Medication Sig Dispensed Refills Start Date End Date Status loratadine Take 1 Tablet by 90 3 01/05/2006 A ctive (CLARITIN) 10 MG mouth daily as tablet needed (Take 1 tablet by mouth daily as needed.). amphetamine-dextroam Take 1 tablet by 0 01/05/2006 Active phetamine (ADDERALL) mouth every morning. 20 MG tablet LW Comment:by LW Addl Instr:Indicated for: Attention Deficit Disorder fluticasone 1-2 Sprays by Nasal 0 05/02/2015 Active propionate (FLONASE) route. 50 MCG/ACT nasal solution RESTASIS 0.05 % eye Place 1 Drop into 3 08/16/2016 Active drops both eyes two times a day. LYSINE OR Take 1 Tab by mouth 0 Active daily. drug not in Indications: piedad 0 Active computerIndications: red piedad red emtricitabine-tenofo Take 1 Tablet by 0 03/29/2022 Active vir (TRUVADA) mouth daily. 200-300 MG tablet L-FORMULA LYSINE HCL lysine 0 Active OR pentoxifylline pentoxifylline ER 0 Active (TRENTAL) 400 MG 400 mg controlled release tablet,extended tablet release Tadalafil (CIALIS) Every 24 hours. 0 Active 20 MG tablet TRINTELLIX 5 MG Take 5 mg by mouth 0 01/29/2022 Active tablet daily. amphetamine-dextroam dextroamphetamine-amphetamin e ER 20 mg 24hr capsule,extend release 0 Active phetamine XR TAKE 2 CAPSULES BY MOUTH EVERY DAY (ADDERALL XR) 20 MG 24 hour release capsule amphetamine-dextroam Take 20 mg by mouth 0 Active phetamine XR two times a day. (ADDERALL XR) 20 MG 24 hour release capsule Active Problems No known active problems Encounters Date Type Specialty Care Team Description 04/10/2022 Initial Consult Otolaryngology Raoul Villalba Recur rent epistaxis ROCKY (Primary Dx) 04/06/2022 Telephone Otolaryngology Unknown, Physician Urgent Appt Request 04/05/2022 Office Visit Urgent Care Atif Bowles MD Acute anterior epistaxis from Last 3 Months Immunizations Name Administration Dates Next Due DT Ped 11/03/1987 Flu Vac (3+ yrs) 05/05/2012, 04/17/2011, 03/28/2010 Flu Vac Preserv Free (3+yrs) 03/29/2009 HepA-HepB (T[place]X, 18+ yrs) 06/29/2011, 05/25/2011 HepB Adult (Engerix-B, 20+ yrs, 3 07/29/1996, 02/26/1996, dose series) Influenza (Flucelvax), Preserv Free 02/18/2022, 03/05/2020 QIV Influenza IIV4 (Quadrivalent) 0.5mL 03/29/2021, 03/24/2018, 09/14/2016, (10669) 04/15/2015, 04/16/2014, 06/02/2013 JE (IXIARO) 05/25/2011 MMR 01/12/1992 Moderna (Spikevax) COVID-19, 12+ Yrs 07/05/2021, 11/10/2020, 10/13/2020 OPV, Trivalent (Orimune or tOPV) 11/03/1987 Td 12/18/1995 Tdap 01/01/2016, 05/25/2011 Typhoid (Vivotif, Oral) 05/25/2011 Social History Tobacco Use Types Packs/Day Years Used Date Smoking Tobacco: Never Alcohol Use Standard Drinks/Week Comments Yes 3 (1 standard drink = 0.6 oz pure alcoho l) Sex Assigned at Date Recorded Not on file Last Filed Vital Signs Vital Sign Reading Time Taken Comments Blood Pressure 138/87 04/05/2022 12:24 PM CDT Pulse 75 04/05/2022 12:24 PM CDT Temperature 36.7 ??C (98 ??F) 01/25/2017 10:27 AM CDT Respiratory Rate 18 04/05/2022 12:24 PM CDT Oxygen Saturation 100% 04/05/2022 12:24 PM CDT Inhaled Oxygen Concentration - - Weight 108.9 kg (240 lb 1.3 oz) 01/25/2017 7:45 AM CDT Height 185.4 cm (6' 1) 01/25/2017 7:45 AM CDT Body Mass Index 31.67 01/25/2017 7:45 AM CDT Plan of Treatment Health Maintenance Due Date Last Done Comments Hep C Screening (Preventive 1978 Services) HIV Screening (Preventive 1994 Services) Adult Preventive Visit 1996 Cholesterol 2013 COVID-19 Vaccine (4 - 08/30/2021 07/05/2021, 11/10/2020, Booster for Moderna series) 10/13/2020 DTaP/Tdap/Td (5 - Tdap) 12/31/2025 01/01/2016, 05/25/2011, 12/18/1995, Additional history exists Zoster/Shingles (1 of 2) 2028 IPV (Polio) Aged Out 11/03/1987 No longer eligib le based on patient 's age to complete this topic HepA Aged Out 06/29/2011, 05/25/2011 No longer eligible based on patient 's age to complete this topic HepB Completed 06/29/2011, 05/25/2011, 07/29/1996, Additional history exists Influenza Completed 02/18/2022, 03/29/2021, 03/05/2020, Additional history exists HPV Vaccine Aged Out No longer eligib le based on patient 's age to complete this topic Hib Aged Out No longer eligib le based on patient 's age to complete this topic MCV4 Aged Out No longer eligib le based on patient 's age to complete this topic Pneumococcal Aged Out No longer eligib le based on patient 's age to complete this topic Medical Devices Implanted Type Area Silviculturist Device Shelf Model / Identifier Expiration Serial / Date Lot K-Wire Gd .062 - [id number] DEVICE Left: [employer] Surg [id number] / Implanted: Qty: 122 on 09/19/2016 by Ben Camacho MD at [facility] Instr 000 / 000 Explanted Type Area Silviculturist Device Shelf Model / Identifier Expiration Serial / Date Lot K-Wire Gd .062 - [id number] DEVICE Left: [employer] Surg [id number] / Explanted: Qty: 1 on 09/19/2016 at [facility] Instr 000 / 000 Insurance Payer Benefit Plan / Subscriber ID Effective Dates Phone Addre ss Type Group [place] [id number] 2020-Present [address] [address] [place] [address] [address] (Home) [place], [place] [phone] (Work) Jose D Personal/Famil Self [address] [place] [address] (Home) [place] [address] Jose D Personal/Famil Self 06/30/1949 [id number] [address] [facility] Sameer (Home) [facility] [phone] Arnaldo ORTA (Work) [phone] Care Teams Professor Of Exercise Science Relationship Specialty Start Date End Date Unassigned, Provider PCP - General 08/12/[address] [place] [id number]
--- OUTSIDE RECORDS SUMMARY | 2022-05-30 13:42 | XMS_ITS | Encounter Summary ---
:1980 Author Organization [facility] Address [address], [place] [address] Care Team Providers Name Role Phone Unassigned, Provider Primary Care Provider Unavailable Reason for Visit Reason Comments Physical Therapy Encounter Details Date Type Department Care Team Description 11/22/2016 Office Visit [facility] Con[facility], [facility] N, PT (Primary Dx) Therapy [address] [place], [place] [phone] (Wo rk) Social History Tobacco Use Types Packs/Day Years Used Date Smoking Tobacco: Never Alcohol Use Standard Drinks/Week Comments Yes 3 (1 standard drink = 0.6 oz pure alcoho l) Sex Assigned at Date Recorded Not on file documented as of this encounter Progress Notes Constance Enriquez, DPT - 11/22/2016 11:30 AM CDT Physical Therapy Post-Op Ankle Evaluation/Plan of Care Visit Number: 3 [employer] Initial Certification Period: 11/05/2016 to 02/03/17 Referring Provider: Ben Camacho MD Diagnosis: Left foot pain Date of Surgery: 09/19/16 Surgical Procedure: Lisfranc ORIF Orders: Evaluate & treat Precautions/Contraindications: none Date of Onset: August 2016 Standardized Functional Score: Foot and Ankle Ability Measure: 36/84 = 43% on ADL scale; 10/19 = 14% on sport subscale (lower scores represent greater disability) History: He has noticed an improvement since the pins have come out. He is still walking with crutches or using the knee scooter to help him get around. Functional Limitations: Walking, standing, working Patient???s Therapy Goals: Reduce pain, be able to hike on his vacation in mid November SUBJECTIVE: Pain Ratin/10 He did a lot of walking over the weekend and it felt ok. He tried a post op shoe but didn't feel like that helped at all. Walking with an ankle brace felt better. He was just walking around the house without his boot on. The first few steps are always tough, but he feels good after he gets going. OBJECTIVE: General: Mood, orientation, behavior were appropriate. Patient was alert and oriented. Observation/Gait: Using knee enrique, limps without any AD, wearing CAM boot. Edema/Temperature: Mod edema noted in left foot ROM: Generally decreased in left ankle Joint mobility: Talocrural: decreased Midfoot: decreased Flexibility: Tightness in Ant Tib. Neurological Screen: some numbness from surgery Strength: Generally decreased in L LE Palpation: No tenderness noted Proprioception: Single leg stance: unable due to pain TREATMENT TODAY: Therapeutic Exercise (CPT 17101) x 15 minutes: Patient performed the following exercises, was provided verbal and tactile cues for proper performance and was provided handouts Access Code: [email or web address] Exercises Long Sitting Ankle Pumps - 10-20 reps - 3x daily Seated Heel Raise - 10-20 reps - 2x daily Seated Toe Curl - 10-20 reps - 1x daily Stride Stance Weight Shift - 10-20 reps - 2x daily Long Sitting Calf Stretch with Strap - 3 reps - 30 hold - 2x daily Standing Heel Raise with Support - 10 reps - 2x daily Ultrasound x 10 minutes: plantar surface of ball of foot 1MHz and 1.5 power, and dorsal surface of foot 3MHz at 1.5 power for 5 minutes each. Timed Code Treatment Minutes: 25 Total Treatment Minutes: 25 ASSESSMENT: Progress well, we discussed using a post-op shoe as a midway point between boot and regular shoe. I encouraged him to call Dr. Camacho's office about this. He will follow up with doc after vacation. PLAN: Progress as able. EXPECTED FUNCTIONAL OUTCOMES/GOALS: HEP/Independent Management: Demonstrate independence with HEP and self- management following each treatment session ADL's: Independently perform ADL's with ease in 8 weeks. Increase standing tolerance to 30 minutes in 8 weeks. Ambulation: Ambulate unlimited distances with minimal to no symptoms/limp in 8 weeks. Ascend/descend stairs independently with reciprocal pattern with minimal to no symptoms and improvedlower extremity alignment in 8 weeks. Sports/Leisure: Return to prior level of leisure or recreational activities, including vacationing, hiking without an increase in symptoms or limitations in 8 weeks. Therapist: Constance Enriquez DPT 11:32 AM 11/22/2016 documented in this encounter Plan of Treatment Not on filedocumented as of this encounter Visit Diagnoses Diagnosis Left foot pain - Primary Pain in limb documented in this encounter Care Teams Computational Chemist Relationship Specialty Start Date End Date Unassigned, Provider PCP - General 08/12/[address] [place] [id number] documented as of this encounter
--- OUTSIDE RECORDS SUMMARY | 2022-05-30 13:42 | XMS_ITS | Encounter Summary ---
:1980 Author Organization [facility] Address [address] [place] [address] Care Team Providers Name Role Phone Unassigned, Provider Primary Care Provider Unavailable Reason for Visit Procedure/Equipment (Routine) - Closed Specialty Diagnoses / Procedures Referred By Contact Refer red To Contact Procedures Ben Camacho MD REMOVAL OF IMPLANT; SUP FEB [address] [place] [address] Phone: Fax: Referral ID Status Reason Start Date Expiration Date Visits Requ ested Visits Authorized [id number] Closed 01/22/2017 04/23/2018 1 1 Encounter Details Date Type Department Care Team Description 01/25/2017 Surgery [facility] Ben Camacho MD LEFT foot hardware [address] [facility] D[address] removal [place], [place] [address] [place], [place] [phone] (Wo rk) Social History Tobacco Use Types Packs/Day Years Used Date Smoking Tobacco: Never Alcohol Use Standard Drinks/Week Comments Yes 3 (1 standard drink = 0.6 oz pure alcoho l) Sex Assigned at Date Recorded Not on file documented as of this encounter Last Filed Vital Signs Vital Sign Reading Time Taken Comments Blood Pressure 127/72 01/25/2017 7:45 AM CDT Pulse 77 01/25/2017 7:45 AM CDT Temperature 36.6 ??C (97.9 ??F) 01/25/2017 7:45 AM CDT Respiratory Rate 16 01/25/2017 7:45 AM CDT Oxygen Saturation 96% 01/25/2017 7:45 AM CDT Inhaled Oxygen Concentration - - Weight 108.9 kg (240 lb 1.3 oz) 01/25/2017 7:45 AM CDT Height 185.4 cm (6' 1) 01/25/2017 7:45 AM CDT Body Mass Index 31.67 01/25/2017 7:45 AM CDT documented in this encounter Medications at Time of Discharge Medication Sig Dispensed Refills Start Date End Date amphetamine-dextroamphe Take 1 tablet by mouth 0 01/05/2006 tamine (ADDERALL) 20 MG every morning. LW tablet Comment:by LW Addl Instr:Indicated for: Attention Deficit Disorder drug not in Indications: piedad red 0 computerIndications: piedad red fluticasone propionate 1-2 Sprays by Nasal 0 02/2015 (FLONASE) 50 MCG/ACT route. nasal solution loratadine (CLARITIN) Take 1 Tablet by mouth 90 3 10 MG tablet daily as needed (Take 1 tablet by mouth daily as needed.). LYSINE OR Take 1 Tab by mouth 0 daily. RESTASIS 0.05 % eye Place 1 Drop into both 3 07/26 drops eyes two times a day. hydrOXYzine pamoate Take 1-2 Caps by mouth 30 Cap 1 09/201604/05/2022 (VISTARIL) 25 MG 4 times daily as capsule needed. oxyCODONE 5 MG capsule Take 1-2 Caps by mouth 20 Cap 0 0 01/25/2017 04/05/2022 every 4 hours as needed. sertraline (AKA ZOLOFT) Take 2 tablets by 90 3 01/0504/05/2022 100 MG tablet mouth daily (every 24 hours). LW Addl Instr:Indicated for: Depression documented as of this encounter Progress Notes Cheryl Slaughter RN - 01/25/2017 9:29 AM CDT Received verbal report from Catalina Mohan RN. documented in this encounter Procedure Notes Ben Camacho MD - 01/25/2017 10:55 AM CDT NAME: RENE KATZ MR#: [id number] CSN: [id number] AUTHENTICATING CLINICIAN: Ben Camacho MD CONFIRM #: [id number] LOC: 725 OPERATIVE REPORT DATE OF OPERATION: 01/25/2017 : 1980 SURGEON: Ben Camacho MD PREOPERATIVE DIAGNOSIS: Painful retained hardware left foot. POSTOPERATIVE DIAGNOSIS: Painful retained hardware left foot. PROCEDURE: Left foot hardware removal. COMPLICATIONS: None. DRAINS: None. ESTIMATED BLOOD LOSS: Less than 20 mL. ANESTHESIA: General endotracheal. INDICATIONS: Please refer to clinic note for further details regarding Mr. Katz's case. DESCRIPTION OF THE PROCEDURE: On 01/25/2017, the patient was taken to surgery. Preoperative antibiotics were administered to the patient prior to arrival to the OR. After successful induction of general endotracheal anesthesia, patient was placed supine on the operating table. The left lower extremity was prepped and draped in a sterile fashion. After exsanguination by gravity, tourniquet cuff was inflated to 300 mmHg on the proximal third of the left thigh. The fftuv-ars-dpy-cause was performed according to our institution's policy which confirmed laterality of the procedure. An incision was made along the previous surgical incision. Subcutaneous tissues were dissected. Two small fragment screws were identified which were removed in one piece without difficulties. Tourniquet cuff was deflated. Satisfactory hemostasis was accomplished. Wound was closed in layers. Sterile dressings were applied. Patient was placed in a short Cam walker and transferred in stable condition to PACU. PLAN: Patient will remain weightbearing as tolerated. Patient will remain in the Cam walker at all times except for hygiene and sleeping for the first 2 weeks from surgery. At that time sutures will be removed if indicated. The patient will discontinue the use of the Cam walker which will be utilized only for comfort purposes. It is not expected that the patient will require any physical therapy during thepostoperative course. The patient will proceed with activity as tolerated after the 2 week appointment. He will be grantedthe possibility of skipping the 6 week appointment assuming the foot is working up to his expectations. In the eventuality of him returning to the 6 week appointment no x-rays will be obtained. FAP: C: R:01/25/17 10:13 CONFIRM#:[id number] Ben Camacho MD - 01/25/2017 8:31 AM CDT [facility] Brief Operative Progress Note Surgery Date: 01/25/2017 Surgeon(s) and Role: * Ben Camacho MD - Primary Pre-op Diagnosis: * Foot pain, left [M79.672] Post-op Diagnosis: * Foot pain, left [M79.672] Procedure(s) (LRB): LEFT foot hardware removal (Left) EBL: *20 Specimens: * No specimens in log * Complications / Findings: *none Ben Camacho MD documented in this encounter Miscellaneous Notes OR Nursing - Carmela Irizarry RN - 01/25/2017 10:55 AM CDT The following hardware were removed from the patient, and per protocol, terminally sterilized and returned to patient: Screw(s) - 2 documented in this encounter Plan of Treatment Scheduled Orders Name Type Priority Associated Diagnoses Order S chedule POCT Glucose: Point of Care Routine Once today st arting now for 1 Occurrences s tarting 01/25/2017 unti l 01/25/2017 documented as of this encounter Procedures Procedure Name Priority Date/Time Associated Diagnosis Comme nts REMOVAL HARDWARE FOOT 01/25/2017 8:31 AM CDT Foot pain , left OR ANKLE documented in this encounter Visit Diagnoses Diagnosis Foot pain, left Pain in limb documented in this encounter Administered Medications Inactive Administered Medications - up to 3 most recent administrations Medication Order MAR Action Action Date Dose Rate Site bupivacaine (PF) (aka Given 01/25/2017 8:53 AM CDT 6 mL Left Foot SENSORCAINE) 0.5% injection ONCE PRN, Starting on Sat01/25/17 at 0853, Until Sat01/25/17 at 1255, Intra-op fentaNYL (SUBLIMAZE) injection 25-50 mcg Given 01/25/2017 9:48 AM CDT 50 mcg 25-50 mcg, Intravenous, [id number], Other, Moderate to Severe Pain (pain score 5 and above) in the immediate postop period when patient unable to take oral medications for pain, Starting on Sat01/25/17 at 0811, Until Sat01/25/17 at 1255, Administer every 5 minutes as needed, to a maximum cumulative dose of 250 mcg. Hold for excessive sedation or RR < 12., PACU/Recovery Given 01/25/2017 9:29 AM CDT 50 mcg Given 01/25/2017 9:18 AM CDT 50 mcg hydrOXYzine HCl (ATARAX) tablet 25 mg Given 01/25/2017 10:26 AM CDT 25 mg 25 mg, Oral, Q6H PRN, Pain, Starting on Sat01/25/17 at 1026, Until Sat01/25/17 at 1255, Post-op lactated ringers infusion Started 01/25/2017 8:28 AM CDT Intravenous, at 30 mL/hr, CONTINUOUS, Starting on Sat01/25/17 at 0830, DO NOT give to PATIENTS on DIALYSIS or with CHRONIC KIDNEY DISEASE Use Normal Saline instead, Pre-op oxyCODONE (ROXICODONE) immediate release Given 01/25/2017 10:25 AM CDT 5 mg tablet 5 mg 5 mg, Oral, Q6H PRN, Pain, Starting on Sat01/25/17 at 1025, Until Sat01/25/17 at 1255, PACU & Post-op documented in this encounter Active and Recently Administered Medications Times are shown in CDT. Scheduled Medication Order 01/23/2017 01/24/2017 01/25/2017 ceFAZolin (aka ANCEF) 2 g in dextrose 100 ml IVPB (COMPLETED) 827 (Given - Provider: Keagan Marr APRN, SMOKE CONTROL SUPERVISOR) 2 g, Intravenous, Administer over 30 Min utes, ONCE, Sat01/25/17 at 0815, For 1 dose, Infuse within 60 minutes prior to incision; Re-dose 1 gram IV every 4 hours after initial dose until incision closed., Pre-op Continuous Medication Order 01/23/2017 01/24/2017 01/25/2017 lactated ringers infusion 0828 ( Started - Provider: Keagan Marr APRN, JERMAINE)0906 (Anesthesia Fluid - Provider: Keagan Marr APRN, JERMAINE) Intravenous, at 30 mL/hr, CONTINUOUS, St arting Sat01/25/17 at 0830, DO NOT give to PATIENTS on DIALYSIS or with CHRONIC KIDNEY DISEASE Use Normal Saline instead, Pre-op PRN Medication Order 01/23/2017 01/24/2017 01/25/2017 bupivacaine (PF) (aka SENSORCAINE) 0.5% injection 0853 (Given - Provider: DEWEY Green) ONCE PRN, Starting Sat01/25/17 at 0853, Intra-op fentaNYL (SUBLIMAZE) injection 25-50 mcg 0918 (Given - Provider: Catalina Carranza, ADEOLA)0929 (Given - Provider: Cheryl Slaughter, ADEOLA)0948 (Given - Provider: Cheryl Slaughter, ADEOLA) 25-50 mcg, Intravenous, [id number], Other, Moderate to Severe Pain (pain score 5 and above) in the immediate postop period when patient unable to take oral medications for pain, Starting Sat01/25/17 at 081 1, Administer every 5 minutes as needed, to a maximum cumulative dose of 250 mcg. Hold for excessive sedation or RR < 12., PACU/Recovery hydrOXYzine HCl (ATARAX) tablet 25 mg 1026 (Given - Provider: Susan Gandhi) 25 mg, Oral, Q6H PRN, Pain, Starting Sat01/25/17 at 1026, Post-op ondansetron (ZOFRAN) injection 4 mg 4 mg, Intravenous, Q4H PRN, Nausea, Vomi ting, Starting Sat01/25/17 at 0811, If multiple medications are ordered for nausea or vomiting - administer in the following priority based on medications ordered, effectiveness and availability: ondanse prachi (ZOFRAN) > prochlorPERAZINE (COMPAZINE) > diphenhydrAMINE (BENADRYL) > hydrOXYzine HCl (VISTARIL)> ePHEDrine > scopolamine (TRANSDERM-SCOP)., PACU/Recovery oxyCODONE (ROXICODONE) immediate release tablet 5 mg 1025 (Given - Provider: Susan Gandhi) 5 mg, Oral, Q6H PRN, Pain, Starting 01/25/17 at 1025, PACU & P ost-op documented in this encounter Care Teams Regional Operations Director Relationship Specialty Start Date End Date Unassigned, Provider PCP - General 08/12/[address] [place] [id number] documented as of this encounter
--- OUTSIDE RECORDS SUMMARY | 2022-05-30 13:42 | XMS_ITS | Encounter Summary ---
:1980 Author Organization [employer] Address [address] [place] [address] Care Team Providers Name Role Phone Unassigned, Provider Primary Care Provider Unavailable Reason for Visit Procedure/Equipment (Routine) - Closed Specialty Diagnoses / Procedures Referred By Contact Refer red To Contact Procedures Ben Camacho MD REMOVAL OF IMPLANT; SUP FEB [address] [facility] [place] [address] Phone: Fax: Referral ID Status Reason Start Date Expiration Date Visits Requ ested Visits Authorized [id number] Closed 01/22/2017 04/23/2018 1 1 Encounter Details Date Type Department Care Team Description 01/25/2017 Hospital Encounter [facility] Ben Camacho, [address] [facility] Micah bowie MD [place], [place] [address] [address] [facility] [phone] [place] [address] (Wo rk) Social History Tobacco Use Types Packs/Day Years Used Date Smoking Tobacco: Never Alcohol Use Standard Drinks/Week Comments Yes 3 (1 standard drink = 0.6 oz pure alcoho l) Sex Assigned at Date Recorded Not on file documented as of this encounter Last Filed Vital Signs Vital Sign Reading Time Taken Comments Blood Pressure 117/73 01/25/2017 10:55 AM CDT Pulse 65 01/25/2017 10:55 AM CDT Temperature 36.7 ??C (98 ??F) 01/25/2017 10:27 AM CDT Respiratory Rate 16 01/25/2017 10:55 AM CDT Oxygen Saturation 100% 01/25/2017 10:55 AM CDT Inhaled Oxygen Concentration - - [...] 10:55 AM CDT NAME: RENE KATZ MR#: [id number] CSN: [id number] AUTHENTICATING CLINICIAN: Ben Camacho MD CONFIRM #: [...] proximal third of the left thigh. The ctrso-blg-dvj-cause was performed according to our institution's policy [...] ANKLE documented in this encounter Visit Diagnoses Not on filedocumented in this encounter Administered Medications Inactive Administered [...] AM CDT 50 mcg 25-50 mcg, Intravenous, [id number], Other, Moderate to Severe Pain (pain score [...] g in dextrose 100 ml IVPB (COMPLETED) 0828 (Given - Provider: Keagan Marr APRN, MOLD PREPARER) 2 g, Intravenous, Administer over 30 Min utes, ONCE, Sat01/25/17 at 0815, For 1 dose, Infuse within 60 minutes prior to incision; Re-dose 1 gram IV every 4 hours after initial dose until incision closed., Pre-op Continuous Medication Order 01/23/2017 01/24/2017 01/25/2017 lactated ringers infusion 827 ( Started - Provider: Keagan Marr APRN, JERMAINE)0906 (Anesthesia Fluid - Provider: Keagan Marr APRN, JERMANIE) Intravenous, at 30 mL/hr, CONTINUOUS, St arting Sat01/25/17 at 0830, DO NOT give to PATIENTS on DIALYSIS or with CHRONIC KIDNEY DISEASE Use Normal Saline instead, Pre-op PRN Medication Order 01/23/2017 01/24/2017 01/25/2017 bupivacaine (PF) (aka SENSORCAINE) 0.5% injection 0853 (Given - Provider: NIECY Green-Oren) ONCE PRN, Starting Sat01/25/17 at 0853, Intra-op fentaNYL (SUBLIMAZE) injection 25-50 mcg 0918 (Given - Provider: Catalina Carranza, ADEOLA)0929 (Given - Provider: Cheryl Slaughtre, ADEOLA)0948 (Given - Provider: Cheryl Slaughter, ADEOLA) 25-50 mcg, Intravenous, [id number], Other, Moderate to Severe Pain (pain score [...] 5 mg, Oral, Q6H PRN, Pain, Starting Sat17 at 1025, PACU & P ost-op documented in this encounter Care Teams Homicide Squad Lieutenant Relationship Specialty Start Date End Date Unassigned, Provider PCP - General 08/12/01 [address] [place] [address] documented as of this encounter
--- OUTSIDE RECORDS SUMMARY | 2022-05-30 13:42 | XMS_ITS | Encounter Summary ---
:1980 Author Organization [employer] Address [address], [place] [address] Care Team Providers Name Role Phone Unassigned, Provider Primary Care Provider Unavailable Reason for Visit Reason Onset Date Comments PAIN, FOOT 12/20/2016 concerns Encounter Details Date Type Department Care Team Description 12/20/2016 Telephone [facility] Ben Lombardi MD PAIN, FOOT (concerns) CENTER [address] [place] [address] [address] [place], [place] [address] [phone] (Wo rk) Social History Tobacco Use Types Packs/Day Years Used Date Smoking Tobacco: Never Alcohol Use Standard Drinks/Week Comments Yes 3 (1 standard drink = 0.6 oz pure alcoho l) Sex Assigned at Date Recorded Not on file documented as of this encounter Nursing Notes Maria Isabel Martinez RN - 12/20/2016 1:28 PM CDT Patient called back to ask since his foot does not feel better since Saturday if he should return to clinic sooner than the 6 weeks talked about. Explained that he might want to use the boot, which did not really want to do, stating that he did not have pain when he wore the boot. That it is not awful pain, it just does not feel like it is getting better. I mentioned the injection mentioned in the note and he stated he was not really interested. He said he just did not want to do more damage to the foot. Discussed that if the screw is backing out, would want to see it in a few weeks, but that hewanted to wait to see what transpires over the few weeks. He was not doing damage to the foot at this time. Ensouraged to elevated and to use the boot, he commented we will see... We set up an appointment in 4 weeks with and he said he would call if the pain greatly increased in the next weeks. documented in this encounter Plan of Treatment Not on filedocumented as of this encounter Visit Diagnoses Not on filedocumented in this encounter Care Teams Advanced Research Programs Director Relationship Specialty Start Date End Date Unassigned, Provider PCP - General 08/12/[address] [place] [address] documented as of this encounter
--- OUTSIDE RECORDS SUMMARY | 2022-05-30 13:42 | XMS_ITS | Encounter Summary ---
:1980 Author Organization [employer] Address [address], [place] [address] Care Team Providers Name Role Phone Unassigned, Provider Primary Care Provider Unavailable Reason for Visit Reason Comments Physical Therapy Therapies (Routine) - Closed Specialty Diagnoses / Procedures Referred By Contact Refer red To Contact Diagnoses Left foot pain Ben Camacho MD [address] [facility] [place], [place] [address] Referral ID Status Reason Start Date Expiration Date Visits Requ ested Visits Authorized [id number] Closed 10/29/2016 12/28/2016 1 1 Encounter Details Date Type Department Care Team Description 11/05/2016 Initial Consult [facility] PT and Ed Constance Vega Left foot pain Center, Physical N, PT (Primary Dx) Therapy [address] [place] [address] [phone] Social History Tobacco Use Types Packs/Day Years Used Date Smoking Tobacco: Never Alcohol Use Standard Drinks/Week Comments Yes 3 (1 standard drink = 0.6 oz pure alcoho l) Sex Assigned at Date Recorded Not on file documented as of this encounter Progress Notes Constance Enriquez, DPT - 11/05/2016 11:04 AM CDT Physical Therapy Post-Op Ankle Evaluation/Plan of Care Visit Number: 1 [employer] Initial Certification Period: 11/05/2016 to 02/03/17 [...] vacation in mid November SUBJECTIVE: Pain Ratin/10 Falls in the Past Year: No. Past Medical History: See EMR for details regarding past medical history, medications and drug allergies. History is unremarkable. Review of Systems: Denies fever, chills, night sweats, unrelenting night pain, unexplained weight loss, bowel/bladder changes, saddle sensation changes Past Medical History Diagnosis Date ??? 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 Mental disorder (HRC) attention deficit disorder Past Surgical History Procedure Laterality Date ??? Tonsillectomy ??? Vasectomy ??? Eye surgery Bilateral lasik OBJECTIVE: General: Mood, orientation, behavior were appropriate. [...] stance: unable due to pain TREATMENT TODAY: Physical Therapy Evaluation (CPT 47933): An evaluation was performed. The patient was determined to have moderate complexity based on history, examination, clinical presentation of the patient and the PT's clinical decision making. The patient was educated on the condition, planned therapy intervention and the expectations from treatment. Goals were a collaborative effort of the therapist and patient. Therapeutic Exercise (CPT 33484) x 15 minutes: Patient performed the following exercises, was provided verbal and tactile cues for proper performance and was provided handouts Access Code: [email or web address] Exercises Long Sitting Ankle Pumps - 10-20 reps - 3x daily Seated Heel Raise - 10-20 reps - 2x daily Seated Toe Curl - 10-20 reps - 2x daily Stride Stance Weight Shift - 10-20 reps - 2x daily Gait Training (CPT 23366) x 10 minutes: discussed crutch height and using 1 or no crutches when walking around the house to increase tolerance to weight bearing. Practiced ambulation with 2, 1 and no crutches. Timed Code Treatment Minutes: 25 Total Treatment Minutes: 35 Plan for next treatment session: Progress ROM, weight bearing Education/Handouts: Diagnosis Education, RICE principles Response to treatment: Good understanding of HEP ASSESSMENT: Therapist Impression: Bhavik presents to therapy using CAM boot and knee scooter for ambulation. He has minimal pain but still has decreased tolerance to weight bearing and would benefit from PT to address this deficit. Barriers to Learning: none Rehab Prognosis: Good PLAN: Planned Intervention/Education: Re-Evaluation, Education, Therapeutic Exercise, Manual Therapy, Neuromuscular Re-education, Gait Training, Therapeutic Activities, Ice, Heat, Ultrasound, Vasopneumatic Compression PT Frequency/Duration: 1 x/week for 8 weeks for a total of 8 visits Discharge Plan: Goal achievement, goal achievement with home exercise program or if progress plateaus. Informed Consent: Risks, benefits and alternatives to treatment have been explained. Patient and/or family in agreement with care plan. EXPECTED FUNCTIONAL OUTCOMES/GOALS: HEP/Independent Management: Demonstrate independence [...] in symptoms or limitations in 8 weeks. Evaluation and Plan of Care completed by: Constance Enriquez DPT 11:04 AM 11/05/2016 The computer networking instructor adjunct is completed by the therapist and the referring clinician's electronic signature certifies medical necessity for the plan above. documented in this encounter Plan of Treatment Scheduled Referrals Name Type Priority Associated Diagnoses [facility] Referral Routine Left foot pain Ordered: 10/29/2016 documented as of this encounter Visit Diagnoses Diagnosis Left foot pain - Primary Pain in limb documented in this encounter Care Teams School Bus Driver Relationship Specialty Start Date End Date Unassigned, Provider PCP - General 08/12/[address] [place] [address] documented as of this encounter
--- OUTSIDE RECORDS SUMMARY | 2022-05-30 13:42 | XMS_ITS | Encounter Summary ---
:1980 Author Organization [employer] Address [address], [place] [address] Care Team Providers Name Role Phone Unassigned, Provider Primary Care Provider Unavailable Reason for Visit Reason Onset Date Comments Questions 10/08/2016 numbness in heel Encounter Details Date Type Department Care Team Description 10/08/2016 Telephone [facility] Ben Camacho MD Questions (numbness in CENTER [address] [facility] [address] heel ) [address] [place], [place] [address] [phone] (Wo rk) Social History Tobacco Use Types Packs/Day Years Used Date Smoking Tobacco: Never Alcohol Use Standard Drinks/Week Comments Yes 3 (1 standard drink = 0.6 oz pure alcoho l) Sex Assigned at Date Recorded Not on file documented as of this encounter Nursing Notes Maria Isabel Martinez RN - 10/08/2016 4:06 PM CDT Patient had called in with concerns regarding numbness in the heel. He has been thoughtful regardingpositioning in the boot. was asked several questions regarding this and he stated that the numbness this typically from the block at surgery. It takes time to return to normal. Patient was reassured. documented in this encounter Plan of Treatment Not on filedocumented as of this encounter Visit Diagnoses Not on filedocumented in this encounter Care Teams Health Services Director Relationship Specialty Start Date End Date Unassigned, Provider PCP - General 08/12/01 [address] [place] [address] documented as of this encounter
--- OUTSIDE RECORDS SUMMARY | 2022-05-30 13:42 | XMS_ITS | Encounter Summary ---
:1980 Author Organization [facility] Address [address] [address] Care Team Providers Name Role Phone Unassigned, Provider Primary Care Provider Unavailable Reason for Visit Procedure/Equipment (Routine) - Incomplete Specialty Diagnoses / Procedures Referred By Contact Refer red To Contact Diagnoses Left foot pain Ben Camacho MD Procedures XR Foot Lt 3+ Views [address] [facility] [address] CHAMBERS MD [address] Referral ID Status Reason Start Date Expiration Date Visits V isits Requested Authorized [id number] Incomplete 12/17/2016 03/18/2018 1 1 Encounter Details Date Type Department Care Team Description 12/17/2016 Imaging [facility] Radiology Ben Camacho MD Left foot pain [address] [facility] [address] [facility] [address] Chambers MD [address] [place] [address] [phone] (Wo rk) Social History Tobacco Use Types [...] nts XR FOOT LT 3+ VIEWS Routine 12/17/2016 1:45 PM Left foot pain Results for this [...] limb documented in this encounter Care Teams Handicapped Teacher Relationship Specialty Start Date End Date Unassigned, Provider PCP - General 08/12/[address] [place] [address] documented as of this encounter
--- OUTSIDE RECORDS SUMMARY | 2022-05-30 13:42 | XMS_ITS | Encounter Summary ---
:1980 Author Organization [employer] Address [address] [place] [address] Care Team Providers Name Role Phone Unassigned, Provider Primary Care Provider Unavailable Encounter Details Date Type Department Care Team Description 01/25/2017 Anesthesia Event [facility] Rigo Chaudhry MD [address] [facility] [address] [place], [place] [address] [place], [place] [phone] (Wo rk) Anesthesia Record Procedure Summary Procedure Name Responsible Anesthesia Start Anesthesia Stop Time Anesthesiologist Time LEFT foot hardware Rigo Chaudhry MD 01/25/17 0828 01/25/17 0907 removal (Left: Foot) Events Date Time Event Comment 01/25/2017 0805 IV plmt PATRIA Gonzalez RN, DIRECTOR OF NURSING 0811 IV Plmt Comp IV was placed in Preop area by Keagan Marr APRN, JERMAINE for adminis tration of IV fluids, IV antibiotics, and IV pre-op sedation. Patient was continuously mon itored by Keagan Marr APRN, JERMAINE during the place ment. 0828 An Start 0831 An Start Data 0836 An Induction 0838 An LMA 0847 An Tourn Inflated 0901 An LMA Removed Spontaneous resp irations with adequate air exchange. LMA re moved without complications. Transported with oxygen to recovery. 0901 An Oxygen Mask Spontaneous res pirations with adequate air exchange. 0901 an stop data 0907 An Stop Care transferred . 0907 Care Handoff Note I discussed wi th the receiving nurse and we: 1) Identified the p atient, meade family member(s) or patient surrogat e 2) Identified the responsible practitioner 3) Reviewed the pertinent medical history 4) Discu ssed the surgical/procedure course 5) Reviewed intr a-op anesthesia management and issues during an esthesia 6) Set expectations for the post-procedu re period 7) Allowed opportunity for questions an d acknowledgement of understanding of report Electr onically signed by Keagan Marr APRN, CRNA Name Total midazolam 2 mg/2 mL injection (aka VERSED) 2 mg FENTanyl injection (aka SUBLIMAZE) 200 mcg lidocaine 2% PF injection aka (XYLOCAINE) 60 mg propofol 10 mg/mL for procedural sedation (aka diPRIva n) 200 mg propofol 10 mg/mL (aka diPRIvan) 283.14 mg ondansetron injection (aka ZOFRAN) 4 mg dexamethasone 4 mg/mL injection (aka DECADRON) 4 mg ketorolac 30 mg/mL injection (aka TORADOL) 30 mg ceFAZolin (aka ANCEF) 2 g in dextrose 100 ml IVPB 2 g lactated ringers infusion 800 mL Agents Name O2 N2O Blood No blood administrations on file. Lines, Drains, and Airways Type Details Placement Removal Peripheral IV Placement Date: 01/25/17 08 by 01/25/17 1046 b y 01/25/17; Placement Keagan Marr APRN, Mueller, Amy L Time: 820; JERMAINE Pre-existing: No; Inserted by?: JERMAINE; Size (Gauge): 20 G; Orientation: Right; Site Prep: Alcohol; Local Anesthetic: Injectable, Lidocaine 1%, 0.5 ML intradermal; Insertion attempts: 1; Blood draw with insertion?: no; Patient Tolerance: Tolerated well; Removal Date: 01/25/17; Removal Time: 1046 LMA Placement Date: 01/25/17 0838 by 01/25/17 1046 b y 01/25/17; Placement Keagan Marr APRN, Mueller, Amy L Time: 08; Placed By: JERMAINE DEAN; Size (mm): 5; Difficulty: Atraumatic; Removal Date: 01/25/17; Removal Time: 1046; Transferred with Oxygen: Yes Incision/Surgical Site 01/25/17; 0849; Foot; 01/25/17 0849 by 1046 by Left; 01/25/17; 1046 Carmela Irizarry RN Muell erSusan L documented in this encounter Social History Tobacco Use Types Packs/Day Years Used Date Smoking Tobacco: Never Alcohol Use Standard Drinks/Week Comments Yes 3 (1 standard drink = 0.6 oz pure alcoho l) Sex Assigned at Date Recorded Not on file documented as of this encounter Miscellaneous Notes Anesthesia Postprocedure Evaluation - Rigo Chaudhry MD - 01/25/2017 10:53 AM CDT [facility] Anesthesia Post-op Note Patient: Bhavik Jeffery Post-Op Diagnosis: Foot pain, left Procedure Performed: Procedure(s): LEFT foot hardware removal Anesthesia Type: General Post-op vital signs: BP 120/76 Pulse 65 Temp 98 ??F (36.7 ??C) Resp 16 Ht 6' 1 Wt 108.9 kg (240 lb 1.3 oz) SpO2 100% BMI 31.67 kg/m2 Pain Score: Preferred Pain Scale: number (Numeric Rating Pain Scale) Pain Rating (0-10): Rest: unacceptable Pain Rating (0-10): Activity: 3 Post-op assessment: No anesthesia complication. Patient location: Phase 2 Airway Status: Patent Cardiovascular function: Satisfactory Hydration status: Satisfactory PONV: None Level of Consciousness: Awake Fully Participates Postop Assessment: Patient tolerated procedure well. Electronically signed by: Rigo Chaudhry MD 01/25/2017 10:53 AM Anesthesia Preprocedure Evaluation - Rigo Chaudhry MD - 01/25/2017 8:10 AM CDT [facility] Anesthesia Pre-op Evaluation Procedure: Procedure(s): LEFT foot hardware removal HPI: 36 y.o. old male with Foot pain, left NPO Status: Last Fluid Intake Time: 2330 Last Fluid Intake Date: 01/24/17 Last Food Intake Date: 01/24/17 Last Food Intake Time: 2100 No Known Allergies Past Medical History: Diagnosis Date ??? 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 Mental disorder (HRC) attention deficit disorder There is no problem list on file for this patient. Past Surgical History: Procedure Laterality Date ??? EYE SURGERY Bilateral lasik ??? FOOT SURGERY ??? HARDWARE REMOVAL Left 01/25/2017 ??? TONSILLECTOMY ??? VASECTOMY Outpatient Prescriptions Marked as Taking for the 01/25/17 encounter (Hospital Encounter) Medication Sig Dispense Refill ??? amphetamine-dextroamphetamine (ADDERALL) 20 MG tablet Take 1 tablet by mouth every morning. LW Comment:by LW Addl Instr:Indicated for: Attention Deficit Disorder ??? drug not in computer Indications: piedad red ??? fluticasone (FLONASE) 50 MCG/ACT nasal solution 1-2 Sprays by Nasal route. ??? loratadine (CLARITIN) 10 MG tablet Take 1 tablet by mouth daily as needed. LW Addl Instr:Indicated for: Allergies 90 3 ??? LYSINE OR Take 1 Tab by mouth daily. ??? RESTASIS 0.05 % eye drops Place 1 Drop into both eyes two times a day. 3 Current Facility-Administered Medications Medication Dose Route Frequency ??? ceFAZolin (aka ANCEF) 2 g in dextrose 100 ml IVPB 2 g Intravenous Once Labs: No results found for: SODIUM, K, CHLORIDE, CO2, BUN, CREATININE, GLUCOSE Lab Results Component Value Date/Time WBC 14.7 (H) 01/05/2006 01:08 PM HGB 14.1 01/05/2006 01:08 PM HCT 39.5 01/05/2006 01:08 PM PLTS 166 01/05/2006 01:08 PM No results found for: INR No results found for: HCGQUANT Urine : Urine : Blood Bank: No results found for: ABORH, ABSCR EKG: No results found for this or any previous visit. Physical Exam: BP 127/72 Pulse 77 Temp 97.9 ??F (36.6 ??C) (Oral) Resp 16 Ht 6' 1 Wt 108.9 kg (240 lb 1.3 oz) SpO2 96% BMI 31.67 kg/m2 Assessment/Plan: Review of Systems Patient does not have GERD. Patient is not a smoker. The patient denies alcohol use. Patient denies any recent URI. History of PONV: No. History of motion sickness: No. Patient denies any personal or family history of anesthesia complications (PONV). Exam Mental Status: Alert and oriented. Mallampati score: I (One). Mouth opening: Normal Thyromental Distance: > 3 finger breadths and Normal Neck Extension: Full Neck Circumference > 40 cm?: No Current airway assessment:Normal Dentition: Normal. Cardiac Exam: Regular rate and rhythm. Respiratory Exam: Breath sounds clear to auscultation Assessment ASA Status: 2 . Plan Anesthesia type: General and LMA Induction: IntravenousMaintenance: TIVA Postoperative pain management (PONV): Plan for postoperative opioid use PONV Risk Score Peds:0 PONV Risk Score Adult: 2 Anesthetic plan, risks, benefits and alternatives discussed with: Patient H&P Reviewed and Patient examined, no change observed IV access Antibiotics per surgery Electronically signed by: Rigo Chaudhry MD 01/25/2017 8:10 AM documented in this encounter Plan of Treatment Not on filedocumented as of this encounter Visit Diagnoses Not on filedocumented in this encounter Administered Medications Inactive Administered Medications - up to 3 most recent administrations Medication Order MAR Action Action Date Dose Rate Site ceFAZolin (aka ANCEF) 2 g in Given 01/25/2017 8:28 AM CDT 2 g dextrose 100 ml IVPB 2 g, Intravenous, Administer over 30 Minutes, ONCE, On Sat01/25/17 at 0815, For 1 dose, Infuse within 60 minutes prior to incision; Re-dose 1 gram IV every 4 hours after initial dose until incision closed., Pre-op dexamethasone (aka DECADRON) injection Given 01/25/2017 8:55 AM CDT 4 mg Intravenous, Starting on Sat01/25/17 at 0855 fentaNYL (SUBLIMAZE) injection Given 01/25/2017 8:49 AM CDT 100 mcg Intravenous, Starting on Sat01/25/17 at 0828 Given 01/25/2017 8:28 AM CDT 100 mcg ketorolac (TORADOL) injection Given 01/25/2017 8:55 AM CDT 30 mg Intravenous, Starting on Sat01/25/17 at 0855, Until Sat01/25/17 at 0907 lactated ringers infusion Started 01/25/2017 8:28 AM CDT Intravenous, at 30 mL/hr, CONTINUOUS, Starting on Sat01/25/17 at 0830, DO NOT give to PATIENTS on DIALYSIS or with CHRONIC KIDNEY DISEASE Use Normal Saline instead, Pre-op lidocaine 2% PF (XYLOCAINE) injection Given 01/25/2017 8:36 AM CDT 60 mg Intravenous, Starting on Sat01/25/17 at 0836, Until Sat01/25/17 at 0907 midazolam (aka VERSED) injection Given 01/25/2017 8:28 AM CDT 2 mg Intravenous, Starting on Sat01/25/17 at 0828 ondansetron (ZOFRAN) injection Given 01/25/2017 8:55 AM CDT 4 mg Intravenous, Starting on Sat01/25/17 at 0855, Until Sat01/25/17 at 0907 propofol (aka diPRIvan) injection Given 01/25/2017 8:36 AM CDT 200 mg Intravenous, Starting on Sat01/25/17 at 0836 propofol (aka diPRIvan) Rate/Dose 01/25/2017 8:43 150 mcg/kg/min 98. 01 injection Change AM CDT mL/hr Intravenous, Starting on Sat01/25/17 at 0836 Started 01/25/2017 8:36 AM CDT 200 mcg/kg/min 130.68 mL/hr documented in this encounter Care Teams Lookback Coordinator Relationship Specialty Start Date End Date Unassigned, Provider PCP - General 08/12/[address] [place] [id number] documented as of this encounter
--- OUTSIDE RECORDS SUMMARY | 2022-05-30 13:42 | XMS_ITS | Encounter Summary ---
:1980 Author Organization [email or web address] Address [address] [place] [address] Care Team Providers Name Role Phone Unassigned, Provider Primary Care Provider Unavailable Reason for Visit Reason Comments Post Op Exam pin check Encounter Details Date Type Department Care Team Description 10/02/2016 Office Visit [facility] Nurse, Tria Postop check (Primary [facility] [place], [place] [address] Social History Tobacco Use Types Packs/Day Years Used Date Smoking Tobacco: Never Alcohol Use Standard Drinks/Week Comments Yes 3 (1 standard drink = 0.6 oz pure alcoho l) Sex Assigned at Date Recorded Not on file documented as of this encounter Progress Notes Maria Isabel Martinez RN - 10/02/2016 2:12 PM CDT Patient presents for 2 week pin check and suture removal. He had a Left foot tarsometatarsal joint open reduction internal fixation, by on 09-19-16. Patient has remained NWB and using scooter. States he touched down 1 time with his foot. Foot was sore for 5 minutes then okay. Reviewed the post operative care plan, with questions answered. Dressings removed. Skin washed and inspected. Pin sites cleaned and checked for position. They have not moved since last week. New felt applied to support them. Incisions show good healing with wound approximation. No sign of infection. CMS good. No calf pain.Toes are swollen. Sutures removed and steri-strips applied. Discussed his toe swelling.He went back to work yesterday. He will elevate more and more often. Light dressing applied. States he is not having pain. Off all pain medications. Scheduled pin site check for week 4. Instructed to call for questions or concerns. ?? documented in this encounter Plan of Treatment Not on filedocumented as of this encounter Visit Diagnoses Diagnosis Postop check - Primary Follow-up examination, following unspeci fied surgery documented in this encounter Care Teams Cis Coordinator Relationship Specialty Start Date End Date Unassigned, Provider PCP - General 08/12/[address] [place] [address] documented as of this encounter
--- OUTSIDE RECORDS SUMMARY | 2022-05-30 13:43 | XMS_ITS | Encounter Summary ---
:1980 Author Organization [facility] Address [address], [place] [address] Care Team Providers Name Role Phone Unassigned, Provider Primary Care Provider Unavailable Encounter Details Date Type Department Care Team Description 10/08/2002 PN Conversion Only [facility] Luis Pressley, Medicine CICI, BERTIN [address] [address] [place] [address] [place] [address] [phone] (Wo rk) Social History Tobacco Use Types Packs/Day Years Used Date Smoking Tobacco: Never Assessed Sex Assigned at Date Recorded Not on file documented as of this encounter Progress Notes Emil Pressley APRN, CNP - 10/08/2002 12:01 AM CDT Progress Notes signed by Emil Pressley APRN, CNP at 10/16/02 0814 Author: NOEMY Moore Service: (none) Author Type: Nurse Practitioner Filed: 10/12/10 1332 Note Time: 10/08/02 0001 Status: Signed Floater Operator: NOEMY Moore (Nurse Practitioner) NAME: RENE JEFFERY MR: [id number] ACCT: [id number] VISIT: [id number] DICTATING CLINICIAN: EMIL PRESSLEY NP JOB: [id number] CLINIC PROGRESS NOTE DATE OF VISIT: 10/08/2002 SUBJECTIVE: Rene is a 22-year-old white male who presents today complaining of sore throat past 2-1/2 days, slight nasal discharge, no cough, denies any known exposure to strep, he has had this in the past, having difficulty swallowing with increasing sore throat symptoms. He has not taken any medications for this. History of mild seasonal allergies but none presently. Denies any ear pain, no fevers or chills noted but elevated temperature today, he does feel slightly achy, denies any other illnesses at home. He does have two children that have not been sick. PAST MEDICAL HISTORY: Mild depression. MEDICATIONS: Lexapro 10 mg q.d.. ADR/ALLERGIES: NONE. SOCIAL HISTORY: Habits, does not smoke. OBJECTIVE: VS: BP: 108/68. T: 100.1 degrees orally. P: 76. Wt: 220 lb. Alert, oriented, pleasant, appears in no acute distress, well-developed. Eyes clear, conjunctivae without injection, sclerae without icterus, sinuses nontender. Oropharynx with erythema and white exudative material on the tonsils bilaterally. TMs are clear bilaterally, canals are clear. Pinna nontender to palpation or movement. NECK: Supple, there is tenderness over the submandibular lymph nodes, no other lymphadenopathy. LUNGS: Clear to auscultation bilaterally without wheeze, respirations unlabored. HEART: Regular rate and rhythm no murmurs, rubs, or gallops. DIAGNOSTICS: Rapid strep test is positive. ASSESSMENT: 1. Pharyngitis, positive strep. PLAN: 1. Amoxicillin 500 mg p.o. t.i.d. times ten days. 2. Recommended good hand washing, no close contact with the children, advised to get them checked if they are having any signs of sore throat or fussiness. 3. Will have him follow up with any other problems or concerns. He agrees. TT: CT: SHELDONS:[id number] C: 10/10/02 08:35 DOCUMENT: [id number] Electronically signed by Emil Pressley, DRIVER TRAINER, ELECTRICAL/INSTRUMENT TECHNICIAN at 10/16/2002 8:14 AM CDT Sumi Zelaya MD - 08/07/2002 12:01 AM CST Progress Notes signed by at 08/15/02 8603 Author: Sumi Zelaya MD Service: (none) Author Type: (none) Filed: 10/12/10 1228 Note Time: 08/07/02 0001 Status: Signed Floater Operator: Tommie Vieira IMPRESSION: Eustachian tube dysfunction. Depression, mild. SUBJECTIVE: A 21-year-old male complaining of ear pain and sinus pressure periodically. He also complains of depression. He states he isolates and feels loss of pleasure in his usual activities. 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 He is , he has two children. He does state his sleep is too good and he has excessive fatigue. He also states he has some decreased concentration. CURRENT MEDICATIONS: None. ADR/ALLERGIES: NO KNOWN DRUG ALLERGIES. Denies any suicidal ideation. OBJECTIVE: VS: BP: 130/82. P: 84. Wt: 246 lb. Well-developed, well-nourished overweight male. TMs normal. Oropharynx clear. Nares, well nourished turbinate. Clear rhinorrhea. NECK: Supple. Good eye contact. The remainder of the exam is discussion only. ASSESSMENT: 1. Eustachian tube dysfunction. 2. Depression, mild. PLAN: Sudafed or decongestants recommended. I will start him on Lexapro 10 mg, one daily. I did get a call from the pharmacy that this was not covered and switched him to Celexa 40 mg 1/2 tablet q.d. He should see me for follow up in three or four weeks. Earlier p.r.n. TT: CT: ELIZABETH:[id number] C: 08/13/02 12:30 DOCUMENT: [id number] Antonio Browne MD - 03/18/2002 12:01 AM CDT Progress Notes signed by at 08/15/022016 Author: Antonio Graham MD Service: (none) Author Type: Physician Filed: 10/12/10 0909 Note Time: 03/18/02 0001 Status: Signed Floater Operator: Antonio Graham MD (Physician) IMPRESSION: Persistent right-sided middle ear effusion. Allergic rhinitis. SUBJECTIVE: A 21-year-old presents complaining of persistent right ear pain and effusion. He has been seen, this is now the fourth or fifth time over the last three months for ear pain and otitis media with effusion. He has had multiple rounds of antibiotics, including Ceftin and Augmentin and multiple rounds of eardrops, the most notable of which was Cortisporin Otic. He has had otitis externa, otitis media, and a persistent effusion throughout this. He notes sensation of pain, pressure, fullness, in the ear. There has been no discharge recently. He has diminished hearing on that side, as well. He notes some mild nasal congestion and clear rhinorrhea, but does not have a full diagnosis of allergies. He is coming in because of pain and to have this further evaluated. REVIEW OF SYSTEMS: As above; all other systems reviewed otherwise negative or noncontributory to the current problem. PAST MEDICAL HISTORY: Usually healthy. MEDICATIONS: Takes no medications. ADR/ALLERGIES: HAS NO ALLERGIES. OBJECTIVE: VS: BP: 148/84. T: 99.0. Wt: 239. Well developed, well nourished, no apparent distress, pleasant, cooperative. HEAD AND NECK: NCAT. EOMI/PERRLA. Sclerae were clear. Lids normal. Ear canal and TM normal on the left-hand side. The right TM showed a pleural effusion, bright red, inflamed artery running across the TM, but the TM itself was normal apart from some old scarring. There was a flaky, whitish wax-type material in the external canal, but no evidence for discharge or acute infection at this time. Nose shows mild to moderate erythema, copious clear rhinorrhea. Sinuses were mildly diffusely tender. Lips, teeth, gums, posterior oropharynx within normal limits. NECK: Supple without lymphadenopathy, mass, or meningeal sign. Cranial nerves II through XII were intact and symmetric bilaterally. SKIN: Warm, dry, intact. No diaphoresis, pallor, or rash. No lymphadenopathy in the head or neck. ASSESSMENT: 1. Persistent right-sided middle ear effusion. 2. Allergic rhinitis. PLAN: Will give Claritin-D 24 hour tabs one p.o. q.d. times 60 days minimum, and also Auralgan as needed for pain. If this is not able to clear up the problem or if problems persist or gets another infection, I would suggest ENT referral. The patient agreed with this plan. TT: CT: JPC:[id number] C: DOCUMENT: [id number] Helena Landis MD - 03/04/2002 12:01 AM CDT Progress Notes signed by at 08/15/022016 Author: Helena Bosch MD Service: (none) Author Type: Physician Filed: 10/12/10 0849 Note Time: 03/04/022016 Status: Signed Floater Operator: Helena Bosch MD (Physician) IMPRESSION: Recurrent right otitis media. SUBJECTIVE: Chief Complaint: This is a 21-year-old patient who has come with recurrent problems in his right ear. The patient has had two courses of antibiotics. His last course was two weeks ago. The patient states his right ear is not hurting as much as it had been, however he still feels as if he cannot hear properly and sounds muffled. The patient denies any elevation of temperature. He does not have any throat pain. ADR/ALLERGIES: THE PATIENT HAS NO KNOWN DRUG ALLERGIES. MEDICATIONS: He is not currently on any medication. PAST MEDICAL HISTORY: Significant for recurrent right-sided ear infections. On referring to the computerized notes on this patient, I see that he had been treated for right otitis media and externa. The patient had been on Ceftin 500 mg b.i.d. for 10 days and he was also using Cortisporin ear drops. OBJECTIVE: VS: BP: 110/78. T: 99. P: 68. R: 14. Right ear exam shows a bulging erythematous TM. The bony landmarks are obscured. The external canal does not appear to be inflamed or swollen. Left ear exam was normal. ASSESSMENT: Right otitis media. Otitis externa has resolved. PLAN: The patient was given a prescription for Augmentin 875 mg p.o. b.i.d. for 10 days. Have suggested that he follow up with his primary care physician for a recheck after completing the antibiotic. TT: CT: STR:[id number] C: DOCUMENT: [id number] SPLITTER Conversion, [facility] - 01/28/2002 12:01 AM CDT Progress Notes signed by at 08/15/02 0001 Author: [facility] Conversion Service: (none) Author Type: (none) Filed: 10/12/10 0801 Note Time: 01/28/022016 Status: Signed Floater Operator: Tommie Conversion IMPRESSION: Otitis media. Right otitis externa. SUBJECTIVE: Rene is here today for a couple of things. For the last three to four days, he has been having pain in the right ear. Kind of a sharp pain that comes and goes, feels a little plugged. Low grade fever. Slight headache from that. No sore throat. Also has been having a little nausea feeling off and on although he has been eating okay with no vomiting, no diarrhea, no constipation, no abdominal pain. He has not been swimming or anything like that lately. PAST MEDICAL HISTORY: Negative for any significant medical problems. MEDICATIONS: None on a regular basis. ADR/ALLERGIES: NO KNOWN DRUG ALLERGIES. Does not smoke. OBJECTIVE: VS/GEN: BP: 102/70. T: 99. P: 80. R: 12. Wt: 233 lb. HEENT: Examination reveals inflammation of the external auditory canal. No pus or discharge. Retraction of the tympanic membrane with some injection on the right side. The rest of the HEENT within normal limits. NECK: No JVD, no lymphadenopathy. No carotid bruits. LUNGS: Clear to auscultation. CV: S1 and S2 plus zero. ABD: Soft, nontender, no organomegaly, bowel sounds normally heard. EXTREMITIES: Negative. ASSESSMENT: 1. Otitis media. 2. Right otitis externa. PLAN: 1. Given Ceftin 500 mg 1 b.i.d. with food and Cortisporin Ear drops, 2 drops 3 times a day. 2. Precautions and side effects discussed. Advised not use Q- Tip and not to let any water go into the ear. 3. Advised to stay on a light diet and use some Zantac p.r.n. for upset stomach in the meantime. 4. Advised to come back for followup in 10 to 14 days if not much better. TT: CT: [facility]:[id number] C: DOCUMENT: [id number] SPLITTER Carlos Baird MD - 01/19/1998 12:01 AM CDT Progress Notes signed by Carlos Baird MD at 01/26/98 0829 Author: Carlos Baird MD Service: (none) Author Type: Physician Filed: 10/11/10 0538 Note Time: 01/19/98 0001 Status: Signed Floater Operator: Carlos Baird MD (Physician) IMPRESSION: Pharyngitis. SUBJECTIVE: A 17-year-old male who for 2 weeks now has been symptomatic with a sore throat. It seemed to get better for a while and in the last few days is back again. Had some muscle aches as well. 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 A co-worker had mono, and he is wondering if maybe that was bothering him. Medications: None. Adverse Drug Reactions: None. OBJECTIVE: BP: 130/70. P: 76. R: 18. T: 97.1. TMs are clear. Throat is unremarkable. Rapid strep negative. He has no posterior cervical adenopathy. Slight discomfort in the anterior cervical chain. ASSESSMENT: Pharyngitis. 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 PLAN: If 24-hour culture comes out positive, will initiate a course of treatment. [facility] ST Craig Leon MD - 12/18/1995 12:01 AM CDT Progress Notes signed by Craig Leon MD at 05/22/96 1735 Author: Craig Leon MD Service: (none) Author Type: Physician Filed: 10/10/101999 Note Time: 12/18/95 0001 Status: Signed Floater Operator: Craig Leon MD (Physician) IMPRESSION: Well teen with episode of weakness SUBJECTIVE: Rene Jeffery is here for his physical exam. He will start his senior year in high school this fall. He is here alone. 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 He has been dating but is not sexually active, nor does he use any drugs at all, including alcohol or tobacco. He wears contact lenses. He has no complaints on review of systems. He has no complaint of headaches, fainting, chest pain, etc. He gets a fairly good diet, is on skim milk, but he does not pay a lot of attention to fruits and vegetables, he says. He is sleeping normally and eliminating normally. He does not always use a helmet when riding a bike. I phoned his mother regarding authorization for his immunizations, which she agreed with, but she also then raised a question about an episode that happened, apparently, several months ago, when Rene and his father developed a disagreement, and Rene became very frustrated and upset and was not able to stand up. Mom states that after about 10 minutes he was able to get up and was back to normal strength. He has had no other episodes of weakness, and he had no alteration of the level of consciousness associated with that episode. There is no family history for weakness, either, and that has not happened before or since. OBJECTIVE: HT: 72 in WT: 206 lb BP: 120/80 Exam, including deep tendon reflexes and blood pressure, is normal. Stage V male genitalia. No scoliosis. 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 I think this was benign, but Mom will follow up prn. Will start his immunizations today. rem SPLITTER Maritza Black MD - 05/03/1995 12:01 AM CST Progress Notes signed by Maritza Best MD at 05/14/95 1127 Author: Maritza Black MD Service: (none) Author Type: Physician Filed: 10/10/10 0659 Note Time: 05/03/95 0001 Status: Signed Floater Operator: Maritza Black MD (Physician) IMPRESSION: Acne. SUBJECTIVE: Rene Jeffery is a 14-year-old who has seen Dr. Multani in 1992 for acne. He was on a benzoyl peroxide and Cleocin solution. He felt like he did well until he ran out of prescription and then he is getting acne back despite using Oxy 10 pads. He feels like the acne has changed a little bit in that it is slightly deeper. OBJECTIVE: On examination, a few excoriations and a few inflammatory papules, especially at the corners of the jaw and on the lower cheeks. ASSESSMENT: Acne. PLAN: Benzamycin at night and Cleocin T solution in the morning. Talked about side effects and how to use the medications. He should return to clinic prn and I don't need to see him for two years if things are going well. lap SPLITTER Jorge Fox - 06/23/1994 12:01 AM CST Progress Notes signed by Jorge Fox MD at 09/20/94 1423 Author: Jorge Fox MD Service: (none) Author Type: Physician Filed: 10/10/10 8556 Note Time: 06/23/94 0001 Status: Signed Floater Operator: Jorge Fox MD (Physician) IMPRESSION: Left thigh weakness. SUBJECTIVE: Rene Jeffery is a 13-year-old who developed left thigh weakness over the past 2 days. The onset has been rather rapid with acceleration in the last 12 hours. He's having difficulty with weightbearing as his leg gives away. He's had no associated symptoms of fever, chills, or headache. No neck pain. No stiff neck. He has had mild coughing and congestion for 5 days. No history of similar symptoms. He's had no paresthesias or numbness. No arm symptoms or facial symptoms and no changes in mental status. OBJECTIVE: Temperature 96.9. Pulse 84. Respirations 18. Blood pressure 112/86. Patient is alert, oriented, and in no distress. Skin is warm and dry. Mouth is moist. Neck is supple. Lungs are clear. Heart: Regular sinus rhythm. Patient ambulates with difficulty, and with each step it appears as if his leg gives away due to weakness. Testing reveals left quadriceps weakness and difficulty extending his knee from a sitting position. He has reduced deep tendon reflexes of the left knee and left ankle but still present, however. Asymmetric compared to the right. ALLERGIES: None. MEDICATIONS: Ibuprofen. ASSESSMENT: PLAN: The patient is discussed with Dr. Allen of Pediatrics Neurology and is sent to [facility] in [place] to go to the Emergency Department and be examined by Dr. Allen with probable MRI also. Instructions given. Patient is transported by his father in a car in stable condition for further evaluation as noted. SPLITTER documented in this encounter Plan of Treatment Not on filedocumented as of this encounter Procedures Procedure Name Priority Date/Time Associated Comments Diagnosis STREP GROUP A Routine 01/19/1998 4:38 PM Results for this ANTIGEN TEST CDT procedure are i n the results section. BETA STREP FOLLOWUP Routine 01/19/1998 4:38 PM Re sults for this CDT procedure are i n the results section. ANC RESULT Routine 06/23/1994 8:34 AM Results f or this CONVERSION DEFAULT HIDE SPLITTER procedure are in ORDER the results section. documented in this encounter Results Strep Group A Antigen Test (01/19/1998 4:38 PM CDT) Analysis Performed At Patho logist Time Signature Strep Group A Negative Negative HP CONVERSION Antigen Test Comment: Culture to follow. Specimen (Source) Anatomical Collection Method Collection Time Re ceived Time Location / / Volume Laterality 01/19/1998 4:38 PM CDT Carlos Baird MD LAB_1 Performing Organization Address City/State/ZIP Code Phon e Number HP CONVERSION Beta Strep Followup (01/19/1998 4:38 PM CDT) P athologist Signature Strep Screen SEE TEXT HP CONVERSION Comment: Patient: RENE JEFFERY Rapid Strep Follow up Culture @ ? Collected: ??[id number] ??[id number] Source: Throat ?Processed: ??[id number] ??[id number] ? 1V Final Report ------ ?[id number] ??[id number] No beta hemolytic Strep group A isolated . @ = Rapid F/U Cult Performed at ??[address] [place] ?[address] Specimen (Source) Anatomical Collection Method Collection Time Re ceived Time Location / / Volume Laterality 01/19/1998 4:38 PM CDT Carlos Baird MD LAB_1 Performing Organization Address City/State/ZIP Code Phon e Number HP CONVERSION Anc Result Conversion Default Order (06/23/1994 8:34 AM HIDE SPLITTER) Anatomical Region Laterality Modality Other Specimen (Source) Anatomical Location Collection Method / Collectio n Time Received Time / Laterality Volume Narrative 06/23/1994 8:34 AM HIDE SPLITTER CLINICAL DATA: ?PAIN IN FEMUR X 3 DAYS FINDINGS: ?? BN1 ?? NO RADIOGRAPHIC EVIDENCE OF BONE OR JOINT ABNORMALITY. TECH-ID : ? LS TRANS-ID: Procedure Note Yaw Marion MD - 08/30/2016Formatt ing of this note might be different from the original. CLINICAL DATA: PAIN IN FEMUR X 3 DAYS FINDINGS: BN1 NO RADIOGRAPHIC EVIDENCE OF BONE OR TERRY NT ABNORMALITY. TECH-ID : LS TRANS-ID: Jorge Fox MD RAD GD documented in this encounter Visit Diagnoses Not on filedocumented in this encounter Care Teams Sustainability Analyst Relationship Specialty Start Date End Date Unassigned, Provider PCP - General 08/12/[address] [place] [id number] documented as of this encounter
--- OUTSIDE RECORDS SUMMARY | 2022-05-30 13:43 | XMS_ITS | Encounter Summary ---
:1980 Author [facility] Address [address] [address] Care Team Providers Name Role Phone Unassigned, Provider Primary Care Provider Unavailable Reason for Visit Reason Onset Date Comments Refill 09/17/2016 Encounter Details Date Type Department Care Team Description 09/17/2016 Refill [facility] Ben Ortiz MD Refill [address] [place] [address] [address] [place] [address] [place] [address] [phone] (Wo rk) Social History Tobacco Use Types Packs/Day Years Used Date Smoking Tobacco: Never Alcohol Use Standard Drinks/Week Comments Yes 3 (1 standard drink = 0.6 oz pure alcoho l) Sex Assigned at Date Recorded Not on file documented as of this encounter Plan of Treatment Not on filedocumented as of this encounter Visit Diagnoses Not on filedocumented in this encounter Care Teams Drill Operator Relationship Specialty Start Date End Date Unassigned, Provider PCP - General 08/12/[address] [place] [address] documented as of this encounter
--- OUTSIDE RECORDS SUMMARY | 2022-05-30 13:43 | XMS_ITS | Encounter Summary ---
:1980 Author Organization [facility] Address [address] [place] [address] Care Team Providers Name Role Phone Unassigned, Provider Primary Care Provider Unavailable Encounter Details Date Type Department Care Team Description 09/19/2016 Surgery [facility] Ben Solis MD LEFT foot open [address] [facility] Driv e [address] reduction internal [place], [place] [address] [place], [place] fixation [phone] (Wo rk) Social History Tobacco Use Types Packs/Day Years Used Date Smoking Tobacco: Never Alcohol Use Standard Drinks/Week Comments Yes 3 (1 standard drink = 0.6 oz pure alcoho l) Sex Assigned at Date Recorded Not on file documented as of this encounter Last Filed Vital Signs Vital Sign Reading Time Taken Comments Blood Pressure 120/82 09/19/2016 2:50 PM CDT Pulse 80 09/19/2016 2:50 PM CDT Temperature 37.1 ??C (98.7 ??F) 09/19/2016 2:15 PM CDT Respiratory Rate 16 09/19/2016 2:50 PM CDT Oxygen Saturation 97% 09/19/2016 2:50 PM CDT Inhaled Oxygen Concentration - - Weight 110.7 kg (244 lb) 09/19/2016 2:15 PM CDT Height 185.4 cm (6' 1) 09/19/2016 2:15 PM CDT Body Mass Index 32.19 09/19/2016 2:15 PM CDT documented in this encounter Medications at Time of Discharge Medication Sig Dispensed Refills Start Date End Date amphetamine-dextroamphe Take 1 tablet by mouth 0 01/05/2006 tamine (ADDERALL) 20 MG every morning. LW tablet Comment:by LW Addl Instr:Indicated for: Attention Deficit Disorder drug not in Indications: piedad red 0 computerIndications: piedad red fluticasone propionate 1-2 Sprays by Nasal 0 11/0 02/2015 (FLONASE) 50 MCG/ACT route. nasal solution loratadine (CLARITIN) Take 1 Tablet by mouth 90 3 10 MG tablet daily as needed (Take 1 tablet by mouth daily as needed.). LYSINE OR Take 1 Tab by mouth 0 daily. RESTASIS 0.05 % eye Place 1 Drop into both 3 07/26 drops eyes two times a day. hydrOXYzine pamoate Take 1-2 Caps by mouth 50 Cap 1 08/2312/17/2016 (VISTARIL) 25 MG 4 times daily as capsule needed. ondansetron (ZOFRAN) 4 Take 1 Tab by mouth 30 Tab 0 08/2312/17/2016 MG tablet every 8 hours as needed. oxyCODONE 5 MG capsule Take 1-2 Caps by mouth 40 Cap 0 0 09/19/2016 12/17/2016 every 4 hours as needed. predniSONE (AKA LW Addl Instr:take 40 40 0 6 12/17/2016 DELTASONE) 10 MG tablet mg po x 3 days then taper 10 mg po q 3 days down to 5 mg. sertraline (AKA ZOLOFT) Take 2 tablets by 90 3 01/0504/05/2022 100 MG tablet mouth daily (every 24 hours). LW Addl Instr:Indicated for: Depression unknown medication Indications: PN: 0 01/12/2006 12/17/2016 documented as of this encounter Progress Notes Cheryl Slaughter RN - 09/19/2016 2:25 PM CDT Received verbal report from Caitlyn Nunez RN documented in this encounter Procedure Notes Ben Camacho MD - 09/19/2016 5:34 PM CDT NAME: RENE KATZ MR#: [id number] CSN: [id number] AUTHENTICATING CLINICIAN: Ben Camacho MD CONFIRM #: [id number] LOC: 725 OPERATIVE REPORT DATE OF OPERATION: 09/19/2016 : 1980 SURGEON: Ben Camacho MD MANAGER COUNCIL: Humza Rowley MD (Orthopaedic Resident) PREOPERATIVE DIAGNOSIS: Left 2nd, 3rd and 4th metatarsal fractures. POSTOPERATIVE DIAGNOSIS: Left 2nd, 3rd and 4th metatarsal fractures. PROCEDURE: Left foot tarsometatarsal joint open reduction internal fixation. COMPLICATIONS: None. DRAINS: None. ESTIMATED BLOOD LOSS: Less than 20 mL. ANESTHESIA: General endotracheal. INDICATIONS: Please refer to clinic note for further details regular indications to Mr. Katz's case. PROCEDURE NOTE: On 09/19/2016, patient was taken to surgery. Preoperative antibiotics [...] proximal third of the left thigh. The ljehr-fvj-xun-cause was performed according to our institution's policy which confirmed laterality of the procedure. Through a medial incision, we proceeded with dissection down into the medial cuneiform. Under fluoroscopic control, the screw placement of a screw across the intercuneiform joints was done without any complication with excellent purchase followed by second screw placed within the medial cuneiform intothe base of the 2nd metatarsal. Special attention was placed with alignment of the 2nd metatarsal itself. Following this, we proceeded with a dorsal incision across the 4th tarsometatarsal joint. Subcutaneous tissues were dissected. The fracture site was identified. We proceeded with resection of some of the fracture hematoma. Eventually, we proceeded with a reduction of the 4th metatarsal base and with pl acement of 2 K-wires across the 4th metatarsal into the tarsal bones. We felt that the patient presented with a very much acceptable reduction. A first attempt was made. However, we felt to have some subluxation of the 5th TMT joint. Therefore, the construction had to be repeated. Eventually, we confirmed with fluoroscopic exam on 3 views of the foot to have excellent location ofthe hardware as well as reduction of the tarsometatarsal joints. These images were sent to PACS for definitive documentation. Tourniquet cuff was deflated. Satisfactory hemostasis was accomplished. Wound was closed in layers and sterile dressings were applied. Patient was placed in a tall Cam walker and transferred in stable condition to PACU. PLAN: Patient will remain nonweightbearing x6 weeks in a tall Cam walker. Patient will maintain the Cam walker at all times except for hygiene for the first 2 weeks from surgery and at all times except for hygiene, resting, sitting and sleeping activities between weeks 2 and 6. Patient then will proceed with pin site evaluation one week from surgery and suture removal at 2 weeks from surgery. Patient may require second pin evaluation approximately 4 weeks from surgery. Patient will be reevaluated at 6 weeks from surgery and at that time 3 views of the left foot will be obtained and based on those findings further recommendations will be given to the patient. FAP: C: R:09/20/16 08:39 CONFIRM#:[id number] Ben Camacho MD - 09/19/2016 2:20 PM CDT [facility] Brief Operative Progress Note Surgery Date: 09/19/2016 Surgeon(s) and Role: * Ben Camacho MD - Primary * Humza Rowley MD - Resident - Assisting Pre-op Diagnosis: * Foot pain, left [M79.672] Post-op Diagnosis: * Foot pain, left [M79.672] Procedure(s) (LRB): LEFT foot open reduction internal fixation (Left) EBL: *20 Specimens: * No specimens in log * Complications / Findings: *none Ben Camacho MD documented in this encounter Plan of Treatment Scheduled Orders Name Type Priority Associated Diagnoses Order S chedule POCT Glucose: Point of Care Routine Once today st arting now for 1 Occurrences s tarting 09/19/2016 unti l 09/19/2016 documented as of this encounter Procedures Procedure Name Priority Date/Time Associated Diagnosis Comme nts OPEN REDUCTION INTERNAL 09/19/2016 2:54 PM CDT Foot pa in, left FIXATION FOOT FRACTURE documented in this encounter Visit Diagnoses Diagnosis Foot pain, left Pain in limb documented in this encounter Administered Medications Inactive Administered Medications - up to 3 most recent administrations Medication Order MAR Action Action Date Dose Rate Site fentaNYL (SUBLIMAZE) injection Given 09/19/2016 2:40 PM CDT 50 m cg 25-50 mcg 25-50 mcg, Intravenous, [id number], Other, Moderate to Severe Pain (pain score 5 and above) in the immediate postop period when faster on-set, short acting agent is desired., Starting on Sat09/19/16 at 1424, Until Sat09/19/16 at 1934, Administer every 5 minutes as needed, to a maximum cumulative dose of 250 mcg. For patients with a regional, spinal, or local anesthetic, may give for anticipated pain as the anesthetic wears off., PACU/Recovery Given 09/19/2016 2:39 PM CDT 50 mcg midazolam (VERSED) injection 0.5-1 mg Given 09/19/2016 2:46 PM CDT 1 mg 0.5-1 mg, Intravenous, [id number], Anxiety, Starting on Sat09/19/16 at 1424, Until Sat09/19/16 at 1934, Maximum cumulative dose is 2 mg. TO BE GIVEN IN PACU ONLY., PACU/Recovery Given 09/19/2016 2:40 PM CDT 1 mg Given 09/19/2016 1:40 AM CDT 1 mg oxyCODONE (ROXICODONE) immediate release tablet Given 09/19/2016 5:22 PM CDT 5 mg 5 mg 5 mg, Oral, Q6H PRN, Pain, Starting on Sat09/19/16 at 1722, Until Sat09/19/16 at 1934, PACU & Post-op documented in this encounter Active and Recently Administered Medications Times are shown in CDT. Scheduled Medication Order 09/17/2016 09/18/2016 09/19/2016 ceFAZolin (aka ANCEF) 2 g in dextrose 100 ml IVPB (COMPLETED) 1457 (Given - Provider: Sonja Hilario APRN, ENGINEERING LAB TECHNICIAN) 2 g, Intravenous, for 30 Minutes, ONCE, Sat09/19/16 at 1445, For 1 dose, Infuse within 60 minutes prior to incision; Re-dose 1 gram IV every 4 hours after initial dose until incision closed., Pre-op PRN Medication Order 09/17/2016 09/18/2016 09/19/2016 fentaNYL (SUBLIMAZE) injection 25-50 mcg (CANCELED) 1439 (Given - Provider: Cheryl Slaughter RN)1440 (Given - Provider: Cheryl Slaughter RN) 25-50 mcg, Intravenous, [id number], Other, Moderate to Severe Pain (pain score 5 and above) in the immediate postop period when faster on-set, short acting agent is desired., Starting Sat09/19/16 at 1424, Administer every 5 minutes as needed, t o a maximum cumulative dose of 250 mcg. For patients with a regional, spinal, or local anesthetic, may give for anticipated pain as the anesthetic wears off., PACU/Recovery midazolam (VERSED) injection 0.5-1 mg (CANCELED) 0140 (Given - Provider: Cheryl Slaughter RN)1440 (Given - Provider: Cheryl Slaughter, ADEOLA)1446 (Given - Provider: Cheryl Slaughter RN) 0.5-1 mg, Intravenous, [id number], Anxiety , Starting Sat09/19/16 at 1424, Maximum cumulative dose is 2 mg. TO BE GIVEN IN PACU ONLY., PACU/Recovery oxyCODONE (ROXICODONE) immediate release tablet 5 mg (CANCELED) 1722 (Given - Provider: Susan Gandhi) 5 mg, Oral, Q6H PRN, Pain, Starting Sat09/19/16 at 1722, PACU & Post-op documented in this encounter Care Teams Coal Passer Relationship Specialty Start Date End Date Unassigned, Provider PCP - General 08/12/01 [address] [place] [address] documented as of this encounter
--- OUTSIDE RECORDS SUMMARY | 2022-05-30 13:43 | XMS_ITS | Encounter Summary ---
:1980 Author Organization [facility] Address [address] [address] Care Team Providers Name Role Phone Unassigned, Provider Primary Care Provider Unavailable Encounter Details Date Type Department Care Team Description 10/08/2002 PN Conversion Only Emil Toro, [address] [employer] [facility] [address], [place] [address] [address] [facility] [address] [place] [address] (Wo rk) Social History Tobacco Use Types Packs/Day Years Used Date Smoking Tobacco: Never Assessed Sex Assigned at Date Recorded Not on file documented as of this encounter Plan of Treatment Not on filedocumented as of this encounter Procedures Procedure Name Priority Date/Time Associated Diagnosis Comme nts STREP GROUP A Routine 10/08/2002 5:11 PM Results for this ANTIGEN TEST CDT procedure are i n the results section. STREP GROUP A Routine 10/08/2002 5:08 PM Results for this ANTIGEN TEST CDT procedure are i n the results section. documented in this encounter Results Strep Group A Antigen Test (10/08/2002 5:11 PM CDT) Analysis Performed At Patho logist Time Signature Strep Group A Positive Negative HP CONVERSION Antigen Test Specimen (Source) Anatomical Collection Method Collection Time Re ceived Time Location / / Volume Laterality 10/08/2002 5:11 PM CDT Emil Yanes APRN, [place] LAB_1 Performing Organization Address City/State/ZIP Code Phon e Number HP CONVERSION Strep Group A Antigen Test (10/08/2002 5:08 PM CDT) Analysis Performed At [facility] Time Signature Strep Group A Negative Negative HP CONVERSION Antigen Test Comment: Culture to follow. Specimen (Source) Anatomical Collection Method Collection Time Re ceived Time Location / / Volume Laterality 10/08/2002 5:08 PM CDT Emil Yanes APRN, CNP LAB_1 Performing Organization Address City/State/ZIP Code Phon e Number HP CONVERSION documented in this encounter Visit Diagnoses Not on filedocumented in this encounter Care Teams Language Interpreter Relationship Specialty Start Date End Date Unassigned, Provider PCP - General 08/12/[address] [place] [id number] documented as of this encounter
--- OUTSIDE RECORDS SUMMARY | 2022-05-30 13:43 | XMS_ITS | Encounter Summary ---
:1980 Author Organization [facility] Address [address] [place] [address] Care Team Providers Name Role Phone Unassigned, Provider Primary Care Provider Unavailable Encounter Details Date Type Department Care Team Description 09/19/2016 Hospital Encounter [facility] Ben Camacho, [address] [facility] Micah bowie MD [place], [place] [address] [place] [address] [place] [address] (Wo rk) Social History Tobacco Use Types Packs/Day Years Used Date Smoking Tobacco: Never Alcohol Use Standard Drinks/Week Comments Yes 3 (1 standard drink = 0.6 oz pure alcoho l) Sex Assigned at Date Recorded Not on file documented as of this encounter Last Filed Vital Signs Vital Sign Reading Time Taken Comments Blood Pressure 137/80 09/19/2016 5:25 PM CDT Pulse 65 09/19/2016 5:25 PM CDT Temperature 35.9 ??C (96.6 ??F) 09/19/2016 5:25 PM CDT Respiratory Rate 16 09/19/2016 5:25 PM CDT Oxygen Saturation 100% 09/19/2016 5:25 PM CDT Inhaled Oxygen Concentration - - [...] 5:34 PM CDT NAME: RENE KATZ MR#: [id number] CSN: [id number] AUTHENTICATING CLINICIAN: Bne Camacho MD CONFIRM #: [id number] LOC: 725 OPERATIVE REPORT DATE OF OPERATION: 09/19/2016 : 1980 SURGEON: Ben Camacho MD BOWLING BALL MOLDER: Humza Rowley MD (Orthopaedic Resident) PREOPERATIVE DIAGNOSIS: [...] proximal third of the left thigh. The nkjtx-jah-bkg-cause was performed according to our institution's policy [...] FRACTURE documented in this encounter Visit Diagnoses Not on filedocumented in this encounter Administered Medications Inactive Administered Medications - up to 3 most recent administrations Medication Order MAR Action Action Date Dose Rate Site fentaNYL (SUBLIMAZE) injection Given 09/19/2016 2:40 PM CDT 50 m cg 25-50 mcg 25-50 mcg, Intravenous, [id number], Other, Moderate to Severe Pain (pain score [...] PM CDT 1 mg 0.5-1 mg, Intravenous, [id number], Anxiety, Starting on Sat09/19/16 at 1424, Until [...] 1457 (Given - Provider: Sonja Hilario APRN, ENTOMOLOGY PROFESSOR) 2 g, Intravenous, for 30 Minutes, ONCE, Sat09/19/16 at 1445, For 1 dose, Infuse within 60 minutes prior to incision; Re-dose 1 gram IV every 4 hours after initial dose until incision closed., Pre-op PRN Medication Order 09/17/2016 09/18/2016 09/19/2016 fentaNYL (SUBLIMAZE) injection 25-50 mcg (CANCELED) 1439 (Given - Provider: Cheryl Slaughter RN)1440 (Given - Provider: Cheryl Slaughter RN) 25-50 mcg, Intravenous, [id number], Other, Moderate to Severe Pain (pain score [...] Provider: Cheryl Slaughter RN) 0.5-1 mg, Intravenous, [id number], Anxiety , Starting Sat09/19/16 at 1424, Maximum cumulative dose is 2 mg. TO BE GIVEN IN PACU ONLY., PACU/Recovery oxyCODONE (ROXICODONE) immediate release tablet 5 mg (CANCELED) 1722 (Given - Provider: Susan Gandhi) 5 mg, Oral, Q6H PRN, Pain, Starting Sat09/19/16 at 1722, PACU & Post-op documented in this encounter Care Teams Pi/Senior Research Associate Relationship Specialty Start Date End Date Unassigned, Provider PCP - General 08/12/01 [address] [place] [address] documented as of this encounter
--- OUTSIDE RECORDS SUMMARY | 2022-05-30 13:43 | XMS_ITS | Encounter Summary ---
:1980 Author Organization [facility] Address [address], [place] [address] Care Team Providers Name Role Phone Unassigned, Provider Primary Care Provider Unavailable Encounter Details Date Type Department Care Team Description 01/05/2006 Office Visit [facility] [address] [address] [place] [address] [phone] (Wo rk) Social History Tobacco Use Types Packs/Day Years Used Date Smoking Tobacco: Never Assessed Sex Assigned at Date Recorded Not on file documented as of this encounter Last Filed Vital Signs Vital Sign Reading Time Taken Comments Blood Pressure 118/80 01/05/2006 12:34 PM CDT Pulse 97 01/05/2006 12:34 PM CDT Temperature 38.3 ??C (100.9 ??F) 01/05/2006 12:34 PM CDT C: 38.3 C Respiratory Rate 18 01/05/2006 12:34 PM CDT Oxygen Saturation - - Inhaled Oxygen Concentration - - Weight - - Height - - Body Mass Index - - documented in this encounter Progress Notes Sameer Strickland MD - 01/05/2006 12:01 AM CDT Progress Notes signed by Sameer Strickland MD at 02/18/06 3922 Author: Sameer Strickland MD Service: (none) Author Type: Physician Filed: 10/13/10 1305 Note Time: 01/05/06 0001 Status: Signed Claims Sorter: Sameer Strickland MD (Physician) NAME: RENE KATZ MR: [id number] ACCT: [id number] VISIT: [id number] DICTATING CLINICIAN: Sameer Strickland MD JOB: [id number] CLINIC PROGRESS NOTE DATE OF VISIT: 01/05/2006 SUBJECTIVE: A 25-year-old male comes to the clinic because of sore throat ongoing for about 5 days. Seems to be getting worse. He has also had nasal congestion with fever. Denies any cough, history of respiratory diseases. He is a nonsmoker. He feels like he is wheezing at times. He has developed a rash primarily of his lower extremities, but now it is spreading to his thorax and arms and face. Does not itch, but it does hurt. Actually hurts to walk. He has diarrhea once. ADR/ALLERGIES: NONE. OBJECTIVE: VS: BP: 118/80. T: 101.0. P: 97. R: 18. He appears well. No acute distress however, there are erythematous tender nodules over his pretibial area and lower extremities. There is also some pustules of his chest ?. Oropharynx is slightly inflamed. Rapid strep test is negative. [place] test is positive. WBC 14.7, HGB 14.1, PLT 166. ASSESSMENT: Erythema nodosum. Folliculitis. Mononucleosis. PLAN: Rx begin prednisone 60 mg daily for 5 days. Also prescribed cephalexin 500 mg 4 times a day for 10 days. Case was reviewed and discussed with Dr. Gonzalez and Dr. GISELA Raphael. LIVIA:[id number] C: 01/07/06 11:35 DOCUMENT: [id number] documented in this encounter Plan of Treatment Not on filedocumented as of this encounter Visit Diagnoses Not on filedocumented in this encounter Care Teams Heating And Blending Supervisor Relationship Specialty Start Date End Date Unassigned, Provider PCP - General 08/12/[address] [place] [address] documented as of this encounter
--- OUTSIDE RECORDS SUMMARY | 2022-05-30 13:43 | XMS_ITS | Encounter Summary ---
:1980 Author Organization [facility] Address [address] [address] Care Team Providers Name Role Phone Unassigned, Provider Primary Care Provider Unavailable Reason for Visit Reason Onset Date Comments APPOINTMENT REQUEST 09/20/2016 for Saturday pin/wound check Encounter Details Date Type Department Care Team Description 09/20/2016 Telephone [facility] Ben Camacho MD APPOINTMENT REQUEST [facility]ENTER [address] [place] [address] (for Saturday pin/wound [address] [place] [address] check) [place], [place] [address] [phone] (Wo rk) Social History Tobacco Use Types Packs/Day Years Used Date Smoking Tobacco: Never Alcohol Use Standard Drinks/Week Comments Yes 3 (1 standard drink = 0.6 oz pure alcoho l) Sex Assigned at Date Recorded Not on file documented as of this encounter Nursing Notes Eunice Mosley RN - 09/20/2016 2:13 PM CDT , Pat, called to schedule. Scheduled for 10:30 Saturday with Maria Isabel for pin check. Maria Isabel Martinez RN - 09/20/2016 8:42 AM CDT Per appointment request for Saturday AM for pin check and wound check. Called patient to schedule appointment with [facility]. Left message for patient to call back to schedule. documented in this encounter Plan of Treatment Not on filedocumented as of this encounter Visit Diagnoses Not on filedocumented in this encounter Care Teams Pulley Worker Relationship Specialty Start Date End Date Unassigned, Provider PCP - General 08/12/[address] [place] [address] documented as of this encounter
--- OUTSIDE RECORDS SUMMARY | 2022-05-30 13:43 | XMS_ITS | Encounter Summary ---
:1980 Author Organization [facility] Address [address] [address] Care Team Providers Name Role Phone Unassigned, Provider Primary Care Provider Unavailable Encounter Details Date Type Department Care Team Description 01/05/2006 PN Conversion Only [place] [facility] N Sameer Strickland, [address] [place] [address] [place], [place] [address] (Wo rk) Social History Tobacco Use Types Packs/Day Years Used Date Smoking Tobacco: Never Assessed Sex Assigned at Date Recorded Not on file documented as of this encounter Plan of Treatment Not on filedocumented as of this encounter Procedures Procedure Name Priority Date/Time Associated Comments Diagnosis STREP GROUP A ANTIGEN Routine 01/05/2006 2:42 PM Results for this TEST CDT procedure are i n the results section. BETA STREP FOLLOWUP Routine 01/05/2006 2:42 PM Re sults for this CDT procedure are i n the results section. MONONUCLEOSIS SCREEN Routine 01/05/2006 1:08 PM R esults for this CDT procedure are i n the results section. DIFFERENTIAL RULE Routine 01/05/2006 1:08 PM Resu lts for this MANUAL CDT procedure are i n the results section. COMPLETE BLOOD Routine 01/05/2006 1:08 PM Results for this COUNT-W/DIFF CDT procedure are i n the results section. ESR Routine 01/05/2006 1:08 PM Results f or this CDT procedure are i n the results section. documented in this encounter Results Strep Group A Antigen Test (01/05/2006 2:42 PM CDT) Analysis Performed At Patho logist Time Signature Strep Group A Negative Negative HP CONVERSION Antigen Test Comment: Culture to follow. Specimen (Source) Anatomical Collection Method Collection Time Re ceived Time Location / / Volume Laterality 01/05/2006 2:42 PM CDT Sameer Strickland MD LAB_1 Performing Organization Address [facility] Phon e Number HP CONVERSION Beta Strep Followup (01/05/2006 2:42 PM CDT) P athologist Signature Strep Screen SEE TEXT HP CONVERSION Comment: Patient: RENE KATZ Rapid Strep Follow up Culture @ ? Collected: ??[id number] ??[id number] Source: Throat ?Processed: ??[id number] ??[id number] ? 1V Final Report ------ ?[id number] ??[id number] No beta hemolytic Strep group A isolated . @ = Rapid F/U Cult Performed at [address] [place], [place] ?[address] Specimen (Source) Anatomical Collection Method Collection Time Re ceived Time Location / / Volume Laterality 01/05/2006 2:42 PM CDT Sameer Strickland MD LAB_1 Performing Organization Address [facility] Phon e Number HP CONVERSION (ABNORMAL) Mononucleosis Screen (01/05/2006 1:08 PM CDT) [facility] Method Time Signature Infectious Positive Negative HP CONVERSION Mononucleosis (A) Screen Specimen (Source) Anatomical Collection Method Collection Time Re ceived Time Location / / Volume Laterality 01/05/2006 1:08 PM CDT Sameer Strickland MD LAB_1 Performing Organization Address [facility] Phon e Number HP CONVERSION (ABNORMAL) Complete Blood Count-W/Diff (01/05/2006 1:08 PM CDT) [facility] Method Time Signature White Blood Cell 14.7 (H) 3.8 - 11.0 [facility] CONVERSIO N Count K/cmm Red Blood Cell 4.54 4.20 - HP CONVERSION Count 5.90 m/cmm Hemoglobin 14.1 13.4 - HP CONVERSION 17.5 gm/dL Hematocrit 39.5 39.0 - HP CONVERSION 51.0 % Mean Corpuscular 87.0 80.0 - HP CONVERSION Volume 100.0 fl Mean Corpuscular 31.1 27.0 - HP CONVERSION Hemoglobin 34.0 pg Mean Corpuscular 35.7 32.0 - HP CONVERSION Hemoglobin Conc 36.5 gm/dL [place] RDW 12.4 11.0 - HP CONVERSION 15.0 % Platelet Count 166 140 - 450 HP CONVERSION k/cmm Differential Manl Dif No normal HP CONVERSION Verify range Specimen (Source) Anatomical Collection Method Collection Time Re ceived Time Location / / Volume Laterality 01/05/2006 1:08 PM CDT Sameer Strickland MD LAB_1 Performing Organization Address [facility] Phon e Number HP CONVERSION ESR (01/05/2006 1:08 PM CDT) [facility] Method Time Signature Sedimentation Rate 10 0 - 15 HP CONVERSI ON mm/Hr Specimen (Source) Anatomical Collection Method Collection Time Re ceived Time Location / / Volume Laterality 01/05/2006 1:08 PM CDT Sameer Strickland MD LAB_1 Performing Organization Address [facility] Phon e Number HP CONVERSION (ABNORMAL) Differential Rule Manual (01/05/2006 1:08 PM CDT) [facility] Method Time Signature Neutrophils 24 (L) 50 - 70 % HP CONVERSION Lymphocytes 71 20 - 40 % HP CONVERSION Monocyte 5 5 - 14 % HP CONVERSION Platelet Normal No normal HP CONVERSION Estimate range RBC Morphology Normal No normal HP CONVERSION range Comment: RBC's appear normochromic and n ormocytic. Specimen (Source) Anatomical Collection Method Collection Time Re ceived Time Location / / Volume Laterality 01/05/2006 1:08 PM CDT Sameer Strickland MD LAB_1 Performing Organization Address City/State/ZIP Code Phon e Number HP CONVERSION documented in this encounter Visit Diagnoses Not on filedocumented in this encounter Care Teams Criminology Professor Relationship Specialty Start Date End Date Unassigned, Provider PCP - General 08/12/[address] [place] [address] documented as of this encounter
--- OUTSIDE RECORDS SUMMARY | 2022-05-30 13:43 | XMS_ITS | Encounter Summary ---
:1980 Author Organization [facility] Address [address], [place] [address] Care Team Providers Name Role Phone Unassigned, Provider Primary Care Provider Unavailable Reason for Visit Procedure/Equipment (Routine) - Incomplete Specialty Diagnoses / Procedures Referred By Contact Refer red To Contact Procedures Alfa Jones MD Foreign Image(S) XR [address] [place]rem[place], [place] [address] Referral ID Status Reason Start Date Expiration Date Visits V isits Requested Authorized [id number] Incomplete 09/10/2016 12/10/2017 1 1 Encounter Details Date Type Department Care Team Description 09/09/2016 Imaging [id number] RADIOLOGY CENTRAL FILM Alfa Man MD LIBRARY [address] [facility] [place] [address] [place] [address] Social History Tobacco Use Types Packs/Day Years Used Date Smoking Tobacco: Never Sex Assigned at Date Recorded Not on file documented as of this encounter Plan of Treatment Not on filedocumented as of this encounter Procedures Procedure Name Priority Date/Time Associated Diagnosis Comme nts FOREIGN IMAGE(S) XR Routine 09/09/2016 12:00 AM R esults for this EXTREMITY LT CDT procedure are i n the results section. documented in this encounter Results Foreign Image(S) XR Extremity Lt (09/09/2016 12:00 AM CDT) Specimen (Source) Anatomical Location Collection Method / Collectio n Time Received Time / Laterality Volume Narrative PN POCT - 09/10/2016 10:37 AM CDT These outside images have been uploaded into PACS. If the results were provided, they will be located on the Me aracelis tab in the patient's chart. Alfa Jones MD RAD NON-REPORTABLES Performing Organization Address City/State/ZIP Code Phon e Number POCT PN POCT documented in this encounter Visit Diagnoses Not on filedocumented in this encounter Care Teams Ointment Mill Tender Relationship Specialty Start Date End Date Unassigned, Provider PCP - General 08/12/[address] [place] [address] documented as of this encounter
--- OUTSIDE RECORDS SUMMARY | 2022-05-30 13:43 | XMS_ITS | Encounter Summary ---
:1980 Author Organization [facility] Address [address] [address] Care Team Providers Name Role Phone Unassigned, Provider Primary Care Provider Unavailable Encounter Details Date Type Department Care Team Description 10/24/2010 PN Conversion Only CONVERSION CONVERSION Charles Brown MD [facility] [address] [place] [address] Social History Tobacco Use Types Packs/Day Years Used Date Smoking Tobacco: Never Assessed Sex Assigned at Date Recorded Not on file documented as of this encounter Plan of Treatment Not on filedocumented as of this encounter Visit Diagnoses Not on filedocumented in this encounter Care Teams Customs Port Director Relationship Specialty Start Date End Date Unassigned, Provider PCP - General 08/12/[address] [place] [address] documented as of this encounter
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
--- OUTSIDE RECORDS SUMMARY | 2022-05-30 13:43 | XMS_ITS | Encounter Summary ---
:1980 Author Organization [facility] Address [address], [place] [address] Care Team Providers Name Role Phone Unassigned, Provider Primary Care Provider Unavailable Encounter Details Date Type Department Care Team Description 01/05/2006 PN Conversion Only [place] [address] [address] [place] [address] Social History Tobacco Use Types Packs/Day Years Used Date Smoking Tobacco: Never Assessed Sex Assigned at Date Recorded Not on file documented as of this encounter Plan of Treatment Not on filedocumented as of this encounter Visit Diagnoses Not on filedocumented in this encounter Care Teams Academic Support Specialist Relationship Specialty Start Date End Date Unassigned, Provider PCP - General 08/12/[address] [place] [address] documented as of this encounter
--- OUTSIDE RECORDS SUMMARY | 2022-05-30 13:43 | XMS_ITS | Encounter Summary ---
:1980 Author Organization [facility] Address [address] [place] [address] Care Team Providers Name Role Phone Unassigned, Provider Primary Care Provider Unavailable Reason for Visit Reason Comments Post Op Exam Pin check Encounter Details Date Type Department Care Team Description 09/24/2016 Office Visit [facility] Nurse, Tria Postop check (Primary [address] [facility] [address] Ortho Ump Lorenza Dx) [place], [place] [address] Social History Tobacco Use Types Packs/Day Years Used Date Smoking Tobacco: Never Alcohol Use Standard Drinks/Week Comments Yes 3 (1 standard drink = 0.6 oz pure alcoho l) Sex Assigned at Date Recorded Not on file documented as of this encounter Progress Notes Maria Isabel Martinez RN - 09/24/2016 12:09 PM CDT Patient presents for pin check. He had a Left TMT joint ORIF by on 09-19-16. The dressings were removed. Skin washed and inspected. Pin cares done, and felt replaced. Incisions show healing. Two pins clean and appear to be in good position. No sign of infection. CMS good. Redness disappearing. Some swelling noted in the toes. Dressings applied. Instruction on the boot. Continues to be NWB. Extended the house arrest to 10 days. Instructed on the signs and symptoms of DVT. Patient will call for questions or concerns. documented in this encounter Plan of Treatment Not on filedocumented as of this encounter Visit Diagnoses Diagnosis Postop check - Primary Follow-up examination, following unspeci fied surgery documented in this encounter Care Teams Gaming Commissioner Relationship Specialty Start Date End Date Unassigned, Provider PCP - General 08/12/[address] [place] [address] documented as of this encounter
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
--- OUTSIDE RECORDS SUMMARY | 2022-05-30 13:43 | XMS_ITS | Encounter Summary ---
:1980 Author Organization [facility] Address [address] [address] Care Team Providers Name Role Phone Unassigned, Provider Primary Care Provider Unavailable Reason for Visit Procedure/Equipment (Routine) - Incomplete Specialty Diagnoses / Procedures Referred By Contact Refer red To Contact Diagnoses Left foot pain Alfa Jones MD Procedures XR Foot Lt 2 Views [address] [facility] [address] [place] [address] Referral ID Status Reason Start Date Expiration Date Visits V isits Requested Authorized [id number] Incomplete 09/10/2016 12/10/2017 1 1 Encounter Details Date Type Department Care Team Description 09/10/2016 Imaging [facility] Radiology Alfa Jones MD Left foot pain [address] [facility] [place] [address] [place] [address] [phone] (Wo rk) Social History Tobacco Use Types Packs/Day Years Used Date Smoking Tobacco: Never Sex Assigned at Date Recorded Not on file documented as of this encounter Plan of Treatment Not on filedocumented as of this encounter Procedures Procedure Name Priority Date/Time Associated Diagnosis Comme nts XR FOOT LT 2 VIEWS Routine 09/10/2016 11:05 AM Left foot pain Results for this CDT procedure are i n the results section. documented in this encounter Results XR Foot Lt 2 Views (09/10/2016 11:05 AM CDT) Anatomical Region Laterality Modality Lower Extremity, Foot, Foot & Ankle Digi steve Radiography Specimen (Source) Anatomical Location Collection Method / Collectio n Time Received Time / Laterality Volume Narrative 09/10/2016 1:31 PM CDT Left foot x-ray 2 views. Indication: Pain. Result: There is an oblique fracture at the base of the 4th metatarsal with no significant displacement. Howeve r, there it a large gap at the 4th TMT joint raising concern for joint inco ngruity. Alfa Jones MD RAD GD documented in this encounter Visit Diagnoses Diagnosis Left foot pain Pain in limb documented in this encounter Care Teams Mattress Filling Machine Tender Relationship Specialty Start Date End Date Unassigned, Provider PCP - General 08/12/[address] [place] [phone] documented as of this encounter
--- OUTSIDE RECORDS SUMMARY | 2022-05-30 13:43 | XMS_ITS | Encounter Summary ---
:1980 Author Organization [facility] Address [address] [place] [address] Care Team Providers Name Role Phone Unassigned, Provider Primary Care Provider Unavailable Encounter Details Date Type Department Care Team Description 09/19/2016 Anesthesia Event [facility] S [facility] Joanne Aguilar MD [address] [place], [place] [address] 8100 [facility] Layo Swanson MD [address] [place] [address] [place], [place] [address] Anesthesia Record Procedure Summary Procedure Name Responsible Anesthesia Start Anesthesia Stop Time Anesthesiologist Time LEFT foot open Joanne Aguilar MD 09/19/16 1449 1612 reduction internal fixation (Left: Foot) Events Date Time Event Comment 09/19/2016 1429 IV plmt PATRIA Marcial RN, ELECTRICIAN LOCOMOTIVE 1433 IV Plmt Comp IV was placed in Preop area by Sonja Hilario APRN, ELECTRICIAN LOCOMOTIVE for adminis tration of IV fluids, IV antibiotics, and IV pre-op sedation. Patient was continuously mon itored by Sonaj Hilario APRN, JERMAINE during the place ment. 1449 1449 An Start 1457 An Start Data 1459 MD/DO Present 1500 An Induction 1501 An LMA 1554 MD/DO Present 1607 An LMA Removed Spontaneous resp irations with adequate air exchange. LMA re moved without complications. Transported with oxygen to recovery. 1607 An Oxygen Mask Spontaneous res pirations with adequate air exchange. 1607 MD/DO Present 1607 an stop data 1612 An Stop Care transferred . 1612 Care Handoff Note I discussed wi th [...] understanding of report Electr onically signed by Fred Aaron APRN, CRNA Name Total midazolam 2 mg/2 mL injection (aka VERSED) 2 mg FENTanyl injection (aka SUBLIMAZE) 2 mL lidocaine 2% PF injection aka (XYLOCAINE) 60 mg propofol 10 mg/mL for procedural sedation (aka diPRIva n) 300 mg propofol 10 mg/mL (aka diPRIvan) 678.59 mg ondansetron injection (aka ZOFRAN) 4 mg ceFAZolin (aka ANCEF) 2 g in dextrose 100 ml IVPB 2 g lactated ringer infusion 1,300 mL Agents Name O2 N2O Blood No blood administrations on file. Lines, Drains, and Airways Type Details Placement Removal LMA Induction Type: Pre-O2, 09/19/16 1509 by 7 1607 by IV; Size (mm): 5; Ricardo Aaron Difficulty: Atraumatic; CICI Juarez CRNA Removal Date: 09/19/16; Removal Time: 1607; Transferred with Oxygen: Yes Incision/Surgical Site 09/19/16; 1510; Foot; 09/19/16 1510 by 1733 by Left; 09/19/16; [address] Mueller, Amy L RN Peripheral IV Placement Date: 09/19/16 1530 by 09/19/16 1733 b y 09/19/16; Placement Sonja Hilario APRN, Mueller, Amy L Time: 1530; ELECTRICIAN LOCOMOTIVE Pre-existing: No; Inserted by?: ELECTRICIAN LOCOMOTIVE; Size (Gauge): 20 G; Orientation: Right; Site Prep: Alcohol; Local Anesthetic: Injectable, Lidocaine 1%; Insertion attempts: 2; Blood draw with insertion?: no; Patient Tolerance: Tolerated well; Met Standard Sterile Barrier Technique: Met Standard Sterile Barrier Technique; Removal Date: 09/19/16; Removal Time: 173 documented in this encounter Social History Tobacco Use Types Packs/Day Years Used Date Smoking Tobacco: Never Alcohol Use Standard Drinks/Week Comments Yes 3 (1 standard drink = 0.6 oz pure alcoho l) Sex Assigned at Date Recorded Not on file documented as of this encounter Miscellaneous Notes Anesthesia Postprocedure Evaluation - Joanne Aguilar MD - 09/19/2016 5:14 PM CDT [facility] Anesthesia Post-op Note Patient: Bhavik Jeffery Post-Op Diagnosis: Foot pain, left Procedure Performed: Procedure(s): LEFT foot open reduction internal fixation Anesthesia Type: General Post-op vital signs: BP 122/79 mmHg Pulse 54 Temp(Src) 96.5 ??F (35.8 ??C) (Tympanic) Resp 16 Ht 6' 1 Wt 110.678 kg (244 lb) BMI 32.20 kg/m2 SpO2 100% Pain Score: Presence Of Pain: complains of pain/discomfort Preferred Pain Scale: number (Numeric Rating Pain Scale) Pain Rating (0-10): Rest: 4 Post-op assessment: No anesthesia complication. Patient location: PACU Airway Status: Patent Cardiovascular function: Satisfactory Hydration status: Satisfactory PONV: None Level of Consciousness: Awake Fully Participates Postop Assessment: Patient tolerated procedure well. Electronically signed by: Joanne Aguilar MD 09/19/2016 5:14 PM Anesthesia Procedure Notes - Joanne Aguilar MD - 09/19/2016 2:45 PM CDT Associated Order(s): TRIA PERIPHERAL BLOCK Peripheral Block Patient Location: Pre-op Start time: 09/19/2016 2:39 PM End time: 09/19/2016 2:43 PM Procedure Type: Popliteal and Sciatic Anesthesiologist:JOANNE AGUILAR Timeout: Correct Position: yes Correct Site: yes Correct Laterality:yes Correct Patient: yes Correct Procedure:yes Correct Site Marked:yes post-operative analgesia only risks and benefits discussed patient agrees to proceed IV checked site marked anesthesia consent monitors and equipment checked patient identified surgical consent pre-op evaluation timeout performed at surgeon's request Local Anesthetics: Ropivacaine 0.5 % Total Volume (ml): 25 Peripheral Nerve Block: Patient Position: supine Sterile Prep:Betadine, Mask and Sterile gloves Monitoring:EKG, continuous pulse oximetry and blood pressure monitoring Procedures:ultrasound guided and nerve stimulator Laterality: left Ultrasound used for needle placement Artery and Nerve Bundle Identified Needle advanced and seen in good position Hydrodistention seen Permanent image stored]Needle:insulated Needle Gauge:21 G Needle Length:4 in Bolus Via:needle Bolus given as slow fractionated injection:Yes Blood aspirated:No Paresthesias: No Bleeding at site:No Complications: none Attestations:I personally performed the procedure. Anesthesia Preprocedure Evaluation - Joanne Aguilar MD - 09/19/2016 2:33 PM CDT [facility]A Anesthesia Pre-op Evaluation Procedure: Procedure(s): LEFT foot open reduction internal fixation HPI: 36 y.o. old male with Foot pain, left NPO Status: Last Fluid Intake Time: 1100 Last Fluid Intake Date: 09/19/16 Last Food Intake Date: 09/18/16 Last Food Intake Time: 1999 No Known Allergies Past Medical History Diagnosis Date ??? 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 Mental disorder (HRC) attention deficit disorder There is no problem list on file for this patient. Past Surgical History Procedure Laterality Date ??? Tonsillectomy ??? Vasectomy ??? Eye surgery Bilateral lasik Outpatient Prescriptions Marked as Taking for the 09/19/16 encounter (Hospital Encounter) Medication Sig Dispense Refill ??? amphetamine-dextroamphetamine (ADDERALL) 20 MG tablet Take 1 tablet by mouth every morning. SCOTT Comment:by dr.lutzwick CHAVEZ Addl Instr:Indicated for: Attention Deficit Disorder ??? [...] 100 ml IVPB 2 g Intravenous Once ??? diphenhydrAMINE (BENADRYL) injection 25 mg 25 mg Intravenous ONCE PRN ??? fentaNYL (SUBLIMAZE) injection 25-50 mcg 25-50 mcg Intravenous Q5MIN PRN ??? hydrALAZINE (APRESOLINE) injection 5 mg 5 mg Intravenous PRN ??? HYDROmorphone injectable 0.2-0.4 mg 0.2-0.4 mg Intravenous Q10MIN PRN ??? hydrOXYzine HCl (VISTARIL) injection 25 mg 25 mg Intramuscular ONCE PRN ??? labetalol (NORMODYNE) injection 5 mg 5 mg Intravenous Q10MIN PRN ??? meperidine (DEMEROL) injection 12.5 mg 12.5 mg Intravenous Q5MIN PRN ??? midazolam (VERSED) injection 0.5-1 mg 0.5-1 mg Intravenous Q5MIN PRN ??? morphine injectable 1-3 mg 1-3 mg Intravenous Q5MIN PRN ??? nalOXone (NARCAN) injection 0.08 mg 0.08 mg Intravenous PRN ??? ondansetron (ZOFRAN) injection 4 mg 4 mg Intravenous Q4H PRN ??? prochlorperazine (COMPAZINE) injection 5 mg 5 mg Intravenous PRN Labs: No results found for: SODIUM, K, CHLORIDE, CO2, BUN, CREATININE, GLUCOSE Lab Results Component Value Date/Time WHITE BLOOD CELL COUNT 14.7* 01/05/2006 01:08 PM HEMOGLOBIN 14.1 01/05/2006 01:08 PM HEMATOCRIT 39.5 01/05/2006 01:08 PM PLATELET COUNT 166 01/05/2006 01:08 PM No results found for: INR No results found for: HCGQUANT Urine : Urine : Blood Bank: No results found for: ABORH, ABSCR EKG: No results found for this or any previous visit. Physical Exam: BP 146/81 mmHg Pulse 84 Temp(Src) 98.7 ??F (37.1 ??C) (Tympanic) Resp 16 Ht 6' 1 Wt 110.678 kg (244 lb) BMI 32.20 kg/m2 SpO2 97% Assessment/Plan: Review of Systems Patient does not [...] Extension: Full Neck Circumference > 40 cm?: no neck circumference greater than 40 cm Current airway assessment:Normal Dentition: Normal. Cardiac Exam: Regular rate and rhythm. Respiratory Exam: Breath sounds clear to auscultation Assessment ASA Status: 1 . Plan Anesthesia type: General, LMA and Peripheral Nerve Block for Post- op Pain at Surgeon request Induction: Intravenous and PropofolMaintenance: TIVA Postoperative pain management (PONV): Peripheral Nerve Block for Postop Analgesia at Surgeon's request PONV Risk Score Peds:0 PONV Risk Score Adult: 1 PONV Prophylaxis (planned):Ondansetron Anesthetic plan, risks, benefits and alternatives discussed with: Patient H&P Reviewed and Patient examined, no change observed IV access Antibiotics per surgery Electronically signed by: Joanne Aguilar MD 09/19/2016 2:33 PM documented in this encounter Plan of Treatment Not on filedocumented as of this encounter Procedures Procedure Name Priority Date/Time Associated Comments Diagnosis [facility] PERIPHERAL Routine 09/19/2016 2:46 PM Result s for this BLOCK CDT procedure are i n the results section. documented in this encounter Results Tria Peripheral Block (09/19/2016 2:46 PM CDT) Narrative EXTERNAL RESULTS - 09/19/2016 2:46 PM CD T Joanne Aguilar MD ? 09/19/2016 ??2:46 PM Peripheral Block Patient Location: Pre-op Start time: 09/19/2016 2:39 PM End time: 09/19/2016 2:43 PM Procedure Type: Popliteal and Sciatic Anesthesiologist:JOANNE AGUILAR Timeout: Correct Position: yes Correct Site: yes Correct Laterality:yes Correct Patient: yes Correct Procedure:yes Correct Site Marked:yes post-operative analgesia only risks and benefits discussed patient agrees to proceed IV checked site marked anesthesia consent monitors and equipment checked patient identified surgical consent pre-op evaluation timeout performed at surgeon's request Local Anesthetics: Ropivacaine 0.5 % Total Volume (ml): 25 Peripheral Nerve Block: Patient Position: supine Sterile Prep:Betadine, Mask and Sterile gloves Monitoring:EKG, continuous pulse oximetr y and blood pressure monitoring Procedures:ultrasound guided and nerve s timulator Laterality: left Ultrasound used for needle placement Artery and Nerve Bundle Identified Needle advanced and seen in good positio n Hydrodistention seen Permanent image stored]Needle:insulated Needle Gauge:21 G Needle Length:4 in Bolus Via:needle Bolus given as slow fractionated injecti on:Yes Blood aspirated:No Paresthesias: No Bleeding at site:No Complications: none Attestations:I personally performed the procedure. Joanne Aguilar MD ANESTHESIA/AR Performing Organization Address City/State/ZIP Code Phon e Number EXTERNAL RESULTS documented in this encounter Visit Diagnoses Not on filedocumented in this encounter Administered Medications Inactive Administered Medications - up to 3 most recent administrations Medication Order MAR Action Action Date Dose Rate Site ceFAZolin (aka ANCEF) 2 g in Given 09/19/2016 2:57 PM CDT 2 g dextrose 100 ml IVPB 2 g, Intravenous, Administer over 30 Minutes, ONCE, On Sat09/19/16 at 1445, For 1 dose, Infuse within 60 minutes prior to incision; Re-dose 1 gram IV every 4 hours after initial dose until incision closed., Pre-op fentaNYL (SUBLIMAZE) injection Given 09/19/2016 2:59 PM CDT 2 mL Starting on Sat09/19/16 at 1459 lactated ringers infusion Started 09/19/2016 3:15 PM CDT Starting on Sat09/19/16 at 1449 Started 09/19/2016 2:49 PM CDT lidocaine 2% PF (XYLOCAINE) injection Given 09/19/2016 3:00 PM CDT 60 mg Starting on Sat09/19/16 at 1500, Until 3/29/17 at 1612 midazolam (aka VERSED) injection Given 09/19/2016 2:59 PM CDT 2 mg Starting on Sat09/19/16 at 1459 ondansetron (ZOFRAN) injection Given 09/19/2016 3:23 PM CDT 4 mg Starting on Sat09/19/16 at 1523, Until Sat09/19/16 at 1612 propofol (aka diPRIvan) injection Given 09/19/2016 3:15 PM CDT 50 mg Starting on Sat09/19/16 at 1512 Given 09/19/2016 3:12 PM CDT 50 mg Given 09/19/2016 3:00 PM CDT 200 mg propofol (aka diPRIvan) Rate/Dose 09/19/2016 3:25 140 mcg/kg/min 92. 99 mL/hr injection Change PM CDT Starting on Sat09/19/16 at 1500 Rate/Dose Change 09/19/2016 3:15 PM CDT 150 mcg/kg/min 99.63 mL/hr Rate/Dose Change 09/19/2016 3:12 PM CDT 130 mcg/kg/min 86.35 mL/hr documented in this encounter Care Teams Spool Cleaner Relationship Specialty Start Date End Date Unassigned, Provider PCP - General 08/12/[address] [place] [id number] documented as of this encounter
--- OUTSIDE RECORDS SUMMARY | 2022-05-30 13:43 | XMS_ITS | Encounter Summary ---
:1980 Author Organization [facility] Address [address], [place] [address] Care Team Providers Name Role Phone Unassigned, Provider Primary Care Provider Unavailable Encounter Details Date Type Department Care Team Description 01/12/2006 Office Visit [facility] [place] [address] [place] [address] Social History Tobacco Use Types Packs/Day Years Used Date Smoking Tobacco: Never Assessed Sex Assigned at Date Recorded Not on file documented as of this encounter Last Filed Vital Signs Vital Sign Reading Time Taken Comments Blood Pressure 130/80 01/12/2006 1:11 PM CDT Pulse 82 01/12/2006 1:11 PM CDT Temperature 37.1 ??C (98.8 ??F) 01/12/2006 1:11 PM ORAL C: 3 7.1 C CDT Respiratory Rate 20 01/12/2006 1:11 PM CDT Oxygen Saturation - - Inhaled Oxygen Concentration - - Weight - - Height - - Body Mass Index - - documented in this encounter Progress Notes Pinky Presley MD - 01/12/2006 12:01 AM CDT Progress Notes signed by Pinky Presley MD at 01/18/06 1503 Author: Pinky Presley MD Service: (none) Author Type: Physician Filed: 10/13/10 1313 Note Time: 01/12/06 0001 Status: Signed Dragline Engineer: Pinky Presley MD (Physician) NAME: RENE KATZ MR: [id number] ACCT: [id number] VISIT: [id number] DICTATING CLINICIAN: PINKY PRESLEY MD JOB: [id number] CLINIC PROGRESS NOTE DATE OF VISIT: 01/12/2006 SUBJECTIVE: This 25-year-old male was diagnosed with mono in urgent care on 01/05. Apparently at that time he also had 2 kinds of skin lesions, 1 on his bilateral lower legs which was diagnosed as erythema nodosum, and the other rash was diagnosed as folliculitis which was in his upper chest and scalp area. He was started on prednisone for 5 days 60 mg, and also was started on Keflex. He still continues taking Keflex. He feels that the lesions on his lower legs improved some after taking prednisone, but now after stopping it he has noticed a flareup of those symptoms. These are raised indurated areas on the lower legs. Denies any fevers. He feels that his sore throat is improving. Denies any cough. No history of erythema nodosum in the past. PAST MEDICAL HISTORY: Healthy. MEDICATIONS: Reviewed in [employer]. ADR/ALLERGIES: PER [employer]. OBJECTIVE: VS: BP: 130/80. T: Afebrile. P: 82. R: 20. Patient looking great. Does not look sick at all. Throat shows minimal erythema, but no exudate. NECK: Supple. No lymph node palpable. LUNGS: Clear. CARDIOVASCULAR: Regular rhythm and rate. Normal S1 and S2. SKIN: Chest shows kind of folliculitis type lesions which are in the state of healing. He does have a few indurated, raised mildly tender areas on his lower legs. These have a little purplish discoloration. ASSESSMENT: 1. Recent diagnosis of mononucleosis-seems to be improving. 2. Erythema nodosum on legs. 3. Folliculitis--seems to be improving. PLAN: Not sure of the exact cause of erythema nodosum and the relation of it with his mono. Prefer to do a chest x-ray on him and this was ordered and read by me as normal, although right hilum seems to be a little prominent. Patient was started again on a tapered dose of prednisone starting 40 mg for 3 days, tapering 10 mg each 3 days, down to 5 mg. He was advised strongly to get a follow up with his primary MD early next week for evaluation of the skin lesions on his legs. Recheck if any acute worsening, fevers, or other symptoms. [id number] C: 01/13/06 19:07 DOCUMENT: [id number] documented in this encounter Plan of Treatment Not on filedocumented as of this encounter Procedures Procedure Name Priority Date/Time Associated Diagnosis Comme nts XR CHEST 2 VIEWS Routine 01/12/2006 1:54 PM Resul ts for this CDT procedure are i n the results section. documented in this encounter Results XR Chest 2 Views (01/12/2006 1:54 PM CDT) Anatomical Region Laterality Modality Chest, Lung Other Specimen (Source) Anatomical Location Collection Method / Collectio n Time Received Time / Laterality Volume Narrative 01/12/2006 1:54 PM CDT Moderate inspiration on the PA view accentuates the cardiopulmonary and hilar structures. ??No definite acut e or active process is seen. [facility]/ [id number] Dictating THELMA NEGRO RADIOLOGIST Procedure Note Thelma Marion - 08/24/2016 Moderate inspiration on the PA view acce ntuates the cardiopulmonary and hilar structures. No definite acute or active process is seen. [facility]/ [id number] Dictating THELMA NEGRO RADIOLOGIST Pinky Presley MD RAD GD documented in this encounter Visit Diagnoses Not on filedocumented in this encounter Care Teams Shellacker Relationship Specialty Start Date End Date Unassigned, Provider PCP - General 08/12/[address] [place] [id number] documented as of this encounter
--- OUTSIDE RECORDS SUMMARY | 2022-05-30 13:43 | XMS_ITS | Encounter Summary ---
:1980 Author Organization [facility] Address [address], [place] [address] Care Team Providers Name Role Phone Unassigned, Provider Primary Care Provider Unavailable Encounter Details Date Type Department Care Team Description 09/18/2016 Notes/Orders [facility] Ben Ortiz MD [address] [place] [address] [place], [place] [address] [place] [address] [phone] (Wo rk) Social History Tobacco Use Types Packs/Day Years Used Date Smoking Tobacco: Never Alcohol Use Standard Drinks/Week Comments Yes 3 (1 standard drink = 0.6 oz pure alcoho l) Sex Assigned at Date Recorded Not on file documented as of this encounter Progress Notes Maria Isabel Martinez RN - 09/18/2016 9:17 AM CDT Received the e-mail of Photos from this am of the foot, as ordered by . The color is less red. No redness outside of the marked area. Patient report consistent pain. No fevers noted. Will email with assessment of the photos. Patient was called. Surgery will remain for tomorrow, unless unexpected event outlined to patient. Instructed patient to call for questions. Sonia was notified of photos result. She will keep him on the surgery schedule as ordered by Dr. Camacho's discussion on Saturday. documented in this encounter Plan of Treatment Not on filedocumented as of this encounter Visit Diagnoses Not on filedocumented in this encounter Care Teams Therapist Radiation Relationship Specialty Start Date End Date Unassigned, Provider PCP - General 08/12/01 [address] [place] [address] documented as of this encounter
--- OUTSIDE RECORDS SUMMARY | 2022-05-30 13:43 | XMS_ITS | Encounter Summary ---
:1980 Author Organization [facility] Address [address] [address] Care Team Providers Name Role Phone Unassigned, Provider Primary Care Provider Unavailable Reason for Visit Procedure/Equipment (Routine) - Incomplete Specialty Diagnoses / Procedures Referred By Contact Refer red To Contact Diagnoses Left foot pain Closed nondisplaced fracture of fourth metatarsal bone of left foot, initial encounter Alfa Jones MD Procedures CT Foot Lt WO IV Cont [address] [facility] [place], [place] [address] Referral ID Status Reason Start Date Expiration Date Visits V isits Requested Authorized [id number] Incomplete 09/10/2016 12/10/2017 1 1 Encounter Details Date Type Department Care Team Description 09/10/[address] [place] [address] Scan Alfa Jones MD Left foot pain; [address] [facility] Closed nondisplaced fracture of fourth m etatarsal bone of left foot, [place] [address] [place] [address] [phone] (Wo rk) Social History Tobacco Use Types Packs/Day Years Used Date Smoking Tobacco: Never Sex Assigned at Date Recorded Not on file documented as of this encounter Plan of Treatment Not on filedocumented as of this encounter Procedures Procedure Name Priority Date/Time Associated Diagnosis Comme nts CT FOOT LT WO IV Routine 09/10/2016 1:30 PM Left foot pa in Results for this CONT CDT Closed nondisplaced procedur e are in fracture of fourth the resul ts metatarsal bone of section. left foot, initial encounter documented in this encounter Results CT Foot Lt WO IV Cont (09/10/2016 1:30 PM CDT) Anatomical Region Laterality Modality Lower Extremity, Foot, Ankle, Skeletal, Foot & Ankle Computed Tomography Specimen (Source) Anatomical Collection Method Collection Time Re ceived Time Location / / Volume Laterality 09/10/2016 1:16 PM CDT Impressions 09/10/2016 2:42 PM CDT IMPRESSION: 1. Comminuted depressed intra-articular fracture of the base of the fourth metatarsal with approximately 5 mm articular step-off. Small dorsal and plantar avulsion fracture fragments of the cuboid bone in the region of the fourth tarsometatar breana joint. 2. Nondisplaced intra-articular fracture of the plantar base of the second metatarsal with buckling and mildly comminuted fracture of the medial aspect of the middle cuneiform. No obvious subluxation of the second tarsometatarsal joint. Howev er, integrity of the Lisfranc ligament cannot be ascertained. MRI would be helpful to determine the integrity of the Lisfranc ligament. 3. Nondisplaced slightly comminuted intr a-articular fracture of the base of the third metatarsal. 4. Small nondisplaced fracture of the do rsal aspect of the medial cuneiform at the first tarsometatarsal joint. Narrative 09/10/2016 2:42 PM CDT TECHNIQUE: ??Thin section axial scans were obtained through the left foot. Sagittal and coronal reconstruction was performed without contrast. COMPARISON: 09/10/2016 FINDINGS: Comminuted depressed fracture of the base of the left fourth metatarsal with intra-articular extension into the tarsometatarsal joint and slight lateral rotation of the articular base with boni roximately 5 mm articular step-off and w idening of the joint space. Nondisplaced fracture of the plantar surface of the second metatarsal base (series 7, images 66 through 75). Buckling and nondisplaced fracture of the medial aspect of the mi ddle cuneiform (series 6, images 25 through 28). No definite subluxation of the second tarsometatarsal joint. Nondisplaced oblique fracture of the medial base of the third metatarsal with intra-articula r extension into the third tarsometatarsal joint (series 6, images 32 through 36). Small nondisplaced fracture of the distal dorsal aspect of the medial cuneiform (series 6, image 20). Lateral cuneiform appears intact. Small displaced avulsion fractures arising from the dorsal lateral aspect of the cuboid bone and plantar surface of the cuboid bone (series 7, im ages 59 through 62 and images 57 through 60 respectively). No definite dislocation of the tarsometatarsal joints. Intact navicular bone. Intact talus and calcaneus. Small ossicle between the dorsal base s of the first and second metatarsals co mpatible with an os intermetatarseum. Diffuse dorsal subcutaneous edema. Procedure Note Andrey Arora MD - 09/10/2016Formatti ng of this note might be different from the original. TECHNIQUE: Thin section axial scans were obtained through the left foot. Sagittal and coronal reconstruction was performed without contrast. COMPARISON: 09/10/2016 FINDINGS: Comminuted depressed fracture of the base of the left fourth metatarsal with intra-articular extension into the tarsometatarsal joint and slight lateral rotation of the articular base with approximately 5 mm articular step-off and widening of the j oint space. Nondisplaced fracture of the plantar surface of the second metatarsal base (series 7, images 66 through 75). Buckling and nondisplaced fracture of the medial aspect of the middle cuneiform (series 6, images 2 5 through 28). No definite subluxation of the second tarsometatarsal joint. Nondisplaced oblique fracture of the medial base of the third metatarsal with intra-articular extension into the third tarsometatarsal joint (series 6, images 32 through 36). Small nondisplaced fracture of the distal dorsal aspect of the medial cuneiform (series 6, image 20). Lateral cuneiform appears intact. Small displaced avulsion fractur es arising from the dorsal lateral aspect of the cuboid bone and plantar surface of the cuboid bone (series 7, images 59 through 62 and images 57 through 60 respectively). No definite dislocation of the tarsometatar breana joints. Intact navicular bone. Intact talus and calcaneus. Small ossicle between the dorsal bases of the first and second metatarsals compatible with an os intermetatarseum. Diffuse dorsal subcutaneous edema. IMPRESSION IMPRESSION: 1. Comminuted depressed intra-articular fracture of the base of the fourth metatarsal with approximately 5 mm articular step-off. Small dorsal and plantar avulsion fracture fragments of the cuboid bone in the region of the fourth tarsometatarsal joint. 2. Nondisplaced intra-articular fracture of the plantar base of the second metatarsal with buckling and mildly comminuted fracture of the medial aspect of the middle cuneiform. No obvious subluxation of the second tarsometatarsal joint. However, integrit y of the Lisfranc ligament cannot be ascertained. MRI would be helpful to determine the integrity of the Lisfranc ligament. 3. Nondisplaced slightly comminuted intr a-articular fracture of the base of the third metatarsal. 4. Small nondisplaced fracture of the do rsal aspect of the medial cuneiform at the first tarsometatarsal joint. Alfa Jones MD RAD CT documented in this encounter Visit Diagnoses Diagnosis Left foot pain Pain in limb Closed nondisplaced fracture of fourth m etatarsal bone of left foot, initial encounter documented in this encounter Care Teams Mandrel Cleaner Relationship Specialty Start Date End Date Unassigned, Provider PCP - General 08/12/[address] [place] [address] documented as of this encounter
--- OUTSIDE RECORDS SUMMARY | 2022-05-30 13:43 | XMS_ITS | Encounter Summary ---
:1980 Author Organization [facility] Address [address], [place] [address] Care Team Providers Name Role Phone Unassigned, Provider Primary Care Provider Unavailable Reason for Referral Procedure/Equipment (Routine) - Incomplete Specialty Diagnoses / Procedures Referred By Contact Refer red To Contact Diagnoses Surgery, elective Ben Camacho MD Procedures SHAHID Fluoroscopy Up To 1 Hour [address] [facility] [place] [address] Referral ID Status Reason Start Date Expiration Date Visits V isits Requested Authorized [id number] Incomplete 09/14/2016 12/14/2017 1 1 Encounter Details Date Type Department Care Team Description 09/14/2016 Notes/Orders [facility] Ben Camacho, Surger y, elective CENTER (Primary Dx) [address] [facility] [address] [place] [address] [place] [address] [place] [phone] (Wo rk) Social History Tobacco Use Types Packs/Day Years Used Date Smoking Tobacco: Never Alcohol Use Standard Drinks/Week Comments Yes 3 (1 standard drink = 0.6 oz pure alcoho l) Sex Assigned at Date Recorded Not on file documented as of this encounter Plan of Treatment Not on filedocumented as of this encounter Results SHAHID Fluoroscopy Up To 1 Hour (09/19/2016 3:54 PM CDT) Anatomical Region Laterality Modality Computed Radiography Specimen (Source) Anatomical Location Collection Method / Collectio n Time Received Time / Laterality Volume Ben Camacho MD RAD NON-REPORTABLES documented in this encounter Visit Diagnoses Diagnosis Surgery, elective - Primary Unspecified elective surgery for purpose s other than remedying health states documented in this encounter Care Teams Manager Of Internal Audit Relationship Specialty Start Date End Date Unassigned, Provider PCP - General 08/12/[address] [place] [id number] documented as of this encounter
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
[2022-05-30 22:26] LABS: Albumin* 5.1 g/dL (3.3-5.0); Chloride* 101 mmol/L (96-114); Sodium* 139 mmol/L (135-149)
[2022-05-30 22:28] LABS: Cholesterol* 217 mg/dL (90-199); Creatinine* 0.8 mg/dL (0.5-1.5); Estimated Glomerular Filt Rate 113 ml/min
[2022-05-30 22:29] LABS: Alanine Aminotransferase* 33 U/L (4-50); Alkaline Phosphatase* 62 U/L (40-150); Aspartate Amino Transferase* 34 U/L (12-35); Bilirubin Total* 1.1 mg/dL (0.1-1.5); Blood Urea Nitrogen* 8 mg/dL (5-24); Carbon Dioxide* 30 mmol/L (20-32); Glucose* 86 mg/dL (60-115); Total Protein* 7.6 g/dL (6.0-8.3)
[2022-05-30 22:30] LABS: Calcium* 9.4 mg/dL (8.4-10.6); HDL Cholesterol* 58 mg/dL (>=40); LDL Cholesterol Calculated 134 mg/dL (<100); Triglycerides* 126 mg/dL (40-149)
[2022-05-30 22:34] LABS: C Reactive Protein* < 0.5 mg/dL (0.5-1.0)
[2022-05-30 22:56] LABS: HIV 1/2/P24 Combo Screen* Negative (Negative)
[2022-05-30 23:07] LABS: Hepatitis C Virus Antibody* Negative (Negative)
[2022-05-30 23:26] LABS: Chlamydia DNA Amplified* NOT DETECTED (No Detected); GC DNA Amplified* NOT DETECTED (No Detected)
[2022-06-01 20:49] LABS: Rheumatoid Factor 11 IU/mL (0-14)
[2022-06-02 00:35] LABS: Anti-Nuclear Ab(ANA)IgG ELISA None Detected (None Detected)
[2022-06-03 15:16] LABS: Anaplasma phagocyt PCR Not Detected; Babesia microti by PCR Not Detected; Babesia species by PCR Not Detected; Ehrlichia chaffeensis by PCR Not Detected; Ehrlichia ewingii/canis by PCR Not Detected; Ehrlichia muris-like by PCR Not Detected
== END 2022-05-30 13:21 | disposition home or self-care (01) ==
PROVIDERS: PCP Physician Assistant Medical; Visit Provider Physician Assistant Medical
DX: Z00.00 Encounter for general adult medical examination without abnormal findings (principal); M25.50 Pain in unspecified joint; Z13.6 Encounter for screening for cardiovascular disorders; Z13.29 Encounter for screening for other suspected endocrine disorder
CPT/HCPCS: 80053; 80061; 84443; 84550; 86039; 86140; 86431; 86618; 86703; 86803; 87491; 87591; 87798

== ENCOUNTER 2023-05-08 08:58 | Outpatient (CLI) | payer BC, SELFPAY | END 2023-05-08 08:59 | disposition home or self-care (01) | PROVIDERS: PCP Physician Assistant Medical; Visit Provider Physician Assistant Medical | DX: Z00.00 Encounter for general adult medical examination without abnormal findings (principal); Z13.6 Encounter for screening for cardiovascular disorders; Z13.0 Encounter for screening for diseases of the blood and blood-forming organs and certain disorders involving the immune mechanism; Z13.1 Encounter for screening for diabetes mellitus | CPT/HCPCS: 80053; 80061 ==

== ENCOUNTER 2023-11-06 11:59 | Outpatient (CLI) | payer BC, SELFPAY ==
--- OUTSIDE RECORDS SUMMARY | 2023-11-06 12:02 | XMS_ITS | Encounter Summary ---
Author Name Unknown Organization [facility] Address [address] [place] [address] Care Team Providers Care Whiting Can Worker Name Role Phone Susan Yin PA-C Primary Care Pr ovider Susan Yin PA-C Unavailable Susan Yin PA-C Unavailable Encounter Details Date Type Department Care Team (Late st Contact Info) Description 05/22/2018 MyC Medical Advice [facility] [id number] [place] [id number] Naomi Rodriguez Social History Tobacco Use Types Packs/Day Years Used Date Smoking Tobacco: Never Smokeless Tobacco: Never Alcohol Use Standard Drinks/Week Comments Yes 0 (1 standard drink = 0.6 oz pur e alcohol) 1 beer every two weeks or so PHQ-2 Answer Date Recorded PHQ-2 Score 2 04/08/2018 Sex and Gender Information Value Date Recorded Sex Assigned at Not on file Gender Identity Not on file Sexual Orientation Not on file documented as of this encounter Plan of Treatment Not on file documented as of this encounter Visit Diagnoses Not on filedocumented in this encounter Care Teams Whiting Can Worker Relationship Specialty Start Date End Date Susan Yin PA-C [address] [place] [address] PCP - General Physician Dope Edger 04/08/18 Susan Yin PA-C [address] [place] [address] PCP - Assigned PCP 04/20/18 08/26/18 Susan Yin PA-C [address] [place] [address] Assigned PCP 04/20/18 04/08/21 documented as of this encounter
--- OUTSIDE RECORDS SUMMARY | 2023-11-06 12:02 | XMS_ITS | Clinical Summary ---
Author Name Unknown Organization [facility] Address [address] [place] [address] Care Team Providers Care Administrator Name Role Phone Unassigned, Provider Primary Care Provider Unava ilable Source Comments You are receiving this document as you are listed as the primary care provider,follow-up provider, or the patient has been referred to you for consultation.This is in compliance with the Medicare and[facility] EHR Incentive Program,which states Providers who transition their patient to another setting of careor provider of care or refers their patient to another provider of care shouldprovide summary care record for each transition of care or referral. [facility] Allergies No known active allergies Medications Medication Sig Dispensed Refills Start Date End Date Status loratadine (CLARITIN) 10 MG tablet Take 1 Tablet by mouth daily as needed (Take 1 tablet by mouth daily as needed.). 90 3 01/05/2006 Active amphetamine-dextro amphetamine (ADDERALL) 20 MG tablet Take 1 Tablet (20 mg) by mouth every morning. 01/05/2006 Active fluticasone propionate (FLONASE) 50 MCG/ACT nasal solution 1-2 Sprays by Nasal route. 05/02/2015 Active RESTASIS 0.05 % eye drops Place 1 Drop into both eyes two times a day. 3 08/16/2016 Active LYSINE OR Take 1 Tab by mouth daily. Active drug not in computerIndication s:piedad red Indications: piedad red Act tomasa emtricitabine-teno fovir (TRUVADA) 200-300 MG tablet Take 1 Tablet by mouth daily. 03/29/2022 Active L-FORMULA LYSINE HCL OR lysine Active pentoxifylline (TRENTAL) 400 MG controlled release tablet pentoxifylline ER 400 mg tablet,extended release Active Tadalafil (CIALIS) 20 MG tablet Every 24 hours. Active TRINTELLIX 5 MG tablet Take 5 mg by mouth daily. 01/29/2022 Active amphetamine-dextro amphetamine XR (ADDERALL XR) 20 MG 24 hour release capsule dextroamphetamine-amph etamine ER 20 mg 24hr capsule,extend release TAKE 2 CAPSULES BY MOUTH EVERY DAY Active amphetamine-dextro amphetamine XR (ADDERALL XR) 20 MG 24 hour release capsule Take 20 mg by mouth two times a day. 03/06/2022 Active traZODone (DESYREL) 50 MG tablet Take 1 Tablet (50 mg) by mouth daily at bedtime. 08/30/2022 Active zolpidem (AMBIEN) 5 MG tablet Take 1 Tablet (5 mg) by mouth at bedtime as needed. 08/30/2022 Active sildenafil (VIAGRA) 50 MG tablet Take 1 Tablet (50 mg) by mouth daily as needed. 04/25/2022 Active Active Problems No known active problems Immunizations Name Administration Dates Next Due DT Ped 11/03/1987 Flu Vac (3+ yrs) 05/05/2012,04/17/2011, 0 Flu Vac Preserv Free (3+yrs) 03/29/2009 HepA-HepB (TWINRIX, 18+ yrs) 06/29/2011,05/25/20 11 HepB Adult (Engerix-B, 20+ y rs, 3 dose series) 07/29/1996,02/26/1996,12/18/1995 Influenza (Flucelvax), Prese rv Free QIV 02/18/2022,03/05/2020 Influenza IIV4 (Quadrivalent ) 0.5mL (04929) 03/29/2021,03/24/2018,09/14/2016, 015,04/16/2014,06/02/2013 JE (IXIARO) 05/25/2011 MMR 01/12/1992 Moderna Monovalent 12+ 07/05/2021,11/10/2020, OPV, Trivalent (Orimune or tOPV) 11/03/1987 Td 12/18/1995 Tdap 01/01/2016,05/25/2011 Typhoid (Vivotif, Oral) 05/25/2011 Social History Tobacco Use Types Packs/Day Years Used Date Smoking Tobacco: Never Alcohol Use Standard Drinks/Week Comments Yes 3 (1 standard drink = 0.6 oz pur e alcohol) Sex and Gender Information Value Date Recorded Sex Assigned at Not on file Gender Identity Not on file Sexual Orientation Not on file Last Filed Vital Signs Vital Sign Reading Time Taken Comments Blood Pressure 120/84 09/18/2022 9:25 AM CDT Pulse 63 09/18/2022 9:25 AM CDT Temperature 36.8 ??C (98.2 ??F) 09/18/2022 9:25 AM CD T Respiratory Rate 18 09/18/2022 9:25 AM CDT Oxygen Saturation 100% 09/18/2022 9:25 AM CDT Inhaled Oxygen Concentration - - Weight 108.9 kg (240 lb 1.3 oz) 01/25/2017 7:45 AM CDT Height 185.4 cm (6' 1) 01/25/2017 7:45 AM CDT Body Mass Index 31.67 01/25/2017 7:45 AM CDT Plan of Treatment Health Maintenance Due Date Last Done Comments Colon Cancer Screening Plan Due 1980 Hep C Screening (Preventive Services) 1980 IPV (Polio) (2 of 3 - 4-dose series) 12/01/1987 11/03/1987 HIV Screening (Preventive Services) 1994 Adult Preventive Visit 1996 Cholesterol 2013 COVID-19 Vaccine ( season) 2023 07/05/2021, 11/10/2020, 10/13/2020 Influenza (Season Ended) 2024 022, 03/29/2021, 03/05/2020, Additional history exists DTaP/Tdap/Td (5 - Tdap) 12/31/2025 01/01/20 16, 05/25/2011, 12/18/1995, Additional history exists Zoster/Shingles (1 of 2) 2028 HepA Aged Out 06/29/2011, 05/25/2011 No lo nger eligible based on patient's age to complete this topic HepB Completed 06/29/2011, 07/2010, 07/29/1996, Additional history exists HPV Vaccine Aged Out No longer eligi ble based on patient's age to complete this topic Hib Aged Out No longer eligi ble based on patient's age to complete this topic MCV4 Aged Out No longer eligi ble based on patient's age to complete this topic Pneumococcal Aged Out No longer eligi ble based on patient's age to complete this topic Medical Devices Implanted Type Area Advertising Operations Manager Device Identifier Shelf Expiration Date Model / Serial / Lot Scr Canc Hex 4.0x40 F-Thrd - [id number] Implanted:Qty : 1 on 09/19/2016 by Ben Camacho MD at [facility] Left: FOOT [employer] [id number] / 000 / 000 Scr Canc Hex 4.0x45 F-Thrd - [id number] Implanted:Qty : 1 on 09/19/2016 by Ben Camacho MD at [facility] Left: FOOT [employer] [id number] / 000 / 000 K-Wire Gd .062 - [id number] Implanted:Qty : 122 on 09/19/2016 by Ben Camacho MD at [facility] Left: FOOT [employer] Surg Instr [id number] / 000 / 000 Explanted Type Area Advertising Operations Manager Device Identifier Shelf Expiration Date Model / Serial / Lot K-Wire Gd .062 - [id number] Explanted:Qty: 1 on 09/19/2016 at [facility] Left: FOOT [employer] Surg Instr [id number] / 000 / 000 Care Teams Administrator Relationship Specialty Start Date End Date Unassigned, Provider [address] [place] [address] PCP - General 08/12/01
--- OUTSIDE RECORDS SUMMARY | 2023-11-06 12:02 | XMS_ITS | Clinical Summary ---
Author Name Unknown Organization [facility] Address [address] [place] [address]. [place] [address] Care Team Providers Care Fifth Hand Name Role Phone Susan Yin PA-C Primary Care Pr ovider Allergies No known active allergies Medications Medication Sig Dispensed Refills Start Date End Date Status amphetamine-dextroam phetamine (ADDERALL XR) 20 MG per capsuleIndications:A ttention deficit disorder of adult Take 2 capsules by mouth daily. 0 06/29/2011 Active naproxen (NAPROSYN) 500 MG tabletIndications:Hi p pain, left Take 1 tablet (500 mg) by mouth 2 times daily as needed for moderate pain 30 tablet 1 04/08/2018 Active amoxicillin (AMOXIL) 500 MG capsule 04/05/2022 Active emtricitabine-tenofo vir (TRUVADA) 200-300 MG per tablet Take 1 tablet by mouth daily 03/29/2022 Active Active Problems Problem Noted Date Diagnosed Date Cervicalgia 11/20/2012 Pain in thoracic spine 11/20/2012 Obesity 08/26/2012 Low HDL (under 40) 07/13/2011 Family history of coronary artery disease 2011 Attention deficit disorder of adult 08/25/2008 Allergic state 08/25/2008 Overview: (Problem list name updated by automated process. Provider to review and confirm.) Resolved Problems Problem Noted Date Diagnosed Date Resolved Date CARDIOVASCULAR SCREENING; LD L GOAL LESS THAN 160 04/23/2010 09/30/2015 Immunizations Name Administration Dates Next Due Influenza (IIV3) PF 05/06/2012 Influenza Vaccine >6 months,quad, PF 06/2017,04/15/2015,04/16/2014,2012 [place] Encephalitis IM 05/25/2011 TDAP Vaccine (Boostrix) 05/25/2011 Twinrix A/B 06/29/2011,05/25/2011 Typhoid Oral 05/25/2011 Family History Medical History Relation Comments Family History Negative Brother 2 Heart Disease Father quintuple bypass Obesity Father Diabetes Maternal Grandfather due to weig ht Obesity Maternal Grandfather Cancer - colorectal Maternal Uncle diagnosed in his 50's Family History Negative Mother parents are both alive and healthy Heart Disease Paternal Grandfather bypass-elvia ral times-first one at 60 Cerebrovascular Disease Paternal Grandmother [...] Answer Date Recorded PHQ-2 Score 2 04/08/2018 Adolescent Education Answer Date Record ed Getting School Help Needed Not on file 03/22 Sex and Gender Information Value Date Recorded Sex Assigned at Not on file Gender Identity Not on file Sexual Orientation Not on file Last Filed Vital Signs Vital Sign Reading Time Taken Comments Blood Pressure 129/79 04/05/2022 3:48 PM CDT Pulse 88 04/05/2022 3:48 PM CDT Temperature 36.7 ??C (98.1 ??F) 04/05/2022 3:48 PM CD T Respiratory Rate 18 04/05/2022 3:48 PM CDT [...] 1978 ANNUAL REVIEW OF HM ORDERS 1978 CT COLONOGRAPHY 1978 FIT 1978 FLEX SIG 1978 sDNA (Cologuard) 1978 IPV IMMUNIZATION (2 of 3 - 4-dose series) 12/01/1987 11/03/1987 COLONOSCOPY 1988 COLORECTAL CANCER SCREENING 1988 HIV SCREENING 1993 HEPATITIS C SCREENING 1996 YEARLY PREVENTIVE VISIT 04/08/2019 04/08/20 18, 04/15/2015, 06/29/2011, Additional history exists GLUCOSE 04/15/2021 04/15/2018, 03/25, 08/26/2012, Additional history exists COVID-19 Vaccine ( season) 2023 07/05/2021, 11/10/2020, 10/13/2020 LIPID 04/15/2023 04/15/2018, 03/25, 06/30/2011, Additional history exists PHQ-2 (once per calendar year) 2023 04/08/2018, 12/21/2016, 04/15/2015 INFLUENZA VACCINE (Season Ended) 2024 03/29/2021, 03/24/2018, 09/14/2016, Additional history exists DTAP/TDAP/TD IMMUNIZATION (4 - Td or Tdap) 12/31/2025 01/01/2016, 05/25/2011, 12/18/1995 HEPATITIS B IMMUNIZATION Completed 012, 05/25/2011, 07/29/1996, Additional history exists HPV IMMUNIZATION Aged Out No longer e ligible based on patient's age to complete this topic MENINGITIS IMMUNIZATION Aged Out No l onger eligible based on patient's age to complete this topic Pneumococcal Vaccine: Pediatrics (0 to 5 Years) and At-Risk Patients (6 to 64 Years) Aged Out No longer eligible based on patient's age to complete this topic RSV MONOCLONAL ANTIBODY Aged Out No l onger eligible based on patient's age to complete this topic Procedures Procedure Name Priority Date/Time Associated Diagnosis Comments COMPREHENSIVE METABOLIC PANEL Routine 04/15/2018 8:19 AM CDT Lipid screening LIPID REFLEX TO DIRECT LDL PANEL Routine 04/15/2018 8:19 AM CDT Screening for thyroid disorder from Last 3 Months or Most Recently Relevant to Health Maintenance Results * Lipid panel reflex to direct LDL Fasting (04/15/2018 8:19 AM CDT) Cholesterol 161 <200 mg/dL 04/15/2018 1:39 PM CDT [facility] Triglycerides 96 <150 mg/dL 04/15/2018 1:39 PM CDT [facility] Comment:Fasting specimen HDL Cholesterol 54 >39 mg/dL 8 1:39 PM CDT [facility] LDL Cholesterol Calculated 88 <100 mg/dL 04/15/2018 1:39 PM CDT [facility] Comment:Desirable: <100 mg/d l Non HDL Cholesterol 107 <130 mg/dL 04/15/2018 1:39 PM CDT [facility] Blood specimen (specimen) 04/15/2018 8:19 AM CDT 04/15/2018 8:20 AM CDT Susan Yin PA-C LAB - BL OOD ORDERABLES [facility] [address] [place] [address] * Comprehensive metabolic panel (04/15/2018 8:19 AM CDT) Sodium 139 133 - 144 mmol/L 04/15/2018 1:39 PM CDT [facility] Potassium 4.3 3.4 - 5.3 mmol/L 04/15/2018 1:39 PM CDT [facility] Chloride 105 94 - 109 mmol/L 04/15/2018 1:39 PM CDT [facility] Carbon Dioxide 29 20 - 32 mmol/L 04/15/2018 1:39 PM CDT [facility] Anion Gap 5 3 - 14 mmol/L 04/15/2018 1:39 PM CDT [facility] Glucose 94 70 - 99 mg/dL 04/15/2018 1:39 PM CDT [facility] Comment:Fasting specimen Urea Nitrogen 7 7 - 30 mg/dL 04/15/2018 1:39 PM CDT [facility] Creatinine 0.86 0.66 - 1.25 mg/dL 04/15/2018 1:39 PM CDT [facility] GFR Estimate >90 >60 mL/min/1.7 m2 04/15/2018 1:39 PM CDT [facility] Comment:Non GFR Calc GFR Estimate If Black >90 >60 mL/min/1.7 m2 04/15/2018 1:39 PM CDT [facility] Comment: GFR Calc Calcium 9.2 8.5 - 10.1 mg/dL 04/15/2018 1:39 PM CDT [facility] Bilirubin Total 0.6 0.2 - 1.3 mg/dL 04/15/2018 1:39 PM CDT [facility] Albumin 4.1 3.4 - 5.0 g/dL 04/15/2018 1:39 PM CDT [facility] Protein Total 7.6 6.8 - 8.8 g/dL 04/15/2018 1:39 PM CDT [facility] Alkaline Phosphatase 71 40 - 150 U/L 04/15/2018 1:39 PM CDT [facility] ALT 49 0 - 70 U/L 04/15/2018 1:39 PM CDT [facility] AST 31 0 - 45 U/L 04/15/2018 1:39 PM CDT [facility] Blood specimen (specimen) 04/15/2018 8:19 AM CDT 04/15/2018 8:20 AM CDT Susan Yin PA-C LAB - BL OOD ORDERABLES [facility] [address] [place] [address] from Last 3 Months or Most Recently Relevant to Health Maintenance Care Teams Fifth Hand Relationship Specialty Start Date End Date Susan Yni PA-C [id number] [place] [address] PCP - General Physician Conveyor Feeder Offbearer 04/08/18
--- OUTSIDE RECORDS SUMMARY | 2023-11-06 12:02 | XMS_ITS | Referral Summary ---
Author Name Unknown Organization [facility] Address [address] [place] [address]. [place] [address] Care Team Providers Care Branch Coordinator Name Role Phone Susan Yin PA-C Primary [...] 05/06/2012 Influenza Vaccine >6 months,quad, PF 06/2017,04/15/2015,04/16/2014,2012 [place] Encephalitis IM 05/25/2011 TDAP Vaccine (Boostrix) 05/25/2011 Twinrix A/B 06/29/2011,05/25/2011 Typhoid Oral 05/25/2011 Social History Tobacco Use Types Packs/Day [...] 04/08/2018 3:11 PM CDT Plan of Treatment Not on file Procedures Procedure Name Priority Date/Time Associated Diagnosis Comments COMPREHENSIVE METABOLIC PANEL Routine 04/15/2018 8:19 AM CDT Lipid screening LIPID REFLEX TO DIRECT LDL PANEL Routine 04/15/2018 8:19 AM CDT Screening for thyroid disorder from Last 3 Months or Most Recently Relevant to Health Maintenance Results * Lipid panel reflex to direct LDL Fasting (04/15/2018 8:19 AM CDT) [facility] Signature Cholesterol 161 <200 mg/dL 04/15/2018 1:39 PM CDT [facility] Triglycerides 96 <150 mg/dL 04/15/2018 1:39 PM CDT [facility] Comment:Fasting specimen HDL Cholesterol 54 >39 mg/dL 8 1:39 PM CDT [facility] LDL Cholesterol Calculated 88 <100 mg/dL 04/15/2018 1:39 PM CDT [facility] Comment:Desirable: <100 mg/d l Non HDL Cholesterol 107 <130 mg/dL 04/15/2018 1:39 PM CDT [facility] Blood specimen (specimen) 04/15/2018 8:19 AM CDT 04/15/2018 8:20 AM CDT Susan Yin PA-C LAB - BL OOD ORDERABLES [facility] [address] [place] [address] * Comprehensive metabolic panel (04/15/2018 8:19 AM CDT) Sodium 139 133 - 144 mmol/L 04/15/2018 1:39 PM CDT [facility] Potassium 4.3 3.4 - 5.3 mmol/L 04/15/2018 1:39 PM CDT [facility] Chloride 105 94 - 109 mmol/L 04/15/2018 1:39 PM CDT [facility] Carbon Dioxide 29 20 - 32 mmol/L 04/15/2018 1:39 PM CDT [facility] Anion Gap 5 3 - 14 mmol/L 04/15/2018 1:39 PM CDT [facility] Glucose 94 70 - 99 mg/dL 04/15/2018 1:39 PM CDT [facility] Comment:Fasting specimen Urea Nitrogen 7 7 - 30 mg/dL 04/15/2018 1:39 PM CDT [facility] Creatinine 0.86 0.66 - 1.25 mg/dL 04/15/2018 1:39 PM CDT [facility] GFR Estimate >90 >60 mL/min/1.7 m2 04/15/2018 1:39 PM CDT [facility] Comment:Non GFR Calc GFR Estimate If Black >90 >60 mL/min/1.7 m2 04/15/2018 1:39 PM CDT [facility] Comment: GFR Calc Calcium 9.2 8.5 - 10.1 mg/dL 04/15/2018 1:39 PM CDT [facility] Bilirubin Total 0.6 0.2 - 1.3 mg/dL 04/15/2018 1:39 PM CDT [facility] Albumin 4.1 3.4 - 5.0 g/dL 04/15/2018 1:39 PM CDT [facility] Protein Total 7.6 6.8 - 8.8 g/dL 04/15/2018 1:39 PM CDT [facility] Alkaline Phosphatase 71 40 - 150 U/L 04/15/2018 1:39 PM CDT [facility] ALT 49 0 - 70 U/L 04/15/2018 1:39 PM CDT [facility] AST 31 0 - 45 U/L 04/15/2018 1:39 PM CDT [facility] Blood specimen (specimen) 04/15/2018 8:19 AM CDT 04/15/2018 8:20 AM CDT Susan Yin PA-C LAB - BL OOD ORDERABLES [facility] [address] [place] [address] from Last 3 Months or Most Recently Relevant to Health Maintenance Care Teams Branch Coordinator Relationship Specialty Start Date End Date Susan Yin [place]-C [id number] [place] [address] PCP - General Physician Vessel Scrapper Helper 04/08/18
== END 2023-11-06 12:00 | disposition home or self-care (01) ==
LOC: LKVREF 12:01
PROVIDERS: PCP Physician Assistant Medical; Visit Provider Physician Assistant Medical
DX: R10.31 Right lower quadrant pain (principal)
CPT/HCPCS: 80053

== ENCOUNTER 2024-09-04 09:25 | Outpatient (CLI) | payer OTHER, SELFPAY | END 2024-09-04 09:26 | disposition home or self-care (01) | LOC: NFLDREF 09-07 01:56 | PROVIDERS: PCP Emergency Medicine; Referring Provider Emergency Medicine; Visit Provider Emergency Medicine | DX: R73.9 Hyperglycemia, unspecified (principal); R10.2 Pelvic and perineal pain; R74.01 Elevation of levels of liver transaminase levels; K21.9 Gastro-esophageal reflux disease without esophagitis; Z13.6 Encounter for screening for cardiovascular disorders | CPT/HCPCS: 80053; 80061; 82607 ==